=== PATIENT | female | born 1930 | race Caucasian/White ===

== ENCOUNTER 2017-03-12 23:36 | Inpatient (IN) | payer MEDICARE, OTHER ==
[~2017-03-12] VITALS: Ht 165.1 cm; Wt 64.9 kg
[2017-03-13] MEDS ORDERED: DULO60CA6 PO (00:37)
[2017-03-13] MEDS ORDERED: MAGN2400 PO (00:37)
[2017-03-13] MEDS ORDERED: CARV3.12 PO (00:37)
[2017-03-13] MEDS ORDERED: DIVA500T4 PO (00:37)
[2017-03-13] MEDS ORDERED: CYAN10002 IM (00:37)
[2017-03-13] MEDS ORDERED: ACET325T9 PO (00:37)
[2017-03-13] MEDS ORDERED: PALI6TAB3 PO (00:37)
[2017-03-13] MEDS ORDERED: BISA5TAB4 PO (00:37)
[2017-03-13] MEDS ORDERED: LORA10TA68 PO (00:37)
[2017-03-13] MEDS ORDERED: GUAI600T47 PO (00:37)
[2017-03-13] MEDS ORDERED: SODI30SP NS ×2 (00:37→04:05)
[2017-03-13] MEDS ORDERED: FAMO20TA5 PO (00:37)
[2017-03-13] MEDS ORDERED: LEVO88TA4 PO (00:37)
[2017-03-13] MEDS ORDERED: ATOR40TA59 PO (00:37)
[2017-03-13] MEDS ORDERED: MAG355OR11 PO (00:37)
[2017-03-13] MEDS ORDERED: ASPI-630 PO (00:37)
[2017-03-13] MEDS ORDERED: NITR0.4T22 SL (00:37)
[2017-03-13] MEDS ORDERED: METHYL SALICYLATE/MENTHOL TOPICAL OINTMENT 29GM TUBE. TP PRN (03:30)
[2017-03-13] MEDS ORDERED: BISACODYL TAB 5 MG TABLET.DR. PO PRN (04:00)
[2017-03-13] MEDS ORDERED: NITROGLYCERIN SUBLINGUAL 0.4 MG BOTTLE OF 25. SL PRN (04:00)
[2017-03-13 04:03] VITALS: BP 127/74
[2017-03-13] MEDS ORDERED: MAG HYDROX/AL HYDROX/SIMETH 30 ML ORAL.SUSP PO PRN (04:30)
[2017-03-13 06:35] LABS: BASO % 1 % (0-3); EOS # 0.2 x10^3/uL (0.0-0.7); EOS % 3 % (0-3); HEMATOCRIT 36.9 % (36.0-47.0); HEMOGLOBIN 12.5 g/dL (12.0-15.5); LYMPH # 1.2 x10^3/uL (1.0-4.8); LYMPH % 19 % (24-48); MEAN CORPUSCULAR HEMOGLOBIN 29 pg (25-35); MEAN CORPUSCULAR HGB CONC 34 g/dL (31-37); MEAN CORPUSCULAR VOLUME 85 fL (79-100); MONO # 1.3 x10^3/uL (0.0-1.1); MONO % 22 % (0-9); NEUT # 3.4 x10^3uL (1.8-7.7); NEUT % 56 % (31-73); PLATELET COUNT 79 x10^3/uL (140-400); RED BLOOD COUNT 4.36 x10^6/uL (3.50-5.40); RED CELL DISTRIBUTION WIDTH 19.2 % (11.5-14.5); WHITE BLOOD COUNT 6.1 x10^3/uL (4.0-11.0)
[2017-03-13 06:45] LABS: ALBUMIN 2.9 g/dL (3.4-5.0); ALBUMIN/GLOBULIN RATIO 0.9 (1.0-1.7); CALCIUM 7.8 mg/dL (8.5-10.1); CREATININE 0.7 mg/dL (0.6-1.0); GFR 79.2; MAGNESIUM 1.9 mg/dL (1.8-2.4); POTASSIUM 3.2 mmol/L (3.5-5.1); TOTAL PROTEIN 6.1 g/dL (6.4-8.2)
[2017-03-13 06:51] LABS: VAL ACID 54 mcg/mL (50-100)
[2017-03-13] MEDS ORDERED: LEVOTHYROXINE 88 MCG TABLET PO SCH (07:00)
[2017-03-13 07:25] LABS: CLARITY,URINE CLEAR; COLOR,URINE YELLOW
[2017-03-13 07:26] LABS: BACTERIA,URINE 0 /HPF (0-FEW); BILIRUBIN,URINE NEG (NEG); GLUCOSE,URINE NEG (NEG); NITRITE,URINE NEG (NEG); SQUAMOUS EPITHELIAL CELL,UR FEW /LPF; UROBILINOGEN,URINE 0.2 mg/dL (0.2 mg/dL)
[2017-03-13] MEDS ORDERED: CETIRIZINE HCL 10 MG TABLET PO PRN (09:00)
[2017-03-13] MEDS: CARVEDILOL 3.125 MG TABLET PO SCH ×2 (09:26→17:15)
[2017-03-13] MEDS: ASPIRIN 81 MG TAB.CHEW PO SCH (09:27)
[2017-03-13] MEDS: FAMOTIDINE 20 MG TABLET PO SCH (09:28)
[2017-03-13] MEDS: DULoxetine HCL 60 MG CAPSULE.DR PO SCH (09:28)
[2017-03-13] MEDS: DIVALPROEX SODIUM 250 MG TABLET.DR. PO SCH ×2 (09:28→20:33)
[2017-03-13] MEDS: risperiDONE 1 MG TABLET. PO SCH ×2 (09:28→20:33)
[2017-03-13] MEDS: SODIUM CHLORIDE 0.65% NASAL SPRAY 45ML BOTTLE. NS SCH ×2 (09:48→20:33)
[2017-03-13 10:11] LABS: THYROID STIM HORMONE (TSH) 20.055 uIU/mL (0.358-3.740)
[2017-03-13 12:10] LABS: T3 TOTAL 54 ng/dL (71-180); THYROXINE 4.5 ug/dL (4.5-12.0)
[2017-03-13 16:08] VITALS: BP 152/89
[2017-03-13 18:07] LABS: HEMOGLOBIN A1C 5.1 % (4.8-5.6)
--- NOTE | 2017-03-13 19:58 | PDOC ---
Exam Note: Marco Note: Please also refer to the separate dictated note~for this date of service dictated separately.~Patient seen individually. Discussed the patient with Nursing staff reviewed the chart.~Reviewed interim history and current functioning. Reviewed vital signs,~Labs/ Radiology~and current medications noted below. Continue current treatment with the changes noted in the dictated addendum note Assessment: Vital Signs: Vital Signs Date Time Temp Pulse Resp B/P (MAP) Pulse Ox O2 Delivery O2 Flow Rate FiO2 03/13/17 17:15 76 152/89 03/13/17 16:08 97.6 18 97 Room Air I&O Intake and Output 03/14/17 07:00 Intake Total 440 ml Balance 440 ml Intake Oral 440 ml Labs: Laboratory Tests Test 03/13/17 06:20 03/13/17 07:00 White Blood Count 6.1 x10^3/uL (4.0-11.0) Red Blood Count 4.36 x10^6/uL (3.50-5.40) Hemoglobin 12.5 g/dL (12.0-15.5) Hematocrit 36.9 % (36.0-47.0) Mean Corpuscular Volume 85 fL (79-100) Mean Corpuscular Hemoglobin 29 pg (25-35) Mean Corpuscular Hemoglobin Concent 34 g/dL (31-37) Red Cell Distribution Width 19.2 % (11.5-14.5) H Platelet Count 79 x10^3/uL (140-400) L Neutrophils (%) (Auto) 56 % (31-73) Lymphocytes (%) (Auto) 19 % (24-48) L Monocytes (%) (Auto) 22 % (0-9) H Eosinophils (%) (Auto) 3 % (0-3) Basophils (%) (Auto) 1 % (0-3) Neutrophils # (Auto) 3.4 x10^3uL (1.8-7.7) Lymphocytes # (Auto) 1.2 x10^3/uL (1.0-4.8) Monocytes # (Auto) 1.3 x10^3/uL (0.0-1.1) H Eosinophils # (Auto) 0.2 x10^3/uL (0.0-0.7) Basophils # (Auto) 0.0 x10^3/uL (0.0-0.2) Sodium Level 141 mmol/L (136-145) Potassium Level 3.2 mmol/L (3.5-5.1) L Chloride Level 105 mmol/L (98-107) Carbon Dioxide Level 29 mmol/L (21-32) Anion Gap 7 (6-14) Blood Urea Nitrogen 6 mg/dL (7-20) L Creatinine 0.7 mg/dL (0.6-1.0) Estimated GFR (Cockcroft-Gault) 79.2 BUN/Creatinine Ratio 9 (6-20) Glucose Level 98 mg/dL (70-99) Hemoglobin A1c 5.1 % (4.8-5.6) Calcium Level 7.8 mg/dL (8.5-10.1) L Magnesium Level 1.9 mg/dL (1.8-2.4) Iron Level 22 ug/dL (50-170) L Total Iron Binding Capacity 287 ug/dL (250-450) Iron Saturation 8 % (15-34) L Total Bilirubin 1.0 mg/dL (0.2-1.0) Aspartate Amino Transferase (AST) 14 U/L (15-37) L Alanine Aminotransferase (ALT) 19 U/L (14-59) Alkaline Phosphatase 42 U/L (46-116) L Total Protein 6.1 g/dL (6.4-8.2) L Albumin 2.9 g/dL (3.4-5.0) L Albumin/Globulin Ratio 0.9 (1.0-1.7) L Triglycerides Level 67 mg/dL (0-150) Cholesterol Level 103 mg/dL (0-200) LDL Cholesterol, Calculated 52 mg/dL (0-100) VLDL Cholesterol, Calculated 13 mg/dL (0-40) Non-HDL Cholesterol Calculated 65 mg/dL (0-129) HDL Cholesterol 38 mg/dL (40-60) L Cholesterol/HDL Ratio 2.0 Thyroid Stimulating Hormone (TSH) 20.055 uIU/mL (0.358-3.740) Thyroxine (T4) 4.5 ug/dL (4.5-12.0) Total Triiodothyronine (TT3) 54 ng/dL (71-180) L Valproic Acid Level 54 mcg/mL (50-100) Valproic Acid Last Dose Date 03/12/2017 Valproic Acid Last Dose Time 2100 RPR Titer Additional Testing Pending Urine Collection Type Unknown Urine Color Yellow Urine Clarity Clear Urine pH 7.0 Urine Specific [place] 1.020 Urine Protein Neg (NEG-TRACE) Urine Glucose (UA) Neg mg/dL (NEG) Urine Ketones (Stick) Trace mg/dL (NEG) Urine Blood Trace (NEG) Urine Nitrite Neg (NEG) Urine Bilirubin Neg (NEG) Urine Urobilinogen Dipstick 0.2 mg/dL (0.2 mg/dL) Urine Leukocyte Esterase Neg (NEG) Urine RBC 3-5 /HPF (0-2) Urine WBC 1-4 /HPF (0-4) Urine Squamous Epithelial Cells Few /LPF Urine Bacteria 0 /HPF (0-FEW) Current Medications: Meds: Current Medications Multi-Ingredient Ointment (Analgesic [employer]) 1 diana PRN QID PRN TP MUSCLE PAIN; Start 03/13/17 at 03:30 Olanzapine (ZyPREXA ZYDIS) 1.25 mg PRN Q2HR PRN PO PSYCHOSIS; Start 03/13/17 at 03:45 Acetaminophen (Tylenol) 650 mg PRN Q6HRS PRN PO MILD PAIN/TEMP; Start at 04:00 Aspirin (Children'S Aspirin) 81 mg DAILY PO Last administered on 03/13/17 09: 27; Start 03/13/17 at 09:00 Bisacodyl (Dulcolax Tab) 5 mg PRN DAILY PRN PO CONSTIPATION; Start 03/13/17 at 04:00 Carvedilol (Coreg) 3.125 mg BIDWMEALS PO Last administered on 03/13/17 17:15 ; Start 03/13/17 at 08:00 Cyanocobalamin (Vitamin B-12) 1,000 mcg QMONTH IM ; Start 04/10/17 at 09:00 Famotidine (Pepcid) 20 mg DAILY PO Last administered on 03/13/17 09:28; Start 03/13/17 at 09:00 Guaifenesin (Mucinex Er) 600 mg PRN BID PRN PO COUGH; Start 03/13/17 at 04:00 Levothyroxine Sodium (Synthroid) 88 mcg DAILY07 PO Last administered on 06:31; Start 03/13/17 at 07:00; Stop 03/13/17 at 16:07; Status DC Nitroglycerin (Nitrostat) 0.4 mg PRN Q5MIN PRN SL CHEST PAIN; Start 03/13/17 at 04:00 Sodium Chloride (Saline Mist Nasal) 2 diana BID NS ; Start 03/13/17 at 09:00 Atorvastatin Calcium (Lipitor) 40 mg QHS PO ; Start 03/13/17 at 21:00 Cetirizine HCl (ZyrTEC) 10 mg PRN DAILY PRN PO ALLERGIES; Start 03/13/17 at 09 :00 Al Hydroxide/Mg Hydroxide (Mylanta Plus Xs) 30 ml PRN DAILY PRN PO DYSPEPSIA; Start 03/13/17 at 04:30 Magnesium Hydroxide (Milk Of Magnesia) 2,400 mg PRN DAILY PRN PO CONSTIPATION; Start 03/13/17 at 04:30 Divalproex Sodium (Depakote) 500 mg BID PO Last administered on 03/13/17 09: 28; Start 03/13/17 at 09:00 Duloxetine HCl (Cymbalta) 60 mg DAILY PO Last administered on 03/13/17 09:28 ; Start 03/13/17 at 09:00 Risperidone (RisperDAL) 3 mg BID PO Last administered on 03/13/17 09:28; Start 03/13/17 at 09:00 Levothyroxine Sodium (Synthroid) 125 mcg DAILY07 PO ; Start 03/14/17 at 07:00 Potassium Chloride (Klor-Con) 20 meq BID PO ; Start 03/13/17 at 21:00 Mirtazapine (Remeron) 7.5 mg QHS PO ; Start 03/13/17 at 21:00 Active Scripts Active Reported Saline Nasal [place] (Sodium Chloride) 30 Ml [place] 2 Spr NS BID NITROGLYCERIN SubLingual (Nitroglycerin) 0.4 Mg Tab.subl 0.4 Mg SL PRN Q5MIN PRN Mucinex (Guaifenesin) 600 Mg Tablet.er 600 Mg PO PRN BID PRN Milk Of Magnesia (Magnesium Hydroxide) 2,400 Mg/10 Ml Oral.susp 30 Ml PO PRN DAILY PRN Maalox Advanced Suspension (Mag Hydrox/Aluminum Hyd/Simeth) 355 Ml Oral.susp 30 Ml PO PRN Q24HRS Levothyroxine Sodium 88 Mcg Tablet 88 Mcg PO DAILYAC Invega (Paliperidone) 6 Mg Tab.er.24 6 Mg PO QHS Famotidine 20 Mg Tablet 20 Mg PO DAILY Bisacodyl 5 Mg Tablet.dr 5 Mg PO PRN DAILY PRN Depakote Er (Divalproex Sodium) 500 Mg Tab.er.24h 500 Mg PO BID Cymbalta (Duloxetine Hcl) 60 Mg Capsule.dr 60 Mg PO DAILY Cyanocobalamin Injection (Cyanocobalamin (Vitamin B-12)) 1,000 Mcg/1 Ml Vial 1, 000 Mcg IJ QMONTH Coreg (Carvedilol) 3.125 Mg Tablet 3.125 Mg PO BIDWMEALS Claritin (Loratadine) 10 Mg Tablet 10 Mg PO PRN DAILY PRN Atorvastatin Calcium 40 Mg Tablet 40 Mg PO QHS Aspirin 81 Mg Tab.chew 81 Mg PO DAILY Tylenol (Acetaminophen) 325 Mg Tablet 650 Mg PO PRN Q6HRS I have reviewed the current psychotropics carefully including drug interactions. Risk benefit ratio favors no change other than as noted in my dictated progress note. PATRICIA HUNT MD Mar 13, 2017 19:58
[2017-03-13] MEDS: POTASSIUM CHLORIDE 20 MEQ TABLET.ER. PO SCH (20:35)
[2017-03-13] MEDS: ATORVASTATIN CALCIUM 20 MG TABLET PO SCH (20:35)
[2017-03-13] MEDS: MIRTAZAPINE 7.5 MG TABLET. PO SCH (20:35)
[2017-03-14 06:32] VITALS: BP 117/80
[2017-03-14] MEDS: LEVOTHYROXINE 125 MCG TABLET PO SCH (06:32)
[2017-03-14] MEDS: DIVALPROEX SODIUM 250 MG TABLET.DR. PO SCH ×2 (08:18→19:32)
[2017-03-14] MEDS: CARVEDILOL 3.125 MG TABLET PO SCH ×2 (08:18→16:41)
[2017-03-14] MEDS: POTASSIUM CHLORIDE 20 MEQ TABLET.ER. PO SCH ×2 (08:18→19:32)
[2017-03-14] MEDS: DULoxetine HCL 60 MG CAPSULE.DR PO SCH (08:18)
[2017-03-14] MEDS: FAMOTIDINE 20 MG TABLET PO SCH (08:18)
[2017-03-14] MEDS: ASPIRIN 81 MG TAB.CHEW PO SCH (08:18)
[2017-03-14] MEDS: risperiDONE 1 MG TABLET. PO SCH (08:19)
[2017-03-14 08:31] VITALS: BP 160/97
[2017-03-14] MEDS: SODIUM CHLORIDE 0.65% NASAL SPRAY 45ML BOTTLE. NS SCH ×2 (10:17→20:06)
--- NOTE | 2017-03-14 11:08 | HP ---
ADMIT DATE: 03/13/2017 This is a late entry for date of service 03/13/2017 and covers elements not covered in my initial note of 03/13/2017. SUMMARY OF PROGRESS: I met with the patient the evening of 03/13/2017 for this evaluation. Discussed with nursing staff several times prior to the patient's admission and since her admission to gather background history, information regarding referral from [facility] Emergency Room where she presented from [facility]. IDENTIFYING DATA: The patient is an 86-year-old female. CHIEF COMPLAINT: "I am okay." HISTORY OF PRESENT ILLNESS: The patient has a history of dementia, Alzheimer's vascular type. She has been residing in the past several days, she has had increasing aggressive with family and staff at the facility. She is attempting to elope and has done this several times down the stairwell twice and attempted to climb out of the window. She has been delusional, paranoid and having sleep and appetite changes. Behaviors were deemed to be dangerous, unmanageable at the facility resulting in the referral to the Emergency Room and then to us for inpatient psychiatric stabilization. No clear history of bipolar disorder. PAST PSYCHIATRIC HISTORY: Progressive dementia, delusions, agitation. PAST MEDICAL HISTORY: Coronary artery disease, COPD, asthma, hyperlipidemia, hypothyroidism, plantar fasciitis, anemia, B12 deficiency, GERD, allergic rhinitis, mitral valve regurgitation, hypertension, subdural hematoma, cardiomyopathy, history of pulmonary embolism, PSVT. ALLERGIES: BIAXIN, CODEINE, SULFA, PENICILLIN, spironolactone, mushrooms. Accu-Cheks: None. Diet: Dysphagia 3. She ambulates ad steve. CODE STATUS: DNR. CURRENT PSYCHOTROPICS: Cymbalta 60 mg a day, Depakote ER 500 mg b.i.d. with a valproic acid level of 54, Invega 6 mg daily. FAMILY HISTORY: Noncontributory. SOCIAL HISTORY: No alcohol, drug abuse, physical, sexual or elder abuse. She is not known to be a perpetrator. REACTION TO HOSPITALIZATION: The patient oblivious of this asset. Physically, reasonably healthy, supportive family. REVIEW OF SYSTEMS: No CV, , eye, ENT or pulmonary system symptoms on review. Reliability poor. MENTAL STATUS EXAMINATION: Oriented to herself. Insight, judgment, recent and remote memory, attention, concentration, fund of knowledge poor, consistent with her diagnosis. Associations loose. She was unable to answer questions directly, would drift off in her thought processes and for the most part, unable comprehend while trying to communicate. No active suicidal or homicidal ideation. IMPRESSION: Major neurocognitive disorder, Alzheimer, vascular with depression, delusion, behavioral disturbance; anxiety disorder, unspecified; impulse control disorder, unspecified. Rest diagnoses as above. PLAN: Admit to the geropsychiatry unit at [facility]. I will see the patient daily individually from a psychiatric standpoint. Medical followup per Dr. Arroyo/Dr. Fitzpatrick. TSH is elevated. Synthroid has been increased to 125 mcg a day. Potassium is low, is being supplemented. She slept just 3-3/4 hours previous evening. We will start Remeron 7.5 mg p.o. at bedtime. Continue current psychotropics and make further adjustments as clinically indicated. MAN Kehinde HUNT MD DR: MARCOS/yusef JOB#: [id number] / [id number]
--- NOTE | 2017-03-14 11:25 | CONS ---
DATE OF CONSULTATION: 03/13/2017 MEDICAL MANAGEMENT CONSULTATION HISTORY OF PRESENT ILLNESS: The patient is an 86-year-old female patient, a resident at [facility] in [place], [place], was [facility] on account of increasing agitation and aggression with family and staff at the facility, attempting to elope several times. She attempted also to climb out of the window, all this in the background of dementia with behavioral disturbances. She is here for inpatient psychiatric stabilization. PAST MEDICAL HISTORY: Significant for coronary artery disease, chronic obstructive pulmonary disease, bronchial asthma, hyperlipidemia, hypothyroidism, plantar fascitis, anemia, B12 deficiency, gastroesophageal reflux disease, allergic rhinitis, mitral valve regurgitation, hypertension, subdural hematoma, cardiomyopathy. She has a history of pulmonary embolism, paroxysmal supraventricular tachycardia. PAST PSYCHIATRIC HISTORY: Significant for dementia, schizophrenia, and anxiety. ALLERGIES: SHE IS ALLERGIC TO BIAXIN(CLARITHROMYCIN), CODEINE, SULFA DRUGS, PENICILLIN, SPIRONOLACTONE, AND MUSHROOMS. MEDICATIONS: She is currently on following medications: She is on acetaminophen 650 mg p.o. q.6 hourly, aspirin 81 mg once a day, atorvastatin, calcium 40 mg at bedtime, bisacodyl 5 mg daily, carvedilol 3.125 mg twice a day with meals, cyanocobalamin 1000 mcg intramuscular once a month, divalproex sodium 500 mg extended release twice a day, duloxetine 60 mg once a day, famotidine 20 mg once a day, Mucinex 600 mg twice a day, levothyroxine sodium 88 mcg once a day, loratadine 10 mg daily, Maalox 30 mL p.o. every day p.r.n. for dyspepsia, milk of magnesia 30 mL p.o. daily p.r.n. for constipation, nitroglycerin 0.4 mg tablet sublingually as needed for chest pain, paliperidone or Invega 6 mg p.o. at bedtime and saline nasal spray 2 sprays to each nostril twice a day. FAMILY HISTORY: Unremarkable and noncontributory. SOCIAL HISTORY: She is , has a son and daughter. She used to be a smoker according to her and heavy drinker. OBJECTIVE: GENERAL: When I examined her, she was sitting comfortably in her chair in no apparent respiratory distress. She was pale. No jaundice, cyanosis, or thyromegaly. No jugular venous distention. No limb edema. VITAL SIGNS: Her heart rate was 68, blood pressure 127/74, her temperature was 97.9, respiratory rate 20, and oxygen saturation was 95% on room air. HEAD: Showed normocephalic, atraumatic. NECK: Supple. HEART: Showed normal first and second heart sounds with no gallop, rub or murmur. CHEST: Clear to auscultation. No crepitation or rhonchi. ABDOMEN: Slightly distended, soft, nontender. No guarding or rigidity. No organomegaly. Hernial orifices intact. Bowel sounds normal. NEUROLOGIC: She was awake, alert, responding at times appropriately. Cranial nerves intact. EXTREMITIES: She moves extremities without difficulty. LABORATORY DATA: Her lab work on admission showed serum sodium of 141, potassium 3.2, chloride 105, bicarbonate 29, anion gap of 7, BUN 6, creatinine 0.7, estimated GFR was 79 mL per minute. Her glucose was 98, calcium was 7.8, magnesium was 1.9. Serum iron was 22, TIBC was 287, total percent saturation was 8. Total bilirubin is 1. AST, ALT, alkaline phosphatase are normal. Total protein was 6.1, albumin was 2.9, her serum triglycerides were 67, total cholesterol 103, LDL cholesterol was 52, VLDL was 13 and HDL cholesterol was 38 and cholesterol ratio was 2. TSH was high at 20.055. Her total T4 was 4.5 and total T3 was 54. Her urinalysis was unremarkable. Urine toxic screen showed valproic acid was 54 mcg/mL within normal range. Her RPR is still pending. IMPRESSION: In summary, this is an 86-year-old female patient who was admitted with increased agitation, aggression with family and staff at the facility, attempting to elope several times downstairs twice and attempted to climb out of the window twice. All this in a background of dementia with behavioral disturbances. Medically, she has multiple medical problems including COPD, bronchial asthma, hyperlipidemia, hypothyroidism, plantar fasciitis, anemia, B12 deficiency, gastroesophageal reflux disease, mitral valve regurgitation, hypertension, subdural hematoma, cardiomyopathy, pulmonary embolism and paroxysmal supraventricular tachycardia. Her vital signs seem to be stable. Her lab work showed that she has thrombocytopenia with a platelet count of 79,000. Her chemistry showed that she has hypokalemia with serum potassium of 3.2. Also her TSH was high at 20 with low total T4 and total T3. PLAN: My plan is to make sure that the patient is getting her Synthroid at 88 mcg, replenish her potassium. She is not on so far any diuretics and we will check her vitamin B12 also to make sure that it is within normal range as she is known to have vitamin B12 deficiency. Otherwise, she is mostly medically stable. Thank you, Dr. Palencia, for allowing me to participate in the care of this patient. FERMIN ANDERSON MD DR: VAL/yusef JOB#: [id number] / [id number]
[2017-03-14 16:05] VITALS: BP 138/81
[2017-03-14] MEDS: MIRTAZAPINE 7.5 MG TABLET. PO SCH (19:31)
[2017-03-14] MEDS: ATORVASTATIN CALCIUM 20 MG TABLET PO SCH (19:32)
--- NOTE | 2017-03-14 19:59 | PDOC ---
Exam Note: Marco Note: Please also refer to the separate dictated note~for this date of service dictated separately.~Patient seen individually. Discussed the patient with Nursing staff reviewed the chart.~Reviewed interim history and current functioning. Reviewed vital signs,~Labs/ Radiology~and current medications noted below. Continue current treatment with the changes noted in the dictated addendum note Assessment: Vital Signs: Vital Signs Date Time Temp Pulse Resp B/P (MAP) Pulse Ox O2 Delivery O2 Flow Rate FiO2 03/14/17 16:41 73 138/81 03/14/17 16:05 97.2 18 94 Room Air I&O Intake and Output 03/15/17 07:00 Intake Total 480 ml Balance 480 ml Intake Oral 480 ml Current Medications: Meds: Current Medications Multi-Ingredient Ointment (Analgesic [place]) 1 diana PRN QID PRN TP MUSCLE PAIN; Start 03/13/17 at 03:30 Olanzapine (ZyPREXA ZYDIS) 1.25 mg PRN Q2HR PRN PO PSYCHOSIS; Start 03/13/17 at 03:45 Acetaminophen (Tylenol) 650 mg PRN Q6HRS PRN PO MILD PAIN/TEMP; Start at 04:00 Aspirin (Children'S Aspirin) 81 mg DAILY PO Last administered on 03/14/17 08: 18; Start 03/13/17 at 09:00 Bisacodyl (Dulcolax Tab) 5 mg PRN DAILY PRN PO CONSTIPATION; Start 03/13/17 at 04:00 Carvedilol (Coreg) 3.125 mg BIDWMEALS PO Last administered on 03/14/17 16:41 ; Start 03/13/17 at 08:00 Cyanocobalamin (Vitamin B-12) 1,000 mcg QMONTH IM ; Start 04/10/17 at 09:00 Famotidine (Pepcid) 20 mg DAILY PO Last administered on 03/14/17 08:18; Start 03/13/17 at 09:00 Guaifenesin (Mucinex Er) 600 mg PRN BID PRN PO COUGH; Start 03/13/17 at 04:00 Levothyroxine Sodium (Synthroid) 88 mcg DAILY07 PO Last administered on 06:31; Start 03/13/17 at 07:00; Stop 03/13/17 at 16:07; Status DC Nitroglycerin (Nitrostat) 0.4 mg PRN Q5MIN PRN SL CHEST PAIN; Start 03/13/17 at 04:00 Sodium Chloride (Saline Mist Nasal) 2 diana BID NS ; Start 03/13/17 at 09:00 Atorvastatin Calcium (Lipitor) 40 mg QHS PO Last administered on 03/14/17 19: 32; Start 03/13/17 at 21:00 Cetirizine HCl (ZyrTEC) 10 mg PRN DAILY PRN PO ALLERGIES; Start 03/13/17 at 09 :00 Al Hydroxide/Mg Hydroxide (Mylanta Plus Xs) 30 ml PRN DAILY PRN PO DYSPEPSIA; Start 03/13/17 at 04:30 Magnesium Hydroxide (Milk Of Magnesia) 2,400 mg PRN DAILY PRN PO CONSTIPATION; Start 03/13/17 at 04:30 Divalproex Sodium (Depakote) 500 mg BID PO Last administered on 03/14/17 19: 32; Start 03/13/17 at 09:00 Duloxetine HCl (Cymbalta) 60 mg DAILY PO Last administered on 03/14/17 08:18 ; Start 03/13/17 at 09:00 Risperidone (RisperDAL) 3 mg BID PO Last administered on 03/14/17 08:19; Start 03/13/17 at 09:00; Stop 03/14/17 at 18:13; Status DC Levothyroxine Sodium (Synthroid) 125 mcg DAILY07 PO Last administered on 06:32; Start 03/14/17 at 07:00 Potassium Chloride (Klor-Con) 20 meq BID PO Last administered on 03/14/17 19: 32; Start 03/13/17 at 21:00 Mirtazapine (Remeron) 7.5 mg QHS PO Last administered on 03/14/17 19:31; Start 03/13/17 at 21:00 Active Scripts Active Reported Saline Nasal [place] (Sodium Chloride) 30 Ml [place] 2 Spr NS BID NITROGLYCERIN SubLingual (Nitroglycerin) 0.4 Mg Tab.subl 0.4 Mg SL PRN Q5MIN PRN Mucinex (Guaifenesin) 600 Mg Tablet.er 600 Mg PO PRN BID PRN Milk Of Magnesia (Magnesium Hydroxide) 2,400 Mg/10 Ml Oral.susp 30 Ml PO PRN DAILY PRN Maalox Advanced Suspension (Mag Hydrox/Aluminum Hyd/Simeth) 355 Ml Oral.susp 30 Ml PO PRN Q24HRS Levothyroxine Sodium 88 Mcg Tablet 88 Mcg PO DAILYAC Invega (Paliperidone) 6 Mg Tab.er.24 6 Mg PO QHS Famotidine 20 Mg Tablet 20 Mg PO DAILY Bisacodyl 5 Mg Tablet.dr 5 Mg PO PRN DAILY PRN Depakote Er (Divalproex Sodium) 500 Mg Tab.er.24h 500 Mg PO BID Cymbalta (Duloxetine Hcl) 60 Mg Capsule.dr 60 Mg PO DAILY Cyanocobalamin Injection (Cyanocobalamin (Vitamin B-12)) 1,000 Mcg/1 Ml Vial 1, 000 Mcg IJ QMONTH Coreg (Carvedilol) 3.125 Mg Tablet 3.125 Mg PO BIDWMEALS Claritin (Loratadine) 10 Mg Tablet 10 Mg PO PRN DAILY PRN Atorvastatin Calcium 40 Mg Tablet 40 Mg PO QHS Aspirin 81 Mg Tab.chew 81 Mg PO DAILY Tylenol (Acetaminophen) 325 Mg Tablet 650 Mg PO PRN Q6HRS I have reviewed the current psychotropics carefully including drug interactions. Risk benefit ratio favors no change other than as noted in my dictated progress note. Diagnosis: Problems: (1) Anxiety disorder (2) Dementia in Alzheimer's disease with depression (3) Dementia in Alzheimer's disease with delusions (4) Dementia, vascular, with delusions (5) Dementia, vascular, with delirium (6) Impulse control disorder PATRICIA HUNT MD Mar 14, 2017 19:59
[2017-03-15 06:00] VITALS: BP 153/92
[2017-03-15] MEDS: LEVOTHYROXINE 125 MCG TABLET PO SCH (06:13)
[2017-03-15] MEDS: CARVEDILOL 3.125 MG TABLET PO SCH ×2 (08:38→17:09)
[2017-03-15] MEDS: DIVALPROEX SODIUM 250 MG TABLET.DR. PO SCH ×2 (08:39→19:30)
[2017-03-15] MEDS: ASPIRIN 81 MG TAB.CHEW PO SCH (08:39)
[2017-03-15] MEDS: SODIUM CHLORIDE 0.65% NASAL SPRAY 45ML BOTTLE. NS SCH ×2 (08:39→19:31)
[2017-03-15] MEDS: DULoxetine HCL 60 MG CAPSULE.DR PO SCH (08:39)
[2017-03-15] MEDS: FAMOTIDINE 20 MG TABLET PO SCH (08:40)
[2017-03-15] MEDS: POTASSIUM CHLORIDE 20 MEQ TABLET.ER. PO SCH ×2 (08:40→19:30)
[2017-03-15 16:18] VITALS: BP 128/77
[2017-03-15] MEDS: ATORVASTATIN CALCIUM 20 MG TABLET PO SCH (19:30)
[2017-03-15] MEDS: MIRTAZAPINE 7.5 MG TABLET. PO SCH (19:30)
--- NOTE | 2017-03-15 20:13 | PDOC ---
Exam Note: Marco Note: Please also refer to the separate dictated note~for this date of service dictated separately.~Patient seen individually. Discussed the patient with Nursing staff reviewed the chart.~Reviewed interim history and current functioning. Reviewed vital signs,~Labs/ Radiology~and current medications noted below. Continue current treatment with the changes noted in the dictated addendum note Assessment: Vital Signs: Vital Signs Date Time Temp Pulse Resp B/P (MAP) Pulse Ox O2 Delivery O2 Flow Rate FiO2 03/15/17 17:09 73 128/77 03/15/17 16:18 97.1 18 97 03/14/17 16:05 Room Air I&O Intake and Output 03/15/17 07:00 Intake Total 725 ml Balance 725 ml Intake Oral 725 ml Current Medications: Meds: Current Medications Multi-Ingredient Ointment (Analgesic [place]) 1 diana PRN QID PRN TP MUSCLE PAIN; Start 03/13/17 at 03:30 Olanzapine (ZyPREXA ZYDIS) 1.25 mg PRN Q2HR PRN PO PSYCHOSIS; Start 03/13/17 at 03:45 Acetaminophen (Tylenol) 650 mg PRN Q6HRS PRN PO MILD PAIN/TEMP; Start at 04:00 Aspirin (Children'S Aspirin) 81 mg DAILY PO Last administered on 03/15/17 08: 39; Start 03/13/17 at 09:00 Bisacodyl (Dulcolax Tab) 5 mg PRN DAILY PRN PO CONSTIPATION; Start 03/13/17 at 04:00 Carvedilol (Coreg) 3.125 mg BIDWMEALS PO Last administered on 03/15/17 17:09 ; Start 03/13/17 at 08:00 Cyanocobalamin (Vitamin B-12) 1,000 mcg QMONTH IM ; Start 04/10/17 at 09:00 Famotidine (Pepcid) 20 mg DAILY PO Last administered on 03/15/17 08:40; Start 03/13/17 at 09:00 Guaifenesin (Mucinex Er) 600 mg PRN BID PRN PO COUGH; Start 03/13/17 at 04:00 Levothyroxine Sodium (Synthroid) 88 mcg DAILY07 PO Last administered on 06:31; Start 03/13/17 at 07:00; Stop 03/13/17 at 16:07; Status DC Nitroglycerin (Nitrostat) 0.4 mg PRN Q5MIN PRN SL CHEST PAIN; Start 03/13/17 at 04:00 Sodium Chloride (Saline Mist Nasal) 2 diana BID NS Last administered on 19:31; Start 03/13/17 at 09:00 Atorvastatin Calcium (Lipitor) 40 mg QHS PO Last administered on 03/15/17 19: 30; Start 03/13/17 at 21:00 Cetirizine HCl (ZyrTEC) 10 mg PRN DAILY PRN PO ALLERGIES; Start 03/13/17 at 09 :00 Al Hydroxide/Mg Hydroxide (Mylanta Plus Xs) 30 ml PRN DAILY PRN PO DYSPEPSIA; Start 03/13/17 at 04:30 Magnesium Hydroxide (Milk Of Magnesia) 2,400 mg PRN DAILY PRN PO CONSTIPATION; Start 03/13/17 at 04:30 Divalproex Sodium (Depakote) 500 mg BID PO Last administered on 03/15/17 19: 30; Start 03/13/17 at 09:00 Duloxetine HCl (Cymbalta) 60 mg DAILY PO Last administered on 03/15/17 08:39 ; Start 03/13/17 at 09:00 Risperidone (RisperDAL) 3 mg BID PO Last administered on 03/14/17 08:19; Start 03/13/17 at 09:00; Stop 03/14/17 at 18:13; Status DC Levothyroxine Sodium (Synthroid) 125 mcg DAILY07 PO Last administered on 06:13; Start 03/14/17 at 07:00 Potassium Chloride (Klor-Con) 20 meq BID PO Last administered on 03/15/17 19: 30; Start 03/13/17 at 21:00 Mirtazapine (Remeron) 7.5 mg QHS PO Last administered on 03/15/17 19:30; Start 03/13/17 at 21:00 Active Scripts Active Reported Saline Nasal [place] (Sodium Chloride) 30 Ml [place] 2 Spr NS BID NITROGLYCERIN SubLingual (Nitroglycerin) 0.4 Mg Tab.subl 0.4 Mg SL PRN Q5MIN PRN Mucinex (Guaifenesin) 600 Mg Tablet.er 600 Mg PO PRN BID PRN Milk Of Magnesia (Magnesium Hydroxide) 2,400 Mg/10 Ml Oral.susp 30 Ml PO PRN DAILY PRN Maalox Advanced Suspension (Mag Hydrox/Aluminum Hyd/Simeth) 355 Ml Oral.susp 30 Ml PO PRN Q24HRS Levothyroxine Sodium 88 Mcg Tablet 88 Mcg PO DAILYAC Invega (Paliperidone) 6 Mg Tab.er.24 6 Mg PO QHS Famotidine 20 Mg Tablet 20 Mg PO DAILY Bisacodyl 5 Mg Tablet.dr 5 Mg PO PRN DAILY PRN Depakote Er (Divalproex Sodium) 500 Mg Tab.er.24h 500 Mg PO BID Cymbalta (Duloxetine Hcl) 60 Mg Capsule.dr 60 Mg PO DAILY Cyanocobalamin Injection (Cyanocobalamin (Vitamin B-12)) 1,000 Mcg/1 Ml Vial 1, 000 Mcg IJ QMONTH Coreg (Carvedilol) 3.125 Mg Tablet 3.125 Mg PO BIDWMEALS Claritin (Loratadine) 10 Mg Tablet 10 Mg PO PRN DAILY PRN Atorvastatin Calcium 40 Mg Tablet 40 Mg PO QHS Aspirin 81 Mg Tab.chew 81 Mg PO DAILY Tylenol (Acetaminophen) 325 Mg Tablet 650 Mg PO PRN Q6HRS I have reviewed the current psychotropics carefully including drug interactions. Risk benefit ratio favors no change other than as noted in my dictated progress note. 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
[2017-03-15] MEDS: MAGNESIUM HYDROXIDE 2,400 MG/30 ML ORAL.SUSP. PO PRN (22:13)
[2017-03-16 06:02] VITALS: BP 145/69
[2017-03-16] MEDS: LEVOTHYROXINE 125 MCG TABLET PO SCH (06:26)
[2017-03-16] MEDS: FAMOTIDINE 20 MG TABLET PO SCH (07:53)
[2017-03-16] MEDS: DIVALPROEX SODIUM 250 MG TABLET.DR. PO SCH ×2 (07:53→21:21)
[2017-03-16] MEDS: DULoxetine HCL 60 MG CAPSULE.DR PO SCH (07:53)
[2017-03-16] MEDS: CARVEDILOL 3.125 MG TABLET PO SCH ×2 (07:53→16:04)
[2017-03-16] MEDS: ASPIRIN 81 MG TAB.CHEW PO SCH (07:53)
[2017-03-16] MEDS: POTASSIUM CHLORIDE 20 MEQ TABLET.ER. PO SCH ×2 (07:54→21:22)
[2017-03-16] MEDS: SODIUM CHLORIDE 0.65% NASAL SPRAY 45ML BOTTLE. NS SCH ×2 (07:55→21:00)
--- NOTE | 2017-03-16 07:56 | PN ---
DATE: 03/14/2017 PSYCHIATRIC PROGRESS NOTE This is a late entry for 03/14/2017, covers elements not covered in my initial note of 03/14/2017. SUBJECTIVE: I met with the patient the evening of 03/14/2017. The patient has been difficult to arouse at times in the morning. Gait is somewhat shuffling. She was on Invega 6 mg a day and this was auto-substituted by the pharmacy to Risperdal 3 mg b.i.d. and is probably responsible for her impairment of gait and we will go ahead and stop the Risperdal for now. REVIEW OF SYSTEMS: No CV, , pulmonary, eye, ENT system symptoms on review. Reliability poor. MENTAL STATUS EXAM: Oriented to herself. Insight, judgment, recent and remote memory, attention, concentration, fund of knowledge poor, consistent with her diagnosis mentioned in my initial note. PLAN: Continue psychotropics mentioned in my initial note, stop the Risperdal for reasons noted above. Reviewed drug interactions. Risk/benefit ratio favors no further change. PATRICIA HUNT MD DR: MARCOS/yusef JOB#: [id number] / [id number]
[2017-03-16] MEDS: ACETAMINOPHEN 325 MG TABLET PO PRN (16:04)
[2017-03-16 16:47] VITALS: BP 170/96
--- NOTE | 2017-03-16 19:59 | PDOC ---
Exam Note: Marco Note: Please also refer to the separate dictated note~for this date of service dictated separately.~Patient seen individually. Discussed the patient with Nursing staff reviewed the chart.~Reviewed interim history and current functioning. Reviewed vital signs,~Labs/ Radiology~and current medications noted below. Continue current treatment with the changes noted in the dictated addendum note Assessment: Vital Signs: Vital Signs Date Time Temp Pulse Resp B/P (MAP) Pulse Ox O2 Delivery O2 Flow Rate FiO2 03/16/17 16:47 97.3 80 18 170/96 (120) 97 03/14/17 16:05 Room Air I&O Intake and Output 03/16/17 07:00 Intake Total 840 ml Balance 840 ml Intake Oral 840 ml Current Medications: Meds: Current Medications Multi-Ingredient Ointment (Analgesic [place]) 1 diana PRN QID PRN TP MUSCLE PAIN; Start 03/13/17 at 03:30 Olanzapine (ZyPREXA ZYDIS) 1.25 mg PRN Q2HR PRN PO PSYCHOSIS; Start 03/13/17 at 03:45 Acetaminophen (Tylenol) 650 mg PRN Q6HRS PRN PO MILD PAIN/TEMP Last administered on 03/16/17 16:04; Start 03/13/17 at 04:00 Aspirin (Children'S Aspirin) 81 mg DAILY PO Last administered on 03/16/17 07: 53; Start 03/13/17 at 09:00 Bisacodyl (Dulcolax Tab) 5 mg PRN DAILY PRN PO CONSTIPATION; Start 03/13/17 at 04:00 Carvedilol (Coreg) 3.125 mg BIDWMEALS PO Last administered on 03/16/17 16:04 ; Start 03/13/17 at 08:00 Cyanocobalamin (Vitamin B-12) 1,000 mcg QMONTH IM ; Start 04/10/17 at 09:00 Famotidine (Pepcid) 20 mg DAILY PO Last administered on 03/16/17 07:53; Start 03/13/17 at 09:00 Guaifenesin (Mucinex Er) 600 mg PRN BID PRN PO COUGH; Start 03/13/17 at 04:00 Levothyroxine Sodium (Synthroid) 88 mcg DAILY07 PO Last administered on 06:31; Start 03/13/17 at 07:00; Stop 03/13/17 at 16:07; Status DC Nitroglycerin (Nitrostat) 0.4 mg PRN Q5MIN PRN SL CHEST PAIN; Start 03/13/17 at 04:00 Sodium Chloride (Saline Mist Nasal) 2 diana BID NS Last administered on 07:55; Start 03/13/17 at 09:00 Atorvastatin Calcium (Lipitor) 40 mg QHS PO Last administered on 03/15/17 19: 30; Start 03/13/17 at 21:00 Cetirizine HCl (ZyrTEC) 10 mg PRN DAILY PRN PO ALLERGIES; Start 03/13/17 at 09 :00 Al Hydroxide/Mg Hydroxide (Mylanta Plus Xs) 30 ml PRN DAILY PRN PO DYSPEPSIA; Start 03/13/17 at 04:30 Magnesium Hydroxide (Milk Of Magnesia) 2,400 mg PRN DAILY PRN PO CONSTIPATION Last administered on 03/15/17 22:13; Start 03/13/17 at 04:30 Divalproex Sodium (Depakote) 500 mg BID PO Last administered on 03/16/17 07: 53; Start 03/13/17 at 09:00 Duloxetine HCl (Cymbalta) 60 mg DAILY PO Last administered on 03/16/17 07:53 ; Start 03/13/17 at 09:00 Risperidone (RisperDAL) 3 mg BID PO Last administered on 03/14/17 08:19; Start 03/13/17 at 09:00; Stop 03/14/17 at 18:13; Status DC Levothyroxine Sodium (Synthroid) 125 mcg DAILY07 PO Last administered on 06:26; Start 03/14/17 at 07:00 Potassium Chloride (Klor-Con) 20 meq BID PO Last administered on 03/16/17 07: 54; Start 03/13/17 at 21:00 Mirtazapine (Remeron) 7.5 mg QHS PO Last administered on 03/15/17 19:30; Start 03/13/17 at 21:00 Active Scripts Active Reported Saline Nasal [place] (Sodium Chloride) 30 Ml [place] 2 Spr NS BID NITROGLYCERIN SubLingual (Nitroglycerin) 0.4 Mg Tab.subl 0.4 Mg SL PRN Q5MIN PRN Mucinex (Guaifenesin) 600 Mg Tablet.er 600 Mg PO PRN BID PRN Milk Of Magnesia (Magnesium Hydroxide) 2,400 Mg/10 Ml Oral.susp 30 Ml PO PRN DAILY PRN Maalox Advanced Suspension (Mag Hydrox/Aluminum Hyd/Simeth) 355 Ml Oral.susp 30 Ml PO PRN Q24HRS Levothyroxine Sodium 88 Mcg Tablet 88 Mcg PO DAILYAC Invega (Paliperidone) 6 Mg Tab.er.24 6 Mg PO QHS Famotidine 20 Mg Tablet 20 Mg PO DAILY Bisacodyl 5 Mg Tablet.dr 5 Mg PO PRN DAILY PRN Depakote Er (Divalproex Sodium) 500 Mg Tab.er.24h 500 Mg PO BID Cymbalta (Duloxetine Hcl) 60 Mg Capsule.dr 60 Mg PO DAILY Cyanocobalamin Injection (Cyanocobalamin (Vitamin B-12)) 1,000 Mcg/1 Ml Vial 1, 000 Mcg IJ QMONTH Coreg (Carvedilol) 3.125 Mg Tablet 3.125 Mg PO BIDWMEALS Claritin (Loratadine) 10 Mg Tablet 10 Mg PO PRN DAILY PRN Atorvastatin Calcium 40 Mg Tablet 40 Mg PO QHS Aspirin 81 Mg Tab.chew 81 Mg PO DAILY Tylenol (Acetaminophen) 325 Mg Tablet 650 Mg PO PRN Q6HRS I have reviewed the current psychotropics carefully including drug interactions. Risk benefit ratio favors no change other than as noted in my dictated progress note. Diagnosis: Problems: (1) Anxiety disorder (2) Dementia in Alzheimer's disease with depression (3) Dementia in Alzheimer's disease with delusions (4) Dementia, vascular, with delusions (5) Dementia, vascular, with delirium (6) Impulse control disorder PATRICIA HUNT MD Mar 16, 2017 19:59
[2017-03-16] MEDS: MIRTAZAPINE 7.5 MG TABLET. PO SCH (21:21)
[2017-03-16] MEDS: ATORVASTATIN CALCIUM 20 MG TABLET PO SCH (21:22)
[2017-03-17 05:45] VITALS: BP 118/73
[2017-03-17] MEDS: LEVOTHYROXINE 125 MCG TABLET PO SCH (06:18)
[2017-03-17] MEDS: ASPIRIN 81 MG TAB.CHEW PO SCH (08:22)
[2017-03-17] MEDS: POTASSIUM CHLORIDE 20 MEQ TABLET.ER. PO SCH ×2 (08:22→20:35)
[2017-03-17] MEDS: FAMOTIDINE 20 MG TABLET PO SCH (08:22)
[2017-03-17] MEDS: DULoxetine HCL 60 MG CAPSULE.DR PO SCH (08:22)
[2017-03-17] MEDS: DIVALPROEX SODIUM 250 MG TABLET.DR. PO SCH ×2 (08:22→20:35)
[2017-03-17] MEDS: CARVEDILOL 3.125 MG TABLET PO SCH ×2 (08:24→17:51)
[2017-03-17] MEDS: SODIUM CHLORIDE 0.65% NASAL SPRAY 45ML BOTTLE. NS SCH ×2 (08:24→20:34)
--- NOTE | 2017-03-17 10:30 | PN ---
DATE: 03/15/2017 This late entry, 03/15/2017, covers elements not covered in my initial order note of 03/15/2017. SUBJECTIVE: I met with the patient the evening of 03/15/2017. The patient did well the previous evening, had a good day on 03/15/2017, but remains confused. REVIEW OF SYSTEMS: No CV, , pulmonary, eye, ENT system symptoms on review. MENTAL STATUS EXAM: Oriented to herself. Insight, judgment, recent and remote memory, attention, concentration, fund of knowledge poor, consistent with her diagnosis mentioned in my initial note. PLAN: No change from my initial note. MAN Kehinde HUNT MD DR: MARCOS/yusef JOB#: [id number] / [id number]
[2017-03-17] MEDS: MAGNESIUM HYDROXIDE 2,400 MG/30 ML ORAL.SUSP. PO PRN (12:20)
[2017-03-17 16:05] VITALS: BP 142/79
--- NOTE | 2017-03-17 20:05 | PDOC ---
Exam Note: Marco Note: Please also refer to the separate dictated note~for this date of service dictated separately.~Patient seen individually. Discussed the patient with Nursing staff reviewed the chart.~Reviewed interim history and current functioning. Reviewed vital signs,~Labs/ Radiology~and current medications noted below. Continue current treatment with the changes noted in the dictated addendum note Assessment: Vital Signs: Vital Signs Date Time Temp Pulse Resp B/P (MAP) Pulse Ox O2 Delivery O2 Flow Rate FiO2 03/17/17 17:51 84 142/79 03/17/17 16:05 97.4 16 96 03/14/17 16:05 Room Air I&O Intake and Output 03/17/17 07:00 Intake Total 1200 ml Balance 1200 ml Intake Oral 1200 ml Current Medications: Meds: Current Medications Multi-Ingredient Ointment (Analgesic [place]) 1 diana PRN QID PRN TP MUSCLE PAIN; Start 03/13/17 at 03:30 Olanzapine (ZyPREXA ZYDIS) 1.25 mg PRN Q2HR PRN PO PSYCHOSIS; Start 03/13/17 at 03:45 Acetaminophen (Tylenol) 650 mg PRN Q6HRS PRN PO MILD PAIN/TEMP Last administered on 03/16/17 16:04; Start 03/13/17 at 04:00 Aspirin (Children'S Aspirin) 81 mg DAILY PO Last administered on 03/17/17 08: 22; Start 03/13/17 at 09:00 Bisacodyl (Dulcolax Tab) 5 mg PRN DAILY PRN PO CONSTIPATION; Start 03/13/17 at 04:00 Carvedilol (Coreg) 3.125 mg BIDWMEALS PO Last administered on 03/17/17 17:51 ; Start 03/13/17 at 08:00 Cyanocobalamin (Vitamin B-12) 1,000 mcg QMONTH IM ; Start 04/10/17 at 09:00 Famotidine (Pepcid) 20 mg DAILY PO Last administered on 03/17/17 08:22; Start 03/13/17 at 09:00 Guaifenesin (Mucinex Er) 600 mg PRN BID PRN PO COUGH; Start 03/13/17 at 04:00 Levothyroxine Sodium (Synthroid) 88 mcg DAILY07 PO Last administered on 06:31; Start 03/13/17 at 07:00; Stop 03/13/17 at 16:07; Status DC Nitroglycerin (Nitrostat) 0.4 mg PRN Q5MIN PRN SL CHEST PAIN; Start 03/13/17 at 04:00 Sodium Chloride (Saline Mist Nasal) 2 diana BID NS Last administered on 08:24; Start 03/13/17 at 09:00 Atorvastatin Calcium (Lipitor) 40 mg QHS PO Last administered on 03/16/17 21: 22; Start 03/13/17 at 21:00 Cetirizine HCl (ZyrTEC) 10 mg PRN DAILY PRN PO ALLERGIES; Start 03/13/17 at 09 :00 Al Hydroxide/Mg Hydroxide (Mylanta Plus Xs) 30 ml PRN DAILY PRN PO DYSPEPSIA; Start 03/13/17 at 04:30 Magnesium Hydroxide (Milk Of Magnesia) 2,400 mg PRN DAILY PRN PO CONSTIPATION Last administered on 03/17/17 12:20; Start 03/13/17 at 04:30 Divalproex Sodium (Depakote) 500 mg BID PO Last administered on 03/17/17 08: 22; Start 03/13/17 at 09:00 Duloxetine HCl (Cymbalta) 60 mg DAILY PO Last administered on 03/17/17 08:22 ; Start 03/13/17 at 09:00 Risperidone (RisperDAL) 3 mg BID PO Last administered on 03/14/17 08:19; Start 03/13/17 at 09:00; Stop 03/14/17 at 18:13; Status DC Levothyroxine Sodium (Synthroid) 125 mcg DAILY07 PO Last administered on 06:18; Start 03/14/17 at 07:00 Potassium Chloride (Klor-Con) 20 meq BID PO Last administered on 03/17/17 08: 22; Start 03/13/17 at 21:00 Mirtazapine (Remeron) 7.5 mg QHS PO Last administered on 03/16/17 21:21; Start 03/13/17 at 21:00 Active Scripts Active Reported Saline Nasal [place] (Sodium Chloride) 30 Ml [place] 2 Spr NS BID NITROGLYCERIN SubLingual (Nitroglycerin) 0.4 Mg Tab.subl 0.4 Mg SL PRN Q5MIN PRN Mucinex (Guaifenesin) 600 Mg Tablet.er 600 Mg PO PRN BID PRN Milk Of Magnesia (Magnesium Hydroxide) 2,400 Mg/10 Ml Oral.susp 30 Ml PO PRN DAILY PRN Maalox Advanced Suspension (Mag Hydrox/Aluminum Hyd/Simeth) 355 Ml Oral.susp 30 Ml PO PRN Q24HRS Levothyroxine Sodium 88 Mcg Tablet 88 Mcg PO DAILYAC Invega (Paliperidone) 6 Mg Tab.er.24 6 Mg PO QHS Famotidine 20 Mg Tablet 20 Mg PO DAILY Bisacodyl 5 Mg Tablet.dr 5 Mg PO PRN DAILY PRN Depakote Er (Divalproex Sodium) 500 Mg Tab.er.24h 500 Mg PO BID Cymbalta (Duloxetine Hcl) 60 Mg Capsule.dr 60 Mg PO DAILY Cyanocobalamin Injection (Cyanocobalamin (Vitamin B-12)) 1,000 Mcg/1 Ml Vial 1, 000 Mcg IJ QMONTH Coreg (Carvedilol) 3.125 Mg Tablet 3.125 Mg PO BIDWMEALS Claritin (Loratadine) 10 Mg Tablet 10 Mg PO PRN DAILY PRN Atorvastatin Calcium 40 Mg Tablet 40 Mg PO QHS Aspirin 81 Mg Tab.chew 81 Mg PO DAILY Tylenol (Acetaminophen) 325 Mg Tablet 650 Mg PO PRN Q6HRS I have reviewed the current psychotropics carefully including drug interactions. Risk benefit ratio favors no change other than as noted in my dictated progress note. Diagnosis: Problems: (1) Anxiety disorder (2) Dementia in Alzheimer's disease with depression (3) Dementia in Alzheimer's disease with delusions (4) Dementia, vascular, with delusions (5) Dementia, vascular, with delirium (6) Impulse control disorder PATRICIA HUNT MD Mar 17, 2017 20:05
[2017-03-17] MEDS: ATORVASTATIN CALCIUM 20 MG TABLET PO SCH (20:35)
[2017-03-17] MEDS: MIRTAZAPINE 7.5 MG TABLET. PO SCH (20:35)
[2017-03-18 05:49] VITALS: BP 112/65
[2017-03-18] MEDS: LEVOTHYROXINE 125 MCG TABLET PO SCH (06:29)
--- NOTE | 2017-03-18 08:02 | PN ---
DATE: 03/16/2017 This is a late entry covers the elements not covered in my initial note 03/16/2017. I met with the patient in the evening of 03/16/2017. The patient slept six and a quarter hours previous evening. Per nursing report, the patient has been cooperative, compliant. She knew she was at [facility] in [place], but felt the year was 2011. She is ambulating better on her own. REVIEW OF SYSTEMS: No CV, , pulmonary, eye, ENT system symptoms on review. Reliability poor. MENTAL STATUS EXAM: Oriented to herself and situation. Speech is coherent, abstraction fair, computation impaired, language function intact. Attention span short. No active suicidal or homicidal ideation. Memory is impaired, but better than before. LABORATORY DATA: Reviewed. IMPRESSION: Unchanged from initial note. PLAN: Continue current psychotropics as mentioned in my initial note. Valproic acid level therapeutic at 54. I do not see any need to add an atypical antipsychotic just yet, but we will monitor and adjust as clinically indicated. MAN Kehinde HUNT MD DR: MARCOS/yusef JOB#: [id number] / [id number]
[2017-03-18] MEDS: DULoxetine HCL 60 MG CAPSULE.DR PO SCH (08:17)
[2017-03-18] MEDS: DIVALPROEX SODIUM 250 MG TABLET.DR. PO SCH ×2 (08:17→19:27)
[2017-03-18] MEDS: POTASSIUM CHLORIDE 20 MEQ TABLET.ER. PO SCH ×2 (08:18→19:26)
[2017-03-18] MEDS: FAMOTIDINE 20 MG TABLET PO SCH (08:18)
[2017-03-18] MEDS: CARVEDILOL 3.125 MG TABLET PO SCH ×2 (08:18→16:57)
[2017-03-18] MEDS: ASPIRIN 81 MG TAB.CHEW PO SCH (08:18)
[2017-03-18] MEDS: SODIUM CHLORIDE 0.65% NASAL SPRAY 45ML BOTTLE. NS SCH ×2 (08:19→19:27)
[2017-03-18] MEDS: ACETAMINOPHEN 325 MG TABLET PO PRN (13:28)
[2017-03-18 16:54] VITALS: BP 132/78
[2017-03-18] MEDS: MAGNESIUM HYDROXIDE 2,400 MG/30 ML ORAL.SUSP. PO PRN (16:57)
[2017-03-18] MEDS: ATORVASTATIN CALCIUM 20 MG TABLET PO SCH (19:26)
[2017-03-18] MEDS: MIRTAZAPINE 7.5 MG TABLET. PO SCH (19:26)
--- NOTE | 2017-03-18 20:21 | PDOC ---
Exam Note: Marco Note: Please also refer to the separate dictated note~for this date of service dictated separately.~Patient seen individually. Discussed the patient with Nursing staff reviewed the chart.~Reviewed interim history and current functioning. Reviewed vital signs,~Labs/ Radiology~and current medications noted below. Continue current treatment with the changes noted in the dictated addendum note Assessment: Vital Signs: Vital Signs Date Time Temp Pulse Resp B/P (MAP) Pulse Ox O2 Delivery O2 Flow Rate FiO2 03/18/17 16:57 84 132/78 03/18/17 16:54 98.6 16 95 Room Air I&O Intake and Output 03/18/17 07:00 Intake Total 960 ml Balance 960 ml Intake Oral 960 ml Current Medications: Meds: Current Medications Multi-Ingredient Ointment (Analgesic [place]) 1 diana PRN QID PRN TP MUSCLE PAIN; Start 03/13/17 at 03:30 Olanzapine (ZyPREXA ZYDIS) 1.25 mg PRN Q2HR PRN PO PSYCHOSIS; Start 03/13/17 at 03:45 Acetaminophen (Tylenol) 650 mg PRN Q6HRS PRN PO MILD PAIN/TEMP Last administered on 03/18/17 13:28; Start 03/13/17 at 04:00 Aspirin (Children'S Aspirin) 81 mg DAILY PO Last administered on 03/18/17 08: 18; Start 03/13/17 at 09:00 Bisacodyl (Dulcolax Tab) 5 mg PRN DAILY PRN PO CONSTIPATION; Start 03/13/17 at 04:00 Carvedilol (Coreg) 3.125 mg BIDWMEALS PO Last administered on 03/18/17 16:57 ; Start 03/13/17 at 08:00 Cyanocobalamin (Vitamin B-12) 1,000 mcg QMONTH IM ; Start 04/10/17 at 09:00 Famotidine (Pepcid) 20 mg DAILY PO Last administered on 03/18/17 08:18; Start 03/13/17 at 09:00 Guaifenesin (Mucinex Er) 600 mg PRN BID PRN PO COUGH; Start 03/13/17 at 04:00 Levothyroxine Sodium (Synthroid) 88 mcg DAILY07 PO Last administered on 06:31; Start 03/13/17 at 07:00; Stop 03/13/17 at 16:07; Status DC Nitroglycerin (Nitrostat) 0.4 mg PRN Q5MIN PRN SL CHEST PAIN; Start 03/13/17 at 04:00 Sodium Chloride (Saline Mist Nasal) 2 diana BID NS Last administered on 19:27; Start 03/13/17 at 09:00 Atorvastatin Calcium (Lipitor) 40 mg QHS PO Last administered on 03/18/17 19: 26; Start 03/13/17 at 21:00 Cetirizine HCl (ZyrTEC) 10 mg PRN DAILY PRN PO ALLERGIES Last administered on 03/18/17 13:28; Start 03/13/17 at 09:00 Al Hydroxide/Mg Hydroxide (Mylanta Plus Xs) 30 ml PRN DAILY PRN PO DYSPEPSIA; Start 03/13/17 at 04:30 Magnesium Hydroxide (Milk Of Magnesia) 2,400 mg PRN DAILY PRN PO CONSTIPATION Last administered on 03/18/17 16:57; Start 03/13/17 at 04:30 Divalproex Sodium (Depakote) 500 mg BID PO Last administered on 03/18/17 19: 27; Start 03/13/17 at 09:00 Duloxetine HCl (Cymbalta) 60 mg DAILY PO Last administered on 03/18/17 08:17 ; Start 03/13/17 at 09:00 Risperidone (RisperDAL) 3 mg BID PO Last administered on 03/14/17 08:19; Start 03/13/17 at 09:00; Stop 03/14/17 at 18:13; Status DC Levothyroxine Sodium (Synthroid) 125 mcg DAILY07 PO Last administered on 06:29; Start 03/14/17 at 07:00 Potassium Chloride (Klor-Con) 20 meq BID PO Last administered on 03/18/17 19: 26; Start 03/13/17 at 21:00 Mirtazapine (Remeron) 7.5 mg QHS PO Last administered on 03/18/17 19:26; Start 03/13/17 at 21:00 Active Scripts Active Reported Saline Nasal [place] (Sodium Chloride) 30 Ml [place] 2 Spr NS BID NITROGLYCERIN SubLingual (Nitroglycerin) 0.4 Mg Tab.subl 0.4 Mg SL PRN Q5MIN PRN Mucinex (Guaifenesin) 600 Mg Tablet.er 600 Mg PO PRN BID PRN Milk Of Magnesia (Magnesium Hydroxide) 2,400 Mg/10 Ml Oral.susp 30 Ml PO PRN DAILY PRN Maalox Advanced Suspension (Mag Hydrox/Aluminum Hyd/Simeth) 355 Ml Oral.susp 30 Ml PO PRN Q24HRS Levothyroxine Sodium 88 Mcg Tablet 88 Mcg PO DAILYAC Invega (Paliperidone) 6 Mg Tab.er.24 6 Mg PO QHS Famotidine 20 Mg Tablet 20 Mg PO DAILY Bisacodyl 5 Mg Tablet.dr 5 Mg PO PRN DAILY PRN Depakote Er (Divalproex Sodium) 500 Mg Tab.er.24h 500 Mg PO BID Cymbalta (Duloxetine Hcl) 60 Mg Capsule.dr 60 Mg PO DAILY Cyanocobalamin Injection (Cyanocobalamin (Vitamin B-12)) 1,000 Mcg/1 Ml Vial 1, 000 Mcg IJ QMONTH Coreg (Carvedilol) 3.125 Mg Tablet 3.125 Mg PO BIDWMEALS Claritin (Loratadine) 10 Mg Tablet 10 Mg PO PRN DAILY PRN Atorvastatin Calcium 40 Mg Tablet 40 Mg PO QHS Aspirin 81 Mg Tab.chew 81 Mg PO DAILY Tylenol (Acetaminophen) 325 Mg Tablet 650 Mg PO PRN Q6HRS I have reviewed the current psychotropics carefully including drug interactions. Risk benefit ratio favors no change other than as noted in my dictated progress note. Diagnosis: Problems: (1) Anxiety disorder (2) Dementia in Alzheimer's disease with depression (3) Dementia in Alzheimer's disease with delusions (4) Dementia, vascular, with delusions (5) Dementia, vascular, with delirium (6) Impulse control disorder PATRICIA HUNT MD Mar 18, 2017 20:21
[2017-03-19] MEDS: LEVOTHYROXINE 125 MCG TABLET PO SCH (05:44)
[2017-03-19 05:59] VITALS: BP 148/87
[2017-03-19] MEDS: DULoxetine HCL 60 MG CAPSULE.DR PO SCH (08:46)
[2017-03-19] MEDS: POTASSIUM CHLORIDE 20 MEQ TABLET.ER. PO SCH ×2 (08:47→20:28)
[2017-03-19] MEDS: DIVALPROEX SODIUM 250 MG TABLET.DR. PO SCH ×2 (08:47→20:27)
[2017-03-19] MEDS: SODIUM CHLORIDE 0.65% NASAL SPRAY 45ML BOTTLE. NS SCH ×2 (08:47→20:27)
[2017-03-19] MEDS: FAMOTIDINE 20 MG TABLET PO SCH (08:47)
[2017-03-19] MEDS: CARVEDILOL 3.125 MG TABLET PO SCH ×2 (08:47→16:02)
[2017-03-19] MEDS: ASPIRIN 81 MG TAB.CHEW PO SCH (08:47)
[2017-03-19] MEDS: PRENATAL MULTIVITAMIN TABLET. PO SCH (12:11)
[2017-03-19 16:12] VITALS: BP 109/78
--- NOTE | 2017-03-19 20:04 | PDOC ---
Exam Note: Marco Note: Please also refer to the separate dictated note~for this date of service dictated separately.~Patient seen individually. Discussed the patient with Nursing staff reviewed the chart.~Reviewed interim history and current functioning. Reviewed vital signs,~Labs/ Radiology~and current medications noted below. Continue current treatment with the changes noted in the dictated addendum note Assessment: Vital Signs: Vital Signs Date Time Temp Pulse Resp B/P (MAP) Pulse Ox O2 Delivery O2 Flow Rate FiO2 03/19/17 16:12 98.2 83 16 109/78 (88) 96 Room Air I&O Intake and Output 03/19/17 07:00 Intake Total 1440 ml Balance 1440 ml Intake Oral 1440 ml # Voids 3 # Bowel Movements 1 Current Medications: Meds: Current Medications Multi-Ingredient Ointment (Analgesic [place]) 1 diana PRN QID PRN TP MUSCLE PAIN; Start 03/13/17 at 03:30 Olanzapine (ZyPREXA ZYDIS) 1.25 mg PRN Q2HR PRN PO PSYCHOSIS; Start 03/13/17 at 03:45 Acetaminophen (Tylenol) 650 mg PRN Q6HRS PRN PO MILD PAIN/TEMP Last administered on 03/18/17 13:28; Start 03/13/17 at 04:00 Aspirin (Children'S Aspirin) 81 mg DAILY PO Last administered on 03/19/17 08: 47; Start 03/13/17 at 09:00 Bisacodyl (Dulcolax Tab) 5 mg PRN DAILY PRN PO CONSTIPATION; Start 03/13/17 at 04:00 Carvedilol (Coreg) 3.125 mg BIDWMEALS PO Last administered on 03/19/17 16:02 ; Start 03/13/17 at 08:00 Cyanocobalamin (Vitamin B-12) 1,000 mcg QMONTH IM ; Start 04/10/17 at 09:00 Famotidine (Pepcid) 20 mg DAILY PO Last administered on 03/19/17 08:47; Start 03/13/17 at 09:00 Guaifenesin (Mucinex Er) 600 mg PRN BID PRN PO COUGH; Start 03/13/17 at 04:00 Levothyroxine Sodium (Synthroid) 88 mcg DAILY07 PO Last administered on 06:31; Start 03/13/17 at 07:00; Stop 03/13/17 at 16:07; Status DC Nitroglycerin (Nitrostat) 0.4 mg PRN Q5MIN PRN SL CHEST PAIN; Start 03/13/17 at 04:00 Sodium Chloride (Saline Mist Nasal) 2 diana BID NS Last administered on 08:47; Start 03/13/17 at 09:00 Atorvastatin Calcium (Lipitor) 40 mg QHS PO Last administered on 03/18/17 19: 26; Start 03/13/17 at 21:00 Cetirizine HCl (ZyrTEC) 10 mg PRN DAILY PRN PO ALLERGIES Last administered on 03/18/17 13:28; Start 03/13/17 at 09:00 Al Hydroxide/Mg Hydroxide (Mylanta Plus Xs) 30 ml PRN DAILY PRN PO DYSPEPSIA; Start 03/13/17 at 04:30 Magnesium Hydroxide (Milk Of Magnesia) 2,400 mg PRN DAILY PRN PO CONSTIPATION Last administered on 03/18/17 16:57; Start 03/13/17 at 04:30 Divalproex Sodium (Depakote) 500 mg BID PO Last administered on 03/19/17 08: 47; Start 03/13/17 at 09:00 Duloxetine HCl (Cymbalta) 60 mg DAILY PO Last administered on 03/19/17 08:46 ; Start 03/13/17 at 09:00 Risperidone (RisperDAL) 3 mg BID PO Last administered on 03/14/17 08:19; Start 03/13/17 at 09:00; Stop 03/14/17 at 18:13; Status DC Levothyroxine Sodium (Synthroid) 125 mcg DAILY07 PO Last administered on 05:44; Start 03/14/17 at 07:00 Potassium Chloride (Klor-Con) 20 meq BID PO Last administered on 03/19/17 08: 47; Start 03/13/17 at 21:00 Mirtazapine (Remeron) 7.5 mg QHS PO Last administered on 03/18/17 19:26; Start 03/13/17 at 21:00 Prenat Multivit/ [place]/Iron/Folic Ac (Multivitamin ) 1 tab DAILYBFRLUN PO Last administered on 03/19/17t 12:11; Start 03/19/17 at 12:00 Active Scripts Active Reported Saline Nasal [place] (Sodium Chloride) 30 Ml [place] 2 Spr NS BID NITROGLYCERIN SubLingual (Nitroglycerin) 0.4 Mg Tab.subl 0.4 Mg SL PRN Q5MIN PRN Mucinex (Guaifenesin) 600 Mg Tablet.er 600 Mg PO PRN BID PRN Milk Of Magnesia (Magnesium Hydroxide) 2,400 Mg/10 Ml Oral.susp 30 Ml PO PRN DAILY PRN Maalox Advanced Suspension (Mag Hydrox/Aluminum Hyd/Simeth) 355 Ml Oral.susp 30 Ml PO PRN Q24HRS Levothyroxine Sodium 88 Mcg Tablet 88 Mcg PO DAILYAC Invega (Paliperidone) 6 Mg Tab.er.24 6 Mg PO QHS Famotidine 20 Mg Tablet 20 Mg PO DAILY Bisacodyl 5 Mg Tablet.dr 5 Mg PO PRN DAILY PRN Depakote Er (Divalproex Sodium) 500 Mg Tab.er.24h 500 Mg PO BID Cymbalta (Duloxetine Hcl) 60 Mg Capsule.dr 60 Mg PO DAILY Cyanocobalamin Injection (Cyanocobalamin (Vitamin B-12)) 1,000 Mcg/1 Ml Vial 1, 000 Mcg IJ QMONTH Coreg (Carvedilol) 3.125 Mg Tablet 3.125 Mg PO BIDWMEALS Claritin (Loratadine) 10 Mg Tablet 10 Mg PO PRN DAILY PRN Atorvastatin Calcium 40 Mg Tablet 40 Mg PO QHS Aspirin 81 Mg Tab.chew 81 Mg PO DAILY Tylenol (Acetaminophen) 325 Mg Tablet 650 Mg PO PRN Q6HRS I have reviewed the current psychotropics carefully including drug interactions. Risk benefit ratio favors no change other than as noted in my dictated progress note. 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
[2017-03-19] MEDS: ATORVASTATIN CALCIUM 20 MG TABLET PO SCH (20:27)
[2017-03-19] MEDS: MIRTAZAPINE 7.5 MG TABLET. PO SCH (20:27)
[2017-03-20 05:51] VITALS: BP 134/79
[2017-03-20] MEDS: LEVOTHYROXINE 125 MCG TABLET PO SCH (06:02)
--- NOTE | 2017-03-20 06:03 | PN ---
DATE: 03/17/2017 PSYCHIATRIC PROGRESS NOTE This is a late entry for 03/17/2017, covers the elements not covered in my initial note of 03/17/2017. SUBJECTIVE: Seen individually evening of 03/17/2017, swallowing is a little problematic and swallow study will be done 03/18/2017. She is ambulating with physical therapy staff with a walker, remains confused, believes the year is 1971, unaware of the place or her date of , I questioned her compliant with medications, stumbling at times, cooperative. REVIEW OF SYSTEMS: No CV, , pulmonary, eye, ENT system symptoms on review. Reliability poor. MENTAL STATUS EXAM: Oriented to herself. Insight, judgment, recent and remote memory, attention, concentration, fund of knowledge poor, consistent with her diagnosis mentioned in my initial note. PLAN: No change from my initial note. MAN Kehinde HUNT MD DR: MARCOS/yusef JOB#: [id number] / [id number]
--- NOTE | 2017-03-20 06:07 | PN ---
DATE: 03/18/2017 PSYCHIATRIC PROGRESS NOTE This is a late entry for 03/18/2017, covers the elements not covered in my initial note of 03/18/2017. SUBJECTIVE: I met with the patient evening of 03/18/2017 and staffed at a treatment team meeting with the entire team morning of 03/18/2017 and the patient's granddaughter Dee attended the conference. We reviewed the patient's history at length with worsening memory since 2010 or perhaps before that. History of TIA, past history of ECT for possible bipolar disorder. Past treatment on Risperdal and Seroquel, questionably on Abilify. SUBJECTIVE: Slept 8 hours previous evening. Appetite 75%, confused, but cooperative. No CV, , pulmonary, eye, ENT system symptoms on review. As I met with her individually in her room and Reliability poor. MENTAL STATUS EXAM: Oriented to herself. Insight, judgment, recent and remote memory, attention, concentration, fund of knowledge poor, consistent with her diagnosis mentioned in my initial note. PLAN: No change from a psychiatric standpoint from my initial note. We have stopped the Invega and Risperdal. Maintain Cymbalta, Depakote, Remeron, along with Zyprexa p.r.n. for now, but given her past history of ECT and marked psychotic symptoms, mood disorder, we may need a mood stabilizer adjustment, but valproic acid level is 54. We may need to add low dose Seroquel, but we will give it another day or two and decide. PATRICIA HUNT MD DR: MARCOS/yusef JOB#: [id number] / [id number]
[2017-03-20 07:18] LABS: BASO % 1 % (0-3); EOS # 0.2 x10^3/uL (0.0-0.7); EOS % 4 % (0-3); HEMATOCRIT 40.5 % (36.0-47.0); HEMOGLOBIN 13.8 g/dL (12.0-15.5); LYMPH % 37 % (24-48); MEAN CORPUSCULAR HEMOGLOBIN 29 pg (25-35); MEAN CORPUSCULAR HGB CONC 34 g/dL (31-37); MEAN CORPUSCULAR VOLUME 84 fL (79-100); MONO # 1.1 x10^3/uL (0.0-1.1); MONO % 21 % (0-9); NEUT # 2.1 x10^3uL (1.8-7.7); NEUT % 38 % (31-73); PLATELET COUNT 88 x10^3/uL (140-400); RED BLOOD COUNT 4.83 x10^6/uL (3.50-5.40); RED CELL DISTRIBUTION WIDTH 18.3 % (11.5-14.5); WHITE BLOOD COUNT 5.5 x10^3/uL (4.0-11.0)
[2017-03-20 07:42] LABS: ALBUMIN 3.2 g/dL (3.4-5.0); ALBUMIN/GLOBULIN RATIO 0.9 (1.0-1.7); CALCIUM 8.4 mg/dL (8.5-10.1); CREATININE 0.9 mg/dL (0.6-1.0); GFR 59.2; POTASSIUM 4.7 mmol/L (3.5-5.1); TOTAL BILIRUBIN 1.1 mg/dL (0.2-1.0); TOTAL PROTEIN 6.8 g/dL (6.4-8.2)
[2017-03-20] MEDS: FAMOTIDINE 20 MG TABLET PO SCH (07:47)
[2017-03-20] MEDS: DIVALPROEX SODIUM 250 MG TABLET.DR. PO SCH ×2 (07:47→19:34)
[2017-03-20] MEDS: SODIUM CHLORIDE 0.65% NASAL SPRAY 45ML BOTTLE. NS SCH ×2 (07:47→19:35)
[2017-03-20] MEDS: POTASSIUM CHLORIDE 20 MEQ TABLET.ER. PO SCH ×2 (07:47→19:35)
[2017-03-20] MEDS: CARVEDILOL 3.125 MG TABLET PO SCH ×2 (07:47→17:00)
[2017-03-20] MEDS: ASPIRIN 81 MG TAB.CHEW PO SCH (07:47)
[2017-03-20] MEDS: DULoxetine HCL 60 MG CAPSULE.DR PO SCH (07:47)
[2017-03-20] MEDS: PRENATAL MULTIVITAMIN TABLET. PO SCH (14:02)
[2017-03-20 16:01] VITALS: BP 154/84
[2017-03-20] MEDS: ATORVASTATIN CALCIUM 20 MG TABLET PO SCH (19:35)
[2017-03-20] MEDS: MIRTAZAPINE 7.5 MG TABLET. PO SCH (19:35)
--- NOTE | 2017-03-20 21:16 | PDOC ---
Exam Note: Marco Note: Please also refer to the separate dictated note~for this date of service dictated separately.~Patient seen individually. Discussed the patient with Nursing staff reviewed the chart.~Reviewed interim history and current functioning. Reviewed vital signs,~Labs/ Radiology~and current medications noted below. Continue current treatment with the changes noted in the dictated addendum note Assessment: Vital Signs: Vital Signs Date Time Temp Pulse Resp B/P (MAP) Pulse Ox O2 Delivery O2 Flow Rate FiO2 03/20/17 17:00 86 154/84 03/20/17 16:01 99.6 16 96 03/19/17 16:12 Room Air I&O Intake and Output 03/20/17 07:00 Intake Total 1320 ml Balance 1320 ml Intake Oral 1320 ml Labs: Laboratory Tests Test 03/20/17 06:23 White Blood Count 5.5 x10^3/uL (4.0-11.0) Red Blood Count 4.83 x10^6/uL (3.50-5.40) Hemoglobin 13.8 g/dL (12.0-15.5) Hematocrit 40.5 % (36.0-47.0) Mean Corpuscular Volume 84 fL (79-100) Mean Corpuscular Hemoglobin 29 pg (25-35) Mean Corpuscular Hemoglobin Concent 34 g/dL (31-37) Red Cell Distribution Width 18.3 % (11.5-14.5) H Platelet Count 88 x10^3/uL (140-400) L Neutrophils (%) (Auto) 38 % (31-73) Lymphocytes (%) (Auto) 37 % (24-48) Monocytes (%) (Auto) 21 % (0-9) H Eosinophils (%) (Auto) 4 % (0-3) H Basophils (%) (Auto) 1 % (0-3) Neutrophils # (Auto) 2.1 x10^3uL (1.8-7.7) Lymphocytes # (Auto) 2.0 x10^3/uL (1.0-4.8) Monocytes # (Auto) 1.1 x10^3/uL (0.0-1.1) Eosinophils # (Auto) 0.2 x10^3/uL (0.0-0.7) Basophils # (Auto) 0.0 x10^3/uL (0.0-0.2) Sodium Level 138 mmol/L (136-145) Potassium Level 4.7 mmol/L (3.5-5.1) Chloride Level 103 mmol/L (98-107) Carbon Dioxide Level 28 mmol/L (21-32) Anion Gap 7 (6-14) Blood Urea Nitrogen 10 mg/dL (7-20) Creatinine 0.9 mg/dL (0.6-1.0) Estimated GFR (Cockcroft-Gault) 59.2 BUN/Creatinine Ratio 11 (6-20) Glucose Level 89 mg/dL (70-99) Calcium Level 8.4 mg/dL (8.5-10.1) L Magnesium Level 2.0 mg/dL (1.8-2.4) Total Bilirubin 1.1 mg/dL (0.2-1.0) H Aspartate Amino Transferase (AST) 23 U/L (15-37) Alanine Aminotransferase (ALT) 28 U/L (14-59) Alkaline Phosphatase 46 U/L (46-116) Total Protein 6.8 g/dL (6.4-8.2) Albumin 3.2 g/dL (3.4-5.0) L Albumin/Globulin Ratio 0.9 (1.0-1.7) L Current Medications: Meds: Current Medications Multi-Ingredient Ointment (Analgesic [place]) 1 diana PRN QID PRN TP MUSCLE PAIN; Start 03/13/17 at 03:30 Olanzapine (ZyPREXA ZYDIS) 1.25 mg PRN Q2HR PRN PO PSYCHOSIS; Start 03/13/17 at 03:45 Acetaminophen (Tylenol) 650 mg PRN Q6HRS PRN PO MILD PAIN/TEMP Last administered on 03/18/17 13:28; Start 03/13/17 at 04:00 Aspirin (Children'S Aspirin) 81 mg DAILY PO Last administered on 03/20/17 07: 47; Start 03/13/17 at 09:00 Bisacodyl (Dulcolax Tab) 5 mg PRN DAILY PRN PO CONSTIPATION; Start 03/13/17 at 04:00 Carvedilol (Coreg) 3.125 mg BIDWMEALS PO Last administered on 03/20/17 17:00 ; Start 03/13/17 at 08:00 Cyanocobalamin (Vitamin B-12) 1,000 mcg QMONTH IM ; Start 04/10/17 at 09:00 Famotidine (Pepcid) 20 mg DAILY PO Last administered on 03/20/17 07:47; Start 03/13/17 at 09:00 Guaifenesin (Mucinex Er) 600 mg PRN BID PRN PO COUGH; Start 03/13/17 at 04:00 Levothyroxine Sodium (Synthroid) 88 mcg DAILY07 PO Last administered on 06:31; Start 03/13/17 at 07:00; Stop 03/13/17 at 16:07; Status DC Nitroglycerin (Nitrostat) 0.4 mg PRN Q5MIN PRN SL CHEST PAIN; Start 03/13/17 at 04:00 Sodium Chloride (Saline Mist Nasal) 2 diana BID NS Last administered on 19:35; Start 03/13/17 at 09:00 Atorvastatin Calcium (Lipitor) 40 mg QHS PO Last administered on 03/20/17 19: 35; Start 03/13/17 at 21:00 Cetirizine HCl (ZyrTEC) 10 mg PRN DAILY PRN PO ALLERGIES Last administered on 03/18/17 13:28; Start 03/13/17 at 09:00 Al Hydroxide/Mg Hydroxide (Mylanta Plus Xs) 30 ml PRN DAILY PRN PO DYSPEPSIA; Start 03/13/17 at 04:30 Magnesium Hydroxide (Milk Of Magnesia) 2,400 mg PRN DAILY PRN PO CONSTIPATION Last administered on 03/18/17 16:57; Start 03/13/17 at 04:30 Divalproex Sodium (Depakote) 500 mg BID PO Last administered on 03/20/17 19: 34; Start 03/13/17 at 09:00 Duloxetine HCl (Cymbalta) 60 mg DAILY PO Last administered on 03/20/17 07:47 ; Start 03/13/17 at 09:00 Risperidone (RisperDAL) 3 mg BID PO Last administered on 03/14/17 08:19; Start 03/13/17 at 09:00; Stop 03/14/17 at 18:13; Status DC Levothyroxine Sodium (Synthroid) 125 mcg DAILY07 PO Last administered on 06:02; Start 03/14/17 at 07:00 Potassium Chloride (Klor-Con) 20 meq BID PO Last administered on 03/20/17 19: 35; Start 03/13/17 at 21:00 Mirtazapine (Remeron) 7.5 mg QHS PO Last administered on 03/20/17 19:35; Start 03/13/17 at 21:00 Prenat Multivit/ [place]/Iron/Folic Ac (Multivitamin ) 1 tab DAILYBFRLUN PO Last administered on 03/20/17 14:02; Start 03/19/17 at 12:00 Active Scripts Active Reported Saline Nasal [place] (Sodium Chloride) 30 Ml [place] 2 Spr NS BID NITROGLYCERIN SubLingual (Nitroglycerin) 0.4 Mg Tab.subl 0.4 Mg SL PRN Q5MIN PRN Mucinex (Guaifenesin) 600 Mg Tablet.er 600 Mg PO PRN BID PRN Milk Of Magnesia (Magnesium Hydroxide) 2,400 Mg/10 Ml Oral.susp 30 Ml PO PRN DAILY PRN Maalox Advanced Suspension (Mag Hydrox/Aluminum Hyd/Simeth) 355 Ml Oral.susp 30 Ml PO PRN Q24HRS Levothyroxine Sodium 88 Mcg Tablet 88 Mcg PO DAILYAC Invega (Paliperidone) 6 Mg Tab.er.24 6 Mg PO QHS Famotidine 20 Mg Tablet 20 Mg PO DAILY Bisacodyl 5 Mg Tablet. 5 Mg PO PRN DAILY PRN Depakote Er (Divalproex Sodium) 500 Mg Tab.er.24h 500 Mg PO BID Cymbalta (Duloxetine Hcl) 60 Mg Capsule. 60 Mg PO DAILY Cyanocobalamin Injection (Cyanocobalamin (Vitamin B-12)) 1,000 Mcg/1 Ml Vial 1, 000 Mcg IJ QMONTH Coreg (Carvedilol) 3.125 Mg Tablet 3.125 Mg PO BIDWMEALS Claritin (Loratadine) 10 Mg Tablet 10 Mg PO PRN DAILY PRN Atorvastatin Calcium 40 Mg Tablet 40 Mg PO QHS Aspirin 81 Mg Tab.chew 81 Mg PO DAILY Tylenol (Acetaminophen) 325 Mg Tablet 650 Mg PO PRN Q6HRS I have reviewed the current psychotropics carefully including drug interactions. Risk benefit ratio favors no change other than as noted in my dictated progress note. 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
[2017-03-21 06:13] VITALS: BP 127/81
[2017-03-21] MEDS: LEVOTHYROXINE 125 MCG TABLET PO SCH (06:34)
[2017-03-21] MEDS: POTASSIUM CHLORIDE 20 MEQ TABLET.ER. PO SCH ×2 (07:36→20:08)
[2017-03-21] MEDS: FAMOTIDINE 20 MG TABLET PO SCH (07:36)
[2017-03-21] MEDS: DULoxetine HCL 60 MG CAPSULE.DR PO SCH (07:36)
[2017-03-21] MEDS: ASPIRIN 81 MG TAB.CHEW PO SCH (07:36)
[2017-03-21] MEDS: CARVEDILOL 3.125 MG TABLET PO SCH ×2 (07:37→17:00)
[2017-03-21] MEDS: DIVALPROEX SODIUM 250 MG TABLET.DR. PO SCH ×2 (07:37→20:08)
[2017-03-21] MEDS: SODIUM CHLORIDE 0.65% NASAL SPRAY 45ML BOTTLE. NS SCH ×2 (07:38→20:09)
[2017-03-21] MEDS: PRENATAL MULTIVITAMIN TABLET. PO SCH (13:53)
[2017-03-21 16:07] VITALS: BP 109/72
--- NOTE | 2017-03-21 18:15 | PN ---
DATE: 03/19/2017 This is a late entry 03/19/2017 covers elements not covered in my initial note 03/19/2017. Met with the patient evening of 03/19/2017 in her room. She remains withdrawn, tends to pocket food, needs cues to eat her food. REVIEW OF SYSTEMS: No CV, , pulmonary, eye, ENT system symptoms on review. Reliability poor. MENTAL STATUS EXAM: Oriented to herself. Insight, judgment, recent and remote memory, attention, concentration, fund of knowledge poor, consistent with her diagnosis mentioned in my initial note. PLAN: No changes from my initial note. MAN Kehinde HUNT MD DR: MARCOS/yusef JOB#: [id number] / [id number]
--- NOTE | 2017-03-21 18:21 | PN ---
DATE: 03/20/2017 PSYCHIATRIC PROGRESS NOTE This late entry 03/20/2017 covers elements not covered in my initial note 03/20/2017. SUBJECTIVE: Met with the patient in the evening of 03/20/2017. The patient slept reasonably well in the previous evening, confused, anxious, repeatedly asking where she is. REVIEW OF SYSTEMS: No CV, , pulmonary, eye, ENT system symptoms on review. Reliability is poor, not very verbal as I met with her, but pleasant in her room. MENTAL STATUS EXAM: Oriented to herself. Insight, judgment, recent and remote memory, attention, concentration, fund of knowledge poor, consistent with her diagnosis mentioned in my initial note. PLAN: No changes from initial note. Cymbalta is at reasonable dosage as an antidepressant. If needed, we may augment this with Abilify. MAN Kehinde HUNT MD DR: MARCOS/yusef JOB#: [id number] / [id number]
[2017-03-21] MEDS: ATORVASTATIN CALCIUM 20 MG TABLET PO SCH (20:08)
[2017-03-21] MEDS: MIRTAZAPINE 7.5 MG TABLET. PO SCH (20:08)
--- NOTE | 2017-03-21 20:19 | PDOC ---
Exam Note: Marco Note: Please also refer to the separate dictated note~for this date of service dictated separately.~Patient seen individually. Discussed the patient with Nursing staff reviewed the chart.~Reviewed interim history and current functioning. Reviewed vital signs,~Labs/ Radiology~and current medications noted below. Continue current treatment with the changes noted in the dictated addendum note Assessment: Vital Signs: Vital Signs Date Time Temp Pulse Resp B/P (MAP) Pulse Ox O2 Delivery O2 Flow Rate FiO2 03/21/17 17:00 73 109/72 03/21/17 16:07 98.9 16 96 03/19/17 16:12 Room Air I&O Intake and Output 03/21/17 07:00 Intake Total 1080 ml Balance 1080 ml Intake Oral 1080 ml Current Medications: Meds: Current Medications Multi-Ingredient Ointment (Analgesic [place]) 1 [place] PRN QID PRN TP MUSCLE PAIN; Start 03/13/17 at 03:30 Olanzapine (ZyPREXA ZYDIS) 1.25 mg PRN Q2HR PRN PO PSYCHOSIS; Start 03/13/17 at 03:45 Acetaminophen (Tylenol) 650 mg PRN Q6HRS PRN PO MILD PAIN/TEMP Last administered on 03/18/17 13:28; Start 03/13/17 at 04:00 Aspirin (Children'S Aspirin) 81 mg DAILY PO Last administered on 03/21/17 07: 36; Start 03/13/17 at 09:00 Bisacodyl (Dulcolax Tab) 5 mg PRN DAILY PRN PO CONSTIPATION; Start 03/13/17 at 04:00 Carvedilol (Coreg) 3.125 mg BIDWMEALS PO Last administered on 03/21/17 17:00 ; Start 03/13/17 at 08:00 Cyanocobalamin (Vitamin B-12) 1,000 mcg QMONTH IM ; Start 04/10/17 at 09:00 Famotidine (Pepcid) 20 mg DAILY PO Last administered on 03/21/17 07:36; Start 03/13/17 at 09:00 Guaifenesin (Mucinex Er) 600 mg PRN BID PRN PO COUGH; Start 03/13/17 at 04:00 Levothyroxine Sodium (Synthroid) 88 mcg DAILY07 PO Last administered on 06:31; Start 03/13/17 at 07:00; Stop 03/13/17 at 16:07; Status DC Nitroglycerin (Nitrostat) 0.4 mg PRN Q5MIN PRN SL CHEST PAIN; Start 03/13/17 at 04:00 Sodium Chloride (Saline Mist Nasal) 2 diana BID NS Last administered on 20:09; Start 03/13/17 at 09:00 Atorvastatin Calcium (Lipitor) 40 mg QHS PO Last administered on 03/21/17 20: 08; Start 03/13/17 at 21:00 Cetirizine HCl (ZyrTEC) 10 mg PRN DAILY PRN PO ALLERGIES Last administered on 03/18/17 13:28; Start 03/13/17 at 09:00 Al Hydroxide/Mg Hydroxide (Mylanta Plus Xs) 30 ml PRN DAILY PRN PO DYSPEPSIA; Start 03/13/17 at 04:30 Magnesium Hydroxide (Milk Of Magnesia) 2,400 mg PRN DAILY PRN PO CONSTIPATION Last administered on 03/18/17 16:57; Start 03/13/17 at 04:30 Divalproex Sodium (Depakote) 500 mg BID PO Last administered on 03/21/17 20: 08; Start 03/13/17 at 09:00 Duloxetine HCl (Cymbalta) 60 mg DAILY PO Last administered on 03/21/17 07:36 ; Start 03/13/17 at 09:00 Risperidone (RisperDAL) 3 mg BID PO Last administered on 03/14/17 08:19; Start 03/13/17 at 09:00; Stop 03/14/17 at 18:13; Status DC Levothyroxine Sodium (Synthroid) 125 mcg DAILY07 PO Last administered on 06:34; Start 03/14/17 at 07:00 Potassium Chloride (Klor-Con) 20 meq BID PO Last administered on 03/21/17 20: 08; Start 03/13/17 at 21:00 Mirtazapine (Remeron) 7.5 mg QHS PO Last administered on 03/21/17 20:08; Start 03/13/17 at 21:00 Prenat Multivit/ [place]/Iron/Folic Ac (Multivitamin ) 1 tab DAILYBFRLUN PO Last administered on 03/21/17t 13:53; Start 03/19/17 at 12:00 Active Scripts Active Reported Saline Nasal [place] (Sodium Chloride) 30 Ml [place] 2 Spr NS BID NITROGLYCERIN SubLingual (Nitroglycerin) 0.4 Mg Tab.subl 0.4 Mg SL PRN Q5MIN PRN Mucinex (Guaifenesin) 600 Mg Tablet.er 600 Mg PO PRN BID PRN Milk Of Magnesia (Magnesium Hydroxide) 2,400 Mg/10 Ml Oral.susp 30 Ml PO PRN DAILY PRN Maalox Advanced Suspension (Mag Hydrox/Aluminum Hyd/Simeth) 355 Ml Oral.susp 30 Ml PO PRN Q24HRS Levothyroxine Sodium 88 Mcg Tablet 88 Mcg PO DAILYAC Invega (Paliperidone) 6 Mg Tab.er.24 6 Mg PO QHS Famotidine 20 Mg Tablet 20 Mg PO DAILY Bisacodyl 5 Mg Tablet.dr 5 Mg PO PRN DAILY PRN Depakote Er (Divalproex Sodium) 500 Mg Tab.er.24h 500 Mg PO BID Cymbalta (Duloxetine Hcl) 60 Mg Capsule.dr 60 Mg PO DAILY Cyanocobalamin Injection (Cyanocobalamin (Vitamin B-12)) 1,000 Mcg/1 Ml Vial 1, 000 Mcg IJ QMONTH Coreg (Carvedilol) 3.125 Mg Tablet 3.125 Mg PO BIDWMEALS Claritin (Loratadine) 10 Mg Tablet 10 Mg PO PRN DAILY PRN Atorvastatin Calcium 40 Mg Tablet 40 Mg PO QHS Aspirin 81 Mg Tab.chew 81 Mg PO DAILY Tylenol (Acetaminophen) 325 Mg Tablet 650 Mg PO PRN Q6HRS I have reviewed the current psychotropics carefully including drug interactions. Risk benefit ratio favors no change other than as noted in my dictated progress note. 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
[2017-03-22 05:59] VITALS: BP 107/68
[2017-03-22] MEDS: LEVOTHYROXINE 125 MCG TABLET PO SCH (06:07)
[2017-03-22] MEDS: DULoxetine HCL 60 MG CAPSULE.DR PO SCH (08:22)
[2017-03-22] MEDS: POTASSIUM CHLORIDE 20 MEQ TABLET.ER. PO SCH ×2 (08:22→19:49)
[2017-03-22] MEDS: FAMOTIDINE 20 MG TABLET PO SCH (08:22)
[2017-03-22] MEDS: ASPIRIN 81 MG TAB.CHEW PO SCH (08:22)
[2017-03-22] MEDS: DIVALPROEX SODIUM 250 MG TABLET.DR. PO SCH ×2 (08:22→19:49)
[2017-03-22] MEDS: SODIUM CHLORIDE 0.65% NASAL SPRAY 45ML BOTTLE. NS SCH ×2 (08:23→19:50)
[2017-03-22] MEDS: CARVEDILOL 3.125 MG TABLET PO SCH ×2 (08:23→17:13)
[2017-03-22] MEDS: PRENATAL MULTIVITAMIN TABLET. PO SCH (11:56)
[2017-03-22 13:01] VITALS: BP 119/80
--- NOTE | 2017-03-22 14:10 | EKG ---
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
[2017-03-22 16:18] VITALS: BP 112/69
[2017-03-22] MEDS: MIRTAZAPINE 7.5 MG TABLET. PO SCH (19:49)
[2017-03-22] MEDS: ATORVASTATIN CALCIUM 20 MG TABLET PO SCH (19:49)
--- NOTE | 2017-03-22 19:58 | PDOC ---
Exam Note: Marco Note: Please also refer to the separate dictated note~for this date of service dictated separately.~Patient seen individually. Discussed the patient with Nursing staff reviewed the chart.~Reviewed interim history and current functioning. Reviewed vital signs,~Labs/ Radiology~and current medications noted below. Continue current treatment with the changes noted in the dictated addendum note Assessment: Vital Signs: Vital Signs Date Time Temp Pulse Resp B/P (MAP) Pulse Ox O2 Delivery O2 Flow Rate FiO2 03/22/17 17:13 92 112/69 03/22/17 16:18 97.5 18 97 03/19/17 16:12 Room Air I&O Intake and Output 03/22/17 07:00 Intake Total 1200 ml Balance 1200 ml Intake Oral 1200 ml Current Medications: Meds: Current Medications Multi-Ingredient Ointment (Analgesic [place]) 1 diana PRN QID PRN TP MUSCLE PAIN; Start 03/13/17 at 03:30 Olanzapine (ZyPREXA ZYDIS) 1.25 mg PRN Q2HR PRN PO PSYCHOSIS; Start 03/13/17 at 03:45 Acetaminophen (Tylenol) 650 mg PRN Q6HRS PRN PO MILD PAIN/TEMP Last administered on 03/18/17 13:28; Start 03/13/17 at 04:00 Aspirin (Children'S Aspirin) 81 mg DAILY PO Last administered on 03/22/17 08: 22; Start 03/13/17 at 09:00 Bisacodyl (Dulcolax Tab) 5 mg PRN DAILY PRN PO CONSTIPATION; Start 03/13/17 at 04:00 Carvedilol (Coreg) 3.125 mg BIDWMEALS PO Last administered on 03/22/17 17:13 ; Start 03/13/17 at 08:00 Cyanocobalamin (Vitamin B-12) 1,000 mcg QMONTH IM ; Start 04/10/17 at 09:00 Famotidine (Pepcid) 20 mg DAILY PO Last administered on 03/22/17 08:22; Start 03/13/17 at 09:00 Guaifenesin (Mucinex Er) 600 mg PRN BID PRN PO COUGH; Start 03/13/17 at 04:00 Levothyroxine Sodium (Synthroid) 88 mcg DAILY07 PO Last administered on 06:31; Start 03/13/17 at 07:00; Stop 03/13/17 at 16:07; Status DC Nitroglycerin (Nitrostat) 0.4 mg PRN Q5MIN PRN SL CHEST PAIN Last administered on 03/22/17 12:57; Start 03/13/17 at 04:00 Sodium Chloride (Saline Mist Nasal) 2 diana BID NS Last administered on 19:50; Start 03/13/17 at 09:00 Atorvastatin Calcium (Lipitor) 40 mg QHS PO Last administered on 03/22/17 19: 49; Start 03/13/17 at 21:00 Cetirizine HCl (ZyrTEC) 10 mg PRN DAILY PRN PO ALLERGIES Last administered on 03/18/17 13:28; Start 03/13/17 at 09:00 Al Hydroxide/Mg Hydroxide (Mylanta Plus Xs) 30 ml PRN DAILY PRN PO DYSPEPSIA; Start 03/13/17 at 04:30 Magnesium Hydroxide (Milk Of Magnesia) 2,400 mg PRN DAILY PRN PO CONSTIPATION Last administered on 03/18/17 16:57; Start 03/13/17 at 04:30 Divalproex Sodium (Depakote) 500 mg BID PO Last administered on 03/22/17 19: 49; Start 03/13/17 at 09:00 Duloxetine HCl (Cymbalta) 60 mg DAILY PO Last administered on 03/22/17 08:22 ; Start 03/13/17 at 09:00 Risperidone (RisperDAL) 3 mg BID PO Last administered on 03/14/17 08:19; Start 03/13/17 at 09:00; Stop 03/14/17 at 18:13; Status DC Levothyroxine Sodium (Synthroid) 125 mcg DAILY07 PO Last administered on 06:07; Start 03/14/17 at 07:00 Potassium Chloride (Klor-Con) 20 meq BID PO Last administered on 03/22/17 19: 49; Start 03/13/17 at 21:00 Mirtazapine (Remeron) 7.5 mg QHS PO Last administered on 03/22/17 19:49; Start 03/13/17 at 21:00 Prenat Multivit/ [place]/Iron/Folic Ac (Multivitamin ) 1 tab DAILYBFRLUN PO Last administered on 03/22/17t 11:56; Start 03/19/17 at 12:00 Active Scripts Active Reported Saline Nasal [place] (Sodium Chloride) 30 Ml [place] 2 Spr NS BID NITROGLYCERIN SubLingual (Nitroglycerin) 0.4 Mg Tab.subl 0.4 Mg SL PRN Q5MIN PRN Mucinex (Guaifenesin) 600 Mg Tablet.er 600 Mg PO PRN BID PRN Milk Of Magnesia (Magnesium Hydroxide) 2,400 Mg/10 Ml Oral.susp 30 Ml PO PRN DAILY PRN Maalox Advanced Suspension (Mag Hydrox/Aluminum Hyd/Simeth) 355 Ml Oral.susp 30 Ml PO PRN Q24HRS Levothyroxine Sodium 88 Mcg Tablet 88 Mcg PO DAILYAC Invega (Paliperidone) 6 Mg Tab.er.24 6 Mg PO QHS Famotidine 20 Mg Tablet 20 Mg PO DAILY Bisacodyl 5 Mg Tablet.dr 5 Mg PO PRN DAILY PRN Depakote Er (Divalproex Sodium) 500 Mg Tab.er.24h 500 Mg PO BID Cymbalta (Duloxetine Hcl) 60 Mg Capsule.dr 60 Mg PO DAILY Cyanocobalamin Injection (Cyanocobalamin (Vitamin B-12)) 1,000 Mcg/1 Ml Vial 1, 000 Mcg IJ QMONTH Coreg (Carvedilol) 3.125 Mg Tablet 3.125 Mg PO BIDWMEALS Claritin (Loratadine) 10 Mg Tablet 10 Mg PO PRN DAILY PRN Atorvastatin Calcium 40 Mg Tablet 40 Mg PO QHS Aspirin 81 Mg Tab.chew 81 Mg PO DAILY Tylenol (Acetaminophen) 325 Mg Tablet 650 Mg PO PRN Q6HRS I have reviewed the current psychotropics carefully including drug interactions. Risk benefit ratio favors no change other than as noted in my dictated progress note. 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
--- NOTE | 2017-03-23 04:00 | PN ---
DATE: 03/22/2017 This note covers elements not covered in my initial note of 03/22/2017. SUBJECTIVE: The patient was seen individually in the morning of 03/22/2017. She remains somewhat withdrawn, but less paranoid and suspicious. REVIEW OF SYSTEMS: No CV, , pulmonary, eye, ENT system symptoms on review. Not trying to elope from the unit, less aggressive. MENTAL STATUS EXAM: Oriented to herself. Insight, judgment, recent and remote memory, attention, concentration, fund of knowledge poor, consistent with her diagnosis mentioned in my initial note. PLAN: No change from a psychiatric standpoint. Valproic acid level therapeutic at 54. Adjust further as clinically indicated. MAN Kehinde HUNT MD DR: MARCOS/yusef JOB#: [id number] / [id number]
[2017-03-23] MEDS: LEVOTHYROXINE 125 MCG TABLET PO SCH (05:33)
[2017-03-23 06:03] VITALS: BP 147/80
[2017-03-23] MEDS: CARVEDILOL 3.125 MG TABLET PO SCH ×2 (08:27→17:19)
[2017-03-23] MEDS: ASPIRIN 81 MG TAB.CHEW PO SCH (08:27)
[2017-03-23] MEDS: POTASSIUM CHLORIDE 20 MEQ TABLET.ER. PO SCH ×2 (08:27→19:49)
[2017-03-23] MEDS: DULoxetine HCL 60 MG CAPSULE.DR PO SCH (08:29)
[2017-03-23] MEDS: FAMOTIDINE 20 MG TABLET PO SCH (08:29)
[2017-03-23] MEDS: DIVALPROEX SODIUM 250 MG TABLET.DR. PO SCH ×2 (08:29→19:48)
[2017-03-23] MEDS: SODIUM CHLORIDE 0.65% NASAL SPRAY 45ML BOTTLE. NS SCH ×2 (08:30→19:50)
--- NOTE | 2017-03-23 08:34 | PN ---
DATE: 03/21/2017 This is a late entry for 03/21/2017, covers the elements not covered in my initial note of 03/21/2017. SUBJECTIVE: I met with the patient in the evening of 03/21/2017. The patient is doing better, less perseveration per nursing report, wanting to call her mother, quite confused about her age and possibly ____ mother, did called her granddaughter ____ talk to her, was better after this that she seems to recognize family. REVIEW OF SYSTEMS: No CV, , pulmonary, eye, ENT system symptoms on review. Reliability poor, somewhat withdrawn. MENTAL STATUS EXAM: Oriented to herself. Insight, judgment, recent and remote memory, attention, concentration, fund of knowledge poor, consistent with her diagnosis mentioned in my initial note. PLAN: Continue current psychotropics mentioned in my initial note. Make further changes as clinically indicated. MAN Kehinde HUNT MD DR: MARCOS/yusef JOB#: [id number] / [id number]
[2017-03-23] MEDS: PRENATAL MULTIVITAMIN TABLET. PO SCH (11:41)
[2017-03-23 16:12] VITALS: BP 118/68
[2017-03-23] MEDS: ATORVASTATIN CALCIUM 20 MG TABLET PO SCH (19:48)
[2017-03-23] MEDS: MIRTAZAPINE 7.5 MG TABLET. PO SCH (19:49)
[2017-03-24] MEDS: LEVOTHYROXINE 125 MCG TABLET PO SCH (05:33)
[2017-03-24 05:57] VITALS: BP 108/64
[2017-03-24] MEDS: POTASSIUM CHLORIDE 20 MEQ TABLET.ER. PO SCH ×2 (08:08→20:37)
[2017-03-24] MEDS: FAMOTIDINE 20 MG TABLET PO SCH (08:11)
[2017-03-24] MEDS: DIVALPROEX SODIUM 250 MG TABLET.DR. PO SCH ×2 (08:11→20:37)
[2017-03-24] MEDS: CARVEDILOL 3.125 MG TABLET PO SCH ×2 (08:11→16:49)
[2017-03-24] MEDS: ASPIRIN 81 MG TAB.CHEW PO SCH (08:11)
[2017-03-24] MEDS: DULoxetine HCL 60 MG CAPSULE.DR PO SCH (08:11)
[2017-03-24] MEDS: SODIUM CHLORIDE 0.65% NASAL SPRAY 45ML BOTTLE. NS SCH ×2 (10:00→20:38)
[2017-03-24] MEDS: PRENATAL MULTIVITAMIN TABLET. PO SCH (11:45)
[2017-03-24 16:05] VITALS: BP 122/77
[2017-03-24] MEDS: MIRTAZAPINE 7.5 MG TABLET. PO SCH (20:37)
[2017-03-24] MEDS: ATORVASTATIN CALCIUM 20 MG TABLET PO SCH (20:37)
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
[2017-03-25] MEDS: LEVOTHYROXINE 125 MCG TABLET PO SCH (05:44)
[2017-03-25 05:55] VITALS: BP 114/72
[2017-03-25] MEDS: FAMOTIDINE 20 MG TABLET PO SCH (08:03)
[2017-03-25] MEDS: DULoxetine HCL 60 MG CAPSULE.DR PO SCH (08:03)
[2017-03-25] MEDS: POTASSIUM CHLORIDE 20 MEQ TABLET.ER. PO SCH ×2 (08:03→19:23)
[2017-03-25] MEDS: ASPIRIN 81 MG TAB.CHEW PO SCH (08:04)
[2017-03-25] MEDS: DIVALPROEX SODIUM 250 MG TABLET.DR. PO SCH ×2 (08:04→19:23)
[2017-03-25] MEDS: CARVEDILOL 3.125 MG TABLET PO SCH ×2 (08:04→16:53)
[2017-03-25] MEDS: SODIUM CHLORIDE 0.65% NASAL SPRAY 45ML BOTTLE. NS SCH ×2 (08:14→19:24)
[2017-03-25] MEDS: PRENATAL MULTIVITAMIN TABLET. PO SCH (08:15)
--- NOTE | 2017-03-25 15:59 | PN ---
DATE: 03/25/2017 DATE OF SERVICE: 03/25/2017 SUBJECTIVE: The patient was seen today, met with the staff, chart reviewed. Staff reports continued behavior problems, but most of the time she has been isolating herself. The patient also feels delusional. The patient pointed out of scar on her abdomen and claims she sees things coming out from that scar. She thinks this ____. The patient has limited communications and she likes to be left alone. OBSERVATION: Temperature 98.3, blood pressure 114/72, pulse 72, respirations 18, O2 sat 95%. The patient slept about 10 hours last night. The patient's appetite is fair. The patient is able to walk with the walker, but unsteady. The patient is not having any side effects to the medications. MEDICATIONS: The patient's current medications include mirtazapine 7.5 mg at night, Cymbalta 60 mg daily, Depakote 500 mg b.i.d. and she is also on olanzapine 1.25 mg p.r.n. q. 2 hours. The patient is not presenting with any physical complaints. ASSESSMENT: Dementia, Alzheimer's with depression and delusions. PLAN: Continue with the treatment. The patient is also at fall risk. RADHA BRAVO MD DR: RADHA/yusef JOB#: [id number] / [id number]
[2017-03-25 16:08] VITALS: BP 108/70
[2017-03-25] MEDS: MIRTAZAPINE 7.5 MG TABLET. PO SCH (19:22)
[2017-03-25] MEDS: ATORVASTATIN CALCIUM 20 MG TABLET PO SCH (19:22)
[2017-03-26] MEDS: LEVOTHYROXINE 125 MCG TABLET PO SCH (05:40)
[2017-03-26 05:47] VITALS: BP 121/79
[2017-03-26] MEDS: ASPIRIN 81 MG TAB.CHEW PO SCH (08:08)
[2017-03-26] MEDS: CARVEDILOL 3.125 MG TABLET PO SCH ×2 (08:09→17:24)
[2017-03-26] MEDS: POTASSIUM CHLORIDE 20 MEQ TABLET.ER. PO SCH ×2 (08:09→19:18)
[2017-03-26] MEDS: FAMOTIDINE 20 MG TABLET PO SCH (08:09)
[2017-03-26] MEDS: DIVALPROEX SODIUM 250 MG TABLET.DR. PO SCH ×2 (08:09→19:17)
[2017-03-26] MEDS: DULoxetine HCL 60 MG CAPSULE.DR PO SCH (08:09)
[2017-03-26] MEDS: SODIUM CHLORIDE 0.65% NASAL SPRAY 45ML BOTTLE. NS SCH ×2 (08:10→19:18)
[2017-03-26] MEDS: PRENATAL MULTIVITAMIN TABLET. PO SCH (08:12)
[2017-03-26 15:49] VITALS: BP 122/83
--- NOTE | 2017-03-26 19:04 | PN ---
DATE: 03/26/2017 SUBJECTIVE: The patient was seen today, met with the staff, chart reviewed. The patient's behavior has improved. The patient is still having difficulty with her thinking process. Periods of confusion. OBSERVATION: VITAL SIGNS: Temperature 96.8, blood pressure 121/79, pulse 68, respirations 16, O2 sat 96%. Slept about 9 hours last night. The patient's appetite has improved. MEDICATIONS: Reviewed. Currently on Cymbalta 60 mg daily, Depakote 500 mg b.i.d., mirtazapine 7.5 mg at night and also on olanzapine 1.25 mg q. 2 hours p.r.n. ALLERGIES: The patient denies of any side effects of the medications. The patient is not presenting with any physical problems. ASSESSMENT: Dementia, Alzheimer's with depression and delusions. PLAN: To continue with the treatment. The patient continues to be a fall risk. RADHA BRAVO MD DR: RADHA/yusef JOB#: [id number] / [id number]
[2017-03-26] MEDS: MIRTAZAPINE 7.5 MG TABLET. PO SCH (19:18)
[2017-03-26] MEDS: ATORVASTATIN CALCIUM 20 MG TABLET PO SCH (19:18)
[2017-03-27] MEDS: LEVOTHYROXINE 125 MCG TABLET PO SCH (05:54)
[2017-03-27 06:07] VITALS: BP 145/78
[2017-03-27 07:55] LABS: BASO # 0.1 x10^3/uL (0.0-0.2); BASO % 1 % (0-3); EOS # 0.2 x10^3/uL (0.0-0.7); EOS % 3 % (0-3); HEMATOCRIT 44.4 % (36.0-47.0); HEMOGLOBIN 14.7 g/dL (12.0-15.5); LYMPH # 1.9 x10^3/uL (1.0-4.8); LYMPH % 28 % (24-48); MEAN CORPUSCULAR HEMOGLOBIN 29 pg (25-35); MEAN CORPUSCULAR HGB CONC 33 g/dL (31-37); MEAN CORPUSCULAR VOLUME 86 fL (79-100); MONO # 1.4 x10^3/uL (0.0-1.1); MONO % 21 % (0-9); NEUT # 3.2 x10^3uL (1.8-7.7); NEUT % 48 % (31-73); PLATELET COUNT 89 x10^3/uL (140-400); RED BLOOD COUNT 5.15 x10^6/uL (3.50-5.40); RED CELL DISTRIBUTION WIDTH 18.2 % (11.5-14.5); WHITE BLOOD COUNT 6.7 x10^3/uL (4.0-11.0)
[2017-03-27 08:08] LABS: ALBUMIN 3.5 g/dL (3.4-5.0); ALBUMIN/GLOBULIN RATIO 0.9 (1.0-1.7); CALCIUM 8.7 mg/dL (8.5-10.1); CREATININE 0.9 mg/dL (0.6-1.0); GFR 59.2; POTASSIUM 5.2 mmol/L (3.5-5.1); TOTAL PROTEIN 7.5 g/dL (6.4-8.2)
[2017-03-27] MEDS: SODIUM CHLORIDE 0.65% NASAL SPRAY 45ML BOTTLE. NS SCH ×2 (08:25→19:07)
[2017-03-27] MEDS: CARVEDILOL 3.125 MG TABLET PO SCH ×2 (08:25→17:25)
[2017-03-27] MEDS: DULoxetine HCL 60 MG CAPSULE.DR PO SCH (08:26)
[2017-03-27] MEDS: ASPIRIN 81 MG TAB.CHEW PO SCH (08:26)
[2017-03-27] MEDS: DIVALPROEX SODIUM 250 MG TABLET.DR. PO SCH ×2 (08:26→19:04)
[2017-03-27] MEDS: FAMOTIDINE 20 MG TABLET PO SCH (08:27)
[2017-03-27] MEDS: PRENATAL MULTIVITAMIN TABLET. PO SCH (08:27)
[2017-03-27] MEDS: POTASSIUM CHLORIDE 20 MEQ TABLET.ER. PO SCH ×2 (09:00→19:05)
[2017-03-27 16:20] VITALS: BP 112/72
[2017-03-27] MEDS: ATORVASTATIN CALCIUM 20 MG TABLET PO SCH (19:04)
[2017-03-27] MEDS: MIRTAZAPINE 7.5 MG TABLET. PO SCH (19:05)
--- NOTE | 2017-03-27 20:52 | PDOC ---
Exam Note: Marco Note: Please also refer to the separate dictated note~for this date of service dictated separately.~Patient seen individually. Discussed the patient with Nursing staff reviewed the chart.~Reviewed interim history and current functioning. Reviewed vital signs,~Labs/ Radiology~and current medications noted below. Continue current treatment with the changes noted in the dictated addendum note Assessment: Vital Signs: Vital Signs Date Time Temp Pulse Resp B/P (MAP) Pulse Ox O2 Delivery O2 Flow Rate FiO2 03/27/17 17:25 91 112/72 03/27/17 16:20 98.7 16 96 03/27/17 06:07 Room Air I&O Intake and Output 03/27/17 07:00 Intake Total 1440 ml Balance 1440 ml Intake Oral 1200 ml Tube Feeding 240 ml Labs: Laboratory Tests Test 03/27/17 07:45 White Blood Count 6.7 x10^3/uL (4.0-11.0) Red Blood Count 5.15 x10^6/uL (3.50-5.40) Hemoglobin 14.7 g/dL (12.0-15.5) Hematocrit 44.4 % (36.0-47.0) Mean Corpuscular Volume 86 fL (79-100) Mean Corpuscular Hemoglobin 29 pg (25-35) Mean Corpuscular Hemoglobin Concent 33 g/dL (31-37) Red Cell Distribution Width 18.2 % (11.5-14.5) H Platelet Count 89 x10^3/uL (140-400) L Neutrophils (%) (Auto) 48 % (31-73) Lymphocytes (%) (Auto) 28 % (24-48) Monocytes (%) (Auto) 21 % (0-9) H Eosinophils (%) (Auto) 3 % (0-3) Basophils (%) (Auto) 1 % (0-3) Neutrophils # (Auto) 3.2 x10^3uL (1.8-7.7) Lymphocytes # (Auto) 1.9 x10^3/uL (1.0-4.8) Monocytes # (Auto) 1.4 x10^3/uL (0.0-1.1) H Eosinophils # (Auto) 0.2 x10^3/uL (0.0-0.7) Basophils # (Auto) 0.1 x10^3/uL (0.0-0.2) Sodium Level 140 mmol/L (136-145) Potassium Level 5.2 mmol/L (3.5-5.1) H Chloride Level 104 mmol/L (98-107) Carbon Dioxide Level 30 mmol/L (21-32) Anion Gap 6 (6-14) Blood Urea Nitrogen 10 mg/dL (7-20) Creatinine 0.9 mg/dL (0.6-1.0) Estimated GFR (Cockcroft-Gault) 59.2 BUN/Creatinine Ratio 11 (6-20) Glucose Level 93 mg/dL (70-99) Calcium Level 8.7 mg/dL (8.5-10.1) Total Bilirubin 1.0 mg/dL (0.2-1.0) Aspartate Amino Transferase (AST) 29 U/L (15-37) Alanine Aminotransferase (ALT) 41 U/L (14-59) Alkaline Phosphatase 61 U/L (46-116) Total Protein 7.5 g/dL (6.4-8.2) Albumin 3.5 g/dL (3.4-5.0) Albumin/Globulin Ratio 0.9 (1.0-1.7) L Current Medications: Meds: Current Medications Multi-Ingredient Ointment (Analgesic [place]) 1 diana PRN QID PRN TP MUSCLE PAIN; Start 03/13/17 at 03:30 Olanzapine (ZyPREXA ZYDIS) 1.25 mg PRN Q2HR PRN PO PSYCHOSIS; Start 03/13/17 at 03:45 Acetaminophen (Tylenol) 650 mg PRN Q6HRS PRN PO MILD PAIN/TEMP Last administered on 03/18/17 13:28; Start 03/13/17 at 04:00 Aspirin (Children'S Aspirin) 81 mg DAILY PO Last administered on 03/27/17 08: 26; Start 03/13/17 at 09:00 Bisacodyl (Dulcolax Tab) 5 mg PRN DAILY PRN PO CONSTIPATION; Start 03/13/17 at 04:00 Carvedilol (Coreg) 3.125 mg BIDWMEALS PO Last administered on 03/27/17 17:25 ; Start 03/13/17 at 08:00 Cyanocobalamin (Vitamin B-12) 1,000 mcg QMONTH IM ; Start 04/10/17 at 09:00 Famotidine (Pepcid) 20 mg DAILY PO Last administered on 03/27/17 08:27; Start 03/13/17 at 09:00 Guaifenesin (Mucinex Er) 600 mg PRN BID PRN PO COUGH; Start 03/13/17 at 04:00 Levothyroxine Sodium (Synthroid) 88 mcg DAILY07 PO Last administered on 06:31; Start 03/13/17 at 07:00; Stop 03/13/17 at 16:07; Status DC Nitroglycerin (Nitrostat) 0.4 mg PRN Q5MIN PRN SL CHEST PAIN Last administered on 03/22/17 12:57; Start 03/13/17 at 04:00 Sodium Chloride (Saline Mist Nasal) 2 diana BID NS Last administered on 19:07; Start 03/13/17 at 09:00 Atorvastatin Calcium (Lipitor) 40 mg QHS PO Last administered on 03/27/17 19: 04; Start 03/13/17 at 21:00 Cetirizine HCl (ZyrTEC) 10 mg PRN DAILY PRN PO ALLERGIES Last administered on 03/18/17 13:28; Start 03/13/17 at 09:00 Al Hydroxide/Mg Hydroxide (Mylanta Plus Xs) 30 ml PRN DAILY PRN PO DYSPEPSIA; Start 03/13/17 at 04:30 Magnesium Hydroxide (Milk Of Magnesia) 2,400 mg PRN DAILY PRN PO CONSTIPATION Last administered on 03/18/17 16:57; Start 03/13/17 at 04:30 Divalproex Sodium (Depakote) 500 mg BID PO Last administered on 03/27/17 19: 04; Start 03/13/17 at 09:00 Duloxetine HCl (Cymbalta) 60 mg DAILY PO Last administered on 03/27/17 08:26 ; Start 03/13/17 at 09:00 Risperidone (RisperDAL) 3 mg BID PO Last administered on 03/14/17 08:19; Start 03/13/17 at 09:00; Stop 03/14/17 at 18:13; Status DC Levothyroxine Sodium (Synthroid) 125 mcg DAILY07 PO Last administered on 05:54; Start 03/14/17 at 07:00 Potassium Chloride (Klor-Con) 20 meq BID PO Last administered on 03/27/17 19: 05; Start 03/13/17 at 21:00 Mirtazapine (Remeron) 7.5 mg QHS PO Last administered on 03/27/17 19:05; Start 03/13/17 at 21:00 Prenat Multivit/ Conveyor Mechanic/Iron/Folic Ac (Multivitamin ) 1 tab DAILYBFRLUN PO Last administered on 03/27/17 08:27; Start 03/19/17 at 12:00 Active Scripts Active Reported Saline Nasal [place] (Sodium Chloride) 30 Ml [place] 2 Spr NS BID NITROGLYCERIN SubLingual (Nitroglycerin) 0.4 Mg Tab.subl 0.4 Mg SL PRN Q5MIN PRN Mucinex (Guaifenesin) 600 Mg Tablet.er 600 Mg PO PRN BID PRN Milk Of Magnesia (Magnesium Hydroxide) 2,400 Mg/10 Ml Oral.susp 30 Ml PO PRN DAILY PRN Maalox Advanced Suspension (Mag Hydrox/Aluminum Hyd/Simeth) 355 Ml Oral.susp 30 Ml PO PRN Q24HRS Levothyroxine Sodium 88 Mcg Tablet 88 Mcg PO DAILYAC Invega (Paliperidone) 6 Mg Tab.er.24 6 Mg PO QHS Famotidine 20 Mg Tablet 20 Mg PO DAILY Bisacodyl 5 Mg Tablet.dr 5 Mg PO PRN DAILY PRN Depakote Er (Divalproex Sodium) 500 Mg Tab.er.24h 500 Mg PO BID Cymbalta (Duloxetine Hcl) 60 Mg Capsule.dr 60 Mg PO DAILY Cyanocobalamin Injection (Cyanocobalamin (Vitamin B-12)) 1,000 Mcg/1 Ml Vial 1, 000 Mcg IJ QMONTH Coreg (Carvedilol) 3.125 Mg Tablet 3.125 Mg PO BIDWMEALS Claritin (Loratadine) 10 Mg Tablet 10 Mg PO PRN DAILY PRN Atorvastatin Calcium 40 Mg Tablet 40 Mg PO QHS Aspirin 81 Mg Tab.chew 81 Mg PO DAILY Tylenol (Acetaminophen) 325 Mg Tablet 650 Mg PO PRN Q6HRS I have reviewed the current psychotropics carefully including drug interactions. Risk benefit ratio favors no change other than as noted in my dictated progress note. Diagnosis: Problems: (1) Anxiety disorder (2) Dementia in Alzheimer's disease with depression (3) Dementia in Alzheimer's disease with delusions (4) Dementia, vascular, with delusions (5) Dementia, vascular, with delirium (6) Impulse control disorder PATRICIA HUNT MD Mar 27, 2017 20:52
[2017-03-28 06:13] VITALS: BP 130/73
[2017-03-28] MEDS: LEVOTHYROXINE 125 MCG TABLET PO SCH (06:17)
[2017-03-28] MEDS: CARVEDILOL 3.125 MG TABLET PO SCH ×2 (08:44→17:00)
[2017-03-28] MEDS: ASPIRIN 81 MG TAB.CHEW PO SCH (08:44)
[2017-03-28] MEDS: DIVALPROEX SODIUM 250 MG TABLET.DR. PO SCH ×2 (08:44→19:27)
[2017-03-28] MEDS: DULoxetine HCL 60 MG CAPSULE.DR PO SCH (08:44)
[2017-03-28] MEDS: FAMOTIDINE 20 MG TABLET PO SCH (08:48)
[2017-03-28] MEDS: PRENATAL MULTIVITAMIN TABLET. PO SCH (08:48)
[2017-03-28] MEDS: POTASSIUM CHLORIDE 20 MEQ TABLET.ER. PO SCH (09:00)
[2017-03-28] MEDS: SODIUM CHLORIDE 0.65% NASAL SPRAY 45ML BOTTLE. NS SCH ×2 (09:00→19:28)
[2017-03-28 09:01] LABS: CALCIUM 8.9 mg/dL (8.5-10.1); CREATININE 0.9 mg/dL (0.6-1.0); GFR 59.2; POTASSIUM 4.9 mmol/L (3.5-5.1)
--- NOTE | 2017-03-28 14:29 | PN ---
DATE: 03/27/2017 PSYCHIATRIC PROGRESS NOTE This late entry 03/27/2017 covers elements, not covered in my initial note, 03/27/2017. SUBJECTIVE: I met with the patient late evening of 03/27/2017. Also reviewed information from Dr. Fernandez. Overall, the patient has remained confused, cooperative, compliant with medications. She remains somewhat anxious, restless, but redirectable. REVIEW OF SYSTEMS: No CV, , eye, ENT or pulmonary system symptoms on review. Reliability poor. MENTAL STATUS EXAM: Oriented to herself. Insight, judgment, recent and remote memory, attention, concentration, fund of knowledge poor, consistent with her diagnoses. IMPRESSION: Major neurocognitive disorder, Alzheimer, vascular with depression, delusion, behavioral disturbance; anxiety disorder, unspecified; impulse control disorder, unspecified. PLAN: Continue Cymbalta 60 mg a day, Depakote 500 mg b.i.d., level is therapeutic at 54, Remeron 7.5 mg at bedtime, Zyprexa p.r.n. Reviewed drug interactions. Risk/benefit ratio favors no further change. PATRICIA HUNT MD DR: MARCOS/yusef JOB#: [id number] / [id number]
[2017-03-28 15:56] VITALS: BP 102/69
[2017-03-28] MEDS: ATORVASTATIN CALCIUM 20 MG TABLET PO SCH (19:25)
[2017-03-28] MEDS: MIRTAZAPINE 7.5 MG TABLET. PO SCH (19:27)
--- NOTE | 2017-03-28 19:46 | PDOC ---
Exam Note: Marco Note: Please also refer to the separate dictated note~for this date of service dictated separately.~Patient seen individually. Discussed the patient with Nursing staff reviewed the chart.~Reviewed interim history and current functioning. Reviewed vital signs,~Labs/ Radiology~and current medications noted below. Continue current treatment with the changes noted in the dictated addendum note Assessment: Vital Signs: Vital Signs Date Time Temp Pulse Resp B/P (MAP) Pulse Ox O2 Delivery O2 Flow Rate FiO2 03/28/17 15:56 97.7 81 16 102/69 (80) 96 03/27/17 06:07 Room Air I&O Intake and Output 03/28/17 07:00 Intake Total 900 ml Balance 900 ml Intake Oral 900 ml Labs: Laboratory Tests Test 03/28/17 08:26 Sodium Level 140 mmol/L (136-145) Potassium Level 4.9 mmol/L (3.5-5.1) Chloride Level 104 mmol/L (98-107) Carbon Dioxide Level 28 mmol/L (21-32) Anion Gap 8 (6-14) Blood Urea Nitrogen 12 mg/dL (7-20) Creatinine 0.9 mg/dL (0.6-1.0) Estimated GFR (Cockcroft-Gault) 59.2 Glucose Level 114 mg/dL (70-99) H Calcium Level 8.9 mg/dL (8.5-10.1) Current Medications: Meds: Current Medications Multi-Ingredient Ointment (Analgesic [place]) 1 diana PRN QID PRN TP MUSCLE PAIN; Start 03/13/17 at 03:30 Olanzapine (ZyPREXA ZYDIS) 1.25 mg PRN Q2HR PRN PO PSYCHOSIS; Start 03/13/17 at 03:45 Acetaminophen (Tylenol) 650 mg PRN Q6HRS PRN PO MILD PAIN/TEMP Last administered on 03/18/17 13:28; Start 03/13/17 at 04:00 Aspirin (Children'S Aspirin) 81 mg DAILY PO Last administered on 03/28/17 08: 44; Start 03/13/17 at 09:00 Bisacodyl (Dulcolax Tab) 5 mg PRN DAILY PRN PO CONSTIPATION; Start 03/13/17 at 04:00 Carvedilol (Coreg) 3.125 mg BIDWMEALS PO Last administered on 03/28/17 08:44 ; Start 03/13/17 at 08:00 Cyanocobalamin (Vitamin B-12) 1,000 mcg QMONTH IM ; Start 04/10/17 at 09:00 Famotidine (Pepcid) 20 mg DAILY PO Last administered on 03/28/17 08:48; Start 03/13/17 at 09:00 Guaifenesin (Mucinex Er) 600 mg PRN BID PRN PO COUGH; Start 03/13/17 at 04:00 Levothyroxine Sodium (Synthroid) 88 mcg DAILY07 PO Last administered on 06:31; Start 03/13/17 at 07:00; Stop 03/13/17 at 16:07; Status DC Nitroglycerin (Nitrostat) 0.4 mg PRN Q5MIN PRN SL CHEST PAIN Last administered on 03/22/17 12:57; Start 03/13/17 at 04:00 Sodium Chloride (Saline Mist Nasal) 2 diana BID NS Last administered on 19:28; Start 03/13/17 at 09:00 Atorvastatin Calcium (Lipitor) 40 mg QHS PO Last administered on 03/28/17 19: 25; Start 03/13/17 at 21:00 Cetirizine HCl (ZyrTEC) 10 mg PRN DAILY PRN PO ALLERGIES Last administered on 03/18/17 13:28; Start 03/13/17 at 09:00 Al Hydroxide/Mg Hydroxide (Mylanta Plus Xs) 30 ml PRN DAILY PRN PO DYSPEPSIA; Start 03/13/17 at 04:30 Magnesium Hydroxide (Milk Of Magnesia) 2,400 mg PRN DAILY PRN PO CONSTIPATION Last administered on 03/18/17 16:57; Start 03/13/17 at 04:30 Divalproex Sodium (Depakote) 500 mg BID PO Last administered on 03/28/17 19: 27; Start 03/13/17 at 09:00 Duloxetine HCl (Cymbalta) 60 mg DAILY PO Last administered on 03/28/17 08:44 ; Start 03/13/17 at 09:00 Risperidone (RisperDAL) 3 mg BID PO Last administered on 03/14/17 08:19; Start 03/13/17 at 09:00; Stop 03/14/17 at 18:13; Status DC Levothyroxine Sodium (Synthroid) 125 mcg DAILY07 PO Last administered on 06:17; Start 03/14/17 at 07:00 Potassium Chloride (Klor-Con) 20 meq BID PO Last administered on 03/27/17 19: 05; Start 03/13/17 at 21:00; Stop 03/28/17 at 14:11; Status DC Mirtazapine (Remeron) 7.5 mg QHS PO Last administered on 03/28/17 19:27; Start 03/13/17 at 21:00 Prenat Multivit/ Product Development Manager/Iron/Folic Ac (Multivitamin ) 1 tab DAILYBFRLUN PO Last administered on 03/28/17 08:48; Start 03/19/17 at 12:00 Potassium Chloride (Klor-Con) 20 meq DAILY PO ; Start 03/29/17 at 09:00 Active Scripts Active Reported Saline Nasal [place] (Sodium Chloride) 30 Ml [place] 2 Spr NS BID NITROGLYCERIN SubLingual (Nitroglycerin) 0.4 Mg Tab.subl 0.4 Mg SL PRN Q5MIN PRN Mucinex (Guaifenesin) 600 Mg Tablet.er 600 Mg PO PRN BID PRN Milk Of Magnesia (Magnesium Hydroxide) 2,400 Mg/10 Ml Oral.susp 30 Ml PO PRN DAILY PRN Maalox Advanced Suspension (Mag Hydrox/Aluminum Hyd/Simeth) 355 Ml Oral.susp 30 Ml PO PRN Q24HRS Levothyroxine Sodium 88 Mcg Tablet 88 Mcg PO DAILYAC Invega (Paliperidone) 6 Mg Tab.er.24 6 Mg PO QHS Famotidine 20 Mg Tablet 20 Mg PO DAILY Bisacodyl 5 Mg Tablet. 5 Mg PO PRN DAILY PRN Depakote Er (Divalproex Sodium) 500 Mg Tab.er.24h 500 Mg PO BID Cymbalta (Duloxetine Hcl) 60 Mg Capsule. 60 Mg PO DAILY Cyanocobalamin Injection (Cyanocobalamin (Vitamin B-12)) 1,000 Mcg/1 Ml Vial 1, 000 Mcg IJ QMONTH Coreg (Carvedilol) 3.125 Mg Tablet 3.125 Mg PO BIDWMEALS Claritin (Loratadine) 10 Mg Tablet 10 Mg PO PRN DAILY PRN Atorvastatin Calcium 40 Mg Tablet 40 Mg PO QHS Aspirin 81 Mg Tab.chew 81 Mg PO DAILY Tylenol (Acetaminophen) 325 Mg Tablet 650 Mg PO PRN Q6HRS I have reviewed the current psychotropics carefully including drug interactions. Risk benefit ratio favors no change other than as noted in my dictated progress note. Diagnosis: Problems: (1) Anxiety disorder (2) Dementia in Alzheimer's disease with depression (3) Dementia in Alzheimer's disease with delusions (4) Dementia, vascular, with delusions (5) Dementia, vascular, with delirium (6) Impulse control disorder PATRICIA HUNT MD Mar 28, 2017 19:46
[2017-03-29] MEDS: LEVOTHYROXINE 125 MCG TABLET PO SCH (05:38)
[2017-03-29 06:15] VITALS: BP 126/72
[2017-03-29] MEDS: FAMOTIDINE 20 MG TABLET PO SCH (08:11)
[2017-03-29] MEDS: ASPIRIN 81 MG TAB.CHEW PO SCH (08:11)
[2017-03-29] MEDS: DULoxetine HCL 60 MG CAPSULE.DR PO SCH (08:11)
[2017-03-29] MEDS: DIVALPROEX SODIUM 250 MG TABLET.DR. PO SCH ×2 (08:12→20:16)
[2017-03-29] MEDS: CARVEDILOL 3.125 MG TABLET PO SCH ×2 (08:12→16:12)
[2017-03-29] MEDS: POTASSIUM CHLORIDE 20 MEQ TABLET.ER. PO SCH (08:15)
[2017-03-29] MEDS: SODIUM CHLORIDE 0.65% NASAL SPRAY 45ML BOTTLE. NS SCH ×2 (10:10→20:17)
[2017-03-29] MEDS: PRENATAL MULTIVITAMIN TABLET. PO SCH (11:49)
[2017-03-29 15:49] VITALS: BP 115/72
--- NOTE | 2017-03-29 20:01 | PDOC ---
Exam Note: Marco Note: Please also refer to the separate dictated note~for this date of service dictated separately.~Patient seen individually. Discussed the patient with Nursing staff reviewed the chart.~Reviewed interim history and current functioning. Reviewed vital signs,~Labs/ Radiology~and current medications noted below. Continue current treatment with the changes noted in the dictated addendum note Assessment: Vital Signs: Vital Signs Date Time Temp Pulse Resp B/P (MAP) Pulse Ox O2 Delivery O2 Flow Rate FiO2 03/29/17 16:12 89 115/72 03/29/17 15:49 98.0 18 95 03/27/17 06:07 Room Air I&O Intake and Output 03/29/17 07:00 Intake Total 600 ml Balance 600 ml Intake Oral 600 ml # Voids 1 Current Medications: Meds: Current Medications Multi-Ingredient Ointment (Analgesic [place]) 1 diana PRN QID PRN TP MUSCLE PAIN; Start 03/13/17 at 03:30 Olanzapine (ZyPREXA ZYDIS) 1.25 mg PRN Q2HR PRN PO PSYCHOSIS; Start 03/13/17 at 03:45 Acetaminophen (Tylenol) 650 mg PRN Q6HRS PRN PO MILD PAIN/TEMP Last administered on 03/18/17 13:28; Start 03/13/17 at 04:00 Aspirin (Children'S Aspirin) 81 mg DAILY PO Last administered on 03/29/17 08: 11; Start 03/13/17 at 09:00 Bisacodyl (Dulcolax Tab) 5 mg PRN DAILY PRN PO CONSTIPATION; Start 03/13/17 at 04:00 Carvedilol (Coreg) 3.125 mg BIDWMEALS PO Last administered on 03/29/17 16:12 ; Start 03/13/17 at 08:00 Cyanocobalamin (Vitamin B-12) 1,000 mcg QMONTH IM ; Start 04/10/17 at 09:00 Famotidine (Pepcid) 20 mg DAILY PO Last administered on 03/29/17 08:11; Start 03/13/17 at 09:00 Guaifenesin (Mucinex Er) 600 mg PRN BID PRN PO COUGH; Start 03/13/17 at 04:00 Levothyroxine Sodium (Synthroid) 88 mcg DAILY07 PO Last administered on 06:31; Start 03/13/17 at 07:00; Stop 03/13/17 at 16:07; Status DC Nitroglycerin (Nitrostat) 0.4 mg PRN Q5MIN PRN SL CHEST PAIN Last administered on 03/22/17 12:57; Start 03/13/17 at 04:00 Sodium Chloride (Saline Mist Nasal) 2 diana BID NS Last administered on 10:10; Start 03/13/17 at 09:00 Atorvastatin Calcium (Lipitor) 40 mg QHS PO Last administered on 03/28/17 19: 25; Start 03/13/17 at 21:00 Cetirizine HCl (ZyrTEC) 10 mg PRN DAILY PRN PO ALLERGIES Last administered on 03/18/17 13:28; Start 03/13/17 at 09:00 Al Hydroxide/Mg Hydroxide (Mylanta Plus Xs) 30 ml PRN DAILY PRN PO DYSPEPSIA; Start 03/13/17 at 04:30 Magnesium Hydroxide (Milk Of Magnesia) 2,400 mg PRN DAILY PRN PO CONSTIPATION Last administered on 03/18/17 16:57; Start 03/13/17 at 04:30 Divalproex Sodium (Depakote) 500 mg BID PO Last administered on 03/29/17 08: 12; Start 03/13/17 at 09:00 Duloxetine HCl (Cymbalta) 60 mg DAILY PO Last administered on 03/29/17 08:11 ; Start 03/13/17 at 09:00 Risperidone (RisperDAL) 3 mg BID PO Last administered on 03/14/17 08:19; Start 03/13/17 at 09:00; Stop 03/14/17 at 18:13; Status DC Levothyroxine Sodium (Synthroid) 125 mcg DAILY07 PO Last administered on 05:38; Start 03/14/17 at 07:00 Potassium Chloride (Klor-Con) 20 meq BID PO Last administered on 03/27/17 19: 05; Start 03/13/17 at 21:00; Stop 03/28/17 at 14:11; Status DC Mirtazapine (Remeron) 7.5 mg QHS PO Last administered on 03/28/17 19:27; Start 03/13/17 at 21:00 Prenat Multivit/ Senior Communications Specialist/Iron/Folic Ac (Multivitamin ) 1 tab DAILYBFRLUN PO Last administered on 03/29/17 11:49; Start 03/19/17 at 12:00 Potassium Chloride (Klor-Con) 20 meq DAILY PO Last administered on 03/29/17 08:15; Start 03/29/17 at 09:00 Buspirone HCl (Buspar) 5 mg BID92 PO ; Start 03/30/17 at 09:00 Active Scripts Active Reported Saline Nasal [place] (Sodium Chloride) 30 Ml [place] 2 Spr NS BID NITROGLYCERIN SubLingual (Nitroglycerin) 0.4 Mg Tab.subl 0.4 Mg SL PRN Q5MIN PRN Mucinex (Guaifenesin) 600 Mg Tablet.er 600 Mg PO PRN BID PRN Milk Of Magnesia (Magnesium Hydroxide) 2,400 Mg/10 Ml Oral.susp 30 Ml PO PRN DAILY PRN Maalox Advanced Suspension (Mag Hydrox/Aluminum Hyd/Simeth) 355 Ml Oral.susp 30 Ml PO PRN Q24HRS Levothyroxine Sodium 88 Mcg Tablet 88 Mcg PO DAILYAC Invega (Paliperidone) 6 Mg Tab.er.24 6 Mg PO QHS Famotidine 20 Mg Tablet 20 Mg PO DAILY Bisacodyl 5 Mg Tablet.dr 5 Mg PO PRN DAILY PRN Depakote Er (Divalproex Sodium) 500 Mg Tab.er.24h 500 Mg PO BID Cymbalta (Duloxetine Hcl) 60 Mg Capsule.dr 60 Mg PO DAILY Cyanocobalamin Injection (Cyanocobalamin (Vitamin B-12)) 1,000 Mcg/1 Ml Vial 1, 000 Mcg IJ QMONTH Coreg (Carvedilol) 3.125 Mg Tablet 3.125 Mg PO BIDWMEALS Claritin (Loratadine) 10 Mg Tablet 10 Mg PO PRN DAILY PRN Atorvastatin Calcium 40 Mg Tablet 40 Mg PO QHS Aspirin 81 Mg Tab.chew 81 Mg PO DAILY Tylenol (Acetaminophen) 325 Mg Tablet 650 Mg PO PRN Q6HRS I have reviewed the current psychotropics carefully including drug interactions. Risk benefit ratio favors no change other than as noted in my dictated progress note. 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
[2017-03-29] MEDS: ATORVASTATIN CALCIUM 20 MG TABLET PO SCH (20:17)
[2017-03-29] MEDS: MIRTAZAPINE 7.5 MG TABLET. PO SCH (20:17)
--- NOTE | 2017-03-30 03:10 | PN ---
DATE: 03/28/2017 PSYCHIATRIC PROGRESS NOTE This late entry of 03/28/2017, covers elements not covered in my initial note of 03/28/2017. I met with the patient in the evening of 03/28/2017. Overall, the patient remains confused, otherwise calm, less irritable. REVIEW OF SYSTEMS: No CV, , pulmonary, eye, ENT system symptoms on review. Reliability poor. MENTAL STATUS EXAM: Oriented to herself. Insight, judgment, recent and remote memory, attention, concentration, fund of knowledge poor, consistent with her diagnosis mentioned in my initial note. PLAN: Continue Cymbalta 60 mg a day, Depakote 500 mg b.i.d., level therapeutic at 54, Remeron 7.5 mg at bedtime, Zyprexa p.r.n., may consider adding BuSpar if anxiety symptoms, agitation resurface. MAN Kehinde HUNT MD DR: MARCOS/yusef JOB#: [id number] / [id number]
[2017-03-30 06:07] VITALS: BP 143/74
[2017-03-30] MEDS: LEVOTHYROXINE 125 MCG TABLET PO SCH (06:10)
[2017-03-30] MEDS: ASPIRIN 81 MG TAB.CHEW PO SCH (08:11)
[2017-03-30] MEDS: POTASSIUM CHLORIDE 20 MEQ TABLET.ER. PO SCH (08:11)
[2017-03-30] MEDS: CARVEDILOL 3.125 MG TABLET PO SCH ×2 (08:11→17:00)
[2017-03-30] MEDS: FAMOTIDINE 20 MG TABLET PO SCH (08:11)
[2017-03-30] MEDS: DIVALPROEX SODIUM 250 MG TABLET.DR. PO SCH ×2 (08:12→19:12)
[2017-03-30] MEDS: DULoxetine HCL 60 MG CAPSULE.DR PO SCH (08:12)
[2017-03-30] MEDS: SODIUM CHLORIDE 0.65% NASAL SPRAY 45ML BOTTLE. NS SCH ×2 (08:13→19:11)
[2017-03-30] MEDS: busPIRone 5 MG TABLET. PO SCH ×2 (08:13→14:00)
[2017-03-30] MEDS: PRENATAL MULTIVITAMIN TABLET. PO SCH (11:46)
[2017-03-30 15:21] VITALS: BP 100/66
[2017-03-30] MEDS: MIRTAZAPINE 7.5 MG TABLET. PO SCH (19:12)
[2017-03-30] MEDS: ATORVASTATIN CALCIUM 20 MG TABLET PO SCH (19:12)
--- NOTE | 2017-03-30 19:58 | PDOC ---
Exam Note: Marco Note: Please also refer to the separate dictated note~for this date of service dictated separately.~Patient seen individually. Discussed the patient with Nursing staff reviewed the chart.~Reviewed interim history and current functioning. Reviewed vital signs,~Labs/ Radiology~and current medications noted below. Continue current treatment with the changes noted in the dictated addendum note Assessment: Vital Signs: Vital Signs Date Time Temp Pulse Resp B/P (MAP) Pulse Ox O2 Delivery O2 Flow Rate FiO2 03/30/17 17:00 85 100/66 03/30/17 15:21 98.3 20 96 Room Air I&O Intake and Output 03/30/17 07:00 Intake Total 1380 ml Balance 1380 ml Intake Oral 1380 ml # Bowel Movements 1 Current Medications: Meds: Current Medications Multi-Ingredient Ointment (Analgesic [place]) 1 diana PRN QID PRN TP MUSCLE PAIN; Start 03/13/17 at 03:30 Olanzapine (ZyPREXA ZYDIS) 1.25 mg PRN Q2HR PRN PO PSYCHOSIS; Start 03/13/17 at 03:45 Acetaminophen (Tylenol) 650 mg PRN Q6HRS PRN PO MILD PAIN/TEMP Last administered on 03/18/17 13:28; Start 03/13/17 at 04:00 Aspirin (Children'S Aspirin) 81 mg DAILY PO Last administered on 03/30/17 08: 11; Start 03/13/17 at 09:00 Bisacodyl (Dulcolax Tab) 5 mg PRN DAILY PRN PO CONSTIPATION; Start 03/13/17 at 04:00 Carvedilol (Coreg) 3.125 mg BIDWMEALS PO Last administered on 03/30/17 17:00 ; Start 03/13/17 at 08:00 Cyanocobalamin (Vitamin B-12) 1,000 mcg QMONTH IM ; Start 04/10/17 at 09:00 Famotidine (Pepcid) 20 mg DAILY PO Last administered on 03/30/17 08:11; Start 03/13/17 at 09:00 Guaifenesin (Mucinex Er) 600 mg PRN BID PRN PO COUGH; Start 03/13/17 at 04:00 Levothyroxine Sodium (Synthroid) 88 mcg DAILY07 PO Last administered on 06:31; Start 03/13/17 at 07:00; Stop 03/13/17 at 16:07; Status DC Nitroglycerin (Nitrostat) 0.4 mg PRN Q5MIN PRN SL CHEST PAIN Last administered on 03/22/17 12:57; Start 03/13/17 at 04:00 Sodium Chloride (Saline Mist Nasal) 2 diana BID NS Last administered on 19:11; Start 03/13/17 at 09:00 Atorvastatin Calcium (Lipitor) 40 mg QHS PO Last administered on 03/30/17 19: 12; Start 03/13/17 at 21:00 Cetirizine HCl (ZyrTEC) 10 mg PRN DAILY PRN PO ALLERGIES Last administered on 03/18/17 13:28; Start 03/13/17 at 09:00 Al Hydroxide/Mg Hydroxide (Mylanta Plus Xs) 30 ml PRN DAILY PRN PO DYSPEPSIA; Start 03/13/17 at 04:30 Magnesium Hydroxide (Milk Of Magnesia) 2,400 mg PRN DAILY PRN PO CONSTIPATION Last administered on 03/18/17 16:57; Start 03/13/17 at 04:30 Divalproex Sodium (Depakote) 500 mg BID PO Last administered on 03/30/17 19: 12; Start 03/13/17 at 09:00 Duloxetine HCl (Cymbalta) 60 mg DAILY PO Last administered on 03/30/17 08:12 ; Start 03/13/17 at 09:00 Risperidone (RisperDAL) 3 mg BID PO Last administered on 03/14/17 08:19; Start 03/13/17 at 09:00; Stop 03/14/17 at 18:13; Status DC Levothyroxine Sodium (Synthroid) 125 mcg DAILY07 PO Last administered on 06:10; Start 03/14/17 at 07:00 Potassium Chloride (Klor-Con) 20 meq BID PO Last administered on 03/27/17 19: 05; Start 03/13/17 at 21:00; Stop 03/28/17 at 14:11; Status DC Mirtazapine (Remeron) 7.5 mg QHS PO Last administered on 03/30/17 19:12; Start 03/13/17 at 21:00 Prenat Multivit/ Vascular Physician/Iron/Folic Ac (Multivitamin ) 1 tab DAILYBFRLUN PO Last administered on 03/30/17 11:46; Start 03/19/17 at 12:00 Potassium Chloride (Klor-Con) 20 meq DAILY PO Last administered on 03/30/17 08:11; Start 03/29/17 at 09:00 Buspirone HCl (Buspar) 5 mg BID92 PO Last administered on 03/30/17 14:00; Start 03/30/17 at 09:00 Active Scripts Active Reported Saline Nasal [place] (Sodium Chloride) [address] [place] [address] 2 Spr NS BID NITROGLYCERIN SubLingual (Nitroglycerin) 0.4 Mg Tab.subl 0.4 Mg SL PRN Q5MIN PRN Mucinex (Guaifenesin) 600 Mg Tablet.er 600 Mg PO PRN BID PRN Milk Of Magnesia (Magnesium Hydroxide) 2,400 Mg/10 Ml Oral.susp 30 Ml PO PRN DAILY PRN Maalox Advanced Suspension (Mag Hydrox/Aluminum Hyd/Simeth) 355 Ml Oral.susp 30 Ml PO PRN Q24HRS Levothyroxine Sodium 88 Mcg Tablet 88 Mcg PO DAILYAC Invega (Paliperidone) 6 Mg Tab.er.24 6 Mg PO QHS Famotidine 20 Mg Tablet 20 Mg PO DAILY Bisacodyl 5 Mg Tablet.dr 5 Mg PO PRN DAILY PRN Depakote Er (Divalproex Sodium) 500 Mg Tab.er.24h 500 Mg PO BID Cymbalta (Duloxetine Hcl) 60 Mg Capsule.dr 60 Mg PO DAILY Cyanocobalamin Injection (Cyanocobalamin (Vitamin B-12)) 1,000 Mcg/1 Ml Vial 1, 000 Mcg IJ QMONTH Coreg (Carvedilol) 3.125 Mg Tablet 3.125 Mg PO BIDWMEALS Claritin (Loratadine) 10 Mg Tablet 10 Mg PO PRN DAILY PRN Atorvastatin Calcium 40 Mg Tablet 40 Mg PO QHS Aspirin 81 Mg Tab.chew 81 Mg PO DAILY Tylenol (Acetaminophen) 325 Mg Tablet 650 Mg PO PRN Q6HRS I have reviewed the current psychotropics carefully including drug interactions. Risk benefit ratio favors no change other than as noted in my dictated progress note. 

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
[2017-03-31] MEDS: LEVOTHYROXINE 125 MCG TABLET PO SCH (05:39)
[2017-03-31 06:20] VITALS: BP 146/84
[2017-03-31] MEDS: busPIRone 5 MG TABLET. PO SCH ×2 (07:56→15:40)
[2017-03-31] MEDS: ASPIRIN 81 MG TAB.CHEW PO SCH (07:56)
[2017-03-31] MEDS: CARVEDILOL 3.125 MG TABLET PO SCH ×2 (07:56→16:52)
[2017-03-31] MEDS: POTASSIUM CHLORIDE 20 MEQ TABLET.ER. PO SCH (07:58)
[2017-03-31] MEDS: FAMOTIDINE 20 MG TABLET PO SCH (07:58)
[2017-03-31] MEDS: DIVALPROEX SODIUM 250 MG TABLET.DR. PO SCH ×2 (07:58→19:32)
[2017-03-31] MEDS: DULoxetine HCL 60 MG CAPSULE.DR PO SCH (07:58)
[2017-03-31] MEDS: SODIUM CHLORIDE 0.65% NASAL SPRAY 45ML BOTTLE. NS SCH ×2 (07:59→19:32)
[2017-03-31] MEDS: PRENATAL MULTIVITAMIN TABLET. PO SCH (12:05)
[2017-03-31 15:25] VITALS: BP 108/68
[2017-03-31] MEDS: ATORVASTATIN CALCIUM 20 MG TABLET PO SCH (19:32)
[2017-03-31] MEDS: MIRTAZAPINE 7.5 MG TABLET. PO SCH (19:32)
--- NOTE | 2017-03-31 19:57 | PDOC ---
Exam Note: Marco Note: Please also refer to the separate dictated note~for this date of service dictated separately.~Patient seen individually. Discussed the patient with Nursing staff reviewed the chart.~Reviewed interim history and current functioning. Reviewed vital signs,~Labs/ Radiology~and current medications noted below. Continue current treatment with the changes noted in the dictated addendum note Assessment: Vital Signs: Vital Signs Date Time Temp Pulse Resp B/P (MAP) Pulse Ox O2 Delivery O2 Flow Rate FiO2 03/31/17 16:52 90 108/68 03/31/17 15:25 98.5 20 95 03/30/17 15:21 Room Air I&O Intake and Output 03/31/17 07:00 Intake Total 1320 ml Balance 1320 ml Intake Oral 1320 ml Current Medications: Meds: Current Medications Multi-Ingredient Ointment (Analgesic [place]) 1 diana PRN QID PRN TP MUSCLE PAIN; Start 03/13/17 at 03:30 Olanzapine (ZyPREXA ZYDIS) 1.25 mg PRN Q2HR PRN PO PSYCHOSIS; Start 03/13/17 at 03:45 Acetaminophen (Tylenol) 650 mg PRN Q6HRS PRN PO MILD PAIN/TEMP Last administered on 03/18/17 13:28; Start 03/13/17 at 04:00 Aspirin (Children'S Aspirin) 81 mg DAILY PO Last administered on 03/31/17 07: 56; Start 03/13/17 at 09:00 Bisacodyl (Dulcolax Tab) 5 mg PRN DAILY PRN PO CONSTIPATION; Start 03/13/17 at 04:00 Carvedilol (Coreg) 3.125 mg BIDWMEALS PO Last administered on 03/31/17 16:52 ; Start 03/13/17 at 08:00 Cyanocobalamin (Vitamin B-12) 1,000 mcg QMONTH IM ; Start 04/10/17 at 09:00 Famotidine (Pepcid) 20 mg DAILY PO Last administered on 03/31/17 07:58; Start 03/13/17 at 09:00 Guaifenesin (Mucinex Er) 600 mg PRN BID PRN PO COUGH; Start 03/13/17 at 04:00 Levothyroxine Sodium (Synthroid) 88 mcg DAILY07 PO Last administered on 06:31; Start 03/13/17 at 07:00; Stop 03/13/17 at 16:07; Status DC Nitroglycerin (Nitrostat) 0.4 mg PRN Q5MIN PRN SL CHEST PAIN Last administered on 03/22/17 12:57; Start 03/13/17 at 04:00 Sodium Chloride (Saline Mist Nasal) 2 diana BID NS Last administered on 19:32; Start 03/13/17 at 09:00 Atorvastatin Calcium (Lipitor) 40 mg QHS PO Last administered on 03/31/17 19: 32; Start 03/13/17 at 21:00 Cetirizine HCl (ZyrTEC) 10 mg PRN DAILY PRN PO ALLERGIES Last administered on 03/18/17 13:28; Start 03/13/17 at 09:00 Al Hydroxide/Mg Hydroxide (Mylanta Plus Xs) 30 ml PRN DAILY PRN PO DYSPEPSIA; Start 03/13/17 at 04:30 Magnesium Hydroxide (Milk Of Magnesia) 2,400 mg PRN DAILY PRN PO CONSTIPATION Last administered on 03/18/17 16:57; Start 03/13/17 at 04:30 Divalproex Sodium (Depakote) 500 mg BID PO Last administered on 03/31/17 19: 32; Start 03/13/17 at 09:00 Duloxetine HCl (Cymbalta) 60 mg DAILY PO Last administered on 03/31/17 07:58 ; Start 03/13/17 at 09:00 Risperidone (RisperDAL) 3 mg BID PO Last administered on 03/14/17 08:19; Start 03/13/17 at 09:00; Stop 03/14/17 at 18:13; Status DC Levothyroxine Sodium (Synthroid) 125 mcg DAILY07 PO Last administered on 05:39; Start 03/14/17 at 07:00 Potassium Chloride (Klor-Con) 20 meq BID PO Last administered on 03/27/17 19: 05; Start 03/13/17 at 21:00; Stop 03/28/17 at 14:11; Status DC Mirtazapine (Remeron) 7.5 mg QHS PO Last administered on 03/31/17 19:32; Start 03/13/17 at 21:00 Prenat Multivit/ [place]/Iron/Folic Ac (Multivitamin ) 1 tab DAILYBFRLUN PO Last administered on 03/31/17 12:05; Start 03/19/17 at 12:00 Potassium Chloride (Klor-Con) 20 meq DAILY PO Last administered on 03/31/17 07:58; Start 03/29/17 at 09:00 Buspirone HCl (Buspar) 5 mg BID92 PO Last administered on 03/31/17 15:40; Start 03/30/17 at 09:00 Active Scripts Active Reported Saline Nasal [place] (Sodium Chloride) 30 Ml [place] 2 Spr NS BID NITROGLYCERIN SubLingual (Nitroglycerin) 0.4 Mg Tab.subl 0.4 Mg SL PRN Q5MIN PRN Mucinex (Guaifenesin) 600 Mg Tablet.er 600 Mg PO PRN BID PRN Milk Of Magnesia (Magnesium Hydroxide) 2,400 Mg/10 Ml Oral.susp 30 Ml PO PRN DAILY PRN Maalox Advanced Suspension (Mag Hydrox/Aluminum Hyd/Simeth) 355 Ml Oral.susp 30 Ml PO PRN Q24HRS Levothyroxine Sodium 88 Mcg Tablet 88 Mcg PO DAILYAC Invega (Paliperidone) 6 Mg Tab.er.24 6 Mg PO QHS Famotidine 20 Mg Tablet 20 Mg PO DAILY Bisacodyl 5 Mg Tablet.dr 5 Mg PO PRN DAILY PRN Depakote Er (Divalproex Sodium) 500 Mg Tab.er.24h 500 Mg PO BID Cymbalta (Duloxetine Hcl) 60 Mg Capsule. 60 Mg PO DAILY Cyanocobalamin Injection (Cyanocobalamin (Vitamin B-12)) 1,000 Mcg/1 Ml Vial 1, 000 Mcg IJ QMONTH Coreg (Carvedilol) 3.125 Mg Tablet 3.125 Mg PO BIDWMEALS Claritin (Loratadine) 10 Mg Tablet 10 Mg PO PRN DAILY PRN Atorvastatin Calcium 40 Mg Tablet 40 Mg PO QHS Aspirin 81 Mg Tab.chew 81 Mg PO DAILY Tylenol (Acetaminophen) 325 Mg Tablet 650 Mg PO PRN Q6HRS I have reviewed the current psychotropics carefully including drug interactions. Risk benefit ratio favors no change other than as noted in my dictated progress note. Diagnosis: Problems: (1) Anxiety disorder (2) Dementia in Alzheimer's disease with depression (3) Dementia in Alzheimer's disease with delusions (4) Dementia, vascular, with delusions (5) Dementia, vascular, with delirium (6) Impulse control disorder PATRICIA HUNT MD Mar 31, 2017 19:57
[2017-04-01] MEDS ORDERED: MIRT15TA3 PO (00:21)
[2017-04-01] MEDS ORDERED: PNV1TABL78 PO (00:23)
[2017-04-01] MEDS ORDERED: POTA20TA4 PO (00:25)
[2017-04-01] MEDS ORDERED: BUSP5TAB PO (00:28)
[2017-04-01] MEDS ORDERED: METH29OI TP (00:30)
[2017-04-01] MEDS ORDERED: OLAN5TAB5 PO (00:33)
[2017-04-01] MEDS: LEVOTHYROXINE 125 MCG TABLET PO SCH (05:05)
[2017-04-01 05:48] VITALS: BP 146/71
--- NOTE | 2017-04-01 06:45 | PN ---
DATE: 03/30/2017 This is a late entry for 03/30/2017 and covers elements not covered in my initial note of 03/30/2017. I met with the patient the evening of 03/30/2017. The patient slept 8-1/2 hours previous evening, dozed in and out during the day, remains confused, withdrawn, somewhat depressed, but not overly psychotic and certainly not aggressive. REVIEW OF SYSTEMS: No CV, , pulmonary, eye, ENT system symptoms on review. Reliability poor. MENTAL STATUS EXAM: Oriented to herself. Insight, judgment, recent and remote memory, attention, concentration, fund of knowledge poor, consistent with her diagnosis. As I met with her, she talked about having 2 boys who moved to [place] and she has no one here. In fact, she felt she had no place to live at, but she is at the skilled nursing facility. IMPRESSION: Unchanged from initial note. PLAN: Continue current psychotropics. Reviewed risk/benefit ratio. Possible transition to skilled nursing in the next day or so. MAN Kehinde HUNT MD DR: MARCOS/yusef JOB#: [id number] / [id number]
[2017-04-01] MEDS: DULoxetine HCL 60 MG CAPSULE.DR PO SCH (08:24)
[2017-04-01] MEDS: busPIRone 5 MG TABLET. PO SCH (08:24)
[2017-04-01] MEDS: DIVALPROEX SODIUM 250 MG TABLET.DR. PO SCH (08:24)
[2017-04-01 08:25] VITALS: BP 146/71
[2017-04-01] MEDS: POTASSIUM CHLORIDE 20 MEQ TABLET.ER. PO SCH (08:25)
[2017-04-01] MEDS: ASPIRIN 81 MG TAB.CHEW PO SCH (08:25)
[2017-04-01] MEDS: FAMOTIDINE 20 MG TABLET PO SCH (08:25)
[2017-04-01] MEDS: PRENATAL MULTIVITAMIN TABLET. PO SCH (08:25)
[2017-04-01] MEDS: CARVEDILOL 3.125 MG TABLET PO SCH (08:25)
[2017-04-01] MEDS: SODIUM CHLORIDE 0.65% NASAL SPRAY 45ML BOTTLE. NS SCH (08:26)
--- NOTE | 2017-04-01 18:37 | PDOC ---
Exam Note: Marco Note: Please also refer to the separate dictated note~for this date of service dictated separately.~Patient seen individually. Discussed the patient with Nursing staff reviewed the chart.~Reviewed interim history and current functioning. Reviewed vital signs,~Labs/ Radiology~and current medications noted below. Continue current treatment with the changes noted in the dictated addendum note Assessment: Vital Signs: Vital Signs Date Time Temp Pulse Resp B/P (MAP) Pulse Ox O2 Delivery O2 Flow Rate FiO2 04/01/17 08:25 74 146/71 04/01/17 05:48 97.4 20 95 03/30/17 15:21 Room Air I&O Intake and Output 04/01/17 07:00 Intake Total 840 ml Balance 840 ml Intake Oral 840 ml Current Medications: Meds: Current Medications Multi-Ingredient Ointment (Analgesic [place]) 1 tee PRN QID PRN TP MUSCLE PAIN; Start 03/13/17 at 03:30; Stop 04/01/17 at 11:26; Status DC Olanzapine (ZyPREXA ZYDIS) 1.25 mg PRN Q2HR PRN PO PSYCHOSIS; Start 03/13/17 at 03:45; Stop 04/01/17 at 11:26; Status DC Acetaminophen (Tylenol) 650 mg PRN Q6HRS PRN PO MILD PAIN/TEMP Last administered on 03/18/17 13:28; Start 03/13/17 at 04:00; Stop 04/01/17 at 11 :26; Status DC Aspirin (Children'S Aspirin) 81 mg DAILY PO Last administered on 04/01/17 08: 25; Start 03/13/17 at 09:00; Stop 04/01/17 at 11:26; Status DC Bisacodyl (Dulcolax Tab) 5 mg PRN DAILY PRN PO CONSTIPATION; Start 03/13/17 at 04:00; Stop 04/01/17 at 11:26; Status DC Carvedilol (Coreg) 3.125 mg BIDWMEALS PO Last administered on 04/01/17 08:25 ; Start 03/13/17 at 08:00; Stop 04/01/17 at 11:26; Status DC Cyanocobalamin (Vitamin B-12) 1,000 mcg QMONTH IM ; Start 04/10/17 at 09:00; Stop 04/10/17 at 09:00; Status DC Famotidine (Pepcid) 20 mg DAILY PO Last administered on 04/01/17 08:25; Start 03/13/17 at 09:00; Stop 04/01/17 at 11:26; Status DC Guaifenesin (Mucinex Er) 600 mg PRN BID PRN PO COUGH; Start 03/13/17 at 04:00 ; Stop 04/01/17 at 11:26; Status DC Levothyroxine Sodium (Synthroid) 88 mcg DAILY07 PO Last administered on 06:31; Start 03/13/17 at 07:00; Stop 03/13/17 at 16:07; Status DC Nitroglycerin (Nitrostat) 0.4 mg PRN Q5MIN PRN SL CHEST PAIN Last administered on 03/22/17 12:57; Start 03/13/17 at 04:00; Stop 04/01/17 at 11:26; Status DC Sodium Chloride (Saline Mist Nasal) 2 tee BID NS Last administered on 08:26; Start 03/13/17 at 09:00; Stop 04/01/17 at 11:26; Status DC Atorvastatin Calcium (Lipitor) 40 mg QHS PO Last administered on 03/31/17 19: 32; Start 03/13/17 at 21:00; Stop 04/01/17 at 11:26; Status DC Cetirizine HCl (ZyrTEC) 10 mg PRN DAILY PRN PO ALLERGIES Last administered on 03/18/17 13:28; Start 03/13/17 at 09:00; Stop 04/01/17 at 11:26; Status DC Al Hydroxide/Mg Hydroxide (Mylanta Plus Xs) 30 ml PRN DAILY PRN PO DYSPEPSIA; Start 03/13/17 at 04:30; Stop 04/01/17 at 11:26; Status DC Magnesium Hydroxide (Milk Of Magnesia) 2,400 mg PRN DAILY PRN PO CONSTIPATION Last administered on 03/18/17 16:57; Start 03/13/17 at 04:30; Stop 04/01/17 at 11:26; Status DC Divalproex Sodium (Depakote) 500 mg BID PO Last administered on 04/01/17 08: 24; Start 03/13/17 at 09:00; Stop 04/01/17 at 11:26; Status DC Duloxetine HCl (Cymbalta) 60 mg DAILY PO Last administered on 04/01/17 08:24 ; Start 03/13/17 at 09:00; Stop 04/01/17 at 11:26; Status DC Risperidone (RisperDAL) 3 mg BID PO Last administered on 03/14/17 08:19; Start 03/13/17 at 09:00; Stop 03/14/17 at 18:13; Status DC Levothyroxine Sodium (Synthroid) 125 mcg DAILY07 PO Last administered on 05:05; Start 03/14/17 at 07:00; Stop 04/01/17 at 11:26; Status DC Potassium Chloride (Klor-Con) 20 meq BID PO Last administered on 03/27/17 19: 05; Start 03/13/17 at 21:00; Stop 03/28/17 at 14:11; Status DC Mirtazapine (Remeron) 7.5 mg QHS PO Last administered on 03/31/17 19:32; Start 03/13/17 at 21:00; Stop 04/01/17 at 11:26; Status DC Prenat Multivit/ [place]/Iron/Folic Ac (Multivitamin ) 1 tab DAILYBFRLUN PO Last administered on 04/01/17 08:25; Start 03/19/17 at 12:00; Stop 04/01 at 11:26; Status DC Potassium Chloride (Klor-Con) 20 meq DAILY PO Last administered on 04/01/17 08:25; Start 03/29/17 at 09:00; Stop 04/01/17 at 11:26; Status DC Buspirone HCl (Buspar) 5 mg BID92 PO Last administered on 04/01/17 08:24; Start 03/30/17 at 09:00; Stop 04/01/17 at 11:26; Status DC Active Scripts Active Reported Zyprexa Zydis (Olanzapine) 5 Mg Tab.rapdis 1.25 Mg PO PRN Q2HR PRN Analgesic [place] (Methyl Salicylate/Menthol) 28 Gm Oint...g. 1 Tee TP PRN QID PRN Buspirone Hcl 5 Mg Tablet 5 Mg PO BID92 Klor-Con M20 (Potassium Chloride) 20 Meq Tab.er.prt 20 Meq PO DAILY Multi Tablet (Pnv No.122/Iron/Folic Acid) 1 Each Tablet 1 Each PO DAILYBFRLUN Mirtazapine 15 Mg Tablet 7.5 Mg PO HS Saline Nasal [place] (Sodium Chloride) 30 Ml [place] 2 Spr NS BID NITROGLYCERIN SubLingual (Nitroglycerin) 0.4 Mg Tab.subl 0.4 Mg SL PRN Q5MIN PRN Mucinex (Guaifenesin) 600 Mg Tablet.er 600 Mg PO PRN BID PRN Milk Of Magnesia (Magnesium Hydroxide) 2,400 Mg/10 Ml Oral.susp 30 Ml PO PRN DAILY PRN Maalox Advanced Suspension (Mag Hydrox/Aluminum Hyd/Simeth) 355 Ml Oral.susp 30 Ml PO PRN Q24HRS Levothyroxine Sodium 88 Mcg Tablet 125 Mcg PO DAILYAC Famotidine 20 Mg Tablet 20 Mg PO DAILY Bisacodyl 5 Mg Tablet.dr 5 Mg PO PRN DAILY PRN Depakote Er (Divalproex Sodium) 500 Mg Tab.er.24h 500 Mg PO BID Cymbalta (Duloxetine Hcl) 60 Mg Capsule.dr 60 Mg PO DAILY Cyanocobalamin Injection (Cyanocobalamin (Vitamin B-12)) 1,000 Mcg/1 Ml Vial 1, 000 Mcg IM QMONTH Coreg (Carvedilol) 3.125 Mg Tablet 3.125 Mg PO BIDWMEALS Claritin (Loratadine) 10 Mg Tablet 10 Mg PO PRN DAILY PRN Atorvastatin Calcium 40 Mg Tablet 40 Mg PO QHS Aspirin 81 Mg Tab.chew 81 Mg PO DAILY Tylenol (Acetaminophen) 325 Mg Tablet 650 Mg PO PRN Q6HRS MDD 4000 I have reviewed the current psychotropics carefully including drug interactions. Risk benefit ratio favors no change other than as noted in my dictated progress note. Diagnosis: Problems: (1) Impulse control disorder (2) Dementia, vascular, with delirium (3) Dementia, vascular, with delusions (4) Dementia in Alzheimer's disease with delusions (5) Dementia in Alzheimer's disease with depression (6) Anxiety disorder PATRICIA HUNT MD Apr 01, 2017 18:36
--- NOTE | 2017-04-02 19:14 | DS ---
DATE OF DISCHARGE: 04/01/2017 DISCHARGE SUMMARY/PSYCHIATRIC PROGRESS NOTE REASON FOR ADMISSION: Please refer to the admission history for details. Briefly, the patient is an 86-year-old female referred to us from living community nursing facility ____ the Emergency Room at [facility] where she presented on account of increased agitation, aggression with family and staff at the facility. She was attempting to elope several times, psychotic, confused, went downstairs on two different occasions, attempted to climb out of the window. Behaviors were deemed dangerous, agitated. She was psychotic, had failed outpatient psychiatric interventions resulting in this referral. SIGNIFICANT FINDINGS AND CLINICAL COURSE: Following admission, the patient was seen daily individually by myself, followed medically per Dr. Arroyo/Dr. Fitzpatrick. She is quite confused, paranoid, psychotic, intermittently restless, depressed and anxious. Adjustments were made in her psychotropics, she seemed to respond to a combination of Cymbalta 60 mg a day, BuSpar 5 mg twice a day, Depakote 500 mg b.i.d. with a level therapeutic at 54, Remeron 7.5 mg at bedtime, Zyprexa p.r.n. psychosis, agitation. REVIEW OF SYSTEMS: Prior to discharge 04/01/2017, ambulation slightly impaired with walker. Gait unsteady. She was receiving physical therapy. No CV, , pulmonary, eye, ENT system symptoms on review. Reliability poor. MENTAL STATUS EXAM: Oriented to herself, pleasant. Speech moderate latency, often responses monosyllabic: Psychotic symptoms were much improved. Insight, judgment, recent and remote memory, attention, concentration, fund of knowledge poor, consistent with her diagnosis mentioned in my initial note. CONDITION AT DISCHARGE: Improved. FINAL DIAGNOSES: Major neurocognitive disorder, Alzheimer, vascular with depression, delusion, behavioral disturbance; anxiety disorder, unspecified; impulse control disorder, unspecified. Rest unchanged from admission. DISCHARGE MEDICATIONS: Please refer to the EMRAD. DISCHARGE INSTRUCTIONS: Outpatient psychiatric and medical followup at the assisted. MAN Kehinde HUNT MD DR: MARCOS/yusef JOB#: [id number] / [id number]
--- NOTE | 2017-04-03 01:09 | PN ---
DATE: 03/31/2017 PSYCHIATRIC PROGRESS NOTE This is a late entry for date of service 03/31/2017, covers the elements not covered in my initial note of 03/31/2017. SUBJECTIVE: I met with the patient evening of 03/31/2017. She slept 7-1/2 hours previous evening, not been tearful, alert to herself, compliant with medications, still somewhat suspicious at times, but not agitated. REVIEW OF SYSTEMS: No CV, , pulmonary, eye system symptoms on review. Reliability poor. MENTAL STATUS EXAM: Oriented to herself. Insight, judgment, recent and remote memory, attention, concentration, fund of knowledge poor, consistent with her diagnosis mentioned in my initial note. PLAN: Continue psychotropics mentioned in my initial note. Possible transition to a lower level of care on 04/01/2017. MAN Kehinde HUNT MD DR: MARCOS/yusef JOB#: [id number] / [id number]
[2017-04-10] MEDS ORDERED: CYANOCOBALAMIN (VITAMIN B-12) 1,000 MCG/ML VIAL IM SCH (09:00)
== END 2017-04-01 10:15 | disposition home or self-care (01) | DRG 884 ==
LOC: EEVIPCON → GEROPSY 03-13 03:25
PROVIDERS: ADMIT Psychiatry & Neurology Psychiatry; ATTEND Psychiatry & Neurology Psychiatry
DX: F01.51 Vascular dementia, unspecified severity, with behavioral disturbance (principal); D69.6 Thrombocytopenia, unspecified; I42.9 Cardiomyopathy, unspecified; G30.9 Alzheimer's disease, unspecified; F20.9 Schizophrenia, unspecified; F02.81 Dementia in other diseases classified elsewhere, unspecified severity, with behavioral disturbance; F05 Delirium due to known physiological condition; D64.9 Anemia, unspecified; E03.9 Hypothyroidism, unspecified; E78.5 Hyperlipidemia, unspecified; E87.6 Hypokalemia; F22 Delusional disorders; F32.9 Major depressive disorder, single episode, unspecified; F41.9 Anxiety disorder, unspecified; F63.9 Impulse disorder, unspecified; I10 Essential (primary) hypertension; I25.10 Atherosclerotic heart disease of native coronary artery without angina pectoris; I34.0 Nonrheumatic mitral (valve) insufficiency; J44.9 Chronic obstructive pulmonary disease, unspecified; K21.9 Gastro-esophageal reflux disease without esophagitis; Z66 Do not resuscitate; Z79.899 Other long term (current) drug therapy; Z86.711 Personal history of pulmonary embolism; Z86.73 Personal history of transient ischemic attack (TIA), and cerebral infarction without residual deficits; Z87.891 Personal history of nicotine dependence; Z88.6 Allergy status to analgesic agent; Z88.0 Allergy status to penicillin; Z88.2 Allergy status to sulfonamides; Z88.8 Allergy status to other drugs, medicaments and biological substances; Z91.018 Allergy to other foods; Z91.81 History of falling
CPT/HCPCS: 36415; 80048; 80053; 80061; 80164; 81001; 82607; 83036; 83540; 83550; 83735; 84436; 84443; 84480; 85025; 86592; 86593; 93005; 92610; 97110; 97116; 97530; 97535

== ENCOUNTER 2017-08-12 17:50 | Inpatient (IN) | payer MEDICARE, OTHER ==
[~2017-08-12] VITALS: Ht 167.6 cm; Wt 65.9 kg
[~2017-08-12 17:50] MED LIST: ACET325T9 PO; ASPI-630 PO; ATOR40TA59 PO; BISA5TAB4 PO; BUSP5TAB PO; CARV3.12 PO; CYAN10002 IM; DIVA500T4 PO; DULO60CA6 PO; FAMO20TA5 PO; GUAI600T47 PO; LEVO88TA4 PO; LORA10TA68 PO; MAG355OR11 PO; MAGN2400 PO; METH29OI TP; MIRT15TA3 PO; NITR0.4T22 SL; OLAN5TAB5 PO; PALI6TAB3 PO; PNV1TABL78 PO; POTA20TA4 PO; SODI30SP NS
[2017-08-12] MEDS ORDERED: MAGNESIUM HYDROXIDE 2,400 MG/30 ML ORAL.SUSP. PO PRN (21:45)
[2017-08-12] MEDS ORDERED: METHYL SALICYLATE/MENTHOL TOPICAL OINTMENT 29GM TUBE. TP PRN (21:45)
[2017-08-12] MEDS ORDERED: MAG HYDROX/AL HYDROX/SIMETH 30 ML ORAL.SUSP PO PRN (21:45)
[2017-08-12] MEDS ORDERED: NITR0.4T SL (22:14)
[2017-08-12] MEDS ORDERED: CALC1TAB21 PO (22:14)
[2017-08-12 22:41] LABS: BASO % 1 % (0-3); EOS # 0.1 x10^3/uL (0.0-0.7); EOS % 2 % (0-3); HEMATOCRIT 41.5 % (36.0-47.0); HEMOGLOBIN 13.8 g/dL (12.0-15.5); LYMPH # 1.8 x10^3/uL (1.0-4.8); LYMPH % 27 % (24-48); MEAN CORPUSCULAR HEMOGLOBIN 28 pg (25-35); MEAN CORPUSCULAR HGB CONC 33 g/dL (31-37); MEAN CORPUSCULAR VOLUME 85 fL (79-100); MONO # 1.2 x10^3/uL (0.0-1.1); MONO % 18 % (0-9); NEUT # 3.6 x10^3uL (1.8-7.7); NEUT % 53 % (31-73); PLATELET COUNT 92 x10^3/uL (140-400); RED BLOOD COUNT 4.91 x10^6/uL (3.50-5.40); RED CELL DISTRIBUTION WIDTH 15.6 % (11.5-14.5); WHITE BLOOD COUNT 6.8 x10^3/uL (4.0-11.0)
[2017-08-12 22:45] LABS: ALBUMIN 3.1 g/dL (3.4-5.0); ALBUMIN/GLOBULIN RATIO 0.9 (1.0-1.7); CALCIUM 8.3 mg/dL (8.5-10.1); CREATININE 0.9 mg/dL (0.6-1.0); GFR 59.2; POTASSIUM 3.7 mmol/L (3.5-5.1); TOTAL BILIRUBIN 0.8 mg/dL (0.2-1.0); TOTAL PROTEIN 6.7 g/dL (6.4-8.2)
[2017-08-12 23:17] LABS: VAL ACID 54 mcg/mL (50-100)
[2017-08-12 23:25] VITALS: BP 152/94
[2017-08-12] MEDS ORDERED: NITROGLYCERIN SUBLINGUAL 0.4 MG BOTTLE OF 25. SL PRN ×2 (23:30)
[2017-08-12] MEDS ORDERED: NON FORMULARY ITEM (Magnesium Hydroxide (Milk Of Magnesia) 30 ML) PO PRN (23:30)
[2017-08-12] MEDS ORDERED: ACETAMINOPHEN 325 MG TABLET PO PRN (23:30)
[2017-08-12] MEDS ORDERED: BISACODYL TAB 5 MG TABLET.DR. PO PRN (23:30)
[2017-08-12] MEDS ORDERED: CALCIUM CARBONATE 500 MG TAB.CHEW PO PRN (23:45)
[2017-08-12] MEDS ORDERED: SIMETHICONE 80 MG TAB.CHEW PO PRN (23:45)
[2017-08-13 05:01] LABS: BACTERIA,URINE 0 /HPF (0-FEW); BILIRUBIN,URINE NEG (NEG); CLARITY,URINE CLEAR; COLOR,URINE YELLOW; GLUCOSE,URINE NEG (NEG); NITRITE,URINE NEG (NEG); RBC,URINE 0 /HPF (0-2); UROBILINOGEN,URINE 0.2 mg/dL (0.2 mg/dL)
[2017-08-13 06:37] VITALS: BP 126/77
[2017-08-13] MEDS ORDERED: LEVOTHYROXINE 88 MCG TABLET PO SCH (07:30)
[2017-08-13] MEDS: busPIRone 5 MG TABLET. PO SCH ×2 (09:59→14:26)
[2017-08-13] MEDS: DIVALPROEX ER 500 MG TAB.ER.24H PO SCH ×2 (09:59→20:16)
[2017-08-13] MEDS: DULoxetine HCL 60 MG CAPSULE.DR PO SCH (09:59)
[2017-08-13] MEDS: ASPIRIN 81 MG TAB.CHEW PO SCH (10:00)
[2017-08-13] MEDS: CARVEDILOL 3.125 MG TABLET PO SCH ×2 (10:00→16:43)
[2017-08-13] MEDS: FAMOTIDINE 20 MG TABLET PO SCH (10:00)
[2017-08-13] MEDS: SODIUM CHLORIDE 0.65% NASAL SPRAY 45ML BOTTLE. NS SCH ×2 (10:18→20:18)
[2017-08-13] MEDS: PRENATAL MULTIVITAMIN TABLET. PO SCH (11:40)
[2017-08-13 13:53] LABS: THYROID STIM HORMONE (TSH) 6.661 uIU/mL (0.358-3.740)
[2017-08-13 16:14] VITALS: BP 125/75
[2017-08-13] MEDS: CHOLECALCIFEROL (VITAMIN D3) 50,000 UNIT CAPSULE PO SCH (16:44)
--- NOTE | 2017-08-13 18:20 | PDOC ---
Exam Note: Marco Note: Please also refer to the separate dictated note~for this date of service dictated separately.~Patient seen individually. Discussed the patient with Nursing staff reviewed the chart.~Reviewed interim history and current functioning. Reviewed vital signs,~Labs/ Radiology~and current medications noted below. Continue current treatment with the changes noted in the dictated addendum note Assessment: Vital Signs: Vital Signs Date Time Temp Pulse Resp B/P (MAP) Pulse Ox O2 Delivery O2 Flow Rate FiO2 08/13/17 16:43 102 125/75 08/13/17 16:14 97.8 15 94 I&O Intake and Output 08/13/17 07:00 Intake Total 260 ml Balance 260 ml Intake Oral 260 ml Labs: Laboratory Tests Test 08/12/17 22:10 08/13/17 04:00 White Blood Count 6.8 x10^3/uL (4.0-11.0) Red Blood Count 4.91 x10^6/uL (3.50-5.40) Hemoglobin 13.8 g/dL (12.0-15.5) Hematocrit 41.5 % (36.0-47.0) Mean Corpuscular Volume 85 fL (79-100) Mean Corpuscular Hemoglobin 28 pg (25-35) Mean Corpuscular Hemoglobin Concent 33 g/dL (31-37) Red Cell Distribution Width 15.6 % (11.5-14.5) H Platelet Count 92 x10^3/uL (140-400) L Neutrophils (%) (Auto) 53 % (31-73) Lymphocytes (%) (Auto) 27 % (24-48) Monocytes (%) (Auto) 18 % (0-9) H Eosinophils (%) (Auto) 2 % (0-3) Basophils (%) (Auto) 1 % (0-3) Neutrophils # (Auto) 3.6 x10^3uL (1.8-7.7) Lymphocytes # (Auto) 1.8 x10^3/uL (1.0-4.8) Monocytes # (Auto) 1.2 x10^3/uL (0.0-1.1) H Eosinophils # (Auto) 0.1 x10^3/uL (0.0-0.7) Basophils # (Auto) 0.0 x10^3/uL (0.0-0.2) Sodium Level 142 mmol/L (136-145) Potassium Level 3.7 mmol/L (3.5-5.1) Chloride Level 107 mmol/L (98-107) Carbon Dioxide Level 24 mmol/L (21-32) Anion Gap 11 (6-14) Blood Urea Nitrogen 15 mg/dL (7-20) Creatinine 0.9 mg/dL (0.6-1.0) Estimated GFR (Cockcroft-Gault) 59.2 BUN/Creatinine Ratio 17 (6-20) Glucose Level 129 mg/dL (70-99) H Calcium Level 8.3 mg/dL (8.5-10.1) L Magnesium Level 2.0 mg/dL (1.8-2.4) Iron Level 75 ug/dL (50-170) Total Iron Binding Capacity 356 ug/dL (250-450) Iron Saturation 21 % (15-34) Total Bilirubin 0.8 mg/dL (0.2-1.0) Aspartate Amino Transferase (AST) 29 U/L (15-37) Alanine Aminotransferase (ALT) 34 U/L (14-59) Alkaline Phosphatase 69 U/L (46-116) Total Protein 6.7 g/dL (6.4-8.2) Albumin 3.1 g/dL (3.4-5.0) L Albumin/Globulin Ratio 0.9 (1.0-1.7) L Triglycerides Level 84 mg/dL (0-150) Cholesterol Level 122 mg/dL (0-200) LDL Cholesterol, Calculated 62 mg/dL (0-100) VLDL Cholesterol, Calculated 16 mg/dL (0-40) Non-HDL Cholesterol Calculated 78 mg/dL (0-129) HDL Cholesterol 44 mg/dL (40-60) Cholesterol/HDL Ratio 2.0 Vitamin B12 Level 417 pg/mL (247-911) 25-Hydroxy Vitamin D Total 17.3 ng/mL (30-100) L Thyroid Stimulating Hormone (TSH) 6.661 uIU/mL (0.358-3.740) Valproic Acid Level 54 mcg/mL (50-100) Valproic Acid Last Dose Date 08/12/2017 Valproic Acid Last Dose Time 0900 Urine Collection Type Unknown Urine Color Yellow Urine Clarity Clear Urine pH 5.5 Urine Specific [place] 1.020 Urine Protein Neg (NEG-TRACE) Urine Glucose (UA) Neg mg/dL (NEG) Urine Ketones (Stick) Neg mg/dL (NEG) Urine Blood Neg (NEG) Urine Nitrite Neg (NEG) Urine Bilirubin Neg (NEG) Urine Urobilinogen Dipstick 0.2 mg/dL (0.2 mg/dL) Urine Leukocyte Esterase Trace (NEG) Urine RBC 0 /HPF (0-2) Urine WBC 5-10 /HPF (0-4) Urine Squamous Epithelial Cells None /LPF Urine Bacteria 0 /HPF (0-FEW) Current Medications: Meds: Current Medications Acetaminophen (Tylenol) 650 mg PRN Q6HRS PRN PO PAIN / TEMP; Start 08/12/17 at 21:45 Multi-Ingredient Ointment (Analgesic [place]) 1 diana PRN QID PRN TP MUSCLE PAIN; Start 08/12/17 at 21:45 Al Hydroxide/Mg Hydroxide (Mylanta Plus Xs) 15 ml PRN AFTMEALHC PRN PO DYSPEPSIA; Start 08/12/17 at 21:45 Magnesium Hydroxide (Milk Of Magnesia) 2,400 mg PRN QHS PRN PO CONSTIPATION; Start 08/12/17 at 21:45 Buspirone HCl (Buspar) 5 mg BID92 PO Last administered on 08/13/17at 14:26; Start 08/13/17 at 09:00 Divalproex Sodium (Depakote Er) 500 mg BID PO Last administered on 08/13/17at 09 :59; Start 08/13/17 at 09:00 Duloxetine HCl (Cymbalta) 60 mg DAILY PO Last administered on 08/13/17at 09:59; Start 08/13/17 at 09:00 Mirtazapine (Remeron) 15 mg HS PO ; Start 08/13/17 at 21:00 Acetaminophen (Tylenol) 650 mg PRN Q6HRS PRN PO MILD PAIN/TEMP; Start 08/12/17 at 23:30; Stop 08/12/17 at 23:37; Status DC Aspirin (Children'S Aspirin) 81 mg DAILY PO Last administered on 08/13/17at 10: 00; Start 08/13/17 at 09:00 Bisacodyl (Dulcolax Tab) 5 mg PRN DAILY PRN PO CONSTIPATION; Start 08/12/17 at 23:30 Carvedilol (Coreg) 3.125 mg BIDWMEALS PO Last administered on 08/13/17at 16:43; Start 08/13/17 at 08:00 Cyanocobalamin (Vitamin B-12) 1,000 mcg QMONTH IM ; Start 09/11/17 at 09:00 Famotidine (Pepcid) 20 mg DAILY PO Last administered on 08/13/17at 10:00; Start 08/13/17 at 09:00 Levothyroxine Sodium (Synthroid) 88 mcg DAILYAC PO Last administered on at 07:42; Start 08/13/17 at 07:30; Stop 08/13/17 at 08:03; Status DC Nitroglycerin (Nitrostat) 0.4 mg PRN Q5MIN PRN SL CHEST PAIN; Start 08/12/17 at 23:30 Nitroglycerin (Nitrostat) 0.4 mg PRN Q5MIN PRN SL CHEST PAIN; Start 08/12/17 at 23:30; Stop 08/12/17 at 23:38; Status DC Sodium Chloride (Saline Mist Nasal) 1 diana BID NS Last administered on at 10:18; Start 08/13/17 at 09:00 Atorvastatin Calcium (Lipitor) 40 mg QHS PO ; Start 08/13/17 at 21:00 Calcium Carbonate/ Glycine (Tums) 500 mg PRN Q2HR PRN PO INDIGESTION; Start 04/19 at 23:45 Non-Formulary Medication (Magnesium Hydroxide (Milk Of Magnesia)) 30 ml PRN DAILY PRN PO CONSTIPATION; Start 08/12/17 at 23:30; Stop 08/12/17 at 23:38; Status DC Prenat Multivit/ [employer]/Iron/Folic Ac (Multivitamin ) 1 tab DAILYBFRLUN PO Last administered on 08/13/17at 11:40; Start 08/13/17 at 11:30 Simethicone (Gas-X) 80 mg PRN Q2HR PRN PO GAS / BLOATING; Start 08/12/17 at 23: 45 Levothyroxine Sodium (Synthroid) 88 mcg DAILY06 PO ; Start 08/14/17 at 06:00 Vitamin D (Vitamin D3) 50,000 unit WEEKLY PO Last administered on 08/13/17at 16: 44; Start 08/13/17 at 17:00 Active Scripts Active Reported Maalox Advanced Tab Chew (Calcium Carbonate/Simethicone) 1 Each Tab.chew 2 Tab.chew PO Q2HR Nitrostat (Nitroglycerin) 0.4 Mg Tab.subl 0.4 Mg SL PRN Q5MIN PRN Buspirone Hcl 5 Mg Tablet 5 Mg PO BID92 Multi Tablet (Pnv No.122/Iron/Folic Acid) 1 Each Tablet 1 Each PO DAILYBFRLUN Mirtazapine 15 Mg Tablet 15 Mg PO HS Saline Nasal [place] (Sodium Chloride) 30 Ml [place] 2 Spr NS BID NITROGLYCERIN SubLingual (Nitroglycerin) 0.4 Mg Tab.subl 0.4 Mg SL PRN Q5MIN PRN Milk Of Magnesia (Magnesium Hydroxide) 2,400 Mg/10 Ml Oral.susp 30 Ml PO PRN DAILY PRN Levothyroxine Sodium 88 Mcg Tablet 88 Mcg PO DAILYAC Famotidine 20 Mg Tablet 20 Mg PO DAILY Bisacodyl 5 Mg Tablet.dr 5 Mg PO PRN DAILY PRN Depakote Er (Divalproex Sodium) 500 Mg Tab.er.24h 500 Mg PO BID Cymbalta (Duloxetine Hcl) 60 Mg Capsule.dr 60 Mg PO DAILY Cyanocobalamin Injection (Cyanocobalamin (Vitamin B-12)) 1,000 Mcg/1 Ml Vial 1, 000 Mcg IM QMONTH Coreg (Carvedilol) 3.125 Mg Tablet 3.125 Mg PO BIDWMEALS Atorvastatin Calcium 40 Mg Tablet 40 Mg PO QHS Aspirin 81 Mg Tab.chew 81 Mg PO DAILY Tylenol (Acetaminophen) 325 Mg Tablet 650 Mg PO PRN Q6HRS MDD 4000 I have reviewed the current psychotropics carefully including drug interactions. Risk benefit ratio favors no change other than as noted in my dictated progress note. Diagnosis: Problems: (1) Schizoaffective disorder, chronic condition with acute exacerbation (2) Impulse control disorder (3) Dementia, vascular, with delirium (4) Dementia, vascular, with delusions (5) Dementia in Alzheimer's disease with delusions (6) Dementia in Alzheimer's disease with depression (7) Anxiety disorder PATRICIA HUNT MD Aug 13, 2017 18:20
[2017-08-13] MEDS: ATORVASTATIN CALCIUM 20 MG TABLET PO SCH (20:18)
[2017-08-13] MEDS: MELATONIN 3 MG TABLET PO SCH (20:18)
[2017-08-13] MEDS: MIRTAZAPINE 15 MG TABLET PO SCH (20:18)
--- NOTE | 2017-08-13 20:48 | PDOC ---
Exam Note: Marco Note: Please also refer to the separate dictated note~for this date of service dictated separately.~Patient seen individually. Discussed the patient with Nursing staff reviewed the chart.~Reviewed interim history and current functioning. Reviewed vital signs,~Labs/ Radiology~and current medications noted below. Continue current treatment with the changes noted in the dictated addendum note Assessment: Vital Signs: Vital Signs Date Time Temp Pulse Resp B/P (MAP) Pulse Ox O2 Delivery O2 Flow Rate FiO2 08/13/17 16:43 102 125/75 08/13/17 16:14 97.8 15 94 I&O Intake and Output 08/13/17 07:00 Intake Total 260 ml Balance 260 ml Intake Oral 260 ml Labs: Laboratory Tests Test 08/12/17 22:10 08/13/17 04:00 White Blood Count 6.8 x10^3/uL (4.0-11.0) Red Blood Count 4.91 x10^6/uL (3.50-5.40) Hemoglobin 13.8 g/dL (12.0-15.5) Hematocrit 41.5 % (36.0-47.0) Mean Corpuscular Volume 85 fL (79-100) Mean Corpuscular Hemoglobin 28 pg (25-35) Mean Corpuscular Hemoglobin Concent 33 g/dL (31-37) Red Cell Distribution Width 15.6 % (11.5-14.5) H Platelet Count 92 x10^3/uL (140-400) L Neutrophils (%) (Auto) 53 % (31-73) Lymphocytes (%) (Auto) 27 % (24-48) Monocytes (%) (Auto) 18 % (0-9) H Eosinophils (%) (Auto) 2 % (0-3) Basophils (%) (Auto) 1 % (0-3) Neutrophils # (Auto) 3.6 x10^3uL (1.8-7.7) Lymphocytes # (Auto) 1.8 x10^3/uL (1.0-4.8) Monocytes # (Auto) 1.2 x10^3/uL (0.0-1.1) H Eosinophils # (Auto) 0.1 x10^3/uL (0.0-0.7) Basophils # (Auto) 0.0 x10^3/uL (0.0-0.2) Sodium Level 142 mmol/L (136-145) Potassium Level 3.7 mmol/L (3.5-5.1) Chloride Level 107 mmol/L (98-107) Carbon Dioxide Level 24 mmol/L (21-32) Anion Gap 11 (6-14) Blood Urea Nitrogen 15 mg/dL (7-20) Creatinine 0.9 mg/dL (0.6-1.0) Estimated GFR (Cockcroft-Gault) 59.2 BUN/Creatinine Ratio 17 (6-20) Glucose Level 129 mg/dL (70-99) H Calcium Level 8.3 mg/dL (8.5-10.1) L Magnesium Level 2.0 mg/dL (1.8-2.4) Iron Level 75 ug/dL (50-170) Total Iron Binding Capacity 356 ug/dL (250-450) Iron Saturation 21 % (15-34) Total Bilirubin 0.8 mg/dL (0.2-1.0) Aspartate Amino Transferase (AST) 29 U/L (15-37) Alanine Aminotransferase (ALT) 34 U/L (14-59) Alkaline Phosphatase 69 U/L (46-116) Total Protein 6.7 g/dL (6.4-8.2) Albumin 3.1 g/dL (3.4-5.0) L Albumin/Globulin Ratio 0.9 (1.0-1.7) L Triglycerides Level 84 mg/dL (0-150) Cholesterol Level 122 mg/dL (0-200) LDL Cholesterol, Calculated 62 mg/dL (0-100) VLDL Cholesterol, Calculated 16 mg/dL (0-40) Non-HDL Cholesterol Calculated 78 mg/dL (0-129) HDL Cholesterol 44 mg/dL (40-60) Cholesterol/HDL Ratio 2.0 Vitamin B12 Level 417 pg/mL (247-911) 25-Hydroxy Vitamin D Total 17.3 ng/mL (30-100) L Thyroid Stimulating Hormone (TSH) 6.661 uIU/mL (0.358-3.740) Valproic Acid Level 54 mcg/mL (50-100) Valproic Acid Last Dose Date 08/12/2017 Valproic Acid Last Dose Time 0900 Urine Collection Type Unknown Urine Color Yellow Urine Clarity Clear Urine pH 5.5 Urine Specific [place] 1.020 Urine Protein Neg (NEG-TRACE) Urine Glucose (UA) Neg mg/dL (NEG) Urine Ketones (Stick) Neg mg/dL (NEG) Urine Blood Neg (NEG) Urine Nitrite Neg (NEG) Urine Bilirubin Neg (NEG) Urine Urobilinogen Dipstick 0.2 mg/dL (0.2 mg/dL) Urine Leukocyte Esterase Trace (NEG) Urine RBC 0 /HPF (0-2) Urine WBC 5-10 /HPF (0-4) Urine Squamous Epithelial Cells None /LPF Urine Bacteria 0 /HPF (0-FEW) Current Medications: Meds: Current Medications Acetaminophen (Tylenol) 650 mg PRN Q6HRS PRN PO PAIN / TEMP; Start 08/12/17 at 21:45 Multi-Ingredient Ointment (Analgesic [place]) 1 diana PRN QID PRN TP MUSCLE PAIN; Start 08/12/17 at 21:45 Al Hydroxide/Mg Hydroxide (Mylanta Plus Xs) 15 ml PRN AFTMEALHC PRN PO DYSPEPSIA; Start 08/12/17 at 21:45 Magnesium Hydroxide (Milk Of Magnesia) 2,400 mg PRN QHS PRN PO CONSTIPATION; Start 08/12/17 at 21:45 Buspirone HCl (Buspar) 5 mg BID92 PO Last administered on 08/13/17at 14:26; Start 08/13/17 at 09:00 Divalproex Sodium (Depakote Er) 500 mg BID PO Last administered on 08/13/17at 20 :16; Start 08/13/17 at 09:00 Duloxetine HCl (Cymbalta) 60 mg DAILY PO Last administered on 08/13/17at 09:59; Start 08/13/17 at 09:00 Mirtazapine (Remeron) 15 mg HS PO Last administered on 08/13/17at 20:18; Start 08/13/17 at 21:00 Acetaminophen (Tylenol) 650 mg PRN Q6HRS PRN PO MILD PAIN/TEMP; Start 08/12/17 at 23:30; Stop 08/12/17 at 23:37; Status DC Aspirin (Children'S Aspirin) 81 mg DAILY PO Last administered on 08/13/17at 10: 00; Start 08/13/17 at 09:00 Bisacodyl (Dulcolax Tab) 5 mg PRN DAILY PRN PO CONSTIPATION; Start 08/12/17 at 23:30 Carvedilol (Coreg) 3.125 mg BIDWMEALS PO Last administered on 08/13/17at 16:43; Start 08/13/17 at 08:00 Cyanocobalamin (Vitamin B-12) 1,000 mcg QMONTH IM ; Start 09/11/17 at 09:00 Famotidine (Pepcid) 20 mg DAILY PO Last administered on 08/13/17at 10:00; Start 08/13/17 at 09:00 Levothyroxine Sodium (Synthroid) 88 mcg DAILYAC PO Last administered on at 07:42; Start 08/13/17 at 07:30; Stop 08/13/17 at 08:03; Status DC Nitroglycerin (Nitrostat) 0.4 mg PRN Q5MIN PRN SL CHEST PAIN; Start 08/12/17 at 23:30 Nitroglycerin (Nitrostat) 0.4 mg PRN Q5MIN PRN SL CHEST PAIN; Start 08/12/17 at 23:30; Stop 08/12/17 at 23:38; Status DC Sodium Chloride (Saline Mist Nasal) 1 diana BID NS Last administered on at 20:18; Start 08/13/17 at 09:00 Atorvastatin Calcium (Lipitor) 40 mg QHS PO Last administered on 08/13/17at 20: 18; Start 08/13/17 at 21:00 Calcium Carbonate/ Glycine (Tums) 500 mg PRN Q2HR PRN PO INDIGESTION; Start 04/19 at 23:45 Non-Formulary Medication (Magnesium Hydroxide (Milk Of Magnesia)) 30 ml PRN DAILY PRN PO CONSTIPATION; Start 08/12/17 at 23:30; Stop 08/12/17 at 23:38; Status DC Prenat Multivit/ [place]/Iron/Folic Ac (Multivitamin ) 1 tab DAILYBFRLUN PO Last administered on 08/13/17at 11:40; Start 08/13/17 at 11:30 Simethicone (Gas-X) 80 mg PRN Q2HR PRN PO GAS / BLOATING; Start 08/12/17 at 23: 45 Levothyroxine Sodium (Synthroid) 88 mcg DAILY06 PO ; Start 08/14/17 at 06:00 Vitamin D (Vitamin D3) 50,000 unit WEEKLY PO Last administered on 08/13/17at 16: 44; Start 08/13/17 at 17:00 Bupropion HCl (Wellbutrin Xl) 150 mg DAILY PO ; Start 08/14/17 at 09:00 Melatonin 3 mg QHS PO Last administered on 08/13/17at 20:18; Start 08/13/17 at 21:00 Active Scripts Active Reported Maalox Advanced Tab Chew (Calcium Carbonate/Simethicone) 1 Each Tab.chew 2 Tab.chew PO Q2HR Nitrostat (Nitroglycerin) 0.4 Mg Tab.subl 0.4 Mg SL PRN Q5MIN PRN Buspirone Hcl 5 Mg Tablet 5 Mg PO BID92 Multi Tablet (Pnv No.122/Iron/Folic Acid) 1 Each Tablet 1 Each PO DAILYBFRLUN Mirtazapine 15 Mg Tablet 15 Mg PO HS Saline Nasal [place] (Sodium Chloride) 30 Ml [place] 2 Spr NS BID NITROGLYCERIN SubLingual (Nitroglycerin) 0.4 Mg Tab.subl 0.4 Mg SL PRN Q5MIN PRN Milk Of Magnesia (Magnesium Hydroxide) 2,400 Mg/10 Ml Oral.susp 30 Ml PO PRN DAILY PRN Levothyroxine Sodium 88 Mcg Tablet 88 Mcg PO DAILYAC Famotidine 20 Mg Tablet 20 Mg PO DAILY Bisacodyl 5 Mg Tablet.dr 5 Mg PO PRN DAILY PRN Depakote Er (Divalproex Sodium) 500 Mg Tab.er.24h 500 Mg PO BID Cymbalta (Duloxetine Hcl) 60 Mg Capsule.dr 60 Mg PO DAILY Cyanocobalamin Injection (Cyanocobalamin (Vitamin B-12)) 1,000 Mcg/1 Ml Vial 1, 000 Mcg IM QMONTH Coreg (Carvedilol) 3.125 Mg Tablet 3.125 Mg PO BIDWMEALS Atorvastatin Calcium 40 Mg Tablet 40 Mg PO QHS Aspirin 81 Mg Tab.chew 81 Mg PO DAILY Tylenol (Acetaminophen) 325 Mg Tablet 650 Mg PO PRN Q6HRS MDD 4000 I have reviewed the current psychotropics carefully including drug interactions. Risk benefit ratio favors no change other than as noted in my dictated progress note. Diagnosis: Problems: (1) Schizoaffective disorder, chronic condition with acute exacerbation (2) Anxiety disorder (3) Dementia in Alzheimer's disease with depression (4) Dementia in Alzheimer's disease with delusions (5) Dementia, vascular, with delusions (6) Dementia, vascular, with delirium (7) Impulse control disorder PATRICIA HUNT MD Aug 13, 2017 20:48
[2017-08-14 04:08] LABS: T3 TOTAL 87 ng/dL (71-180); THYROXINE 5.6 ug/dL (4.5-12.0)
[2017-08-14] MEDS: LEVOTHYROXINE 88 MCG TABLET PO SCH (06:08)
[2017-08-14 06:27] VITALS: BP 132/62
--- NOTE | 2017-08-14 06:55 | CONS ---
DATE OF CONSULTATION: 08/13/2017 REASON FOR CONSULTATION: Medical management. HISTORY OF PRESENT ILLNESS: The patient is an 86-year-old female patient, who was seen at the [facility] Emergency Room where she was sent from [facility] as she was delusional with suicidal ideation. She wants to , but she wants to have euthanasia, to be assisted to . She has plans and one of the plans is going to drain her blood. She apparently has been saying numerous suicidal ideation statements, delusional about dying. She apparently was seen at the [facility] Emergency Room and eventually [facility]. She did not have any other complaints. 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 PAST PSYCHIATRIC HISTORY: Significant for dementia of Alzheimer type, anxiety, schizoaffective disorder. ALLERGIES: SHE IS ALLERGIC TO PENICILLIN, SULFA, CLARITHROMYCIN, CODEINE, MUSHROOM AND SPIRONOLACTONE. MEDICATIONS: She is on atorvastatin calcium 40 mg at bedtime, nitroglycerin 0.4 mg every 5 minutes as needed, carvedilol 3.125 mg twice a day with meals, aspirin 81 mg daily, acetaminophen 650 mg every 6 hours, divalproex or Depakote 500 mg twice a day, duloxetine 60 mg capsules or Cymbalta once a day, mirtazapine 15 mg at bedtime, buspirone 5 mg twice a day, saline nasal spray 2 sprays to each nostril twice a day, calcium carbonate and Maalox 2 chewable tablets as needed every 2 hours, bisacodyl 5 mg p.o. daily p.r.n. for constipation, milk of magnesia 30 mL p.o. daily p.r.n. for constipation, famotidine 20 mg twice a day, levothyroxine sodium 88 mcg once a day, cyanocobalamin or vitamin B12 of 1000 mcg intramuscular once a month, multivitamin 1 tablet once a day. FAMILY HISTORY: Noncontributory. SOCIAL HISTORY: She lives in assisted living. She has daughters and sons. Her sons are living in [place] and they stated they have money, but it is her daughters that are greedy and wanted to take her money and want her to be . REVIEW OF SYSTEMS: As per history of present illness. PHYSICAL EXAMINATION GENERAL: When I examined her, she looked pale, but not jaundiced, cyanosed and no thyromegaly. No jugular venous distension. No limb edema. VITAL SIGNS: Her heart rate was 82, blood pressure was 126/77, temperature was 98.1, respiratory rate was 18 and oxygen saturation was 93%. HEENT: Examination of the head, eyes, ears, nose and throat, normocephalic, atraumatic. NECK: Supple. HEART: Showed normal first and second heart sounds with no gallop, rub or murmur. CHEST: Clear to auscultation. No crepitation or rhonchi. ABDOMEN: Distended, soft, nontender. No guarding or rigidity. No organomegaly. Her hernial orifices were intact. Bowel sounds normal. NEUROLOGIC: She is awake, alert, confused and disoriented; however, all cranial nerves are intact. EXTREMITIES: She moves extremities without difficulty. She ambulates without assistance or assistive devices. LABORATORY DATA: Showed that her white cell count was 6800, hemoglobin 14, hematocrit 42, MCV 85 and platelet count of 92,000. Her chemistry showed a serum sodium 142, potassium 3.7, chloride 107, bicarbonate 24, anion gap of 11, BUN 15, creatinine 0.9, estimated GFR was 59 mL per minute. Her glucose 129, calcium was 8.3, magnesium 2. His serum iron was 75, TIBC was 356 and percent saturation was 21. Total bilirubin, AST, ALT, alkaline phosphatase were normal. Total protein was 6.7, albumin was 3.1. His serum triglycerides were 84, cholesterol 122, LDL was 62, VLDL was 16 and HDL cholesterol 44, and the ratio was 2. Her vitamin B12 was 417 pg/mL. The 25-hydroxyvitamin D was 17.3. She is low and the TSH was slightly high at 6.66. Urinalysis showed the urine was yellow, clear with a pH of 5.5, specific gravity 1.020. The urine was negative for protein, glucose, ketones, blood, nitrite and bilirubin. There was a trace of leukocyte esterase, 0 rbc's, 5-10 wbc's, no bacteria and urine toxicology screen showed that her valproic acid was 54 mcg/mL, which is well within therapeutic range. IMPRESSION: In summary, this is an 86-year-old female patient, who basically is delusional, has suicidal ideation. She has also plans. She stated that she wants to and wants somebody else to assist her in some form of euthanasia like draining her blood. All this in a background of dementia of Alzheimer type and schizoaffective bipolar disorder. She has numerous medical problems including hyperlipidemia, hypertension, coronary artery disease, chronic obstructive pulmonary disease, gastroesophageal reflux disease, bronchial asthma, pulmonary embolism, hypothyroidism, congestive heart failure as well as dysphagia and anemia. All in all, the patient seems to be stable medically. All her lab works are within acceptable range except perhaps that she has thrombocytopenia and the chemistry showed that she has vitamin D deficiency as well as hypothyroidism. PLAN: My plan is to replenish her vitamin D; check her T3, T4, free T4, and we will follow all her other labs that are still pending and make necessary recommendation. Thank you, Dr. Palencia, for allowing me to participate. FERMIN ANDESRON MD DR: VAL/yusef JOB#: [id number] / [id number]
--- NOTE | 2017-08-14 08:53 | HP ---
ADMIT DATE: 08/13/2017 This is a late entry and covers elements not covered in my initial note of 08/13/2017. The patient was seen individually evening of 08/13/2017. Discussed with nursing staff, reviewed the chart and previously had discussed with nursing staff on 2 or 3 occasions including prior to the patient's admission and to gather historical information from the Emergency Room at [facility], where the patient presented from the [facility] [place], [place] on account of worsening delusions, suicidal ideation including wanting to with a plan "one of these days, I am going to drain my blood." She had made numerous suicidal statements, delusional about the dog "snoopy," he is fine. Symptoms have been worsening for the past couple of weeks. She had seen Dr. Tejeda, psychiatrist, outpatient on 08/05/2017 and had failed all of these treatments for her schizoaffective disorder, bipolar type and major neurocognitive disorder, Alzheimer, vascular with delusions. She is referred for inpatient psychiatric stabilization. IDENTIFYING DATA: The patient is an 86-year-old female referred from the Emergency Room at [facility] Emergency Room as noted above. CHIEF COMPLAINT: "There is nothing to live for. Yes, I want to end my life. No, I would not do anything to hurt myself here." HISTORY OF PRESENT ILLNESS: The patient has a history of schizoaffective disorder, bipolar type and progressive memory deficits. She has been treated here in the past in 03/2017 and then did well back at the nursing facility with outpatient treatment. Over the past 2 weeks, symptoms have resurfaced with worsening paranoia, depression, suicidal ideation with a plan as noted. She has also had sleep and appetite changes. No homicidal ideation. She has been quite paranoid. PAST PSYCHIATRIC HISTORY: As above. 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 DIET: Dysphagia 3 thickened liquids. ACCU-CHEKS: None. CODE STATUS: DNR. CURRENT PSYCHOTROPICS: BuSpar 5 mg b.i.d., Cymbalta 60 mg a day, Depakote 500 mg b.i.d. with valproic acid level of 54, therapeutic Remeron 15 mg at bedtime. FAMILY HISTORY: Noncontributory. SOCIAL HISTORY: No alcohol, drug abuse, physical, sexual, or elder abuse. She is not known to be a perpetrator. 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 MENTAL STATUS EXAM: The patient was seen individually evening of 08/13/2017. She is oriented to herself, situation, knew that she had arrived the previous evening and was forgetful of where she was living prior to going to the ER at [facility]. She was unaware of the date, though she did look in the calendar and was able to tell it is 2017. Mood is depressed. Affect is mood congruent, anxious and she is somewhat paranoid. Short term memory is impaired. Attention span short. Language function intact. She denies active plans to hurt herself here in the hospital. No homicidal ideation. Reaction to hospitalization, patient accepting of weakness, patient's memory deficits, depression, delusions. IMPRESSION: Major neurocognitive disorder, Alzheimer, vascular with delusion, depression. Schizoaffective disorder, bipolar type, mixed. Anxiety disorder, unspecified; impulse control disorder, unspecified. Rest diagnoses as above. PLAN: Admit to Geropsychiatry Unit at [facility]. I will see the patient daily individually from a psychiatric standpoint. Medical followup per Dr. Fitzpatrick/Dr. Flanagan. The patient has been quite depressed. We will add Wellbutrin-XL 150 mg a day in the morning to augment the Cymbalta. Continue melatonin 3 mg at bedtime. Rest to be determined after baseline assessment. MAN Kehinde HUNT MD DR: MARCOS/yusef JOB#: [id number] / [id number]
[2017-08-14] MEDS: FAMOTIDINE 20 MG TABLET PO SCH (09:08)
[2017-08-14] MEDS: DIVALPROEX ER 500 MG TAB.ER.24H PO SCH ×2 (09:08→20:10)
[2017-08-14] MEDS: buPROPion XL 150 MG TAB.ER.24H PO SCH (09:08)
[2017-08-14] MEDS: ASPIRIN 81 MG TAB.CHEW PO SCH (09:08)
[2017-08-14] MEDS: DULoxetine HCL 60 MG CAPSULE.DR PO SCH (09:09)
[2017-08-14] MEDS: busPIRone 5 MG TABLET. PO SCH ×2 (09:09→14:30)
[2017-08-14] MEDS: CARVEDILOL 3.125 MG TABLET PO SCH ×2 (09:09→17:33)
[2017-08-14] MEDS: SODIUM CHLORIDE 0.65% NASAL SPRAY 45ML BOTTLE. NS SCH ×2 (09:09→20:09)
[2017-08-14] MEDS: PRENATAL MULTIVITAMIN TABLET. PO SCH (11:56)
[2017-08-14 14:08] LABS: THYROXINE 6.1 ug/dL (4.5-12.0)
[2017-08-14 16:27] VITALS: BP 112/73
--- NOTE | 2017-08-14 19:45 | PDOC ---
Exam Note: Marco Note: Please also refer to the separate dictated note~for this date of service dictated separately.~Patient seen individually. Discussed the patient with Nursing staff reviewed the chart.~Reviewed interim history and current functioning. Reviewed vital signs,~Labs/ Radiology~and current medications noted below. Continue current treatment with the changes noted in the dictated addendum note Assessment: Vital Signs: Vital Signs Date Time Temp Pulse Resp B/P (MAP) Pulse Ox O2 Delivery O2 Flow Rate FiO2 08/14/17 17:33 91 112/73 08/14/17 16:27 97.3 19 96 Room Air I&O Intake and Output 08/14/17 07:00 Intake Total 1320 ml Balance 1320 ml Intake Oral 1320 ml Labs: Laboratory Tests Test 08/14/17 07:39 Free Thyroxine 0.79 ng/dL (0.76-1.46) Thyroxine (T4) 6.1 ug/dL (4.5-12.0) Total Triiodothyronine (TT3) 78 ng/dL (71-180) Current Medications: Meds: Current Medications Acetaminophen (Tylenol) 650 mg PRN Q6HRS PRN PO PAIN / TEMP; Start 08/12/17 at 21:45 Multi-Ingredient Ointment (Analgesic [place]) 1 diana PRN QID PRN TP MUSCLE PAIN; Start 08/12/17 at 21:45 Al Hydroxide/Mg Hydroxide (Mylanta Plus Xs) 15 ml PRN AFTMEALHC PRN PO DYSPEPSIA; Start 08/12/17 at 21:45 Magnesium Hydroxide (Milk Of Magnesia) 2,400 mg PRN QHS PRN PO CONSTIPATION; Start 08/12/17 at 21:45 Buspirone HCl (Buspar) 5 mg BID92 PO Last administered on 08/14/17at 14:30; Start 08/13/17 at 09:00 Divalproex Sodium (Depakote Er) 500 mg BID PO Last administered on 08/14/17at 09 :08; Start 08/13/17 at 09:00 Duloxetine HCl (Cymbalta) 60 mg DAILY PO Last administered on 08/14/17at 09:09; Start 08/13/17 at 09:00 Mirtazapine (Remeron) 15 mg HS PO Last administered on 08/13/17at 20:18; Start 08/13/17 at 21:00 Acetaminophen (Tylenol) 650 mg PRN Q6HRS PRN PO MILD PAIN/TEMP; Start 08/12/17 at 23:30; Stop 08/12/17 at 23:37; Status DC Aspirin (Children'S Aspirin) 81 mg DAILY PO Last administered on 08/14/17at 09: 08; Start 08/13/17 at 09:00 Bisacodyl (Dulcolax Tab) 5 mg PRN DAILY PRN PO CONSTIPATION; Start 08/12/17 at 23:30 Carvedilol (Coreg) 3.125 mg BIDWMEALS PO Last administered on 08/14/17at 17:33; Start 08/13/17 at 08:00 Cyanocobalamin (Vitamin B-12) 1,000 mcg QMONTH IM ; Start 09/11/17 at 09:00 Famotidine (Pepcid) 20 mg DAILY PO Last administered on 08/14/17at 09:08; Start 08/13/17 at 09:00 Levothyroxine Sodium (Synthroid) 88 mcg DAILYAC PO Last administered on at 07:42; Start 08/13/17 at 07:30; Stop 08/13/17 at 08:03; Status DC Nitroglycerin (Nitrostat) 0.4 mg PRN Q5MIN PRN SL CHEST PAIN; Start 08/12/17 at 23:30 Nitroglycerin (Nitrostat) 0.4 mg PRN Q5MIN PRN SL CHEST PAIN; Start 08/12/17 at 23:30; Stop 08/12/17 at 23:38; Status DC Sodium Chloride (Saline Mist Nasal) 1 diana BID NS Last administered on at 09:09; Start 08/13/17 at 09:00 Atorvastatin Calcium (Lipitor) 40 mg QHS PO Last administered on 08/13/17at 20: 18; Start 08/13/17 at 21:00 Calcium Carbonate/ Glycine (Tums) 500 mg PRN Q2HR PRN PO INDIGESTION; Start 04/19 at 23:45 Non-Formulary Medication (Magnesium Hydroxide (Milk Of Magnesia)) 30 ml PRN DAILY PRN PO CONSTIPATION; Start 08/12/17 at 23:30; Stop 08/12/17 at 23:38; Status DC Prenat Multivit/ [place]/Iron/Folic Ac (Multivitamin ) 1 tab DAILYBFRLUN PO Last administered on 08/14/17at 11:56; Start 08/13/17 at 11:30 Simethicone (Gas-X) 80 mg PRN Q2HR PRN PO GAS / BLOATING; Start 08/12/17 at 23: 45 Levothyroxine Sodium (Synthroid) 88 mcg DAILY06 PO Last administered on at 06:08; Start 08/14/17 at 06:00 Vitamin D (Vitamin D3) 50,000 unit WEEKLY PO Last administered on 08/13/17at 16: 44; Start 08/13/17 at 17:00 Bupropion HCl (Wellbutrin Xl) 150 mg DAILY PO Last administered on 08/14/17at 09 :08; Start 08/14/17 at 09:00 Melatonin 3 mg QHS PO Last administered on 08/13/17at 20:18; Start 08/13/17 at 21:00 Active Scripts Active Reported Maalox Advanced Tab Chew (Calcium Carbonate/Simethicone) 1 Each Tab.chew 2 Tab.chew PO Q2HR Nitrostat (Nitroglycerin) 0.4 Mg Tab.subl 0.4 Mg SL PRN Q5MIN PRN Buspirone Hcl 5 Mg Tablet 5 Mg PO BID92 Multi Tablet (Pnv No.122/Iron/Folic Acid) 1 Each Tablet 1 Each PO DAILYBFRLUN Mirtazapine 15 Mg Tablet 15 Mg PO HS Saline Nasal [place] (Sodium Chloride) 30 Ml [place] 2 Spr NS BID NITROGLYCERIN SubLingual (Nitroglycerin) 0.4 Mg Tab.subl 0.4 Mg SL PRN Q5MIN PRN Milk Of Magnesia (Magnesium Hydroxide) 2,400 Mg/10 Ml Oral.susp 30 Ml PO PRN DAILY PRN Levothyroxine Sodium 88 Mcg Tablet 88 Mcg PO DAILYAC Famotidine 20 Mg Tablet 20 Mg PO DAILY Bisacodyl 5 Mg Tablet.dr 5 Mg PO PRN DAILY PRN Depakote Er (Divalproex Sodium) 500 Mg Tab.er.24h 500 Mg PO BID Cymbalta (Duloxetine Hcl) 60 Mg Capsule.dr 60 Mg PO DAILY Cyanocobalamin Injection (Cyanocobalamin (Vitamin B-12)) 1,000 Mcg/1 Ml Vial 1, 000 Mcg IM QMONTH Coreg (Carvedilol) 3.125 Mg Tablet 3.125 Mg PO BIDWMEALS Atorvastatin Calcium 40 Mg Tablet 40 Mg PO QHS Aspirin 81 Mg Tab.chew 81 Mg PO DAILY Tylenol (Acetaminophen) 325 Mg Tablet 650 Mg PO PRN Q6HRS MDD 4000 I have reviewed the current psychotropics carefully including drug interactions. Risk benefit ratio favors no change other than as noted in my dictated progress note. Diagnosis: Problems: (1) Schizoaffective disorder, chronic condition with acute exacerbation (2) Anxiety disorder (3) Dementia in Alzheimer's disease with depression (4) Dementia in Alzheimer's disease with delusions (5) Dementia, vascular, with delusions (6) Dementia, vascular, with delirium (7) Impulse control disorder PATRICIA HUNT MD Aug 14, 2017 19:45
[2017-08-14] MEDS: ATORVASTATIN CALCIUM 20 MG TABLET PO SCH (20:09)
[2017-08-14] MEDS: MIRTAZAPINE 15 MG TABLET PO SCH (20:09)
[2017-08-14] MEDS: MELATONIN 3 MG TABLET PO SCH (20:10)
[2017-08-15 03:11] LABS: HEMOGLOBIN A1C 5.3 % (4.8-5.6)
[2017-08-15] MEDS: LEVOTHYROXINE 88 MCG TABLET PO SCH (05:50)
[2017-08-15 06:20] VITALS: BP 170/83
[2017-08-15] MEDS: busPIRone 5 MG TABLET. PO SCH ×2 (08:00→13:39)
[2017-08-15] MEDS: FAMOTIDINE 20 MG TABLET PO SCH (08:00)
[2017-08-15] MEDS: CARVEDILOL 3.125 MG TABLET PO SCH ×2 (08:01→16:54)
[2017-08-15] MEDS: DULoxetine HCL 60 MG CAPSULE.DR PO SCH (08:01)
[2017-08-15] MEDS: DIVALPROEX ER 500 MG TAB.ER.24H PO SCH ×2 (08:01→20:06)
[2017-08-15] MEDS: ASPIRIN 81 MG TAB.CHEW PO SCH (08:01)
[2017-08-15] MEDS: buPROPion XL 150 MG TAB.ER.24H PO SCH (08:01)
[2017-08-15] MEDS: SODIUM CHLORIDE 0.65% NASAL SPRAY 45ML BOTTLE. NS SCH ×2 (08:02→20:06)
[2017-08-15] MEDS: PRENATAL MULTIVITAMIN TABLET. PO SCH (11:55)
[2017-08-15 16:49] VITALS: BP 105/69
[2017-08-15] MEDS: ATORVASTATIN CALCIUM 20 MG TABLET PO SCH (20:05)
[2017-08-15] MEDS: MELATONIN 3 MG TABLET PO SCH (20:05)
[2017-08-15] MEDS: MIRTAZAPINE 15 MG TABLET PO SCH (20:06)
--- NOTE | 2017-08-15 22:10 | PDOC ---
Exam Note: Marco Note: Please also refer to the separate dictated note~for this date of service dictated separately.~Patient seen individually. Discussed the patient with Nursing staff reviewed the chart.~Reviewed interim history and current functioning. Reviewed vital signs,~Labs/ Radiology~and current medications noted below. Continue current treatment with the changes noted in the dictated addendum note Assessment: Vital Signs: Vital Signs Date Time Temp Pulse Resp B/P (MAP) Pulse Ox O2 Delivery O2 Flow Rate FiO2 08/15/17 16:54 96 105/69 08/15/17 16:49 97.5 21 96 08/14/17 16:27 Room Air I&O Intake and Output 08/15/17 07:00 Intake Total 1440 ml Balance 1440 ml Intake Oral 1440 ml Current Medications: Meds: Current Medications Acetaminophen (Tylenol) 650 mg PRN Q6HRS PRN PO PAIN / TEMP; Start 08/12/17 at 21:45 Multi-Ingredient Ointment (Analgesic [place]) 1 diana PRN QID PRN TP MUSCLE PAIN; Start 08/12/17 at 21:45 Al Hydroxide/Mg Hydroxide (Mylanta Plus Xs) 15 ml PRN AFTMEALHC PRN PO DYSPEPSIA; Start 08/12/17 at 21:45 Magnesium Hydroxide (Milk Of Magnesia) 2,400 mg PRN QHS PRN PO CONSTIPATION; Start 08/12/17 at 21:45 Buspirone HCl (Buspar) 5 mg BID92 PO Last administered on 08/15/17at 13:39; Start 08/13/17 at 09:00 Divalproex Sodium (Depakote Er) 500 mg BID PO Last administered on 08/15/17at 20 :06; Start 08/13/17 at 09:00 Duloxetine HCl (Cymbalta) 60 mg DAILY PO Last administered on 08/15/17at 08:01; Start 08/13/17 at 09:00 Mirtazapine (Remeron) 15 mg HS PO Last administered on 08/15/17at 20:06; Start 08/13/17 at 21:00 Acetaminophen (Tylenol) 650 mg PRN Q6HRS PRN PO MILD PAIN/TEMP; Start 08/12/17 at 23:30; Stop 08/12/17 at 23:37; Status DC Aspirin (Children'S Aspirin) 81 mg DAILY PO Last administered on 08/15/17 08: 01; Start 08/13/17 at 09:00 Bisacodyl (Dulcolax Tab) 5 mg PRN DAILY PRN PO CONSTIPATION; Start 08/12/17 at 23:30 Carvedilol (Coreg) 3.125 mg BIDWMEALS PO Last administered on 08/15/17at 16:54; Start 08/13/17 at 08:00 Cyanocobalamin (Vitamin B-12) 1,000 mcg QMONTH IM ; Start 09/11/17 at 09:00 Famotidine (Pepcid) 20 mg DAILY PO Last administered on 08/15/17at 08:00; Start 08/13/17 at 09:00 Levothyroxine Sodium (Synthroid) 88 mcg DAILYAC PO Last administered on at 07:42; Start 08/13/17 at 07:30; Stop 08/13/17 at 08:03; Status DC Nitroglycerin (Nitrostat) 0.4 mg PRN Q5MIN PRN SL CHEST PAIN; Start 08/12/17 at 23:30 Nitroglycerin (Nitrostat) 0.4 mg PRN Q5MIN PRN SL CHEST PAIN; Start 08/12/17 at 23:30; Stop 08/12/17 at 23:38; Status DC Sodium Chloride (Saline Mist Nasal) 1 diana BID NS Last administered on at 20:06; Start 08/13/17 at 09:00 Atorvastatin Calcium (Lipitor) 40 mg QHS PO Last administered on 08/15/17at 20: 05; Start 08/13/17 at 21:00 Calcium Carbonate/ Glycine (Tums) 500 mg PRN Q2HR PRN PO INDIGESTION; Start 04/19 at 23:45 Non-Formulary Medication (Magnesium Hydroxide (Milk Of Magnesia)) 30 ml PRN DAILY PRN PO CONSTIPATION; Start 08/12/17 at 23:30; Stop 08/12/17 at 23:38; Status DC Prenat Multivit/ [place]/Iron/Folic Ac (Multivitamin ) 1 tab DAILYBFRLUN PO Last administered on 08/15/17at 11:55; Start 08/13/17 at 11:30 Simethicone (Gas-X) 80 mg PRN Q2HR PRN PO GAS / BLOATING; Start 08/12/17 at 23: 45 Levothyroxine Sodium (Synthroid) 88 mcg DAILY06 PO Last administered on at 05:50; Start 08/14/17 at 06:00 Vitamin D (Vitamin D3) 50,000 unit WEEKLY PO Last administered on 08/13/17at 16: 44; Start 08/13/17 at 17:00 Bupropion HCl (Wellbutrin Xl) 150 mg DAILY PO Last administered on 08/15/17at 08 :01; Start 08/14/17 at 09:00 Melatonin 3 mg QHS PO Last administered on 08/15/17at 20:05; Start 08/13/17 at 21:00 Active Scripts Active Reported Maalox Advanced Tab Chew (Calcium Carbonate/Simethicone) 1 Each Tab.chew 2 Tab.chew PO Q2HR Nitrostat (Nitroglycerin) 0.4 Mg Tab.subl 0.4 Mg SL PRN Q5MIN PRN Buspirone Hcl 5 Mg Tablet 5 Mg PO BID92 Multi Tablet (Pnv No.122/Iron/Folic Acid) 1 Each Tablet 1 Each PO DAILYBFRLUN Mirtazapine 15 Mg Tablet 15 Mg PO HS Saline Nasal [place] (Sodium Chloride) 30 Ml [place] 2 Spr NS BID NITROGLYCERIN SubLingual (Nitroglycerin) 0.4 Mg Tab.subl 0.4 Mg SL PRN Q5MIN PRN Milk Of Magnesia (Magnesium Hydroxide) 2,400 Mg/10 Ml Oral.susp 30 Ml PO PRN DAILY PRN Levothyroxine Sodium 88 Mcg Tablet 88 Mcg PO DAILYAC Famotidine 20 Mg Tablet 20 Mg PO DAILY Bisacodyl 5 Mg Tablet.dr 5 Mg PO PRN DAILY PRN Depakote Er (Divalproex Sodium) 500 Mg Tab.er.24h 500 Mg PO BID Cymbalta (Duloxetine Hcl) 60 Mg Capsule.dr 60 Mg PO DAILY Cyanocobalamin Injection (Cyanocobalamin (Vitamin B-12)) 1,000 Mcg/1 Ml Vial 1, 000 Mcg IM QMONTH Coreg (Carvedilol) 3.125 Mg Tablet 3.125 Mg PO BIDWMEALS Atorvastatin Calcium 40 Mg Tablet 40 Mg PO QHS Aspirin 81 Mg Tab.chew 81 Mg PO DAILY Tylenol (Acetaminophen) 325 Mg Tablet 650 Mg PO PRN Q6HRS MDD 4000 I have reviewed the current psychotropics carefully including drug interactions. Risk benefit ratio favors no change other than as noted in my dictated progress note. Diagnosis: Problems: (1) Schizoaffective disorder, chronic condition with acute exacerbation (2) Anxiety disorder (3) Dementia in Alzheimer's disease with depression (4) Dementia in Alzheimer's disease with delusions (5) Dementia, vascular, with delusions (6) Dementia, vascular, with delirium (7) Impulse control disorder PATRICIA HUNT MD Aug 15, 2017 22:10
[2017-08-16] MEDS: LEVOTHYROXINE 88 MCG TABLET PO SCH (05:40)
[2017-08-16 06:10] VITALS: BP 160/88
[2017-08-16] MEDS: ASPIRIN 81 MG TAB.CHEW PO SCH (10:41)
[2017-08-16] MEDS: DIVALPROEX ER 500 MG TAB.ER.24H PO SCH ×2 (10:42→20:19)
[2017-08-16] MEDS: buPROPion XL 150 MG TAB.ER.24H PO SCH (10:42)
[2017-08-16] MEDS: FAMOTIDINE 20 MG TABLET PO SCH (10:42)
[2017-08-16] MEDS: DULoxetine HCL 60 MG CAPSULE.DR PO SCH (10:46)
[2017-08-16] MEDS: busPIRone 5 MG TABLET. PO SCH ×2 (10:46→14:07)
[2017-08-16] MEDS: CARVEDILOL 3.125 MG TABLET PO SCH ×2 (10:46→16:52)
[2017-08-16] MEDS: SODIUM CHLORIDE 0.65% NASAL SPRAY 45ML BOTTLE. NS SCH ×2 (10:47→20:18)
[2017-08-16] MEDS: PRENATAL MULTIVITAMIN TABLET. PO SCH (11:58)
[2017-08-16 15:50] VITALS: BP 119/75
[2017-08-16] MEDS: MELATONIN 3 MG TABLET PO SCH (20:18)
[2017-08-16] MEDS: ATORVASTATIN CALCIUM 20 MG TABLET PO SCH (20:19)
[2017-08-16] MEDS: QUEtiapine 25 MG TABLET. PO SCH (20:19)
[2017-08-16] MEDS: MIRTAZAPINE 15 MG TABLET PO SCH (20:19)
--- NOTE | 2017-08-16 21:08 | PDOC ---
Exam Note: Marco Note: Please also refer to the separate dictated note~for this date of service dictated separately.~Patient seen individually. Discussed the patient with Nursing staff reviewed the chart.~Reviewed interim history and current functioning. Reviewed vital signs,~Labs/ Radiology~and current medications noted below. Continue current treatment with the changes noted in the dictated addendum note Assessment: Vital Signs: Vital Signs Date Time Temp Pulse Resp B/P (MAP) Pulse Ox O2 Delivery O2 Flow Rate FiO2 08/16/17 16:52 90 119/75 08/16/17 15:50 97.7 16 95 08/14/17 16:27 Room Air I&O Intake and Output 08/16/17 07:00 Intake Total 1320 ml Balance 1320 ml Intake Oral 1320 ml # Voids 2 Current Medications: Meds: Current Medications Acetaminophen (Tylenol) 650 mg PRN Q6HRS PRN PO PAIN / TEMP; Start 08/12/17 at 21:45 Multi-Ingredient Ointment (Analgesic [place]) 1 diana PRN QID PRN TP MUSCLE PAIN; Start 08/12/17 at 21:45 Al Hydroxide/Mg Hydroxide (Mylanta Plus Xs) 15 ml PRN AFTMEALHC PRN PO DYSPEPSIA; Start 08/12/17 at 21:45 Magnesium Hydroxide (Milk Of Magnesia) 2,400 mg PRN QHS PRN PO CONSTIPATION; Start 08/12/17 at 21:45 Buspirone HCl (Buspar) 5 mg BID92 PO Last administered on 08/16/17at 14:07; Start 08/13/17 at 09:00 Divalproex Sodium (Depakote Er) 500 mg BID PO Last administered on 08/16/17at 20 :19; Start 08/13/17 at 09:00 Duloxetine HCl (Cymbalta) 60 mg DAILY PO Last administered on 08/16/17at 10:46; Start 08/13/17 at 09:00 Mirtazapine (Remeron) 15 mg HS PO Last administered on 08/16/17at 20:19; Start 08/13/17 at 21:00 Acetaminophen (Tylenol) 650 mg PRN Q6HRS PRN PO MILD PAIN/TEMP; Start 08/12/17 at 23:30; Stop 08/12/17 at 23:37; Status DC Aspirin (Children'S Aspirin) 81 mg DAILY PO Last administered on 08/16/17at 10: 41; Start 08/13/17 at 09:00 Bisacodyl (Dulcolax Tab) 5 mg PRN DAILY PRN PO CONSTIPATION; Start 08/12/17 at 23:30 Carvedilol (Coreg) 3.125 mg BIDWMEALS PO Last administered on 08/16/17at 16:52; Start 08/13/17 at 08:00 Cyanocobalamin (Vitamin B-12) 1,000 mcg QMONTH IM ; Start 09/11/17 at 09:00 Famotidine (Pepcid) 20 mg DAILY PO Last administered on 08/16/17at 10:42; Start 08/13/17 at 09:00 Levothyroxine Sodium (Synthroid) 88 mcg DAILYAC PO Last administered on at 07:42; Start 08/13/17 at 07:30; Stop 08/13/17 at 08:03; Status DC Nitroglycerin (Nitrostat) 0.4 mg PRN Q5MIN PRN SL CHEST PAIN; Start 08/12/17 at 23:30 Nitroglycerin (Nitrostat) 0.4 mg PRN Q5MIN PRN SL CHEST PAIN; Start 08/12/17 at 23:30; Stop 08/12/17 at 23:38; Status DC Sodium Chloride (Saline Mist Nasal) 1 diana BID NS Last administered on at 20:18; Start 08/13/17 at 09:00 Atorvastatin Calcium (Lipitor) 40 mg QHS PO Last administered on 08/16/17at 20: 19; Start 08/13/17 at 21:00 Calcium Carbonate/ Glycine (Tums) 500 mg PRN Q2HR PRN PO INDIGESTION; Start 04/19 at 23:45 Non-Formulary Medication (Magnesium Hydroxide (Milk Of Magnesia)) 30 ml PRN DAILY PRN PO CONSTIPATION; Start 08/12/17 at 23:30; Stop 08/12/17 at 23:38; Status DC Prenat Multivit/ [place]/Iron/Folic Ac (Multivitamin ) 1 tab DAILYBFRLUN PO Last administered on 08/16/17at 11:58; Start 08/13/17 at 11:30 Simethicone (Gas-X) 80 mg PRN Q2HR PRN PO GAS / BLOATING; Start 08/12/17 at 23: 45 Levothyroxine Sodium (Synthroid) 88 mcg DAILY06 PO Last administered on at 05:40; Start 08/14/17 at 06:00 Vitamin D (Vitamin D3) 50,000 unit WEEKLY PO Last administered on 08/13/17at 16: 44; Start 08/13/17 at 17:00 Bupropion HCl (Wellbutrin Xl) 150 mg DAILY PO Last administered on 08/16/17at 10 :42; Start 08/14/17 at 09:00 Melatonin 3 mg QHS PO Last administered on 08/16/17at 20:18; Start 08/13/17 at 21:00 Quetiapine Fumarate (SEROquel) 25 mg HS PO Last administered on 08/16/17at 20:19 ; Start 08/16/17 at 21:00 Active Scripts Active Reported Maalox Advanced Tab Chew (Calcium Carbonate/Simethicone) 1 Each Tab.chew 2 Tab.chew PO Q2HR Nitrostat (Nitroglycerin) 0.4 Mg Tab.subl 0.4 Mg SL PRN Q5MIN PRN Buspirone Hcl 5 Mg Tablet 5 Mg PO BID92 Multi Tablet (Pnv No.122/Iron/Folic Acid) 1 Each Tablet 1 Each PO DAILYBFRLUN Mirtazapine 15 Mg Tablet 15 Mg PO HS Saline Nasal [place] (Sodium Chloride) 30 Ml [place] 2 Spr NS BID NITROGLYCERIN SubLingual (Nitroglycerin) 0.4 Mg Tab.subl 0.4 Mg SL PRN Q5MIN PRN Milk Of Magnesia (Magnesium Hydroxide) 2,400 Mg/10 Ml Oral.susp 30 Ml PO PRN DAILY PRN Levothyroxine Sodium 88 Mcg Tablet 88 Mcg PO DAILYAC Famotidine 20 Mg Tablet 20 Mg PO DAILY Bisacodyl 5 Mg Tablet.dr 5 Mg PO PRN DAILY PRN Depakote Er (Divalproex Sodium) 500 Mg Tab.er.24h 500 Mg PO BID Cymbalta (Duloxetine Hcl) 60 Mg Capsule.dr 60 Mg PO DAILY Cyanocobalamin Injection (Cyanocobalamin (Vitamin B-12)) 1,000 Mcg/1 Ml Vial 1, 000 Mcg IM QMONTH Coreg (Carvedilol) 3.125 Mg Tablet 3.125 Mg PO BIDWMEALS Atorvastatin Calcium 40 Mg Tablet 40 Mg PO QHS Aspirin 81 Mg Tab.chew 81 Mg PO DAILY Tylenol (Acetaminophen) 325 Mg Tablet 650 Mg PO PRN Q6HRS MDD 4000 I have reviewed the current psychotropics carefully including drug interactions. Risk benefit ratio favors no change other than as noted in my dictated progress note. Diagnosis: Problems: (1) Schizoaffective disorder, chronic condition with acute exacerbation (2) Anxiety disorder (3) Dementia in Alzheimer's disease with depression (4) Dementia in Alzheimer's disease with delusions (5) Dementia, vascular, with delusions (6) Dementia, vascular, with delirium (7) Impulse control disorder PATRICIA HUNT MD Aug 16, 2017 21:08
--- NOTE | 2017-08-17 03:02 | PN ---
DATE: 08/14/2017 PSYCHIATRIC PROGRESS NOTE This late entry 08/14/2017 covers elements not covered in my initial note 08/14/2017. SUBJECTIVE: I met with the patient in the evening of 08/14/2017. The patient did well the previous evening, reasonably cooperative during the day on 08/14/2017, still somewhat psychotic, but denies active suicidal ideation. She still admits to feeling depressed, hopeless, nothing much to look forward to in life. REVIEW OF SYSTEMS: No CV, , pulmonary, eye, ENT system symptoms on review. MENTAL STATUS EXAM: Oriented to herself and situation. Speech has some latency, coherent. Abstraction fair, computation impaired, language function intact. Attention span short. Short term memory is impaired. LABORATORY DATA: Reviewed. IMPRESSION: Schizoaffective disorder, bipolar type; major neurocognitive disorder, Alzheimer, vascular with depression. PLAN: Continue psychotropics mentioned in my initial note. May consider increasing Wellbutrin in a day or 2. MAN Kehinde HUNT MD DR: MARCOS/yusef JOB#: [id number] / [id number]
--- NOTE | 2017-08-17 04:34 | PN ---
DATE: 08/15/2017 This late entry 08/15/2017 covers elements not covered in my initial note 08/15/2017. I met with the patient evening of 08/15/2017. The patient has been calm, cooperative, withdrawn to room. Denies active suicidal ideation, but states she has suicidal ideation at times, which are passing. REVIEW OF SYSTEMS: No CV, , pulmonary, eye system symptoms on review. MENTAL STATUS EXAM: Oriented to herself and situation. Speech has some latency, coherent. Abstraction fair, computation impaired, language function intact, attention span short. Mood and affect remain somewhat withdrawn. LABORATORY DATA: Reviewed. IMPRESSION: Schizoaffective disorder, bipolar type; major neurocognitive disorder, Alzheimer, vascular with depression. PLAN: Continue psychotropics mentioned in my initial note. We need to increase Wellbutrin. MAN Kehinde HUNT MD DR: MARCOS/yusef JOB#: [id number] / [id number]
[2017-08-17] MEDS: LEVOTHYROXINE 88 MCG TABLET PO SCH (06:25)
[2017-08-17 07:07] VITALS: BP 151/91
[2017-08-17 07:42] LABS: BASO % 1 % (0-3); EOS # 0.1 x10^3/uL (0.0-0.7); EOS % 1 % (0-3); HEMATOCRIT 41.1 % (36.0-47.0); HEMOGLOBIN 13.6 g/dL (12.0-15.5); LYMPH # 1.4 x10^3/uL (1.0-4.8); LYMPH % 18 % (24-48); MEAN CORPUSCULAR HEMOGLOBIN 28 pg (25-35); MEAN CORPUSCULAR HGB CONC 33 g/dL (31-37); MEAN CORPUSCULAR VOLUME 85 fL (79-100); MONO # 1.2 x10^3/uL (0.0-1.1); MONO % 16 % (0-9); NEUT % 64 % (31-73); PLATELET COUNT 80 x10^3/uL (140-400); RED BLOOD COUNT 4.86 x10^6/uL (3.50-5.40); WHITE BLOOD COUNT 7.7 x10^3/uL (4.0-11.0)
[2017-08-17 08:06] LABS: ALBUMIN 2.9 g/dL (3.4-5.0); ALBUMIN/GLOBULIN RATIO 0.9 (1.0-1.7); ALK PHOS 69 U/L (46-116); ALT (SGPT) 28 U/L (14-59); ANION GAP 7 (6-14); AST (SGOT) 23 U/L (15-37); BLOOD UREA NITROGEN 11 mg/dL (7-20); BUN/CREATININE RATIO 14 (6-20); CALCIUM 8.4 mg/dL (8.5-10.1); CARBON DIOXIDE 28 mmol/L (21-32); CHLORIDE 106 mmol/L (98-107); CREATININE 0.8 mg/dL (0.6-1.0); GFR 67.8; GLUCOSE 80 mg/dL (70-99); POTASSIUM 3.7 mmol/L (3.5-5.1); SODIUM 141 mmol/L (136-145); TOTAL BILIRUBIN 0.9 mg/dL (0.2-1.0); TOTAL PROTEIN 6.3 g/dL (6.4-8.2)
[2017-08-17 08:07] LABS: VAL ACID 65 mcg/mL (50-100)
[2017-08-17] MEDS: ASPIRIN 81 MG TAB.CHEW PO SCH (09:25)
[2017-08-17] MEDS: busPIRone 5 MG TABLET. PO SCH ×2 (09:26→14:31)
[2017-08-17] MEDS: DULoxetine HCL 60 MG CAPSULE.DR PO SCH (09:26)
[2017-08-17] MEDS: FAMOTIDINE 20 MG TABLET PO SCH (09:26)
[2017-08-17] MEDS: CARVEDILOL 3.125 MG TABLET PO SCH ×2 (09:26→16:52)
[2017-08-17] MEDS: SODIUM CHLORIDE 0.65% NASAL SPRAY 45ML BOTTLE. NS SCH ×2 (09:26→19:57)
[2017-08-17] MEDS: buPROPion XL 150 MG TAB.ER.24H PO SCH (09:26)
[2017-08-17] MEDS: DIVALPROEX ER 500 MG TAB.ER.24H PO SCH ×2 (09:26→19:57)
[2017-08-17] MEDS: PRENATAL MULTIVITAMIN TABLET. PO SCH (11:57)
[2017-08-17 15:43] VITALS: BP 101/68
[2017-08-17] MEDS: MELATONIN 3 MG TABLET PO SCH (19:56)
[2017-08-17] MEDS: MIRTAZAPINE 15 MG TABLET PO SCH (19:57)
[2017-08-17] MEDS: QUEtiapine 25 MG TABLET. PO SCH (19:57)
[2017-08-17] MEDS: ATORVASTATIN CALCIUM 20 MG TABLET PO SCH (19:57)
--- NOTE | 2017-08-17 20:56 | PDOC ---
Exam Note: Marco Note: Please also refer to the separate dictated note~for this date of service dictated separately.~Patient seen individually. Discussed the patient with Nursing staff reviewed the chart.~Reviewed interim history and current functioning. Reviewed vital signs,~Labs/ Radiology~and current medications noted below. Continue current treatment with the changes noted in the dictated addendum note Assessment: Vital Signs: Vital Signs Date Time Temp Pulse Resp B/P (MAP) Pulse Ox O2 Delivery O2 Flow Rate FiO2 08/17/17 16:52 87 101/68 08/17/17 15:43 96.8 18 95 08/14/17 16:27 Room Air I&O Intake and Output 08/17/17 07:00 Intake Total 120 ml Balance 120 ml Intake Oral 120 ml # Voids 2 Labs: Laboratory Tests Test 08/17/17 07:06 White Blood Count 7.7 x10^3/uL (4.0-11.0) Red Blood Count 4.86 x10^6/uL (3.50-5.40) Hemoglobin 13.6 g/dL (12.0-15.5) Hematocrit 41.1 % (36.0-47.0) Mean Corpuscular Volume 85 fL (79-100) Mean Corpuscular Hemoglobin 28 pg (25-35) Mean Corpuscular Hemoglobin Concent 33 g/dL (31-37) Red Cell Distribution Width 16.0 % (11.5-14.5) H Platelet Count 80 x10^3/uL (140-400) L Neutrophils (%) (Auto) 64 % (31-73) Lymphocytes (%) (Auto) 18 % (24-48) L Monocytes (%) (Auto) 16 % (0-9) H Eosinophils (%) (Auto) 1 % (0-3) Basophils (%) (Auto) 1 % (0-3) Neutrophils # (Auto) 5.0 x10^3uL (1.8-7.7) Lymphocytes # (Auto) 1.4 x10^3/uL (1.0-4.8) Monocytes # (Auto) 1.2 x10^3/uL (0.0-1.1) H Eosinophils # (Auto) 0.1 x10^3/uL (0.0-0.7) Basophils # (Auto) 0.0 x10^3/uL (0.0-0.2) Sodium Level 141 mmol/L (136-145) Potassium Level 3.7 mmol/L (3.5-5.1) Chloride Level 106 mmol/L (98-107) Carbon Dioxide Level 28 mmol/L (21-32) Anion Gap 7 (6-14) Blood Urea Nitrogen 11 mg/dL (7-20) Creatinine 0.8 mg/dL (0.6-1.0) Estimated GFR (Cockcroft-Gault) 67.8 BUN/Creatinine Ratio 14 (6-20) Glucose Level 80 mg/dL (70-99) Calcium Level 8.4 mg/dL (8.5-10.1) L Total Bilirubin 0.9 mg/dL (0.2-1.0) Aspartate Amino Transferase (AST) 23 U/L (15-37) Alanine Aminotransferase (ALT) 28 U/L (14-59) Alkaline Phosphatase 69 U/L (46-116) Total Protein 6.3 g/dL (6.4-8.2) L Albumin 2.9 g/dL (3.4-5.0) L Albumin/Globulin Ratio 0.9 (1.0-1.7) L Valproic Acid Level 65 mcg/mL (50-100) Valproic Acid Last Dose Date 08/16/17 Valproic Acid Last Dose Time 2100 Current Medications: Meds: Current Medications Acetaminophen (Tylenol) 650 mg PRN Q6HRS PRN PO PAIN / TEMP; Start 08/12/17 at 21:45 Multi-Ingredient Ointment (Analgesic [place]) 1 diana PRN QID PRN TP MUSCLE PAIN; Start 08/12/17 at 21:45 Al Hydroxide/Mg Hydroxide (Mylanta Plus Xs) 15 ml PRN AFTMEALHC PRN PO DYSPEPSIA; Start 08/12/17 at 21:45 Magnesium Hydroxide (Milk Of Magnesia) 2,400 mg PRN QHS PRN PO CONSTIPATION; Start 08/12/17 at 21:45 Buspirone HCl (Buspar) 5 mg BID92 PO Last administered on 08/17/17at 14:31; Start 08/13/17 at 09:00 Divalproex Sodium (Depakote Er) 500 mg BID PO Last administered on 08/17/17at 19 :57; Start 08/13/17 at 09:00 Duloxetine HCl (Cymbalta) 60 mg DAILY PO Last administered on 08/17/17at 09:26; Start 08/13/17 at 09:00 Mirtazapine (Remeron) 15 mg HS PO Last administered on 08/17/17at 19:57; Start 08/13/17 at 21:00 Acetaminophen (Tylenol) 650 mg PRN Q6HRS PRN PO MILD PAIN/TEMP; Start 08/12/17 at 23:30; Stop 08/12/17 at 23:37; Status DC Aspirin (Children'S Aspirin) 81 mg DAILY PO Last administered on 08/17/17at 09: 25; Start 08/13/17 at 09:00 Bisacodyl (Dulcolax Tab) 5 mg PRN DAILY PRN PO CONSTIPATION; Start 08/12/17 at 23:30 Carvedilol (Coreg) 3.125 mg BIDWMEALS PO Last administered on 08/17/17at 16:52; Start 08/13/17 at 08:00 Cyanocobalamin (Vitamin B-12) 1,000 mcg QMONTH IM ; Start 09/11/17 at 09:00 Famotidine (Pepcid) 20 mg DAILY PO Last administered on 08/17/17at 09:26; Start 08/13/17 at 09:00 Levothyroxine Sodium (Synthroid) 88 mcg DAILYAC PO Last administered on at 07:42; Start 08/13/17 at 07:30; Stop 08/13/17 at 08:03; Status DC Nitroglycerin (Nitrostat) 0.4 mg PRN Q5MIN PRN SL CHEST PAIN; Start 08/12/17 at 23:30 Nitroglycerin (Nitrostat) 0.4 mg PRN Q5MIN PRN SL CHEST PAIN; Start 08/12/17 at 23:30; Stop 08/12/17 at 23:38; Status DC Sodium Chloride (Saline Mist Nasal) 1 diana BID NS Last administered on at 19:57; Start 08/13/17 at 09:00 Atorvastatin Calcium (Lipitor) 40 mg QHS PO Last administered on 08/17/17at 19: 57; Start 08/13/17 at 21:00 Calcium Carbonate/ Glycine (Tums) 500 mg PRN Q2HR PRN PO INDIGESTION; Start 04/19 at 23:45 Non-Formulary Medication (Magnesium Hydroxide (Milk Of Magnesia)) 30 ml PRN DAILY PRN PO CONSTIPATION; Start 08/12/17 at 23:30; Stop 08/12/17 at 23:38; Status DC Prenat Multivit/ [place]/Iron/Folic Ac (Multivitamin ) 1 tab DAILYBFRLUN PO Last administered on 08/17/17at 11:57; Start 08/13/17 at 11:30 Simethicone (Gas-X) 80 mg PRN Q2HR PRN PO GAS / BLOATING; Start 08/12/17 at 23: 45 Levothyroxine Sodium (Synthroid) 88 mcg DAILY06 PO Last administered on at 06:25; Start 08/14/17 at 06:00 Vitamin D (Vitamin D3) 50,000 unit WEEKLY PO Last administered on 08/13/17at 16: 44; Start 08/13/17 at 17:00 Bupropion HCl (Wellbutrin Xl) 150 mg DAILY PO Last administered on 08/17/17at 09 :26; Start 08/14/17 at 09:00 Melatonin 3 mg QHS PO Last administered on 08/17/17at 19:56; Start 08/13/17 at 21:00 Quetiapine Fumarate (SEROquel) 25 mg HS PO Last administered on 08/17/17at 19:57 ; Start 08/16/17 at 21:00 Active Scripts Active Reported Maalox Advanced Tab Chew (Calcium Carbonate/Simethicone) 1 Each Tab.chew 2 Tab.chew PO Q2HR Nitrostat (Nitroglycerin) 0.4 Mg Tab.subl 0.4 Mg SL PRN Q5MIN PRN Buspirone Hcl 5 Mg Tablet 5 Mg PO BID92 Multi Tablet (Pnv No.122/Iron/Folic Acid) 1 Each Tablet 1 Each PO DAILYBFRLUN Mirtazapine 15 Mg Tablet 15 Mg PO HS Saline Nasal [place] (Sodium Chloride) 30 Ml [place] 2 Spr NS BID NITROGLYCERIN SubLingual (Nitroglycerin) 0.4 Mg Tab.subl 0.4 Mg SL PRN Q5MIN PRN Milk Of Magnesia (Magnesium Hydroxide) 2,400 Mg/10 Ml Oral.susp 30 Ml PO PRN DAILY PRN Levothyroxine Sodium 88 Mcg Tablet 88 Mcg PO DAILYAC Famotidine 20 Mg Tablet 20 Mg PO DAILY Bisacodyl 5 Mg Tablet.dr 5 Mg PO PRN DAILY PRN Depakote Er (Divalproex Sodium) 500 Mg Tab.er.24h 500 Mg PO BID Cymbalta (Duloxetine Hcl) 60 Mg Capsule.dr 60 Mg PO DAILY Cyanocobalamin Injection (Cyanocobalamin (Vitamin B-12)) 1,000 Mcg/1 Ml Vial 1, 000 Mcg IM QMONTH Coreg (Carvedilol) 3.125 Mg Tablet 3.125 Mg PO BIDWMEALS Atorvastatin Calcium 40 Mg Tablet 40 Mg PO QHS Aspirin 81 Mg Tab.chew 81 Mg PO DAILY Tylenol (Acetaminophen) 325 Mg Tablet 650 Mg PO PRN Q6HRS MDD 4000 I have reviewed the current psychotropics carefully including drug interactions. Risk benefit ratio favors no change other than as noted in my dictated progress note. Diagnosis: Problems: (1) Schizoaffective disorder, chronic condition with acute exacerbation (2) Anxiety disorder (3) Dementia in Alzheimer's disease with depression (4) Dementia in Alzheimer's disease with delusions (5) Dementia, vascular, with delusions (6) Dementia, vascular, with delirium (7) Impulse control disorder PATRICIA HUNT MD Aug 17, 2017 20:56
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
[2017-08-18] MEDS: LEVOTHYROXINE 88 MCG TABLET PO SCH (05:55)
[2017-08-18 06:15] VITALS: BP 121/69
[2017-08-18] MEDS: busPIRone 5 MG TABLET. PO SCH ×2 (07:49→13:45)
[2017-08-18] MEDS: buPROPion XL 150 MG TAB.ER.24H PO SCH (07:49)
[2017-08-18] MEDS: DULoxetine HCL 60 MG CAPSULE.DR PO SCH (07:49)
[2017-08-18] MEDS: ASPIRIN 81 MG TAB.CHEW PO SCH (07:49)
[2017-08-18] MEDS: FAMOTIDINE 20 MG TABLET PO SCH (07:49)
[2017-08-18] MEDS: DIVALPROEX ER 500 MG TAB.ER.24H PO SCH ×2 (07:50→19:43)
[2017-08-18] MEDS: SODIUM CHLORIDE 0.65% NASAL SPRAY 45ML BOTTLE. NS SCH ×2 (07:50→19:46)
[2017-08-18] MEDS: CARVEDILOL 3.125 MG TABLET PO SCH ×2 (07:50→17:45)
[2017-08-18] MEDS: PRENATAL MULTIVITAMIN TABLET. PO SCH (11:51)
[2017-08-18 16:24] VITALS: BP 131/74
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
[2017-08-18] MEDS: ATORVASTATIN CALCIUM 20 MG TABLET PO SCH (19:42)
[2017-08-18] MEDS: MIRTAZAPINE 15 MG TABLET PO SCH (19:42)
[2017-08-18] MEDS: MELATONIN 3 MG TABLET PO SCH (19:42)
[2017-08-18] MEDS: QUEtiapine 50 MG TABLET. PO SCH (19:45)
--- NOTE | 2017-08-18 21:16 | PDOC ---
Exam Note: Marco Note: Please also refer to the separate dictated note~for this date of service dictated separately.~Patient seen individually. Discussed the patient with Nursing staff reviewed the chart.~Reviewed interim history and current functioning. Reviewed vital signs,~Labs/ Radiology~and current medications noted below. Continue current treatment with the changes noted in the dictated addendum note Assessment: Vital Signs: Vital Signs Date Time Temp Pulse Resp B/P (MAP) Pulse Ox O2 Delivery O2 Flow Rate FiO2 08/18/17 17:45 94 131/74 08/18/17 16:24 98.0 18 98 08/14/17 16:27 Room Air I&O Intake and Output 08/18/17 07:00 Intake Total 840 ml Balance 840 ml Intake Oral 840 ml # Bowel Movements 1 Current Medications: Meds: Current Medications Acetaminophen (Tylenol) 650 mg PRN Q6HRS PRN PO PAIN / TEMP; Start 08/12/17 at 21:45 Multi-Ingredient Ointment (Analgesic [place]) 1 diana PRN QID PRN TP MUSCLE PAIN; Start 08/12/17 at 21:45 Al Hydroxide/Mg Hydroxide (Mylanta Plus Xs) 15 ml PRN AFTMEALHC PRN PO DYSPEPSIA; Start 08/12/17 at 21:45 Magnesium Hydroxide (Milk Of Magnesia) 2,400 mg PRN QHS PRN PO CONSTIPATION; Start 08/12/17 at 21:45 Buspirone HCl (Buspar) 5 mg BID92 PO Last administered on 08/18/17at 13:45; Start 08/13/17 at 09:00 Divalproex Sodium (Depakote Er) 500 mg BID PO Last administered on 08/18/17at 19 :43; Start 08/13/17 at 09:00 Duloxetine HCl (Cymbalta) 60 mg DAILY PO Last administered on 08/18/17at 07:49; Start 08/13/17 at 09:00 Mirtazapine (Remeron) 15 mg HS PO Last administered on 08/18/17at 19:42; Start 08/13/17 at 21:00 Acetaminophen (Tylenol) 650 mg PRN Q6HRS PRN PO MILD PAIN/TEMP; Start 08/12/17 at 23:30; Stop 08/12/17 at 23:37; Status DC Aspirin (Children'S Aspirin) 81 mg DAILY PO Last administered on 08/18/17 07: 49; Start 08/13/17 at 09:00 Bisacodyl (Dulcolax Tab) 5 mg PRN DAILY PRN PO CONSTIPATION; Start 08/12/17 at 23:30 Carvedilol (Coreg) 3.125 mg BIDWMEALS PO Last administered on 08/18/17at 17:45; Start 08/13/17 at 08:00 Cyanocobalamin (Vitamin B-12) 1,000 mcg QMONTH IM ; Start 09/11/17 at 09:00 Famotidine (Pepcid) 20 mg DAILY PO Last administered on 08/18/17at 07:49; Start 08/13/17 at 09:00 Levothyroxine Sodium (Synthroid) 88 mcg DAILYAC PO Last administered on at 07:42; Start 08/13/17 at 07:30; Stop 08/13/17 at 08:03; Status DC Nitroglycerin (Nitrostat) 0.4 mg PRN Q5MIN PRN SL CHEST PAIN; Start 08/12/17 at 23:30 Nitroglycerin (Nitrostat) 0.4 mg PRN Q5MIN PRN SL CHEST PAIN; Start 08/12/17 at 23:30; Stop 08/12/17 at 23:38; Status DC Sodium Chloride (Saline Mist Nasal) 1 diana BID NS Last administered on at 19:46; Start 08/13/17 at 09:00 Atorvastatin Calcium (Lipitor) 40 mg QHS PO Last administered on 08/18/17at 19: 42; Start 08/13/17 at 21:00 Calcium Carbonate/ Glycine (Tums) 500 mg PRN Q2HR PRN PO INDIGESTION; Start 04/19 at 23:45 Non-Formulary Medication (Magnesium Hydroxide (Milk Of Magnesia)) 30 ml PRN DAILY PRN PO CONSTIPATION; Start 08/12/17 at 23:30; Stop 08/12/17 at 23:38; Status DC Prenat Multivit/ [place]/Iron/Folic Ac (Multivitamin ) 1 tab DAILYBFRLUN PO Last administered on 08/18/17at 11:51; Start 08/13/17 at 11:30 Simethicone (Gas-X) 80 mg PRN Q2HR PRN PO GAS / BLOATING; Start 08/12/17 at 23: 45 Levothyroxine Sodium (Synthroid) 88 mcg DAILY06 PO Last administered on at 05:55; Start 08/14/17 at 06:00 Vitamin D (Vitamin D3) 50,000 unit WEEKLY PO Last administered on 08/13/17at 16: 44; Start 08/13/17 at 17:00 Bupropion HCl (Wellbutrin Xl) 150 mg DAILY PO Last administered on 08/18/17at 07 :49; Start 08/14/17 at 09:00 Melatonin 3 mg QHS PO Last administered on 08/18/17at 19:42; Start 08/13/17 at 21:00 Quetiapine Fumarate (SEROquel) 25 mg HS PO Last administered on 08/17/17at 19:57 ; Start 08/16/17 at 21:00; Stop 08/18/17 at 19:36; Status DC Quetiapine Fumarate (SEROquel) 50 mg QHS PO Last administered on 08/18/17at 19: 45; Start 08/18/17 at 21:00 Active Scripts Active Reported Maalox Advanced Tab Chew (Calcium Carbonate/Simethicone) 1 Each Tab.chew 2 Tab.chew PO Q2HR Nitrostat (Nitroglycerin) 0.4 Mg Tab.subl 0.4 Mg SL PRN Q5MIN PRN Buspirone Hcl 5 Mg Tablet 5 Mg PO BID92 Multi Tablet (Pnv No.122/Iron/Folic Acid) 1 Each Tablet 1 Each PO DAILYBFRLUN Mirtazapine 15 Mg Tablet 15 Mg PO HS Saline Nasal [place] (Sodium Chloride) 30 Ml [place] 2 Spr NS BID NITROGLYCERIN SubLingual (Nitroglycerin) 0.4 Mg Tab.subl 0.4 Mg SL PRN Q5MIN PRN Milk Of Magnesia (Magnesium Hydroxide) 2,400 Mg/10 Ml Oral.susp 30 Ml PO PRN DAILY PRN Levothyroxine Sodium 88 Mcg Tablet 88 Mcg PO DAILYAC Famotidine 20 Mg Tablet 20 Mg PO DAILY Bisacodyl 5 Mg Tablet.dr 5 Mg PO PRN DAILY PRN Depakote Er (Divalproex Sodium) 500 Mg Tab.er.24h 500 Mg PO BID Cymbalta (Duloxetine Hcl) 60 Mg Capsule.dr 60 Mg PO DAILY Cyanocobalamin Injection (Cyanocobalamin (Vitamin B-12)) 1,000 Mcg/1 Ml Vial 1, 000 Mcg IM QMONTH Coreg (Carvedilol) 3.125 Mg Tablet 3.125 Mg PO BIDWMEALS Atorvastatin Calcium 40 Mg Tablet 40 Mg PO QHS Aspirin 81 Mg Tab.chew 81 Mg PO DAILY Tylenol (Acetaminophen) 325 Mg Tablet 650 Mg PO PRN Q6HRS MDD 4000 I have reviewed the current psychotropics carefully including drug interactions. Risk benefit ratio favors no change other than as noted in my dictated progress note. Diagnosis: Problems: (1) Schizoaffective disorder, chronic condition with acute exacerbation (2) Anxiety disorder (3) Dementia in Alzheimer's disease with depression (4) Dementia in Alzheimer's disease with delusions (5) Dementia, vascular, with delusions (6) Dementia, vascular, with delirium (7) Impulse control disorder PATRICIA HUNT MD Aug 18, 2017 21:16
[2017-08-19] MEDS: LEVOTHYROXINE 88 MCG TABLET PO SCH (04:28)
[2017-08-19] MEDS: ACETAMINOPHEN 325 MG TABLET PO PRN (05:44)
[2017-08-19 05:49] VITALS: BP 135/69
[2017-08-19] MEDS: DIVALPROEX ER 500 MG TAB.ER.24H PO SCH ×2 (07:48→21:43)
[2017-08-19] MEDS: ASPIRIN 81 MG TAB.CHEW PO SCH (07:48)
[2017-08-19] MEDS: DULoxetine HCL 60 MG CAPSULE.DR PO SCH (07:48)
[2017-08-19] MEDS: buPROPion XL 150 MG TAB.ER.24H PO SCH (07:49)
[2017-08-19] MEDS: CARVEDILOL 3.125 MG TABLET PO SCH ×2 (07:49→17:00)
[2017-08-19] MEDS: busPIRone 5 MG TABLET. PO SCH ×2 (07:49→14:03)
[2017-08-19] MEDS: SODIUM CHLORIDE 0.65% NASAL SPRAY 45ML BOTTLE. NS SCH ×2 (07:49→21:44)
[2017-08-19] MEDS: FAMOTIDINE 20 MG TABLET PO SCH (07:49)
[2017-08-19] MEDS: PRENATAL MULTIVITAMIN TABLET. PO SCH (11:45)
[2017-08-19 16:17] VITALS: BP 103/63
--- NOTE | 2017-08-19 21:00 | PDOC ---
Exam Note: Marco Note: Please also refer to the separate dictated note~for this date of service dictated separately.~Patient seen individually. Discussed the patient with Nursing staff reviewed the chart.~Reviewed interim history and current functioning. Reviewed vital signs,~Labs/ Radiology~and current medications noted below. Continue current treatment with the changes noted in the dictated addendum note Assessment: Vital Signs: Vital Signs Date Time Temp Pulse Resp B/P (MAP) Pulse Ox O2 Delivery O2 Flow Rate FiO2 08/19/17 17:00 87 103/63 08/19/17 16:17 98.0 12 97 Room Air I&O Intake and Output 08/19/17 07:00 Intake Total 1320 ml Balance 1320 ml Intake Oral 1320 ml # Voids 1 Current Medications: Meds: Current Medications Acetaminophen (Tylenol) 650 mg PRN Q6HRS PRN PO PAIN / TEMP Last administered on 08/19/17at 05:44; Start 08/12/17 at 21:45 Multi-Ingredient Ointment (Analgesic [place]) 1 diana PRN QID PRN TP MUSCLE PAIN; Start 08/12/17 at 21:45 Al Hydroxide/Mg Hydroxide (Mylanta Plus Xs) 15 ml PRN AFTMEALHC PRN PO DYSPEPSIA; Start 08/12/17 at 21:45 Magnesium Hydroxide (Milk Of Magnesia) 2,400 mg PRN QHS PRN PO CONSTIPATION; Start 08/12/17 at 21:45 Buspirone HCl (Buspar) 5 mg BID92 PO Last administered on 08/19/17at 14:03; Start 08/13/17 at 09:00 Divalproex Sodium (Depakote Er) 500 mg BID PO Last administered on 08/19/17at 07 :48; Start 08/13/17 at 09:00 Duloxetine HCl (Cymbalta) 60 mg DAILY PO Last administered on 08/19/17at 07:48; Start 08/13/17 at 09:00 Mirtazapine (Remeron) 15 mg HS PO Last administered on 08/18/17at 19:42; Start 08/13/17 at 21:00 Acetaminophen (Tylenol) 650 mg PRN Q6HRS PRN PO MILD PAIN/TEMP; Start 08/12/17 at 23:30; Stop 08/12/17 at 23:37; Status DC Aspirin (Children'S Aspirin) 81 mg DAILY PO Last administered on 08/19/17at 07: 48; Start 08/13/17 at 09:00 Bisacodyl (Dulcolax Tab) 5 mg PRN DAILY PRN PO CONSTIPATION; Start 08/12/17 at 23:30 Carvedilol (Coreg) 3.125 mg BIDWMEALS PO Last administered on 08/19/17at 17:00; Start 08/13/17 at 08:00 Cyanocobalamin (Vitamin B-12) 1,000 mcg QMONTH IM ; Start 09/11/17 at 09:00 Famotidine (Pepcid) 20 mg DAILY PO Last administered on 08/19/17at 07:49; Start 08/13/17 at 09:00 Levothyroxine Sodium (Synthroid) 88 mcg DAILYAC PO Last administered on 07:42; Start 08/13/17 at 07:30; Stop 08/13/17 at 08:03; Status DC Nitroglycerin (Nitrostat) 0.4 mg PRN Q5MIN PRN SL CHEST PAIN; Start 08/12/17 at 23:30 Nitroglycerin (Nitrostat) 0.4 mg PRN Q5MIN PRN SL CHEST PAIN; Start 08/12/17 at 23:30; Stop 08/12/17 at 23:38; Status DC Sodium Chloride (Saline Mist Nasal) 1 diana BID NS Last administered on at 07:49; Start 08/13/17 at 09:00 Atorvastatin Calcium (Lipitor) 40 mg QHS PO Last administered on 08/18/17at 19: 42; Start 08/13/17 at 21:00 Calcium Carbonate/ Glycine (Tums) 500 mg PRN Q2HR PRN PO INDIGESTION; Start 04/19 at 23:45 Non-Formulary Medication (Magnesium Hydroxide (Milk Of Magnesia)) 30 ml PRN DAILY PRN PO CONSTIPATION; Start 08/12/17 at 23:30; Stop 08/12/17 at 23:38; Status DC Prenat Multivit/ [place]/Iron/Folic Ac (Multivitamin ) 1 tab DAILYBFRLUN PO Last administered on 08/19/17at 11:45; Start 08/13/17 at 11:30 Simethicone (Gas-X) 80 mg PRN Q2HR PRN PO GAS / BLOATING; Start 08/12/17 at 23: 45 Levothyroxine Sodium (Synthroid) 88 mcg DAILY06 PO Last administered on at 04:28; Start 08/14/17 at 06:00 Vitamin D (Vitamin D3) 50,000 unit WEEKLY PO Last administered on 08/13/17at 16: 44; Start 08/13/17 at 17:00 Bupropion HCl (Wellbutrin Xl) 150 mg DAILY PO Last administered on 08/19/17at 07 :49; Start 08/14/17 at 09:00 Melatonin 3 mg QHS PO Last administered on 08/18/17 19:42; Start 08/13/17 at 21:00 Quetiapine Fumarate (SEROquel) 25 mg HS PO Last administered on 08/17/17at 19:57 ; Start 08/16/17 at 21:00; Stop 08/18/17 at 19:36; Status DC Quetiapine Fumarate (SEROquel) 50 mg QHS PO Last administered on 08/18/17at 19: 45; Start 08/18/17 at 21:00 Active Scripts Active Reported Maalox Advanced Tab Chew (Calcium Carbonate/Simethicone) 1 Each Tab.chew 2 Tab.chew PO Q2HR Nitrostat (Nitroglycerin) 0.4 Mg Tab.subl 0.4 Mg SL PRN Q5MIN PRN Buspirone Hcl 5 Mg Tablet 5 Mg PO BID92 Multi Tablet (Pnv No.122/Iron/Folic Acid) 1 Each Tablet 1 Each PO DAILYBFRLUN Mirtazapine 15 Mg Tablet 15 Mg PO HS Saline Nasal [place] (Sodium Chloride) 30 Ml [place] 2 Spr NS BID NITROGLYCERIN SubLingual (Nitroglycerin) 0.4 Mg Tab.subl 0.4 Mg SL PRN Q5MIN PRN Milk Of Magnesia (Magnesium Hydroxide) 2,400 Mg/10 Ml Oral.susp 30 Ml PO PRN DAILY PRN Levothyroxine Sodium 88 Mcg Tablet 88 Mcg PO DAILYAC Famotidine 20 Mg Tablet 20 Mg PO DAILY Bisacodyl 5 Mg Tablet.dr 5 Mg PO PRN DAILY PRN Depakote Er (Divalproex Sodium) 500 Mg Tab.er.24h 500 Mg PO BID Cymbalta (Duloxetine Hcl) 60 Mg Capsule.dr 60 Mg PO DAILY Cyanocobalamin Injection (Cyanocobalamin (Vitamin B-12)) 1,000 Mcg/1 Ml Vial 1, 000 Mcg IM QMONTH Coreg (Carvedilol) 3.125 Mg Tablet 3.125 Mg PO BIDWMEALS Atorvastatin Calcium 40 Mg Tablet 40 Mg PO QHS Aspirin 81 Mg Tab.chew 81 Mg PO DAILY Tylenol (Acetaminophen) 325 Mg Tablet 650 Mg PO PRN Q6HRS MDD 4000 I have reviewed the current psychotropics carefully including drug interactions. Risk benefit ratio favors no change other than as noted in my dictated progress note. Diagnosis: Problems: (1) Schizoaffective disorder, chronic condition with acute exacerbation (2) Anxiety disorder (3) Dementia in Alzheimer's disease with depression (4) Dementia in Alzheimer's disease with delusions (5) Dementia, vascular, with delusions (6) Dementia, vascular, with delirium (7) Impulse control disorder PATRICIA HUNT MD Aug 19, 2017 21:00
[2017-08-19] MEDS: MIRTAZAPINE 15 MG TABLET PO SCH (21:43)
[2017-08-19] MEDS: MELATONIN 3 MG TABLET PO SCH (21:43)
[2017-08-19] MEDS: QUEtiapine 50 MG TABLET. PO SCH (21:43)
[2017-08-19] MEDS: ATORVASTATIN CALCIUM 20 MG TABLET PO SCH (21:43)
[2017-08-20] MEDS: LEVOTHYROXINE 88 MCG TABLET PO SCH (05:39)
[2017-08-20 05:55] VITALS: BP 134/70
[2017-08-20] MEDS: FAMOTIDINE 20 MG TABLET PO SCH (08:38)
[2017-08-20] MEDS: DULoxetine HCL 60 MG CAPSULE.DR PO SCH (08:38)
[2017-08-20] MEDS: ASPIRIN 81 MG TAB.CHEW PO SCH (08:39)
[2017-08-20] MEDS: CARVEDILOL 3.125 MG TABLET PO SCH ×2 (08:39→16:55)
[2017-08-20] MEDS: busPIRone 5 MG TABLET. PO SCH ×2 (08:39→14:26)
[2017-08-20] MEDS: DIVALPROEX ER 500 MG TAB.ER.24H PO SCH ×2 (08:39→20:28)
[2017-08-20] MEDS: buPROPion XL 150 MG TAB.ER.24H PO SCH (08:39)
[2017-08-20] MEDS: CHOLECALCIFEROL (VITAMIN D3) 50,000 UNIT CAPSULE PO SCH (08:41)
[2017-08-20] MEDS: SODIUM CHLORIDE 0.65% NASAL SPRAY 45ML BOTTLE. NS SCH ×2 (08:41→20:31)
[2017-08-20] MEDS: PRENATAL MULTIVITAMIN TABLET. PO SCH (08:42)
[2017-08-20] MEDS: ACETAMINOPHEN 325 MG TABLET PO PRN (14:26)
--- NOTE | 2017-08-20 15:56 | RAD ---
History: Chest pain AP view the chest was obtained at 1346 hours. Comparison: none The cardiomediastinal silhouette is normal. The pulmonary vasculature is normal. The lungs and pleural margins are clear. There are median sternotomy wires. Impression: No evidence of an acute cardiopulmonary process.
[2017-08-20 16:12] VITALS: BP 115/67
--- NOTE | 2017-08-20 19:45 | PN ---
DATE: 08/18/2017 This is a late entry for 08/18/2017 and covers elements not covered in my initial note of 08/18/2017. I met with the patient evening of 08/18/2017. The patient slept 5-3/4 hours previous evening, delusional at night. Making statements that she would have to fight several people to keep herself safe. No CV, , pulmonary, eye system symptoms on review. MENTAL STATUS EXAM: Oriented to herself and situation. Speech coherent, has some latency. Abstraction fair, computation impaired, language function intact, attention span short. Mood and affect remains somewhat labile, anxious. LABORATORY DATA: Reviewed. IMPRESSION: Schizoaffective disorder, bipolar type, mixed with psychotic features; major neurocognitive disorder, Alzheimer, vascular with delusion, depression. PLAN: Increase Seroquel to 50 mg at bedtime. Continue the rest of psychotropics unchanged. Valproic acid level therapeutic at 65. PATRICIA HUNT MD DR: MARCOS/yusef JOB#: [id number] / [id number]
[2017-08-20] MEDS: MIRTAZAPINE 15 MG TABLET PO SCH (20:27)
[2017-08-20] MEDS: MELATONIN 3 MG TABLET PO SCH (20:27)
[2017-08-20] MEDS: ATORVASTATIN CALCIUM 20 MG TABLET PO SCH (20:28)
[2017-08-20] MEDS: QUEtiapine 50 MG TABLET. PO SCH (20:29)
[2017-08-20 20:51] LABS: BASO # 0.1 x10^3/uL (0.0-0.2); BASO % 1 % (0-3); EOS # 0.3 x10^3/uL (0.0-0.7); EOS % 3 % (0-3); HEMOGLOBIN 13.6 g/dL (12.0-15.5); LYMPH # 2.1 x10^3/uL (1.0-4.8); LYMPH % 21 % (24-48); MEAN CORPUSCULAR HEMOGLOBIN 28 pg (25-35); MEAN CORPUSCULAR HGB CONC 33 g/dL (31-37); MEAN CORPUSCULAR VOLUME 86 fL (79-100); MONO # 2.1 x10^3/uL (0.0-1.1); MONO % 21 % (0-9); NEUT # 5.3 x10^3uL (1.8-7.7); NEUT % 54 % (31-73); PLATELET COUNT 114 x10^3/uL (140-400); RED BLOOD COUNT 4.79 x10^6/uL (3.50-5.40); RED CELL DISTRIBUTION WIDTH 16.5 % (11.5-14.5); WHITE BLOOD COUNT 9.7 x10^3/uL (4.0-11.0)
--- NOTE | 2017-08-20 20:52 | PDOC ---
Exam Note: Marco Note: Please also refer to the separate dictated note~for this date of service dictated separately.~Patient seen individually. Discussed the patient with Nursing staff reviewed the chart.~Reviewed interim history and current functioning. Reviewed vital signs,~Labs/ Radiology~and current medications noted below. Continue current treatment with the changes noted in the dictated addendum note Assessment: Vital Signs: Vital Signs Date Time Temp Pulse Resp B/P (MAP) Pulse Ox O2 Delivery O2 Flow Rate FiO2 08/20/17 16:55 73 115/67 08/20/17 16:12 97.4 16 94 08/19/17 16:17 Room Air I&O Intake and Output 08/20/17 07:00 Intake Total 1080 ml Balance 1080 ml Intake Oral 1080 ml # Voids 1 Labs: Laboratory Tests Test 08/20/17 20:30 White Blood Count 9.7 x10^3/uL (4.0-11.0) Red Blood Count 4.79 x10^6/uL (3.50-5.40) Hemoglobin 13.6 g/dL (12.0-15.5) Hematocrit 41.0 % (36.0-47.0) Mean Corpuscular Volume 86 fL (79-100) Mean Corpuscular Hemoglobin 28 pg (25-35) Mean Corpuscular Hemoglobin Concent 33 g/dL (31-37) Red Cell Distribution Width 16.5 % (11.5-14.5) H Platelet Count 114 x10^3/uL (140-400) L Neutrophils (%) (Auto) 54 % (31-73) Lymphocytes (%) (Auto) 21 % (24-48) L Monocytes (%) (Auto) 21 % (0-9) H Eosinophils (%) (Auto) 3 % (0-3) Basophils (%) (Auto) 1 % (0-3) Neutrophils # (Auto) 5.3 x10^3uL (1.8-7.7) Lymphocytes # (Auto) 2.1 x10^3/uL (1.0-4.8) Monocytes # (Auto) 2.1 x10^3/uL (0.0-1.1) H Eosinophils # (Auto) 0.3 x10^3/uL (0.0-0.7) Basophils # (Auto) 0.1 x10^3/uL (0.0-0.2) Current Medications: Meds: Current Medications Acetaminophen (Tylenol) 650 mg PRN Q6HRS PRN PO PAIN / TEMP Last administered on 08/20/17 14:26; Start 08/12/17 at 21:45 Multi-Ingredient Ointment (Analgesic [place]) 1 dinaa PRN QID PRN TP MUSCLE PAIN; Start 08/12/17 at 21:45 Al Hydroxide/Mg Hydroxide (Mylanta Plus Xs) 15 ml PRN AFTMEALHC PRN PO DYSPEPSIA; Start 08/12/17 at 21:45 Magnesium Hydroxide (Milk Of Magnesia) 2,400 mg PRN QHS PRN PO CONSTIPATION; Start 08/12/17 at 21:45 Buspirone HCl (Buspar) 5 mg BID92 PO Last administered on 08/20/17 14:26; Start 08/13/17 at 09:00 Divalproex Sodium (Depakote Er) 500 mg BID PO Last administered on 08/20/17 20 :28; Start 08/13/17 at 09:00 Duloxetine HCl (Cymbalta) 60 mg DAILY PO Last administered on 08/20/17at 08:38; Start 08/13/17 at 09:00 Mirtazapine (Remeron) 15 mg HS PO Last administered on 08/20/17 20:27; Start 08/13/17 at 21:00 Acetaminophen (Tylenol) 650 mg PRN Q6HRS PRN PO MILD PAIN/TEMP; Start 08/12/17 at 23:30; Stop 08/12/17 at 23:37; Status DC Aspirin (Children'S Aspirin) 81 mg DAILY PO Last administered on 08/20/17at 08: 39; Start 08/13/17 at 09:00 Bisacodyl (Dulcolax Tab) 5 mg PRN DAILY PRN PO CONSTIPATION; Start 08/12/17 at 23:30 Carvedilol (Coreg) 3.125 mg BIDWMEALS PO Last administered on 08/20/17at 16:55; Start 08/13/17 at 08:00 Cyanocobalamin (Vitamin B-12) 1,000 mcg QMONTH IM ; Start 09/11/17 at 09:00 Famotidine (Pepcid) 20 mg DAILY PO Last administered on 08/20/17at 08:38; Start 08/13/17 at 09:00 Levothyroxine Sodium (Synthroid) 88 mcg DAILYAC PO Last administered on at 07:42; Start 08/13/17 at 07:30; Stop 08/13/17 at 08:03; Status DC Nitroglycerin (Nitrostat) 0.4 mg PRN Q5MIN PRN SL CHEST PAIN; Start 08/12/17 at 23:30 Nitroglycerin (Nitrostat) 0.4 mg PRN Q5MIN PRN SL CHEST PAIN; Start 08/12/17 at 23:30; Stop 08/12/17 at 23:38; Status DC Sodium Chloride (Saline Mist Nasal) 1 diana BID NS Last administered on at 20:31; Start 08/13/17 at 09:00 Atorvastatin Calcium (Lipitor) 40 mg QHS PO Last administered on 08/20/17at 20: 28; Start 08/13/17 at 21:00 Calcium Carbonate/ Glycine (Tums) 500 mg PRN Q2HR PRN PO INDIGESTION; Start 04/19 at 23:45 Non-Formulary Medication (Magnesium Hydroxide (Milk Of Magnesia)) 30 ml PRN DAILY PRN PO CONSTIPATION; Start 08/12/17 at 23:30; Stop 08/12/17 at 23:38; Status DC Prenat Multivit/ [place]/Iron/Folic Ac (Multivitamin ) 1 tab DAILYBFRLUN PO Last administered on 08/20/17at 08:42; Start 08/13/17 at 11:30 Simethicone (Gas-X) 80 mg PRN Q2HR PRN PO GAS / BLOATING; Start 08/12/17 at 23: 45 Levothyroxine Sodium (Synthroid) 88 mcg DAILY06 PO Last administered on at 05:39; Start 08/14/17 at 06:00 Vitamin D (Vitamin D3) 50,000 unit WEEKLY PO Last administered on 08/20/17at 08: 41; Start 08/13/17 at 17:00 Bupropion HCl (Wellbutrin Xl) 150 mg DAILY PO Last administered on 08/20/17at 08 :39; Start 08/14/17 at 09:00 Melatonin 3 mg QHS PO Last administered on 08/20/17at 20:27; Start 08/13/17 at 21:00 Quetiapine Fumarate (SEROquel) 25 mg HS PO Last administered on 08/17/17at 19:57 ; Start 08/16/17 at 21:00; Stop 08/18/17 at 19:36; Status DC Quetiapine Fumarate (SEROquel) 50 mg QHS PO Last administered on 08/19/17at 21: 43; Start 08/18/17 at 21:00; Stop 08/20/17 at 18:15; Status DC Quetiapine Fumarate (SEROquel) 75 mg QHS PO Last administered on 08/20/17at 20: 29; Start 08/20/17 at 21:00 Active Scripts Active Reported Maalox Advanced Tab Chew (Calcium Carbonate/Simethicone) 1 Each Tab.chew 2 Tab.chew PO Q2HR Nitrostat (Nitroglycerin) 0.4 Mg Tab.subl 0.4 Mg SL PRN Q5MIN PRN Buspirone Hcl 5 Mg Tablet 5 Mg PO BID92 Multi Tablet (Pnv No.122/Iron/Folic Acid) 1 Each Tablet 1 Each PO DAILYBFRLUN Mirtazapine 15 Mg Tablet 15 Mg PO HS Saline Nasal [place] (Sodium Chloride) 30 Ml [place] 2 Spr NS BID NITROGLYCERIN SubLingual (Nitroglycerin) 0.4 Mg Tab.subl 0.4 Mg SL PRN Q5MIN PRN Milk Of Magnesia (Magnesium Hydroxide) 2,400 Mg/10 Ml Oral.susp 30 Ml PO PRN DAILY PRN Levothyroxine Sodium 88 Mcg Tablet 88 Mcg PO DAILYAC Famotidine 20 Mg Tablet 20 Mg PO DAILY Bisacodyl 5 Mg Tablet.dr 5 Mg PO PRN DAILY PRN Depakote Er (Divalproex Sodium) 500 Mg Tab.er.24h 500 Mg PO BID Cymbalta (Duloxetine Hcl) 60 Mg Capsule.dr 60 Mg PO DAILY Cyanocobalamin Injection (Cyanocobalamin (Vitamin B-12)) 1,000 Mcg/1 Ml Vial 1, 000 Mcg IM QMONTH Coreg (Carvedilol) 3.125 Mg Tablet 3.125 Mg PO BIDWMEALS Atorvastatin Calcium 40 Mg Tablet 40 Mg PO QHS Aspirin 81 Mg Tab.chew 81 Mg PO DAILY Tylenol (Acetaminophen) 325 Mg Tablet 650 Mg PO PRN Q6HRS MDD 4000 I have reviewed the current psychotropics carefully including drug interactions. Risk benefit ratio favors no change other than as noted in my dictated progress note. Diagnosis: Problems: (1) Schizoaffective disorder, chronic condition with acute exacerbation (2) Anxiety disorder (3) Dementia in Alzheimer's disease with depression (4) Dementia in Alzheimer's disease with delusions (5) Dementia, vascular, with delusions (6) Dementia, vascular, with delirium (7) Impulse control disorder PATRICIA HUNT MD Aug 20, 2017 20:52
[2017-08-20 21:02] LABS: ALBUMIN 2.9 g/dL (3.4-5.0); ALBUMIN/GLOBULIN RATIO 0.7 (1.0-1.7); CALCIUM 8.1 mg/dL (8.5-10.1); CREATININE 0.9 mg/dL (0.6-1.0); GFR 59.2; POTASSIUM 4.1 mmol/L (3.5-5.1); TOTAL BILIRUBIN 0.6 mg/dL (0.2-1.0)
--- NOTE | 2017-08-20 21:19 | PN ---
DATE: 08/19/2017 This is a late entry for 08/19/2017 and covers the elements not covered in my initial note of 08/19/2017. SUBJECTIVE: I met with the patient in the evening and staffed with the entire team at a treatment team meeting in the morning. The patient slept 7 hours. Her granddaughter, Dee, joined in on the treatment team meeting to review the patient's history, progress, medications, discharge plans at length. Reportedly, the patient is walker and according to the granddaughter, fixated on men, money, and her dog. REVIEW OF SYSTEMS: Ambulation impaired, but otherwise she is ad steve. No CV, , pulmonary, eye system symptoms on review. MENTAL STATUS EXAM: Oriented to herself and situation. Speech coherent. She is again paranoid, believes she will be raped at night. Abstraction fair, computation impaired, language function intact. Mood and affect remains somewhat labile, anxious. LABORATORY DATA: Reviewed. IMPRESSION: Schizoaffective disorder, bipolar type; major neurocognitive disorder, Alzheimer, vascular with delusions. PLAN: Continue psychotropics mentioned in my initial note. Seroquel was increased, may need to change to Risperdal, but she has a history of CVA, I am trying to avoid it. PATRICIA HUNT MD DR: MARCOS/yusef JOB#: [id number] / [id number]
[2017-08-21] MEDS: ACETAMINOPHEN 325 MG TABLET PO PRN ×2 (05:24→18:38)
[2017-08-21] MEDS: LEVOTHYROXINE 88 MCG TABLET PO SCH (05:52)
[2017-08-21 05:54] VITALS: BP 141/71
[2017-08-21] MEDS: CARVEDILOL 3.125 MG TABLET PO SCH ×2 (07:37→18:09)
[2017-08-21] MEDS: buPROPion XL 150 MG TAB.ER.24H PO SCH (07:37)
[2017-08-21] MEDS: DIVALPROEX ER 500 MG TAB.ER.24H PO SCH ×2 (07:37→21:05)
[2017-08-21] MEDS: SODIUM CHLORIDE 0.65% NASAL SPRAY 45ML BOTTLE. NS SCH ×2 (07:38→21:07)
[2017-08-21] MEDS: ASPIRIN 81 MG TAB.CHEW PO SCH (07:38)
[2017-08-21] MEDS: FAMOTIDINE 20 MG TABLET PO SCH (07:38)
[2017-08-21] MEDS: busPIRone 5 MG TABLET. PO SCH ×2 (07:38→13:00)
[2017-08-21] MEDS: DULoxetine HCL 60 MG CAPSULE.DR PO SCH (07:38)
[2017-08-21] MEDS: PRENATAL MULTIVITAMIN TABLET. PO SCH (13:00)
[2017-08-21 16:12] VITALS: BP 146/83
[2017-08-21] MEDS: MIRTAZAPINE 15 MG TABLET PO SCH (21:03)
[2017-08-21] MEDS: QUEtiapine 50 MG TABLET. PO SCH (21:04)
[2017-08-21] MEDS: ATORVASTATIN CALCIUM 20 MG TABLET PO SCH (21:04)
[2017-08-21] MEDS: MELATONIN 3 MG TABLET PO SCH (21:05)
--- NOTE | 2017-08-21 22:35 | PDOC ---
Exam Note: Marco Note: Please also refer to the separate dictated note~for this date of service dictated separately.~Patient seen individually. Discussed the patient with Nursing staff reviewed the chart.~Reviewed interim history and current functioning. Reviewed vital signs,~Labs/ Radiology~and current medications noted below. Continue current treatment with the changes noted in the dictated addendum note Assessment: Vital Signs: Vital Signs Date Time Temp Pulse Resp B/P (MAP) Pulse Ox O2 Delivery O2 Flow Rate FiO2 08/21/17 18:09 82 146/83 08/21/17 16:12 99.1 18 95 Room Air I&O Intake and Output 08/21/17 07:00 Intake Total 840 ml Balance 840 ml Intake Oral 840 ml # Voids 1 Current Medications: Meds: Current Medications Acetaminophen (Tylenol) 650 mg PRN Q6HRS PRN PO PAIN / TEMP Last administered on 08/21/17at 18:38; Start 08/12/17 at 21:45 Multi-Ingredient Ointment (Analgesic [place]) 1 diana PRN QID PRN TP MUSCLE PAIN; Start 08/12/17 at 21:45 Al Hydroxide/Mg Hydroxide (Mylanta Plus Xs) 15 ml PRN AFTMEALHC PRN PO DYSPEPSIA; Start 08/12/17 at 21:45 Magnesium Hydroxide (Milk Of Magnesia) 2,400 mg PRN QHS PRN PO CONSTIPATION; Start 08/12/17 at 21:45 Buspirone HCl (Buspar) 5 mg BID92 PO Last administered on 08/21/17at 13:00; Start 08/13/17 at 09:00 Divalproex Sodium (Depakote Er) 500 mg BID PO Last administered on 08/21/17at 21 :05; Start 08/13/17 at 09:00 Duloxetine HCl (Cymbalta) 60 mg DAILY PO Last administered on 08/21/17at 07:38; Start 08/13/17 at 09:00 Mirtazapine (Remeron) 15 mg HS PO Last administered on 08/21/17at 21:03; Start 08/13/17 at 21:00 Acetaminophen (Tylenol) 650 mg PRN Q6HRS PRN PO MILD PAIN/TEMP; Start 08/12/17 at 23:30; Stop 08/12/17 at 23:37; Status DC Aspirin (Children'S Aspirin) 81 mg DAILY PO Last administered on 08/21/17at 07: 38; Start 08/13/17 at 09:00 Bisacodyl (Dulcolax Tab) 5 mg PRN DAILY PRN PO CONSTIPATION; Start 08/12/17 at 23:30 Carvedilol (Coreg) 3.125 mg BIDWMEALS PO Last administered on 08/21/17at 18:09; Start 08/13/17 at 08:00 Cyanocobalamin (Vitamin B-12) 1,000 mcg QMONTH IM ; Start 09/11/17 at 09:00 Famotidine (Pepcid) 20 mg DAILY PO Last administered on 08/21/17at 07:38; Start 08/13/17 at 09:00 Levothyroxine Sodium (Synthroid) 88 mcg DAILYAC PO Last administered on at 07:42; Start 08/13/17 at 07:30; Stop 08/13/17 at 08:03; Status DC Nitroglycerin (Nitrostat) 0.4 mg PRN Q5MIN PRN SL CHEST PAIN; Start 08/12/17 at 23:30 Nitroglycerin (Nitrostat) 0.4 mg PRN Q5MIN PRN SL CHEST PAIN; Start 08/12/17 at 23:30; Stop 08/12/17 at 23:38; Status DC Sodium Chloride (Saline Mist Nasal) 1 diana BID NS Last administered on at 21:07; Start 08/13/17 at 09:00 Atorvastatin Calcium (Lipitor) 40 mg QHS PO Last administered on 08/21/17at 21: 04; Start 08/13/17 at 21:00 Calcium Carbonate/ Glycine (Tums) 500 mg PRN Q2HR PRN PO INDIGESTION; Start 04/19 at 23:45 Non-Formulary Medication (Magnesium Hydroxide (Milk Of Magnesia)) 30 ml PRN DAILY PRN PO CONSTIPATION; Start 08/12/17 at 23:30; Stop 08/12/17 at 23:38; Status DC Prenat Multivit/ [place]/Iron/Folic Ac (Multivitamin ) 1 tab DAILYBFRLUN PO Last administered on 08/21/17at 13:00; Start 08/13/17 at 11:30 Simethicone (Gas-X) 80 mg PRN Q2HR PRN PO GAS / BLOATING; Start 08/12/17 at 23: 45 Levothyroxine Sodium (Synthroid) 88 mcg DAILY06 PO Last administered on at 05:52; Start 08/14/17 at 06:00 Vitamin D (Vitamin D3) 50,000 unit WEEKLY PO Last administered on 08/20/17at 08: 41; Start 08/13/17 at 17:00 Bupropion HCl (Wellbutrin Xl) 150 mg DAILY PO Last administered on 08/21/17at 07 :37; Start 08/14/17 at 09:00 Melatonin 3 mg QHS PO Last administered on 08/21/17at 21:05; Start 08/13/17 at 21:00 Quetiapine Fumarate (SEROquel) 25 mg HS PO Last administered on 08/17/17at 19:57 ; Start 08/16/17 at 21:00; Stop 08/18/17 at 19:36; Status DC Quetiapine Fumarate (SEROquel) 50 mg QHS PO Last administered on 08/19/17at 21: 43; Start 08/18/17 at 21:00; Stop 08/20/17 at 18:15; Status DC Quetiapine Fumarate (SEROquel) 75 mg QHS PO Last administered on 08/21/17at 21: 04; Start 08/20/17 at 21:00 Cetirizine HCl (ZyrTEC) 10 mg DAILY PO ; Start 08/22/17 at 09:00 Fluticasone Propionate (Flonase) 2 spray DAILY NS ; Start 08/22/17 at 09:00 Active Scripts Active Reported Maalox Advanced Tab Chew (Calcium Carbonate/Simethicone) 1 Each Tab.chew 2 Tab.chew PO Q2HR Nitrostat (Nitroglycerin) 0.4 Mg Tab.subl 0.4 Mg SL PRN Q5MIN PRN Buspirone Hcl 5 Mg Tablet 5 Mg PO BID92 Multi Tablet (Pnv No.122/Iron/Folic Acid) 1 Each Tablet 1 Each PO DAILYBFRLUN Mirtazapine 15 Mg Tablet 15 Mg PO HS Saline Nasal [place] (Sodium Chloride) 30 Ml [place] 2 Spr NS BID NITROGLYCERIN SubLingual (Nitroglycerin) 0.4 Mg Tab.subl 0.4 Mg SL PRN Q5MIN PRN Milk Of Magnesia (Magnesium Hydroxide) 2,400 Mg/10 Ml Oral.susp 30 Ml PO PRN DAILY PRN Levothyroxine Sodium 88 Mcg Tablet 88 Mcg PO DAILYAC Famotidine 20 Mg Tablet 20 Mg PO DAILY Bisacodyl 5 Mg Tablet.dr 5 Mg PO PRN DAILY PRN Depakote Er (Divalproex Sodium) 500 Mg Tab.er.24h 500 Mg PO BID Cymbalta (Duloxetine Hcl) 60 Mg Capsule.dr 60 Mg PO DAILY Cyanocobalamin Injection (Cyanocobalamin (Vitamin B-12)) 1,000 Mcg/1 Ml Vial 1, 000 Mcg IM QMONTH Coreg (Carvedilol) 3.125 Mg Tablet 3.125 Mg PO BIDWMEALS Atorvastatin Calcium 40 Mg Tablet 40 Mg PO QHS Aspirin 81 Mg Tab.chew 81 Mg PO DAILY Tylenol (Acetaminophen) 325 Mg Tablet 650 Mg PO PRN Q6HRS MDD 4000 I have reviewed the current psychotropics carefully including drug interactions. Risk benefit ratio favors no change other than as noted in my dictated progress note. Diagnosis: Problems: (1) Schizoaffective disorder, chronic condition with acute exacerbation (2) Anxiety disorder (3) Dementia in Alzheimer's disease with depression (4) Dementia in Alzheimer's disease with delusions (5) Dementia, vascular, with delusions (6) Dementia, vascular, with delirium (7) Impulse control disorder PATRICIA HUNT MD Aug 21, 2017 22:35
[2017-08-22] MEDS: LEVOTHYROXINE 88 MCG TABLET PO SCH (05:49)
[2017-08-22 06:23] VITALS: BP 140/67
[2017-08-22] MEDS: DULoxetine HCL 60 MG CAPSULE.DR PO SCH (08:53)
[2017-08-22] MEDS: ASPIRIN 81 MG TAB.CHEW PO SCH (08:53)
[2017-08-22] MEDS: CARVEDILOL 3.125 MG TABLET PO SCH ×2 (08:54→16:56)
[2017-08-22] MEDS: buPROPion XL 150 MG TAB.ER.24H PO SCH (08:54)
[2017-08-22] MEDS: busPIRone 5 MG TABLET. PO SCH ×3 (08:54→19:46)
[2017-08-22] MEDS: DIVALPROEX ER 500 MG TAB.ER.24H PO SCH ×2 (08:54→19:43)
[2017-08-22] MEDS: FAMOTIDINE 20 MG TABLET PO SCH (08:54)
[2017-08-22] MEDS: CETIRIZINE HCL 10 MG TABLET PO SCH (08:55)
[2017-08-22] MEDS: SODIUM CHLORIDE 0.65% NASAL SPRAY 45ML BOTTLE. NS SCH ×2 (08:56→19:46)
[2017-08-22] MEDS: FLUTICASONE 50MCG/NASAL SPRAY 16GM BOTTLE. NS SCH (08:56)
--- NOTE | 2017-08-22 11:23 | PN ---
DATE: 08/20/2017 PSYCHIATRIC PROGRESS NOTE This late entry 08/20/2017 covers elements not covered in my initial note of 08/20/2017. SUBJECTIVE: Met with the patient in the evening. The patient slept 6-1/2 hours, calm, withdrawn, does have a cough. Chest x-ray negative. Met with her in her room at some length. Dr. Fitzpatrick is checking labs in the evening. At night, she was out of the room with her shirt on. Previous evening, she was delusional, believing she was being raped, but none of that was evident 08/20/2017. REVIEW OF SYSTEMS: Ambulation is impaired at times. No CV, , pulmonary, eye, ENT system symptoms on review. MENTAL STATUS EXAM: Oriented to herself, situation. Speech has some latency, coherent. Abstraction is fair, computation impaired, language function intact. Mood and affect remains somewhat labile, delusional. LABORATORY DATA: Reviewed. IMPRESSION: Major neurocognitive disorder, Alzheimer, vascular with delusions, schizoaffective disorder, bipolar type, mixed with psychotic features. PLAN: Increased Seroquel to 75 mg at bedtime. Continue rest unchanged. MAN Kehinde HUNT MD DR: MARCOS/yusef JOB#: [id number] / [id number]
[2017-08-22] MEDS: PRENATAL MULTIVITAMIN TABLET. PO SCH (11:51)
[2017-08-22] MEDS: ACETAMINOPHEN 325 MG TABLET PO PRN (12:29)
[2017-08-22 15:42] VITALS: BP 150/70
[2017-08-22] MEDS: ATORVASTATIN CALCIUM 20 MG TABLET PO SCH (19:42)
[2017-08-22] MEDS: MELATONIN 3 MG TABLET PO SCH (19:43)
[2017-08-22] MEDS: MIRTAZAPINE 15 MG TABLET PO SCH (19:43)
[2017-08-22] MEDS: QUEtiapine 50 MG TABLET. PO SCH (19:45)
--- NOTE | 2017-08-22 20:54 | PDOC ---
Exam Note: Marco Note: Please also refer to the separate dictated note~for this date of service dictated separately.~Patient seen individually. Discussed the patient with Nursing staff reviewed the chart.~Reviewed interim history and current functioning. Reviewed vital signs,~Labs/ Radiology~and current medications noted below. Continue current treatment with the changes noted in the dictated addendum note Assessment: Vital Signs: Vital Signs Date Time Temp Pulse Resp B/P (MAP) Pulse Ox O2 Delivery O2 Flow Rate FiO2 08/22/17 16:56 91 150/70 08/22/17 15:42 98.7 19 95 08/22/17 06:23 Room Air I&O Intake and Output 08/22/17 07:00 Intake Total 1105 ml Balance 1105 ml Intake Oral 1105 ml Current Medications: Meds: Current Medications Acetaminophen (Tylenol) 650 mg PRN Q6HRS PRN PO PAIN / TEMP Last administered on 08/22/17at 12:29; Start 08/12/17 at 21:45 Multi-Ingredient Ointment (Analgesic [place]) 1 diana PRN QID PRN TP MUSCLE PAIN; Start 08/12/17 at 21:45 Al Hydroxide/Mg Hydroxide (Mylanta Plus Xs) 15 ml PRN AFTMEALHC PRN PO DYSPEPSIA; Start 08/12/17 at 21:45 Magnesium Hydroxide (Milk Of Magnesia) 2,400 mg PRN QHS PRN PO CONSTIPATION; Start 08/12/17 at 21:45 Buspirone HCl (Buspar) 5 mg BID92 PO Last administered on 08/22/17at 14:37; Start 08/13/17 at 09:00; Stop 08/22/17 at 16:06; Status DC Divalproex Sodium (Depakote Er) 500 mg BID PO Last administered on 08/22/17at 19 :43; Start 08/13/17 at 09:00 Duloxetine HCl (Cymbalta) 60 mg DAILY PO Last administered on 08/22/17at 08:53; Start 08/13/17 at 09:00 Mirtazapine (Remeron) 15 mg HS PO Last administered on 08/22/17at 19:43; Start 08/13/17 at 21:00 Acetaminophen (Tylenol) 650 mg PRN Q6HRS PRN PO MILD PAIN/TEMP; Start 08/12/17 at 23:30; Stop 08/12/17 at 23:37; Status DC Aspirin (Children'S Aspirin) 81 mg DAILY PO Last administered on 08/22/17at 08: 53; Start 08/13/17 at 09:00 Bisacodyl (Dulcolax Tab) 5 mg PRN DAILY PRN PO CONSTIPATION; Start 08/12/17 at 23:30 Carvedilol (Coreg) 3.125 mg BIDWMEALS PO Last administered on 08/22/17at 16:56; Start 08/13/17 at 08:00 Cyanocobalamin (Vitamin B-12) 1,000 mcg QMONTH IM ; Start 09/11/17 at 09:00 Famotidine (Pepcid) 20 mg DAILY PO Last administered on 08/22/17at 08:54; Start 08/13/17 at 09:00 Levothyroxine Sodium (Synthroid) 88 mcg DAILYAC PO Last administered on at 07:42; Start 08/13/17 at 07:30; Stop 08/13/17 at 08:03; Status DC Nitroglycerin (Nitrostat) 0.4 mg PRN Q5MIN PRN SL CHEST PAIN; Start 08/12/17 at 23:30 Nitroglycerin (Nitrostat) 0.4 mg PRN Q5MIN PRN SL CHEST PAIN; Start 08/12/17 at 23:30; Stop 08/12/17 at 23:38; Status DC Sodium Chloride (Saline Mist Nasal) 1 diana BID NS Last administered on at 19:46; Start 08/13/17 at 09:00 Atorvastatin Calcium (Lipitor) 40 mg QHS PO Last administered on 08/22/17at 19: 42; Start 08/13/17 at 21:00 Calcium Carbonate/ Glycine (Tums) 500 mg PRN Q2HR PRN PO INDIGESTION; Start 04/19 at 23:45 Non-Formulary Medication (Magnesium Hydroxide (Milk Of Magnesia)) 30 ml PRN DAILY PRN PO CONSTIPATION; Start 08/12/17 at 23:30; Stop 08/12/17 at 23:38; Status DC Prenat Multivit/ [place]/Iron/Folic Ac (Multivitamin ) 1 tab DAILYBFRLUN PO Last administered on 08/22/17at 11:51; Start 08/13/17 at 11:30 Simethicone (Gas-X) 80 mg PRN Q2HR PRN PO GAS / BLOATING; Start 08/12/17 at 23: 45 Levothyroxine Sodium (Synthroid) 88 mcg DAILY06 PO Last administered on at 05:49; Start 08/14/17 at 06:00 Vitamin D (Vitamin D3) 50,000 unit WEEKLY PO Last administered on 08/20/17 08: 41; Start 08/13/17 at 17:00 Bupropion HCl (Wellbutrin Xl) 150 mg DAILY PO Last administered on 08/22/17 08 :54; Start 08/14/17 at 09:00 Melatonin 3 mg QHS PO Last administered on 08/22/17 19:43; Start 08/13/17 at 21:00 Quetiapine Fumarate (SEROquel) 25 mg HS PO Last administered on 08/17/17 19:57 ; Start 08/16/17 at 21:00; Stop 08/18/17 at 19:36; Status DC Quetiapine Fumarate (SEROquel) 50 mg QHS PO Last administered on 08/19/17at 21: 43; Start 08/18/17 at 21:00; Stop 08/20/17 at 18:15; Status DC Quetiapine Fumarate (SEROquel) 75 mg QHS PO Last administered on 08/22/17 19: 45; Start 08/20/17 at 21:00 Cetirizine HCl (ZyrTEC) 10 mg DAILY PO Last administered on 08/22/17 08:55; Start 08/22/17 at 09:00 Fluticasone Propionate (Flonase) 2 spray DAILY NS Last administered on 08:56; Start 08/22/17 at 09:00 Buspirone HCl (Buspar) 5 mg TID PO Last administered on 08/22/17 19:46; Start 08/22/17 at 21:00 Active Scripts Active Reported Maalox Advanced Tab Chew (Calcium Carbonate/Simethicone) 1 Each Tab.chew 2 Tab.chew PO Q2HR Nitrostat (Nitroglycerin) 0.4 Mg Tab.subl 0.4 Mg SL PRN Q5MIN PRN Buspirone Hcl 5 Mg Tablet 5 Mg PO BID92 Multi Tablet (Pnv No.122/Iron/Folic Acid) 1 Each Tablet 1 Each PO DAILYBFRLUN Mirtazapine 15 Mg Tablet 15 Mg PO HS Saline Nasal [place] (Sodium Chloride) 30 Ml [place] 2 Spr NS BID NITROGLYCERIN SubLingual (Nitroglycerin) 0.4 Mg Tab.subl 0.4 Mg SL PRN Q5MIN PRN Milk Of Magnesia (Magnesium Hydroxide) 2,400 Mg/10 Ml Oral.susp 30 Ml PO PRN DAILY PRN Levothyroxine Sodium 88 Mcg Tablet 88 Mcg PO DAILYAC Famotidine 20 Mg Tablet 20 Mg PO DAILY Bisacodyl 5 Mg Tablet.dr 5 Mg PO PRN DAILY PRN Depakote Er (Divalproex Sodium) 500 Mg Tab.er.24h 500 Mg PO BID Cymbalta (Duloxetine Hcl) 60 Mg Capsule.dr 60 Mg PO DAILY Cyanocobalamin Injection (Cyanocobalamin (Vitamin B-12)) 1,000 Mcg/1 Ml Vial 1, 000 Mcg IM QMONTH Coreg (Carvedilol) 3.125 Mg Tablet 3.125 Mg PO BIDWMEALS Atorvastatin Calcium 40 Mg Tablet 40 Mg PO QHS Aspirin 81 Mg Tab.chew 81 Mg PO DAILY Tylenol (Acetaminophen) 325 Mg Tablet 650 Mg PO PRN Q6HRS MDD 4000 I have reviewed the current psychotropics carefully including drug interactions. Risk benefit ratio favors no change other than as noted in my dictated progress note. Diagnosis: Problems: (1) Schizoaffective disorder, chronic condition with acute exacerbation (2) Anxiety disorder (3) Dementia in Alzheimer's disease with depression (4) Dementia in Alzheimer's disease with delusions (5) Dementia, vascular, with delusions (6) Dementia, vascular, with delirium (7) Impulse control disorder PATRICIA HUNT MD Aug 22, 2017 20:54
[2017-08-23] MEDS: LEVOTHYROXINE 88 MCG TABLET PO SCH ×2 (05:13→06:00)
[2017-08-23 06:34] VITALS: BP 141/81
[2017-08-23 07:01] LABS: BASO % 1 % (0-3); EOS # 0.2 x10^3/uL (0.0-0.7); EOS % 3 % (0-3); HEMATOCRIT 38.3 % (36.0-47.0); HEMOGLOBIN 12.7 g/dL (12.0-15.5); LYMPH # 1.2 x10^3/uL (1.0-4.8); LYMPH % 17 % (24-48); MEAN CORPUSCULAR HEMOGLOBIN 28 pg (25-35); MEAN CORPUSCULAR HGB CONC 33 g/dL (31-37); MEAN CORPUSCULAR VOLUME 86 fL (79-100); MONO # 1.7 x10^3/uL (0.0-1.1); MONO % 23 % (0-9); NEUT # 4.1 x10^3uL (1.8-7.7); NEUT % 57 % (31-73); PLATELET COUNT 102 x10^3/uL (140-400); RED BLOOD COUNT 4.48 x10^6/uL (3.50-5.40); RED CELL DISTRIBUTION WIDTH 16.4 % (11.5-14.5); WHITE BLOOD COUNT 7.3 x10^3/uL (4.0-11.0)
[2017-08-23 07:30] LABS: ALBUMIN 2.4 g/dL (3.4-5.0); ALBUMIN/GLOBULIN RATIO 0.6 (1.0-1.7); ALK PHOS 70 U/L (46-116); ALT (SGPT) 21 U/L (14-59); ANION GAP 5 (6-14); AST (SGOT) 18 U/L (15-37); BLOOD UREA NITROGEN 9 mg/dL (7-20); BUN/CREATININE RATIO 11 (6-20); CALCIUM 8.1 mg/dL (8.5-10.1); CARBON DIOXIDE 31 mmol/L (21-32); CHLORIDE 107 mmol/L (98-107); CREATININE 0.8 mg/dL (0.6-1.0); GFR 67.8; GLUCOSE 83 mg/dL (70-99); POTASSIUM 3.9 mmol/L (3.5-5.1); SODIUM 143 mmol/L (136-145); TOTAL BILIRUBIN 0.5 mg/dL (0.2-1.0); TOTAL PROTEIN 6.3 g/dL (6.4-8.2)
[2017-08-23] MEDS: IPRATRPIUM/ALBUTEROL 0.5/2.5MG 3 ML NEBU. NEB SCH ×4 (08:00→19:47)
--- NOTE | 2017-08-23 08:15 | RAD ---
CHEST AP ONLY Clinical Indication: Cough, SOA. DNR. Comparison: AP chest, 3 days ago. Findings: Median sternotomy wires and changes of CABG. Atherosclerotic and tortuous thoracic aorta. The cardiac size is normal. Lungs are clear. There is no pneumothorax. No pleural effusion is appreciated. No acute bone abnormality. IMPRESSION: No acute cardiopulmonary process. Electronically signed by: Cristian Pierre MD (08/23/2017 8:11 AM) [id number]
[2017-08-23] MEDS: buPROPion XL 150 MG TAB.ER.24H PO SCH (08:32)
[2017-08-23] MEDS: CETIRIZINE HCL 10 MG TABLET PO SCH (08:32)
[2017-08-23] MEDS: busPIRone 5 MG TABLET. PO SCH ×3 (08:33→19:36)
[2017-08-23] MEDS: DULoxetine HCL 60 MG CAPSULE.DR PO SCH (08:33)
[2017-08-23] MEDS: ASPIRIN 81 MG TAB.CHEW PO SCH (08:33)
[2017-08-23] MEDS: CARVEDILOL 3.125 MG TABLET PO SCH ×2 (08:33→17:28)
[2017-08-23] MEDS: FAMOTIDINE 20 MG TABLET PO SCH (08:33)
[2017-08-23] MEDS: DIVALPROEX ER 500 MG TAB.ER.24H PO SCH ×2 (08:33→19:36)
[2017-08-23] MEDS: SODIUM CHLORIDE 0.65% NASAL SPRAY 45ML BOTTLE. NS SCH ×2 (08:35→19:47)
[2017-08-23] MEDS: FLUTICASONE 50MCG/NASAL SPRAY 16GM BOTTLE. NS SCH (08:35)
[2017-08-23] MEDS: PRENATAL MULTIVITAMIN TABLET. PO SCH (08:36)
[2017-08-23] MEDS: DOXYCYCLINE HYCLATE 100 MG TABLET PO SCH ×2 (13:40→19:41)
--- NOTE | 2017-08-23 16:01 | PN ---
DATE: 08/21/2017 This late entry 08/21/2017 covers elements not covered in my initial note 08/21/2017. ____ withdrawn, less delusional. She is not talking about being ____. She complains of some headaches ____. MENTAL STATUS EXAM: Oriented to herself and situation. Speech, response is monosyllabic. Abstraction fair. Computation impaired, language function intact. ____. IMPRESSION: Unchanged from initial note. PLAN: Continue psychotropics mentioned in my initial note. Medical followup with Dr. Fitzpatrick. MAN Kehinde HUNT MD DR: MARCOS/yusef JOB#: [id number] / [id number]
[2017-08-23 16:19] VITALS: BP 149/77
[2017-08-23] MEDS: ATORVASTATIN CALCIUM 20 MG TABLET PO SCH (19:35)
[2017-08-23] MEDS: MELATONIN 3 MG TABLET PO SCH (19:36)
[2017-08-23] MEDS: QUEtiapine 50 MG TABLET. PO SCH (19:36)
[2017-08-23] MEDS: LACTOBACILLUS RHAMNOSUS GG 1 CAPSULE. PO SCH (19:41)
[2017-08-23] MEDS: MIRTAZAPINE 15 MG TABLET PO SCH (19:42)
--- NOTE | 2017-08-23 20:49 | PDOC ---
Exam Note: Marco Note: Please also refer to the separate dictated note~for this date of service dictated separately.~Patient seen individually. Discussed the patient with Nursing staff reviewed the chart.~Reviewed interim history and current functioning. Reviewed vital signs,~Labs/ Radiology~and current medications noted below. Continue current treatment with the changes noted in the dictated addendum note Assessment: Vital Signs: Vital Signs Date Time Temp Pulse Resp B/P (MAP) Pulse Ox O2 Delivery O2 Flow Rate FiO2 08/23/17 19:49 98 Room Air 08/23/17 17:28 91 149/77 08/23/17 16:19 98.3 18 I&O Intake and Output 08/23/17 07:00 Intake Total 1040 ml Balance 1040 ml Intake Oral 1040 ml Labs: Laboratory Tests Test 08/23/17 06:33 White Blood Count 7.3 x10^3/uL (4.0-11.0) Red Blood Count 4.48 x10^6/uL (3.50-5.40) Hemoglobin 12.7 g/dL (12.0-15.5) Hematocrit 38.3 % (36.0-47.0) Mean Corpuscular Volume 86 fL (79-100) Mean Corpuscular Hemoglobin 28 pg (25-35) Mean Corpuscular Hemoglobin Concent 33 g/dL (31-37) Red Cell Distribution Width 16.4 % (11.5-14.5) H Platelet Count 102 x10^3/uL (140-400) L Neutrophils (%) (Auto) 57 % (31-73) Lymphocytes (%) (Auto) 17 % (24-48) L Monocytes (%) (Auto) 23 % (0-9) H Eosinophils (%) (Auto) 3 % (0-3) Basophils (%) (Auto) 1 % (0-3) Neutrophils # (Auto) 4.1 x10^3uL (1.8-7.7) Lymphocytes # (Auto) 1.2 x10^3/uL (1.0-4.8) Monocytes # (Auto) 1.7 x10^3/uL (0.0-1.1) H Eosinophils # (Auto) 0.2 x10^3/uL (0.0-0.7) Basophils # (Auto) 0.0 x10^3/uL (0.0-0.2) Sodium Level 143 mmol/L (136-145) Potassium Level 3.9 mmol/L (3.5-5.1) Chloride Level 107 mmol/L (98-107) Carbon Dioxide Level 31 mmol/L (21-32) Anion Gap 5 (6-14) L Blood Urea Nitrogen 9 mg/dL (7-20) Creatinine 0.8 mg/dL (0.6-1.0) Estimated GFR (Cockcroft-Gault) 67.8 BUN/Creatinine Ratio 11 (6-20) Glucose Level 83 mg/dL (70-99) Calcium Level 8.1 mg/dL (8.5-10.1) L Total Bilirubin 0.5 mg/dL (0.2-1.0) Aspartate Amino Transferase (AST) 18 U/L (15-37) Alanine Aminotransferase (ALT) 21 U/L (14-59) Alkaline Phosphatase 70 U/L (46-116) Creatine Kinase 19 U/L (26-192) L Creatine Kinase MB (Mass) < 0.5 ng/mL (0.0-3.6) Creatine Kinase MB Relative Index 2.6 % (0-4) Total Protein 6.3 g/dL (6.4-8.2) L Albumin 2.4 g/dL (3.4-5.0) L Albumin/Globulin Ratio 0.6 (1.0-1.7) L Current Medications: Meds: Current Medications Acetaminophen (Tylenol) 650 mg PRN Q6HRS PRN PO PAIN / TEMP Last administered on 08/22/17at 12:29; Start 08/12/17 at 21:45 Multi-Ingredient Ointment (Analgesic [place]) 1 diana PRN QID PRN TP MUSCLE PAIN; Start 08/12/17 at 21:45 Al Hydroxide/Mg Hydroxide (Mylanta Plus Xs) 15 ml PRN AFTMEALHC PRN PO DYSPEPSIA; Start 08/12/17 at 21:45 Magnesium Hydroxide (Milk Of Magnesia) 2,400 mg PRN QHS PRN PO CONSTIPATION; Start 08/12/17 at 21:45 Buspirone HCl (Buspar) 5 mg BID92 PO Last administered on 08/22/17at 14:37; Start 08/13/17 at 09:00; Stop 08/22/17 at 16:06; Status DC Divalproex Sodium (Depakote Er) 500 mg BID PO Last administered on 08/23/17 19 :36; Start 08/13/17 at 09:00 Duloxetine HCl (Cymbalta) 60 mg DAILY PO Last administered on 08/23/17at 08:33; Start 08/13/17 at 09:00 Mirtazapine (Remeron) 15 mg HS PO Last administered on 08/23/17at 19:42; Start 08/13/17 at 21:00 Acetaminophen (Tylenol) 650 mg PRN Q6HRS PRN PO MILD PAIN/TEMP; Start 08/12/17 at 23:30; Stop 08/12/17 at 23:37; Status DC Aspirin (Children'S Aspirin) 81 mg DAILY PO Last administered on 08/23/17at 08: 33; Start 08/13/17 at 09:00 Bisacodyl (Dulcolax Tab) 5 mg PRN DAILY PRN PO CONSTIPATION; Start 08/12/17 at 23:30 Carvedilol (Coreg) 3.125 mg BIDWMEALS PO Last administered on 08/23/17 17:28; Start 08/13/17 at 08:00 Cyanocobalamin (Vitamin B-12) 1,000 mcg QMONTH IM ; Start 09/11/17 at 09:00 Famotidine (Pepcid) 20 mg DAILY PO Last administered on 08/23/17 08:33; Start 08/13/17 at 09:00; Stop 08/23/17 at 13:04; Status DC Levothyroxine Sodium (Synthroid) 88 mcg DAILYAC PO Last administered on at 07:42; Start 08/13/17 at 07:30; Stop 08/13/17 at 08:03; Status DC Nitroglycerin (Nitrostat) 0.4 mg PRN Q5MIN PRN SL CHEST PAIN; Start 08/12/17 at 23:30 Nitroglycerin (Nitrostat) 0.4 mg PRN Q5MIN PRN SL CHEST PAIN; Start 08/12/17 at 23:30; Stop 08/12/17 at 23:38; Status DC Sodium Chloride (Saline Mist Nasal) 1 diana BID NS Last administered on at 19:47; Start 08/13/17 at 09:00 Atorvastatin Calcium (Lipitor) 40 mg QHS PO Last administered on 08/23/17 19: 35; Start 08/13/17 at 21:00 Calcium Carbonate/ Glycine (Tums) 500 mg PRN Q2HR PRN PO INDIGESTION; Start 04/19 at 23:45 Non-Formulary Medication (Magnesium Hydroxide (Milk Of Magnesia)) 30 ml PRN DAILY PRN PO CONSTIPATION; Start 08/12/17 at 23:30; Stop 08/12/17 at 23:38; Status DC Prenat Multivit/ [place]/Iron/Folic Ac (Multivitamin ) 1 tab DAILYBFRLUN PO Last administered on 08/23/17 08:36; Start 08/13/17 at 11:30 Simethicone (Gas-X) 80 mg PRN Q2HR PRN PO GAS / BLOATING; Start 08/12/17 at 23: 45 Levothyroxine Sodium (Synthroid) 88 mcg DAILY06 PO Last administered on at 05:49; Start 08/14/17 at 06:00 Vitamin D (Vitamin D3) 50,000 unit WEEKLY PO Last administered on 08/20/17at 08: 41; Start 08/13/17 at 17:00 Bupropion HCl (Wellbutrin Xl) 150 mg DAILY PO Last administered on 08/23/17at 08 :32; Start 08/14/17 at 09:00 Melatonin 3 mg QHS PO Last administered on 08/23/17 19:36; Start 08/13/17 at 21:00 Quetiapine Fumarate (SEROquel) 25 mg HS PO Last administered on 08/17/17at 19:57 ; Start 08/16/17 at 21:00; Stop 08/18/17 at 19:36; Status DC Quetiapine Fumarate (SEROquel) 50 mg QHS PO Last administered on 08/19/17at 21: 43; Start 08/18/17 at 21:00; Stop 08/20/17 at 18:15; Status DC Quetiapine Fumarate (SEROquel) 75 mg QHS PO Last administered on 08/23/17 19: 36; Start 08/20/17 at 21:00 Cetirizine HCl (ZyrTEC) 10 mg DAILY PO Last administered on 08/23/17at 08:32; Start 08/22/17 at 09:00 Fluticasone Propionate (Flonase) 2 spray DAILY NS Last administered on at 08:35; Start 08/22/17 at 09:00 Buspirone HCl (Buspar) 5 mg TID PO Last administered on 08/23/17at 19:36; Start 08/22/17 at 21:00 Albuterol/ Ipratropium (Duoneb) 3 ml RTQID NEB Last administered on 08/23/17at 19:47; Start 08/23/17 at 08:00 Pantoprazole Sodium (Protonix) 40 mg DAILYAC PO ; Start 08/24/17 at 07:30 Doxycycline Hyclate (Vibra-Tab) 100 mg BID PO Last administered on 08/23/17at 19 :41; Start 08/23/17 at 13:30; Stop 09/02/17 at 13:29 Lactobacillus Rhamnosus (Culturelle) 1 cap BID PO Last administered on at 19:41; Start 08/23/17 at 21:00 Methylprednisolone (Medrol) 8 mg BID PO ; Start 08/24/17 at 09:00; Stop at 21:01 Methylprednisolone (Medrol) 4 mg TIDPC PO ; Start 08/25/17 at 08:30; Stop at 17:31 Methylprednisolone (Medrol) 8 mg QHS PO ; Start 08/25/17 at 21:00; Stop at 21:01 Methylprednisolone (Medrol) 4 mg QIDAFTMEAL PO ; Start 08/26/17 at 09:00; Stop 08/26/17 at 21:01 Methylprednisolone (Medrol) 4 mg TID PO ; Start 08/27/17 at 09:00; Stop at 21:01 Methylprednisolone (Medrol) 4 mg BID PO ; Start 08/28/17 at 09:00; Stop at 21:01 Methylprednisolone (Medrol) 4 mg DAILY PO ; Start 08/29/17 at 09:00; Stop at 09:01 Aripiprazole (Abilify) 2.5 mg DAILY PO ; Start 08/24/17 at 09:00 Active Scripts Active Reported Maalox Advanced Tab Chew (Calcium Carbonate/Simethicone) 1 Each Tab.chew 2 Tab.chew PO Q2HR Nitrostat (Nitroglycerin) 0.4 Mg Tab.subl 0.4 Mg SL PRN Q5MIN PRN Buspirone Hcl 5 Mg Tablet 5 Mg PO BID92 Multi Tablet (Pnv No.122/Iron/Folic Acid) 1 Each Tablet 1 Each PO DAILYBFRLUN Mirtazapine 15 Mg Tablet 15 Mg PO HS Saline Nasal [place] (Sodium Chloride) 30 Ml [place] 2 Spr NS BID NITROGLYCERIN SubLingual (Nitroglycerin) 0.4 Mg Tab.subl 0.4 Mg SL PRN Q5MIN PRN Milk Of Magnesia (Magnesium Hydroxide) 2,400 Mg/10 Ml Oral.susp 30 Ml PO PRN DAILY PRN Levothyroxine Sodium 88 Mcg Tablet 88 Mcg PO DAILYAC Famotidine 20 Mg Tablet 20 Mg PO DAILY Bisacodyl 5 Mg Tablet.dr 5 Mg PO PRN DAILY PRN Depakote Er (Divalproex Sodium) 500 Mg Tab.er.24h 500 Mg PO BID Cymbalta (Duloxetine Hcl) 60 Mg Capsule.dr 60 Mg PO DAILY Cyanocobalamin Injection (Cyanocobalamin (Vitamin B-12)) 1,000 Mcg/1 Ml Vial 1, 000 Mcg IM QMONTH Coreg (Carvedilol) 3.125 Mg Tablet 3.125 Mg PO BIDWMEALS Atorvastatin Calcium 40 Mg Tablet 40 Mg PO QHS Aspirin 81 Mg Tab.chew 81 Mg PO DAILY Tylenol (Acetaminophen) 325 Mg Tablet 650 Mg PO PRN Q6HRS MDD 4000 I have reviewed the current psychotropics carefully including drug interactions. Risk benefit ratio favors no change other than as noted in my dictated progress note. Diagnosis: Problems: (1) Schizoaffective disorder, chronic condition with acute exacerbation (2) Anxiety disorder (3) Dementia in Alzheimer's disease with depression (4) Dementia in Alzheimer's disease with delusions (5) Dementia, vascular, with delusions (6) Dementia, vascular, with delirium (7) Impulse control disorder PATRICIA HUNT MD Aug 23, 2017 20:49
--- NOTE | 2017-08-24 02:41 | PN ---
DATE: 08/22/2017 PSYCHIATRIC PROGRESS NOTE This is a late entry of 08/22/2017 covers elements not covered in my initial note of 08/22/2017. SUBJECTIVE: I met with the patient in the afternoon. SUBJECTIVE: The patient was quite paranoid the previous evening. This note is being redictated her as requested by medical records. Somewhat more confused on 08/22/2017. No suicidal ideation, and she is somewhat anxious. REVIEW OF SYSTEMS: No CV, , pulmonary, eye system symptoms on review. MENTAL STATUS EXAM: Oriented to herself and situation. Speech coherent, abstraction fair, computation impaired, language function intact, attention span short. Mood and affect somewhat anxious, labile. LABORATORY DATA: Reviewed. IMPRESSION: Unchanged from initial note. PLAN: Increase BuSpar from 5 mg twice a day to 5 mg 3 times a day. Continue rest unchanged. MAN Kehinde HUNT MD DR: MARCOS/yusef JOB#: [id number] / [id number]
--- NOTE | 2017-08-24 03:25 | PN ---
DATE: 08/21/2017 This is a late entry for 08/21/2017 covers elements not covered in my initial note of 08/21/2017. SUBJECTIVE: I met with the patient in the evening. This note is being re-dictated as requested by medical records. The patient has had some cough, received Zyrtec, ____ withdrawn. No overt delusions. Not talking about being raped. Does complain of some headaches and difficulty swallowing. Swallow study has been ordered. Labs on the were unremarkable. Chest x-ray negative, still obsessed about her dog. REVIEW OF SYSTEMS: No CV, , pulmonary, eye system symptoms on review. MENTAL STATUS EXAM: Oriented to herself and situation. Speech coherent, has some latency. Abstraction fair, computation impaired, language function intact. Mood and affect somewhat labile at times less so than before. LABORATORY DATA: Reviewed. IMPRESSION: Unchanged. PLAN: Continue psychotropics mentioned in my initial note. PATRICIA HUNT MD DR: MARCOS/yusef JOB#: [id number] / [id number]
[2017-08-24] MEDS: IPRATRPIUM/ALBUTEROL 0.5/2.5MG 3 ML NEBU. NEB SCH ×4 (04:43→22:02)
[2017-08-24] MEDS: LEVOTHYROXINE 88 MCG TABLET PO SCH (05:26)
[2017-08-24 06:34] VITALS: BP 118/64
[2017-08-24] MEDS: DOXYCYCLINE HYCLATE 100 MG TABLET PO SCH ×2 (09:47→19:45)
[2017-08-24] MEDS: LACTOBACILLUS RHAMNOSUS GG 1 CAPSULE. PO SCH ×2 (09:47→19:45)
[2017-08-24] MEDS: busPIRone 5 MG TABLET. PO SCH ×3 (09:47→19:45)
[2017-08-24] MEDS: ASPIRIN 81 MG TAB.CHEW PO SCH (09:47)
[2017-08-24] MEDS: PRENATAL MULTIVITAMIN TABLET. PO SCH (09:47)
[2017-08-24] MEDS: CARVEDILOL 3.125 MG TABLET PO SCH ×2 (09:48→17:15)
[2017-08-24] MEDS: buPROPion XL 150 MG TAB.ER.24H PO SCH (09:48)
[2017-08-24] MEDS: DULoxetine HCL 60 MG CAPSULE.DR PO SCH (09:48)
[2017-08-24] MEDS: CETIRIZINE HCL 10 MG TABLET PO SCH (09:48)
[2017-08-24] MEDS: ARIPiprazole 5 MG TABLET PO SCH (09:51)
[2017-08-24] MEDS: PANTOPRAZOLE 40 MG TABLET. PO SCH (09:51)
[2017-08-24] MEDS: DIVALPROEX ER 500 MG TAB.ER.24H PO SCH ×2 (09:51→19:45)
[2017-08-24] MEDS: FLUTICASONE 50MCG/NASAL SPRAY 16GM BOTTLE. NS SCH (09:54)
[2017-08-24] MEDS: SODIUM CHLORIDE 0.65% NASAL SPRAY 45ML BOTTLE. NS SCH ×2 (09:54→19:44)
[2017-08-24] MEDS: methylPREDNISolone 4 MG TABLET. PO SCH ×2 (09:58→19:47)
[2017-08-24] MEDS: MELATONIN 3 MG TABLET PO SCH (19:45)
[2017-08-24] MEDS: QUEtiapine 50 MG TABLET. PO SCH (19:45)
[2017-08-24] MEDS: ATORVASTATIN CALCIUM 20 MG TABLET PO SCH (19:45)
[2017-08-24] MEDS: MIRTAZAPINE 15 MG TABLET PO SCH (19:46)
--- NOTE | 2017-08-24 20:48 | PDOC ---
Exam Note: Marco Note: Please also refer to the separate dictated note~for this date of service dictated separately.~Patient seen individually. Discussed the patient with Nursing staff reviewed the chart.~Reviewed interim history and current functioning. Reviewed vital signs,~Labs/ Radiology~and current medications noted below. Continue current treatment with the changes noted in the dictated addendum note Assessment: Vital Signs: Vital Signs Date Time Temp Pulse Resp B/P (MAP) Pulse Ox O2 Delivery O2 Flow Rate FiO2 08/24/17 17:15 83 118/64 08/24/17 16:02 98 Room Air 08/24/17 06:34 97.8 18 I&O Intake and Output 08/24/17 07:00 Intake Total 480 ml Balance 480 ml Intake Oral 480 ml Current Medications: Meds: Current Medications Acetaminophen (Tylenol) 650 mg PRN Q6HRS PRN PO PAIN / TEMP Last administered on 08/22/17at 12:29; Start 08/12/17 at 21:45 Multi-Ingredient Ointment (Analgesic [place]) 1 diana PRN QID PRN TP MUSCLE PAIN; Start 08/12/17 at 21:45 Al Hydroxide/Mg Hydroxide (Mylanta Plus Xs) 15 ml PRN AFTMEALHC PRN PO DYSPEPSIA; Start 08/12/17 at 21:45 Magnesium Hydroxide (Milk Of Magnesia) 2,400 mg PRN QHS PRN PO CONSTIPATION; Start 08/12/17 at 21:45 Buspirone HCl (Buspar) 5 mg BID92 PO Last administered on 08/22/17at 14:37; Start 08/13/17 at 09:00; Stop 08/22/17 at 16:06; Status DC Divalproex Sodium (Depakote Er) 500 mg BID PO Last administered on 08/24/17at 19 :45; Start 08/13/17 at 09:00 Duloxetine HCl (Cymbalta) 60 mg DAILY PO Last administered on 08/24/17at 09:48; Start 08/13/17 at 09:00 Mirtazapine (Remeron) 15 mg HS PO Last administered on 08/24/17at 19:46; Start 08/13/17 at 21:00 Acetaminophen (Tylenol) 650 mg PRN Q6HRS PRN PO MILD PAIN/TEMP; Start 08/12/17 at 23:30; Stop 08/12/17 at 23:37; Status DC Aspirin (Children'S Aspirin) 81 mg DAILY PO Last administered on 08/24/17at 09: 47; Start 08/13/17 at 09:00 Bisacodyl (Dulcolax Tab) 5 mg PRN DAILY PRN PO CONSTIPATION; Start 08/12/17 at 23:30 Carvedilol (Coreg) 3.125 mg BIDWMEALS PO Last administered on 08/24/17at 17:15; Start 08/13/17 at 08:00 Cyanocobalamin (Vitamin B-12) 1,000 mcg QMONTH IM ; Start 09/11/17 at 09:00 Famotidine (Pepcid) 20 mg DAILY PO Last administered on 08/23/17at 08:33; Start 08/13/17 at 09:00; Stop 08/23/17 at 13:04; Status DC Levothyroxine Sodium (Synthroid) 88 mcg DAILYAC PO Last administered on at 07:42; Start 08/13/17 at 07:30; Stop 08/13/17 at 08:03; Status DC Nitroglycerin (Nitrostat) 0.4 mg PRN Q5MIN PRN SL CHEST PAIN; Start 08/12/17 at 23:30 Nitroglycerin (Nitrostat) 0.4 mg PRN Q5MIN PRN SL CHEST PAIN; Start 08/12/17 at 23:30; Stop 08/12/17 at 23:38; Status DC Sodium Chloride (Saline Mist Nasal) 1 diana BID NS Last administered on at 19:44; Start 08/13/17 at 09:00 Atorvastatin Calcium (Lipitor) 40 mg QHS PO Last administered on 08/24/17at 19: 45; Start 08/13/17 at 21:00 Calcium Carbonate/ Glycine (Tums) 500 mg PRN Q2HR PRN PO INDIGESTION; Start 04/19 at 23:45 Non-Formulary Medication (Magnesium Hydroxide (Milk Of Magnesia)) 30 ml PRN DAILY PRN PO CONSTIPATION; Start 08/12/17 at 23:30; Stop 08/12/17 at 23:38; Status DC Prenat Multivit/ [place]/Iron/Folic Ac (Multivitamin ) 1 tab DAILYBFRLUN PO Last administered on 08/24/17 09:47; Start 08/13/17 at 11:30 Simethicone (Gas-X) 80 mg PRN Q2HR PRN PO GAS / BLOATING; Start 08/12/17 at 23: 45 Levothyroxine Sodium (Synthroid) 88 mcg DAILY06 PO Last administered on 05:26; Start 08/14/17 at 06:00 Vitamin D (Vitamin D3) 50,000 unit WEEKLY PO Last administered on 08/20/17 08: 41; Start 08/13/17 at 17:00 Bupropion HCl (Wellbutrin Xl) 150 mg DAILY PO Last administered on 08/24/17 09 :48; Start 08/14/17 at 09:00 Melatonin 3 mg QHS PO Last administered on 08/24/17 19:45; Start 08/13/17 at 21:00 Quetiapine Fumarate (SEROquel) 25 mg HS PO Last administered on 08/17/17 19:57 ; Start 08/16/17 at 21:00; Stop 08/18/17 at 19:36; Status DC Quetiapine Fumarate (SEROquel) 50 mg QHS PO Last administered on 08/19/17 21: 43; Start 08/18/17 at 21:00; Stop 08/20/17 at 18:15; Status DC Quetiapine Fumarate (SEROquel) 75 mg QHS PO Last administered on 08/24/17 19: 45; Start 08/20/17 at 21:00 Cetirizine HCl (ZyrTEC) 10 mg DAILY PO Last administered on 08/24/17 09:48; Start 08/22/17 at 09:00 Fluticasone Propionate (Flonase) 2 spray DAILY NS Last administered on 09:54; Start 08/22/17 at 09:00 Buspirone HCl (Buspar) 5 mg TID PO Last administered on 08/24/17 19:45; Start 08/22/17 at 21:00 Albuterol/ Ipratropium (Duoneb) 3 ml RTQID NEB Last administered on 08/24/17 16:00; Start 08/23/17 at 08:00 Pantoprazole Sodium (Protonix) 40 mg DAILYAC PO Last administered on 08/24/17 09:51; Start 08/24/17 at 07:30 Doxycycline Hyclate (Vibra-Tab) 100 mg BID PO Last administered on 08/24/17 19 :45; Start 08/23/17 at 13:30; Stop 09/02/17 at 13:29 Lactobacillus Rhamnosus (Culturelle) 1 cap BID PO Last administered on 19:45; Start 08/23/17 at 21:00 Methylprednisolone (Medrol) 8 mg BID PO Last administered on 08/24/17 19:47; Start 08/24/17 at 09:00; Stop 08/24/17 at 21:01 Methylprednisolone (Medrol) 4 mg TIDPC PO ; Start 08/25/17 at 08:30; Stop at 17:31 Methylprednisolone (Medrol) 8 mg QHS PO ; Start 08/25/17 at 21:00; Stop at 21:01 Methylprednisolone (Medrol) 4 mg QIDAFTMEAL PO ; Start 08/26/17 at 09:00; Stop 08/26/17 at 21:01 Methylprednisolone (Medrol) 4 mg TID PO ; Start 08/27/17 at 09:00; Stop at 21:01 Methylprednisolone (Medrol) 4 mg BID PO ; Start 08/28/17 at 09:00; Stop at 21:01 Methylprednisolone (Medrol) 4 mg DAILY PO ; Start 08/29/17 at 09:00; Stop at 09:01 Aripiprazole (Abilify) 2.5 mg DAILY PO Last administered on 08/24/17at 09:51; Start 08/24/17 at 09:00 Active Scripts Active Reported Maalox Advanced Tab Chew (Calcium Carbonate/Simethicone) 1 Each Tab.chew 2 Tab.chew PO Q2HR Nitrostat (Nitroglycerin) 0.4 Mg Tab.subl 0.4 Mg SL PRN Q5MIN PRN Buspirone Hcl 5 Mg Tablet 5 Mg PO BID92 Multi Tablet (Pnv No.122/Iron/Folic Acid) 1 Each Tablet 1 Each PO DAILYBFRLUN Mirtazapine 15 Mg Tablet 15 Mg PO HS Saline Nasal [place] (Sodium Chloride) 30 Ml [place] 2 Spr NS BID NITROGLYCERIN SubLingual (Nitroglycerin) 0.4 Mg Tab.subl 0.4 Mg SL PRN Q5MIN PRN Milk Of Magnesia (Magnesium Hydroxide) 2,400 Mg/10 Ml Oral.susp 30 Ml PO PRN DAILY PRN Levothyroxine Sodium 88 Mcg Tablet 88 Mcg PO DAILYAC Famotidine 20 Mg Tablet 20 Mg PO DAILY Bisacodyl 5 Mg Tablet.dr 5 Mg PO PRN DAILY PRN Depakote Er (Divalproex Sodium) 500 Mg Tab.er.24h 500 Mg PO BID Cymbalta (Duloxetine Hcl) 60 Mg Capsule.dr 60 Mg PO DAILY Cyanocobalamin Injection (Cyanocobalamin (Vitamin B-12)) 1,000 Mcg/1 Ml Vial 1, 000 Mcg IM QMONTH Coreg (Carvedilol) 3.125 Mg Tablet 3.125 Mg PO BIDWMEALS Atorvastatin Calcium 40 Mg Tablet 40 Mg PO QHS Aspirin 81 Mg Tab.chew 81 Mg PO DAILY Tylenol (Acetaminophen) 325 Mg Tablet 650 Mg PO PRN Q6HRS MDD 4000 I have reviewed the current psychotropics carefully including drug interactions. Risk benefit ratio favors no change other than as noted in my dictated progress note. Diagnosis: Problems: (1) Schizoaffective disorder, chronic condition with acute exacerbation (2) Anxiety disorder (3) Dementia in Alzheimer's disease with depression (4) Dementia in Alzheimer's disease with delusions (5) Dementia, vascular, with delusions (6) Dementia, vascular, with delirium (7) Impulse control disorder PATRICIA HUNT MD Aug 24, 2017 20:48
--- NOTE | 2017-08-24 23:14 | PN ---
DATE: 08/23/2017 This is a late entry 08/23/2016, covers elements not covered in my initial note 08/23/2017. SUBJECTIVE: Met with the patient in the evening of 08/23/2017. The patient's repeat chest x-ray is negative. Labs unremarkable. No temperature. She is on scheduled breathing treatments and started on doxycycline for 10 days and Medrol Dosepak along with Protonix. Speech has recommended nectar- thickened liquids. She has been somewhat withdrawn, making statements of wishing she were , but denies active suicidal ideation as I processed this with her at length in her room. She is making bizarre statements of ____ going to as well. Somewhat psychotic. REVIEW OF SYSTEMS: No CV, , pulmonary, eye system symptoms on review. Has some shortness of breath. MENTAL STATUS EXAM: Oriented to herself and situation. Speech coherent, abstraction fair, computation impaired, language function intact, attention span short. Mood and affect remain somewhat labile. LABORATORY DATA: Reviewed. IMPRESSION: Schizoaffective disorder, bipolar type, mixed with psychotic features. Rest unchanged. PLAN: Continue current psychotropics. Start Abilify 2.5 mg a day to augment Cymbalta and may gradually reduce the Seroquel to avoid duplication of atypical antipsychotics. MAN Kehinde HUNT MD DR: MARCOS/yusef JOB#: [id number] / [id number]
[2017-08-25] MEDS: IPRATRPIUM/ALBUTEROL 0.5/2.5MG 3 ML NEBU. NEB SCH ×4 (05:25→22:12)
[2017-08-25] MEDS: LEVOTHYROXINE 88 MCG TABLET PO SCH (05:48)
[2017-08-25] MEDS: ACETAMINOPHEN 325 MG TABLET PO PRN (05:48)
[2017-08-25 06:36] VITALS: BP 120/78
[2017-08-25] MEDS: ARIPiprazole 5 MG TABLET PO SCH (09:23)
[2017-08-25] MEDS: DOXYCYCLINE HYCLATE 100 MG TABLET PO SCH ×2 (09:23→19:27)
[2017-08-25] MEDS: buPROPion XL 150 MG TAB.ER.24H PO SCH (09:24)
[2017-08-25] MEDS: CETIRIZINE HCL 10 MG TABLET PO SCH (09:24)
[2017-08-25] MEDS: ASPIRIN 81 MG TAB.CHEW PO SCH (09:24)
[2017-08-25] MEDS: LACTOBACILLUS RHAMNOSUS GG 1 CAPSULE. PO SCH ×2 (09:24→19:25)
[2017-08-25] MEDS: DIVALPROEX ER 500 MG TAB.ER.24H PO SCH ×2 (09:24→19:27)
[2017-08-25] MEDS: busPIRone 5 MG TABLET. PO SCH ×4 (09:24→19:25)
[2017-08-25] MEDS: PANTOPRAZOLE 40 MG TABLET. PO SCH (09:24)
[2017-08-25] MEDS: DULoxetine HCL 60 MG CAPSULE.DR PO SCH (09:24)
[2017-08-25] MEDS: CARVEDILOL 3.125 MG TABLET PO SCH ×2 (09:24→18:17)
[2017-08-25] MEDS: methylPREDNISolone 4 MG TABLET. PO SCH ×3 (09:25→18:17)
[2017-08-25] MEDS: SODIUM CHLORIDE 0.65% NASAL SPRAY 45ML BOTTLE. NS SCH ×2 (09:26→19:29)
[2017-08-25] MEDS: FLUTICASONE 50MCG/NASAL SPRAY 16GM BOTTLE. NS SCH (09:26)
[2017-08-25] MEDS: PRENATAL MULTIVITAMIN TABLET. PO SCH (09:27)
[2017-08-25 15:48] VITALS: BP 158/90
[2017-08-25] MEDS ORDERED: BENZOCAINE/MENTHOL LOZNGE 18'S BOX. PO PRN (19:00)
[2017-08-25] MEDS: QUEtiapine 50 MG TABLET. PO SCH (19:26)
[2017-08-25] MEDS: ATORVASTATIN CALCIUM 20 MG TABLET PO SCH (19:27)
[2017-08-25] MEDS: MIRTAZAPINE 15 MG TABLET PO SCH (19:28)
[2017-08-25] MEDS: MELATONIN 3 MG TABLET PO SCH (19:28)
--- NOTE | 2017-08-25 20:26 | PDOC ---
Exam Note: Marco Note: Please also refer to the separate dictated note~for this date of service dictated separately.~Patient seen individually. Discussed the patient with Nursing staff reviewed the chart.~Reviewed interim history and current functioning. Reviewed vital signs,~Labs/ Radiology~and current medications noted below. Continue current treatment with the changes noted in the dictated addendum note Assessment: Vital Signs: Vital Signs Date Time Temp Pulse Resp B/P (MAP) Pulse Ox O2 Delivery O2 Flow Rate FiO2 08/25/17 18:17 82 158/90 08/25/17 16:36 97 Room Air 08/25/17 15:48 97.2 16 I&O Intake and Output 08/25/17 07:00 Intake Total 960 ml Balance 960 ml Intake Oral 960 ml Current Medications: Meds: Current Medications Acetaminophen (Tylenol) 650 mg PRN Q6HRS PRN PO PAIN / TEMP Last administered on 08/25/17at 05:48; Start 08/12/17 at 21:45 Multi-Ingredient Ointment (Analgesic [place]) 1 diana PRN QID PRN TP MUSCLE PAIN; Start 08/12/17 at 21:45 Al Hydroxide/Mg Hydroxide (Mylanta Plus Xs) 15 ml PRN AFTMEALHC PRN PO DYSPEPSIA; Start 08/12/17 at 21:45 Magnesium Hydroxide (Milk Of Magnesia) 2,400 mg PRN QHS PRN PO CONSTIPATION; Start 08/12/17 at 21:45 Buspirone HCl (Buspar) 5 mg BID92 PO Last administered on 08/22/17at 14:37; Start 08/13/17 at 09:00; Stop 08/22/17 at 16:06; Status DC Divalproex Sodium (Depakote Er) 500 mg BID PO Last administered on 08/25/17at 19 :27; Start 08/13/17 at 09:00 Duloxetine HCl (Cymbalta) 60 mg DAILY PO Last administered on 08/25/17at 09:24; Start 08/13/17 at 09:00 Mirtazapine (Remeron) 15 mg HS PO Last administered on 08/25/17at 19:28; Start 08/13/17 at 21:00 Acetaminophen (Tylenol) 650 mg PRN Q6HRS PRN PO MILD PAIN/TEMP; Start 08/12/17 at 23:30; Stop 08/12/17 at 23:37; Status DC Aspirin (Children'S Aspirin) 81 mg DAILY PO Last administered on 08/25/17at 09: 24; Start 08/13/17 at 09:00 Bisacodyl (Dulcolax Tab) 5 mg PRN DAILY PRN PO CONSTIPATION; Start 08/12/17 at 23:30 Carvedilol (Coreg) 3.125 mg BIDWMEALS PO Last administered on 08/25/17at 18:17; Start 08/13/17 at 08:00 Cyanocobalamin (Vitamin B-12) 1,000 mcg QMONTH IM ; Start 09/11/17 at 09:00 Famotidine (Pepcid) 20 mg DAILY PO Last administered on 08/23/17at 08:33; Start 08/13/17 at 09:00; Stop 08/23/17 at 13:04; Status DC Levothyroxine Sodium (Synthroid) 88 mcg DAILYAC PO Last administered on at 07:42; Start 08/13/17 at 07:30; Stop 08/13/17 at 08:03; Status DC Nitroglycerin (Nitrostat) 0.4 mg PRN Q5MIN PRN SL CHEST PAIN; Start 08/12/17 at 23:30 Nitroglycerin (Nitrostat) 0.4 mg PRN Q5MIN PRN SL CHEST PAIN; Start 08/12/17 at 23:30; Stop 08/12/17 at 23:38; Status DC Sodium Chloride (Saline Mist Nasal) 1 diana BID NS Last administered on at 19:29; Start 08/13/17 at 09:00 Atorvastatin Calcium (Lipitor) 40 mg QHS PO Last administered on 08/25/17at 19: 27; Start 08/13/17 at 21:00 Calcium Carbonate/ Glycine (Tums) 500 mg PRN Q2HR PRN PO INDIGESTION; Start 04/19 at 23:45 Non-Formulary Medication (Magnesium Hydroxide (Milk Of Magnesia)) 30 ml PRN DAILY PRN PO CONSTIPATION; Start 08/12/17 at 23:30; Stop 08/12/17 at 23:38; Status DC Prenat Multivit/ [place]/Iron/Folic Ac (Multivitamin ) 1 tab DAILYBFRLUN PO Last administered on 08/25/17 09:27; Start 08/13/17 at 11:30 Simethicone (Gas-X) 80 mg PRN Q2HR PRN PO GAS / BLOATING; Start 08/12/17 at 23: 45 Levothyroxine Sodium (Synthroid) 88 mcg DAILY06 PO Last administered on 05:48; Start 08/14/17 at 06:00 Vitamin D (Vitamin D3) 50,000 unit WEEKLY PO Last administered on 08/20/17 08: 41; Start 08/13/17 at 17:00 Bupropion HCl (Wellbutrin Xl) 150 mg DAILY PO Last administered on 08/25/17 09 :24; Start 08/14/17 at 09:00 Melatonin 3 mg QHS PO Last administered on 08/25/17 19:28; Start 08/13/17 at 21:00 Quetiapine Fumarate (SEROquel) 25 mg HS PO Last administered on 08/17/17 19:57 ; Start 08/16/17 at 21:00; Stop 08/18/17 at 19:36; Status DC Quetiapine Fumarate (SEROquel) 50 mg QHS PO Last administered on 08/19/17 21: 43; Start 08/18/17 at 21:00; Stop 08/20/17 at 18:15; Status DC Quetiapine Fumarate (SEROquel) 75 mg QHS PO Last administered on 08/25/17 19: 26; Start 08/20/17 at 21:00 Cetirizine HCl (ZyrTEC) 10 mg DAILY PO Last administered on 08/25/17 09:24; Start 08/22/17 at 09:00 Fluticasone Propionate (Flonase) 2 spray DAILY NS Last administered on 09:26; Start 08/22/17 at 09:00 Buspirone HCl (Buspar) 5 mg TID PO Last administered on 08/25/17 09:24; Start 08/22/17 at 21:00; Stop 08/25/17 at 11:42; Status DC Albuterol/ Ipratropium (Duoneb) 3 ml RTQID NEB Last administered on 08/25/17 16:38; Start 08/23/17 at 08:00 Pantoprazole Sodium (Protonix) 40 mg DAILYAC PO Last administered on 08/25/17 09:24; Start 08/24/17 at 07:30 Doxycycline Hyclate (Vibra-Tab) 100 mg BID PO Last administered on 08/25/17 19 :27; Start 08/23/17 at 13:30; Stop 09/02/17 at 13:29 Lactobacillus Rhamnosus (Culturelle) 1 cap BID PO Last administered on 19:25; Start 08/23/17 at 21:00 Methylprednisolone (Medrol) 8 mg BID PO Last administered on 08/24/17 19:47; Start 08/24/17 at 09:00; Stop 08/24/17 at 21:01; Status DC Methylprednisolone (Medrol) 4 mg TIDPC PO Last administered on 08/25/17 18:17 ; Start 08/25/17 at 08:30; Stop 08/25/17 at 17:31; Status DC Methylprednisolone (Medrol) 8 mg QHS PO Last administered on 08/25/17 19:27; Start 08/25/17 at 21:00; Stop 08/25/17 at 21:01 Methylprednisolone (Medrol) 4 mg QIDAFTMEAL PO ; Start 08/26/17 at 09:00; Stop 08/26/17 at 21:01 Methylprednisolone (Medrol) 4 mg TID PO ; Start 08/27/17 at 09:00; Stop at 21:01 Methylprednisolone (Medrol) 4 mg BID PO ; Start 08/28/17 at 09:00; Stop at 21:01 Methylprednisolone (Medrol) 4 mg DAILY PO ; Start 08/29/17 at 09:00; Stop at 09:01 Aripiprazole (Abilify) 2.5 mg DAILY PO Last administered on 08/25/17 09:23; Start 08/24/17 at 09:00 Buspirone HCl (Buspar) 5 mg TID@0900,1300,1700 PO Last administered on 19:25; Start 08/25/17 at 13:00 Throat Lozenges (Cepacol Sore Throat Lozenge) 1 libby PRN Q2HR PRN PO SORE THROAT ; Start 08/25/17 at 19:00 Active Scripts Active Reported Maalox Advanced Tab Chew (Calcium Carbonate/Simethicone) 1 Each Tab.chew 2 Tab.chew PO Q2HR Nitrostat (Nitroglycerin) 0.4 Mg Tab.subl 0.4 Mg SL PRN Q5MIN PRN Buspirone Hcl 5 Mg Tablet 5 Mg PO BID92 Multi Tablet (Pnv No.122/Iron/Folic Acid) 1 Each Tablet 1 Each PO DAILYBFRLUN Mirtazapine 15 Mg Tablet 15 Mg PO HS Saline Nasal [place] (Sodium Chloride) 30 Ml [place] 2 Spr NS BID NITROGLYCERIN SubLingual (Nitroglycerin) 0.4 Mg Tab.subl 0.4 Mg SL PRN Q5MIN PRN Milk Of Magnesia (Magnesium Hydroxide) 2,400 Mg/10 Ml Oral.susp 30 Ml PO PRN DAILY PRN Levothyroxine Sodium 88 Mcg Tablet 88 Mcg PO DAILYAC Famotidine 20 Mg Tablet 20 Mg PO DAILY Bisacodyl 5 Mg Tablet.dr 5 Mg PO PRN DAILY PRN Depakote Er (Divalproex Sodium) 500 Mg Tab.er.24h 500 Mg PO BID Cymbalta (Duloxetine Hcl) 60 Mg Capsule.dr 60 Mg PO DAILY Cyanocobalamin Injection (Cyanocobalamin (Vitamin B-12)) 1,000 Mcg/1 Ml Vial 1, 000 Mcg IM QMONTH Coreg (Carvedilol) 3.125 Mg Tablet 3.125 Mg PO BIDWMEALS Atorvastatin Calcium 40 Mg Tablet 40 Mg PO QHS Aspirin 81 Mg Tab.chew 81 Mg PO DAILY Tylenol (Acetaminophen) 325 Mg Tablet 650 Mg PO PRN Q6HRS MDD 4000 I have reviewed the current psychotropics carefully including drug interactions. Risk benefit ratio favors no change other than as noted in my dictated progress note. Diagnosis: Problems: (1) Schizoaffective disorder, chronic condition with acute exacerbation (2) Anxiety disorder (3) Dementia in Alzheimer's disease with depression (4) Dementia in Alzheimer's disease with delusions (5) Dementia, vascular, with delusions (6) Dementia, vascular, with delirium (7) Impulse control disorder PATRICIA HUNT MD Aug 25, 2017 20:26
[2017-08-25] MEDS ORDERED: methylPREDNISolone 4 MG TABLET. PO SCH (21:00)
--- NOTE | 2017-08-25 22:09 | PN ---
DATE: 08/24/2017 This is a late entry, 08/24/2017, covers the elements not covered in my initial note, 08/24/2017. SUBJECTIVE: I met with the patient in the evening, the patient slept 6-3/4 hours. She had a swallow study and has been approved for thin liquids, otherwise pleasant, complains of a sore throat, somewhat delusional, previous evening, confused, looking for grandmother. She has been extremely stressed because her son is on hospice care and reportedly, he is dying. She denies active suicidal ideation as I met with her the evening of 08/24/2017. REVIEW OF SYSTEMS: No CV, , pulmonary, eye system symptoms on review. MENTAL STATUS EXAM: Oriented to herself and situation. Speech is coherent, had some latency. Abstraction fair, computation impaired, language function intact. Mood and affect still somewhat withdrawn, depressed, paranoid, but less so than before. LABORATORY DATA: Reviewed. IMPRESSION: Schizoaffective disorder, bipolar type, mixed with psychotic features. PLAN: Continue psychotropics as mentioned in my initial note. MAN Kehinde HUNT MD DR: MARCOS/yusef JOB#: [id number] / [id number]
[2017-08-26] MEDS: IPRATRPIUM/ALBUTEROL 0.5/2.5MG 3 ML NEBU. NEB SCH ×3 (05:33→16:54)
[2017-08-26] MEDS: LEVOTHYROXINE 88 MCG TABLET PO SCH (05:57)
[2017-08-26 06:17] VITALS: BP 170/92
[2017-08-26] MEDS: ASPIRIN 81 MG TAB.CHEW PO SCH (08:35)
[2017-08-26] MEDS: DIVALPROEX ER 500 MG TAB.ER.24H PO SCH ×2 (08:35→19:36)
[2017-08-26] MEDS: LACTOBACILLUS RHAMNOSUS GG 1 CAPSULE. PO SCH ×2 (08:35→19:35)
[2017-08-26] MEDS: buPROPion XL 150 MG TAB.ER.24H PO SCH (08:35)
[2017-08-26] MEDS: PANTOPRAZOLE 40 MG TABLET. PO SCH (08:36)
[2017-08-26] MEDS: DULoxetine HCL 60 MG CAPSULE.DR PO SCH (08:36)
[2017-08-26] MEDS: busPIRone 5 MG TABLET. PO SCH ×2 (08:36→17:49)
[2017-08-26] MEDS: PRENATAL MULTIVITAMIN TABLET. PO SCH (08:36)
[2017-08-26] MEDS: CETIRIZINE HCL 10 MG TABLET PO SCH (08:36)
[2017-08-26] MEDS: CARVEDILOL 3.125 MG TABLET PO SCH ×2 (08:37→17:51)
[2017-08-26] MEDS: DOXYCYCLINE HYCLATE 100 MG TABLET PO SCH ×2 (08:38→19:36)
[2017-08-26] MEDS: ARIPiprazole 5 MG TABLET PO SCH (08:38)
[2017-08-26] MEDS: FLUTICASONE 50MCG/NASAL SPRAY 16GM BOTTLE. NS SCH (08:43)
[2017-08-26] MEDS: methylPREDNISolone 4 MG TABLET. PO SCH ×4 (08:43→19:35)
[2017-08-26] MEDS: SODIUM CHLORIDE 0.65% NASAL SPRAY 45ML BOTTLE. NS SCH ×2 (08:44→19:50)
[2017-08-26 16:22] VITALS: BP 125/92
[2017-08-26] MEDS: ATORVASTATIN CALCIUM 20 MG TABLET PO SCH (19:35)
[2017-08-26] MEDS: MIRTAZAPINE 15 MG TABLET PO SCH (19:36)
[2017-08-26] MEDS: QUEtiapine 50 MG TABLET. PO SCH (19:37)
[2017-08-26] MEDS: MELATONIN 3 MG TABLET PO SCH (19:37)
--- NOTE | 2017-08-26 21:11 | PDOC ---
Exam Note: Marco Note: Please also refer to the separate dictated note~for this date of service dictated separately.~Patient seen individually. Discussed the patient with Nursing staff reviewed the chart.~Reviewed interim history and current functioning. Reviewed vital signs,~Labs/ Radiology~and current medications noted below. Continue current treatment with the changes noted in the dictated addendum note Assessment: Vital Signs: Vital Signs Date Time Temp Pulse Resp B/P (MAP) Pulse Ox O2 Delivery O2 Flow Rate FiO2 08/26/17 17:51 87 125/92 08/26/17 16:55 97 Room Air 08/26/17 16:22 97.5 18 I&O Intake and Output 08/26/17 07:00 Intake Total 1320 ml Balance 1320 ml Intake Oral 1320 ml # Voids 1 Current Medications: Meds: Current Medications Acetaminophen (Tylenol) 650 mg PRN Q6HRS PRN PO PAIN / TEMP Last administered on 08/25/17at 05:48; Start 08/12/17 at 21:45 Multi-Ingredient Ointment (Analgesic [place]) 1 diana PRN QID PRN TP MUSCLE PAIN; Start 08/12/17 at 21:45 Al Hydroxide/Mg Hydroxide (Mylanta Plus Xs) 15 ml PRN AFTMEALHC PRN PO DYSPEPSIA; Start 08/12/17 at 21:45 Magnesium Hydroxide (Milk Of Magnesia) 2,400 mg PRN QHS PRN PO CONSTIPATION; Start 08/12/17 at 21:45 Buspirone HCl (Buspar) 5 mg BID92 PO Last administered on 08/22/17at 14:37; Start 08/13/17 at 09:00; Stop 08/22/17 at 16:06; Status DC Divalproex Sodium (Depakote Er) 500 mg BID PO Last administered on 08/26/17at 19 :36; Start 08/13/17 at 09:00 Duloxetine HCl (Cymbalta) 60 mg DAILY PO Last administered on 08/26/17at 08:36; Start 08/13/17 at 09:00 Mirtazapine (Remeron) 15 mg HS PO Last administered on 08/26/17at 19:36; Start 08/13/17 at 21:00 Acetaminophen (Tylenol) 650 mg PRN Q6HRS PRN PO MILD PAIN/TEMP; Start 08/12/17 at 23:30; Stop 08/12/17 at 23:37; Status DC Aspirin (Children'S Aspirin) 81 mg DAILY PO Last administered on 08/26/17at 08: 35; Start 08/13/17 at 09:00 Bisacodyl (Dulcolax Tab) 5 mg PRN DAILY PRN PO CONSTIPATION; Start 08/12/17 at 23:30 Carvedilol (Coreg) 3.125 mg BIDWMEALS PO Last administered on 08/26/17at 17:51; Start 08/13/17 at 08:00 Cyanocobalamin (Vitamin B-12) 1,000 mcg QMONTH IM ; Start 09/11/17 at 09:00 Famotidine (Pepcid) 20 mg DAILY PO Last administered on 08/23/17at 08:33; Start 08/13/17 at 09:00; Stop 08/23/17 at 13:04; Status DC Levothyroxine Sodium (Synthroid) 88 mcg DAILYAC PO Last administered on at 07:42; Start 08/13/17 at 07:30; Stop 08/13/17 at 08:03; Status DC Nitroglycerin (Nitrostat) 0.4 mg PRN Q5MIN PRN SL CHEST PAIN; Start 08/12/17 at 23:30 Nitroglycerin (Nitrostat) 0.4 mg PRN Q5MIN PRN SL CHEST PAIN; Start 08/12/17 at 23:30; Stop 08/12/17 at 23:38; Status DC Sodium Chloride (Saline Mist Nasal) 1 diana BID NS Last administered on at 19:50; Start 08/13/17 at 09:00 Atorvastatin Calcium (Lipitor) 40 mg QHS PO Last administered on 08/26/17at 19: 35; Start 08/13/17 at 21:00 Calcium Carbonate/ Glycine (Tums) 500 mg PRN Q2HR PRN PO INDIGESTION; Start 04/19 at 23:45 Non-Formulary Medication (Magnesium Hydroxide (Milk Of Magnesia)) 30 ml PRN DAILY PRN PO CONSTIPATION; Start 08/12/17 at 23:30; Stop 08/12/17 at 23:38; Status DC Prenat Multivit/ [place]/Iron/Folic Ac (Multivitamin ) 1 tab DAILYBFRLUN PO Last administered on 08/26/17 08:36; Start 08/13/17 at 11:30 Simethicone (Gas-X) 80 mg PRN Q2HR PRN PO GAS / BLOATING; Start 08/12/17 at 23: 45 Levothyroxine Sodium (Synthroid) 88 mcg DAILY06 PO Last administered on 05:57; Start 08/14/17 at 06:00 Vitamin D (Vitamin D3) 50,000 unit WEEKLY PO Last administered on 08/20/17 08: 41; Start 08/13/17 at 17:00 Bupropion HCl (Wellbutrin Xl) 150 mg DAILY PO Last administered on 08/26/17 08 :35; Start 08/14/17 at 09:00 Melatonin 3 mg QHS PO Last administered on 08/26/17 19:37; Start 08/13/17 at 21:00 Quetiapine Fumarate (SEROquel) 25 mg HS PO Last administered on 08/17/17 19:57 ; Start 08/16/17 at 21:00; Stop 08/18/17 at 19:36; Status DC Quetiapine Fumarate (SEROquel) 50 mg QHS PO Last administered on 08/19/17 21: 43; Start 08/18/17 at 21:00; Stop 08/20/17 at 18:15; Status DC Quetiapine Fumarate (SEROquel) 75 mg QHS PO Last administered on 08/26/17 19: 37; Start 08/20/17 at 21:00 Cetirizine HCl (ZyrTEC) 10 mg DAILY PO Last administered on 08/26/17 08:36; Start 08/22/17 at 09:00 Fluticasone Propionate (Flonase) 2 spray DAILY NS Last administered on 08:43; Start 08/22/17 at 09:00 Buspirone HCl (Buspar) 5 mg TID PO Last administered on 08/25/17 09:24; Start 08/22/17 at 21:00; Stop 08/25/17 at 11:42; Status DC Albuterol/ Ipratropium (Duoneb) 3 ml RTQID NEB Last administered on 4/26/18at 16:54; Start 08/23/17 at 08:00; Stop 08/26/17 at 19:04; Status DC Pantoprazole Sodium (Protonix) 40 mg DAILYAC PO Last administered on 08/26/17at 08:36; Start 08/24/17 at 07:30 Doxycycline Hyclate (Vibra-Tab) 100 mg BID PO Last administered on 08/26/17 19 :36; Start 08/23/17 at 13:30; Stop 09/02/17 at 13:29 Lactobacillus Rhamnosus (Culturelle) 1 cap BID PO Last administered on 19:35; Start 08/23/17 at 21:00 Methylprednisolone (Medrol) 8 mg BID PO Last administered on 08/24/17at 19:47; Start 08/24/17 at 09:00; Stop 08/24/17 at 21:01; Status DC Methylprednisolone (Medrol) 4 mg TIDPC PO Last administered on 08/25/17 18:17 ; Start 08/25/17 at 08:30; Stop 08/25/17 at 17:31; Status DC Methylprednisolone (Medrol) 8 mg QHS PO Last administered on 08/25/17at 19:27; Start 08/25/17 at 21:00; Stop 08/25/17 at 21:01; Status DC Methylprednisolone (Medrol) 4 mg QIDAFTMEAL PO Last administered on 08/26/17 19:35; Start 08/26/17 at 09:00; Stop 08/26/17 at 21:01; Status DC Methylprednisolone (Medrol) 4 mg TID PO ; Start 08/27/17 at 09:00; Stop at 21:01 Methylprednisolone (Medrol) 4 mg BID PO ; Start 08/28/17 at 09:00; Stop at 21:01 Methylprednisolone (Medrol) 4 mg DAILY PO ; Start 08/29/17 at 09:00; Stop at 09:01 Aripiprazole (Abilify) 2.5 mg DAILY PO Last administered on 08/26/17at 08:38; Start 08/24/17 at 09:00 Buspirone HCl (Buspar) 5 mg TID@0900,1300,1700 PO Last administered on at 17:49; Start 08/25/17 at 13:00 Throat Lozenges (Cepacol Sore Throat Lozenge) 1 libby PRN Q2HR PRN PO SORE THROAT ; Start 08/25/17 at 19:00 Albuterol/ Ipratropium (Duoneb) 3 ml PRN QID PRN NEB COUGH; Start 08/27/17 at 16:00 Active Scripts Active Reported Maalox Advanced Tab Chew (Calcium Carbonate/Simethicone) 1 Each Tab.chew 2 Tab.chew PO Q2HR Nitrostat (Nitroglycerin) 0.4 Mg Tab.subl 0.4 Mg SL PRN Q5MIN PRN Buspirone Hcl 5 Mg Tablet 5 Mg PO BID92 Multi Tablet (Pnv No.122/Iron/Folic Acid) 1 Each Tablet 1 Each PO DAILYBFRLUN Mirtazapine 15 Mg Tablet 15 Mg PO HS Saline Nasal [place] (Sodium Chloride) 30 Ml [place] 2 Spr NS BID NITROGLYCERIN SubLingual (Nitroglycerin) 0.4 Mg Tab.subl 0.4 Mg SL PRN Q5MIN PRN Milk Of Magnesia (Magnesium Hydroxide) 2,400 Mg/10 Ml Oral.susp 30 Ml PO PRN DAILY PRN Levothyroxine Sodium 88 Mcg Tablet 88 Mcg PO DAILYAC Famotidine 20 Mg Tablet 20 Mg PO DAILY Bisacodyl 5 Mg Tablet.dr 5 Mg PO PRN DAILY PRN Depakote Er (Divalproex Sodium) 500 Mg Tab.er.24h 500 Mg PO BID Cymbalta (Duloxetine Hcl) 60 Mg Capsule.dr 60 Mg PO DAILY Cyanocobalamin Injection (Cyanocobalamin (Vitamin B-12)) 1,000 Mcg/1 Ml Vial 1, 000 Mcg IM QMONTH Coreg (Carvedilol) 3.125 Mg Tablet 3.125 Mg PO BIDWMEALS Atorvastatin Calcium 40 Mg Tablet 40 Mg PO QHS Aspirin 81 Mg Tab.chew 81 Mg PO DAILY Tylenol (Acetaminophen) 325 Mg Tablet 650 Mg PO PRN Q6HRS MDD 4000 I have reviewed the current psychotropics carefully including drug interactions. Risk benefit ratio favors no change other than as noted in my dictated progress note. Diagnosis: Problems: (1) Schizoaffective disorder, chronic condition with acute exacerbation (2) Anxiety disorder (3) Dementia in Alzheimer's disease with depression (4) Dementia in Alzheimer's disease with delusions (5) Dementia, vascular, with delusions (6) Dementia, vascular, with delirium (7) Impulse control disorder PATRICIA HUNT MD Aug 26, 2017 21:11
[2017-08-27 05:56] VITALS: BP 159/83
[2017-08-27] MEDS: LEVOTHYROXINE 88 MCG TABLET PO SCH (06:07)
[2017-08-27] MEDS: CETIRIZINE HCL 10 MG TABLET PO SCH (07:41)
[2017-08-27] MEDS: DULoxetine HCL 60 MG CAPSULE.DR PO SCH (07:42)
[2017-08-27] MEDS: buPROPion XL 150 MG TAB.ER.24H PO SCH (07:42)
[2017-08-27] MEDS: ARIPiprazole 5 MG TABLET PO SCH (07:42)
[2017-08-27] MEDS: DOXYCYCLINE HYCLATE 100 MG TABLET PO SCH ×2 (07:42→20:09)
[2017-08-27] MEDS: PANTOPRAZOLE 40 MG TABLET. PO SCH (07:42)
[2017-08-27] MEDS: LACTOBACILLUS RHAMNOSUS GG 1 CAPSULE. PO SCH ×2 (07:42→20:08)
[2017-08-27] MEDS: DIVALPROEX ER 500 MG TAB.ER.24H PO SCH ×2 (07:42→20:08)
[2017-08-27] MEDS: ASPIRIN 81 MG TAB.CHEW PO SCH (07:42)
[2017-08-27] MEDS: CARVEDILOL 3.125 MG TABLET PO SCH ×2 (07:43→17:10)
[2017-08-27] MEDS: busPIRone 5 MG TABLET. PO SCH ×3 (07:44→17:10)
[2017-08-27] MEDS: SODIUM CHLORIDE 0.65% NASAL SPRAY 45ML BOTTLE. NS SCH ×2 (07:46→20:09)
[2017-08-27] MEDS: FLUTICASONE 50MCG/NASAL SPRAY 16GM BOTTLE. NS SCH (07:46)
[2017-08-27] MEDS: methylPREDNISolone 4 MG TABLET. PO SCH ×3 (07:46→20:09)
[2017-08-27] MEDS: CHOLECALCIFEROL (VITAMIN D3) 50,000 UNIT CAPSULE PO SCH (07:47)
[2017-08-27] MEDS: ACETAMINOPHEN 325 MG TABLET PO PRN (10:27)
[2017-08-27] MEDS: PRENATAL MULTIVITAMIN TABLET. PO SCH (11:42)
[2017-08-27] MEDS ORDERED: IPRATRPIUM/ALBUTEROL 0.5/2.5MG 3 ML NEBU. NEB PRN (16:00)
[2017-08-27 16:26] VITALS: BP 144/90
[2017-08-27] MEDS: MELATONIN 3 MG TABLET PO SCH (20:08)
[2017-08-27] MEDS: ATORVASTATIN CALCIUM 20 MG TABLET PO SCH (20:08)
[2017-08-27] MEDS: QUEtiapine 50 MG TABLET. PO SCH (20:09)
[2017-08-27] MEDS: MIRTAZAPINE 15 MG TABLET PO SCH (20:09)
--- NOTE | 2017-08-27 22:58 | PDOC ---
Exam Note: Marco Note: Please also refer to the separate dictated note~for this date of service dictated separately.~Patient seen individually. Discussed the patient with Nursing staff reviewed the chart.~Reviewed interim history and current functioning. Reviewed vital signs,~Labs/ Radiology~and current medications noted below. Continue current treatment with the changes noted in the dictated addendum note Assessment: Vital Signs: Vital Signs Date Time Temp Pulse Resp B/P (MAP) Pulse Ox O2 Delivery O2 Flow Rate FiO2 08/27/17 17:10 86 144/90 08/27/17 16:26 97.6 16 96 08/26/17 16:55 Room Air I&O Intake and Output 08/27/17 07:00 Intake Total 1140 ml Balance 1140 ml Intake Oral 1140 ml Current Medications: Meds: Current Medications Acetaminophen (Tylenol) 650 mg PRN Q6HRS PRN PO PAIN / TEMP Last administered on 08/27/17at 10:27; Start 08/12/17 at 21:45 Multi-Ingredient Ointment (Analgesic [place]) 1 diana PRN QID PRN TP MUSCLE PAIN; Start 08/12/17 at 21:45 Al Hydroxide/Mg Hydroxide (Mylanta Plus Xs) 15 ml PRN AFTMEALHC PRN PO DYSPEPSIA; Start 08/12/17 at 21:45 Magnesium Hydroxide (Milk Of Magnesia) 2,400 mg PRN QHS PRN PO CONSTIPATION; Start 08/12/17 at 21:45 Buspirone HCl (Buspar) 5 mg BID92 PO Last administered on 08/22/17at 14:37; Start 08/13/17 at 09:00; Stop 08/22/17 at 16:06; Status DC Divalproex Sodium (Depakote Er) 500 mg BID PO Last administered on 08/27/17at 20 :08; Start 08/13/17 at 09:00 Duloxetine HCl (Cymbalta) 60 mg DAILY PO Last administered on 08/27/17at 07:42; Start 08/13/17 at 09:00 Mirtazapine (Remeron) 15 mg HS PO Last administered on 08/27/17at 20:09; Start 08/13/17 at 21:00 Acetaminophen (Tylenol) 650 mg PRN Q6HRS PRN PO MILD PAIN/TEMP; Start 08/12/17 at 23:30; Stop 08/12/17 at 23:37; Status DC Aspirin (Children'S Aspirin) 81 mg DAILY PO Last administered on 08/27/17at 07: 42; Start 08/13/17 at 09:00 Bisacodyl (Dulcolax Tab) 5 mg PRN DAILY PRN PO CONSTIPATION; Start 08/12/17 at 23:30 Carvedilol (Coreg) 3.125 mg BIDWMEALS PO Last administered on 08/27/17at 17:10; Start 08/13/17 at 08:00 Cyanocobalamin (Vitamin B-12) 1,000 mcg QMONTH IM ; Start 09/11/17 at 09:00 Famotidine (Pepcid) 20 mg DAILY PO Last administered on 08/23/17at 08:33; Start 08/13/17 at 09:00; Stop 08/23/17 at 13:04; Status DC Levothyroxine Sodium (Synthroid) 88 mcg DAILYAC PO Last administered on at 07:42; Start 08/13/17 at 07:30; Stop 08/13/17 at 08:03; Status DC Nitroglycerin (Nitrostat) 0.4 mg PRN Q5MIN PRN SL CHEST PAIN; Start 08/12/17 at 23:30 Nitroglycerin (Nitrostat) 0.4 mg PRN Q5MIN PRN SL CHEST PAIN; Start 08/12/17 at 23:30; Stop 08/12/17 at 23:38; Status DC Sodium Chloride (Saline Mist Nasal) 1 diana BID NS Last administered on at 20:09; Start 08/13/17 at 09:00 Atorvastatin Calcium (Lipitor) 40 mg QHS PO Last administered on 08/27/17at 20: 08; Start 08/13/17 at 21:00 Calcium Carbonate/ Glycine (Tums) 500 mg PRN Q2HR PRN PO INDIGESTION; Start 04/19 at 23:45 Non-Formulary Medication (Magnesium Hydroxide (Milk Of Magnesia)) 30 ml PRN DAILY PRN PO CONSTIPATION; Start 08/12/17 at 23:30; Stop 08/12/17 at 23:38; Status DC Prenat Multivit/ [place]/Iron/Folic Ac (Multivitamin ) 1 tab DAILYBFRLUN PO Last administered on 08/27/17 11:42; Start 08/13/17 at 11:30 Simethicone (Gas-X) 80 mg PRN Q2HR PRN PO GAS / BLOATING; Start 08/12/17 at 23: 45 Levothyroxine Sodium (Synthroid) 88 mcg DAILY06 PO Last administered on 06:07; Start 08/14/17 at 06:00 Vitamin D (Vitamin D3) 50,000 unit WEEKLY PO Last administered on 08/27/17 07: 47; Start 08/13/17 at 17:00 Bupropion HCl (Wellbutrin Xl) 150 mg DAILY PO Last administered on 08/27/17 07 :42; Start 08/14/17 at 09:00 Melatonin 3 mg QHS PO Last administered on 08/27/17 20:08; Start 08/13/17 at 21:00 Quetiapine Fumarate (SEROquel) 25 mg HS PO Last administered on 08/17/17 19:57 ; Start 08/16/17 at 21:00; Stop 08/18/17 at 19:36; Status DC Quetiapine Fumarate (SEROquel) 50 mg QHS PO Last administered on 08/19/17 21: 43; Start 08/18/17 at 21:00; Stop 08/20/17 at 18:15; Status DC Quetiapine Fumarate (SEROquel) 75 mg QHS PO Last administered on 08/27/17 20: 09; Start 08/20/17 at 21:00 Cetirizine HCl (ZyrTEC) 10 mg DAILY PO Last administered on 08/27/17 07:41; Start 08/22/17 at 09:00 Fluticasone Propionate (Flonase) 2 spray DAILY NS Last administered on 07:46; Start 08/22/17 at 09:00 Buspirone HCl (Buspar) 5 mg TID PO Last administered on 08/25/17 09:24; Start 08/22/17 at 21:00; Stop 08/25/17 at 11:42; Status DC Albuterol/ Ipratropium (Duoneb) 3 ml RTQID NEB Last administered on 08/26/17 16:54; Start 08/23/17 at 08:00; Stop 08/26/17 at 19:04; Status DC Pantoprazole Sodium (Protonix) 40 mg DAILYAC PO Last administered on 08/27/17at 07:42; Start 08/24/17 at 07:30 Doxycycline Hyclate (Vibra-Tab) 100 mg BID PO Last administered on 08/27/17at 20 :09; Start 08/23/17 at 13:30; Stop 09/02/17 at 13:29 Lactobacillus Rhamnosus (Culturelle) 1 cap BID PO Last administered on at 20:08; Start 08/23/17 at 21:00 Methylprednisolone (Medrol) 8 mg BID PO Last administered on 08/24/17at 19:47; Start 08/24/17 at 09:00; Stop 08/24/17 at 21:01; Status DC Methylprednisolone (Medrol) 4 mg TIDPC PO Last administered on 08/25/17at 18:17 ; Start 08/25/17 at 08:30; Stop 08/25/17 at 17:31; Status DC Methylprednisolone (Medrol) 8 mg QHS PO Last administered on 08/25/17at 19:27; Start 08/25/17 at 21:00; Stop 08/25/17 at 21:01; Status DC Methylprednisolone (Medrol) 4 mg QIDAFTMEAL PO Last administered on 08/26/17at 19:35; Start 08/26/17 at 09:00; Stop 08/26/17 at 21:01; Status DC Methylprednisolone (Medrol) 4 mg TID PO Last administered on 08/27/17at 20:09; Start 08/27/17 at 09:00; Stop 08/27/17 at 21:01; Status DC Methylprednisolone (Medrol) 4 mg BID PO ; Start 08/28/17 at 09:00; Stop at 21:01 Methylprednisolone (Medrol) 4 mg DAILY PO ; Start 08/29/17 at 09:00; Stop at 09:01 Aripiprazole (Abilify) 2.5 mg DAILY PO Last administered on 08/27/17at 07:42; Start 08/24/17 at 09:00 Buspirone HCl (Buspar) 5 mg TID@0900,1300,1700 PO Last administered on at 17:10; Start 08/25/17 at 13:00 Throat Lozenges (Cepacol Sore Throat Lozenge) 1 libby PRN Q2HR PRN PO SORE THROAT ; Start 08/25/17 at 19:00 Albuterol/ Ipratropium (Duoneb) 3 ml PRN QID PRN NEB COUGH; Start 08/27/17 at 16:00 Active Scripts Active Reported Maalox Advanced Tab Chew (Calcium Carbonate/Simethicone) 1 Each Tab.chew 2 Tab.chew PO Q2HR Nitrostat (Nitroglycerin) 0.4 Mg Tab.subl 0.4 Mg SL PRN Q5MIN PRN Buspirone Hcl 5 Mg Tablet 5 Mg PO BID92 Multi Tablet (Pnv No.122/Iron/Folic Acid) 1 Each Tablet 1 Each PO DAILYBFRLUN Mirtazapine 15 Mg Tablet 15 Mg PO HS Saline Nasal [place] (Sodium Chloride) 30 Ml [place] 2 Spr NS BID NITROGLYCERIN SubLingual (Nitroglycerin) 0.4 Mg Tab.subl 0.4 Mg SL PRN Q5MIN PRN Milk Of Magnesia (Magnesium Hydroxide) 2,400 Mg/10 Ml Oral.susp 30 Ml PO PRN DAILY PRN Levothyroxine Sodium 88 Mcg Tablet 88 Mcg PO DAILYAC Famotidine 20 Mg Tablet 20 Mg PO DAILY Bisacodyl 5 Mg Tablet.dr 5 Mg PO PRN DAILY PRN Depakote Er (Divalproex Sodium) 500 Mg Tab.er.24h 500 Mg PO BID Cymbalta (Duloxetine Hcl) 60 Mg Capsule.dr 60 Mg PO DAILY Cyanocobalamin Injection (Cyanocobalamin (Vitamin B-12)) 1,000 Mcg/1 Ml Vial 1, 000 Mcg IM QMONTH Coreg (Carvedilol) 3.125 Mg Tablet 3.125 Mg PO BIDWMEALS Atorvastatin Calcium 40 Mg Tablet 40 Mg PO QHS Aspirin 81 Mg Tab.chew 81 Mg PO DAILY Tylenol (Acetaminophen) 325 Mg Tablet 650 Mg PO PRN Q6HRS MDD 4000 I have reviewed the current psychotropics carefully including drug interactions. Risk benefit ratio favors no change other than as noted in my dictated progress note. Diagnosis: Problems: (1) Schizoaffective disorder, chronic condition with acute exacerbation (2) Anxiety disorder (3) Dementia in Alzheimer's disease with depression (4) Dementia in Alzheimer's disease with delusions (5) Dementia, vascular, with delusions (6) Dementia, vascular, with delirium (7) Impulse control disorder PATRICIA HUNT MD Aug 27, 2017 22:58
[2017-08-28] MEDS: ACETAMINOPHEN 325 MG TABLET PO PRN (06:16)
[2017-08-28] MEDS: LEVOTHYROXINE 88 MCG TABLET PO SCH (06:16)
[2017-08-28 06:31] VITALS: BP 160/86
[2017-08-28] MEDS: ASPIRIN 81 MG TAB.CHEW PO SCH (07:46)
[2017-08-28] MEDS: methylPREDNISolone 4 MG TABLET. PO SCH ×2 (07:46→20:45)
[2017-08-28] MEDS: LACTOBACILLUS RHAMNOSUS GG 1 CAPSULE. PO SCH ×2 (07:46→20:37)
[2017-08-28] MEDS: CETIRIZINE HCL 10 MG TABLET PO SCH (07:46)
[2017-08-28] MEDS: busPIRone 5 MG TABLET. PO SCH ×3 (07:46→17:14)
[2017-08-28] MEDS: ARIPiprazole 5 MG TABLET PO SCH (07:46)
[2017-08-28] MEDS: buPROPion XL 150 MG TAB.ER.24H PO SCH (07:47)
[2017-08-28] MEDS: CARVEDILOL 3.125 MG TABLET PO SCH ×2 (07:47→17:15)
[2017-08-28] MEDS: DIVALPROEX ER 500 MG TAB.ER.24H PO SCH ×2 (07:47→20:36)
[2017-08-28] MEDS: PANTOPRAZOLE 40 MG TABLET. PO SCH (07:47)
[2017-08-28] MEDS: DULoxetine HCL 60 MG CAPSULE.DR PO SCH (07:47)
[2017-08-28] MEDS: DOXYCYCLINE HYCLATE 100 MG TABLET PO SCH ×2 (07:47→20:37)
[2017-08-28] MEDS: SODIUM CHLORIDE 0.65% NASAL SPRAY 45ML BOTTLE. NS SCH ×2 (07:48→20:46)
[2017-08-28] MEDS: FLUTICASONE 50MCG/NASAL SPRAY 16GM BOTTLE. NS SCH (07:48)
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
[2017-08-28] MEDS: PRENATAL MULTIVITAMIN TABLET. PO SCH (12:11)
[2017-08-28 17:28] VITALS: BP 144/64
[2017-08-28] MEDS: MELATONIN 3 MG TABLET PO SCH (20:37)
[2017-08-28] MEDS: ATORVASTATIN CALCIUM 20 MG TABLET PO SCH (20:37)
[2017-08-28] MEDS: MIRTAZAPINE 15 MG TABLET PO SCH (20:38)
[2017-08-28] MEDS: QUEtiapine 50 MG TABLET. PO SCH (20:38)
[2017-08-28] MEDS: LOSARTAN 25 MG TABLET. PO SCH (20:46)
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
--- NOTE | 2017-08-28 22:28 | PDOC ---
Exam Note: Marco Note: Please also refer to the separate dictated note~for this date of service dictated separately.~Patient seen individually. Discussed the patient with Nursing staff reviewed the chart.~Reviewed interim history and current functioning. Reviewed vital signs,~Labs/ Radiology~and current medications noted below. Continue current treatment with the changes noted in the dictated addendum note Assessment: Vital Signs: Vital Signs Date Time Temp Pulse Resp B/P (MAP) Pulse Ox O2 Delivery O2 Flow Rate FiO2 08/28/17 20:46 86 144/64 08/28/17 17:28 98.0 20 97 08/26/17 16:55 Room Air I&O Intake and Output 08/28/17 07:00 Intake Total 1080 ml Balance 1080 ml Intake Oral 1080 ml Current Medications: Meds: Current Medications Acetaminophen (Tylenol) 650 mg PRN Q6HRS PRN PO PAIN / TEMP Last administered on 08/28/17at 06:16; Start 08/12/17 at 21:45 Multi-Ingredient Ointment (Analgesic [place]) 1 diana PRN QID PRN TP MUSCLE PAIN; Start 08/12/17 at 21:45 Al Hydroxide/Mg Hydroxide (Mylanta Plus Xs) 15 ml PRN AFTMEALHC PRN PO DYSPEPSIA; Start 08/12/17 at 21:45 Magnesium Hydroxide (Milk Of Magnesia) 2,400 mg PRN QHS PRN PO CONSTIPATION; Start 08/12/17 at 21:45 Buspirone HCl (Buspar) 5 mg BID92 PO Last administered on 08/22/17at 14:37; Start 08/13/17 at 09:00; Stop 08/22/17 at 16:06; Status DC Divalproex Sodium (Depakote Er) 500 mg BID PO Last administered on 08/28/17at 20 :36; Start 08/13/17 at 09:00 Duloxetine HCl (Cymbalta) 60 mg DAILY PO Last administered on 08/28/17at 07:47; Start 08/13/17 at 09:00 Mirtazapine (Remeron) 15 mg HS PO Last administered on 08/28/17at 20:38; Start 08/13/17 at 21:00 Acetaminophen (Tylenol) 650 mg PRN Q6HRS PRN PO MILD PAIN/TEMP; Start 08/12/17 at 23:30; Stop 08/12/17 at 23:37; Status DC Aspirin (Children'S Aspirin) 81 mg DAILY PO Last administered on 08/28/17at 07: 46; Start 08/13/17 at 09:00 Bisacodyl (Dulcolax Tab) 5 mg PRN DAILY PRN PO CONSTIPATION; Start 08/12/17 at 23:30 Carvedilol (Coreg) 3.125 mg BIDWMEALS PO Last administered on 08/28/17at 17:15; Start 08/13/17 at 08:00 Cyanocobalamin (Vitamin B-12) 1,000 mcg QMONTH IM ; Start 09/11/17 at 09:00 Famotidine (Pepcid) 20 mg DAILY PO Last administered on 08/23/17at 08:33; Start 08/13/17 at 09:00; Stop 08/23/17 at 13:04; Status DC Levothyroxine Sodium (Synthroid) 88 mcg DAILYAC PO Last administered on at 07:42; Start 08/13/17 at 07:30; Stop 08/13/17 at 08:03; Status DC Nitroglycerin (Nitrostat) 0.4 mg PRN Q5MIN PRN SL CHEST PAIN; Start 08/12/17 at 23:30 Nitroglycerin (Nitrostat) 0.4 mg PRN Q5MIN PRN SL CHEST PAIN; Start 08/12/17 at 23:30; Stop 08/12/17 at 23:38; Status DC Sodium Chloride (Saline Mist Nasal) 1 diana BID NS Last administered on at 20:46; Start 08/13/17 at 09:00 Atorvastatin Calcium (Lipitor) 40 mg QHS PO Last administered on 08/28/17at 20: 37; Start 08/13/17 at 21:00 Calcium Carbonate/ Glycine (Tums) 500 mg PRN Q2HR PRN PO INDIGESTION; Start 04/19 at 23:45 Non-Formulary Medication (Magnesium Hydroxide (Milk Of Magnesia)) 30 ml PRN DAILY PRN PO CONSTIPATION; Start 08/12/17 at 23:30; Stop 08/12/17 at 23:38; Status DC Prenat Multivit/ [place]/Iron/Folic Ac (Multivitamin ) 1 tab DAILYBFRLUN PO Last administered on 08/28/17 12:11; Start 08/13/17 at 11:30 Simethicone (Gas-X) 80 mg PRN Q2HR PRN PO GAS / BLOATING; Start 08/12/17 at 23: 45 Levothyroxine Sodium (Synthroid) 88 mcg DAILY06 PO Last administered on 06:16; Start 08/14/17 at 06:00 Vitamin D (Vitamin D3) 50,000 unit WEEKLY PO Last administered on 08/27/17 07: 47; Start 08/13/17 at 17:00 Bupropion HCl (Wellbutrin Xl) 150 mg DAILY PO Last administered on 08/28/17 07 :47; Start 08/14/17 at 09:00 Melatonin 3 mg QHS PO Last administered on 08/28/17 20:37; Start 08/13/17 at 21:00 Quetiapine Fumarate (SEROquel) 25 mg HS PO Last administered on 08/17/17 19:57 ; Start 08/16/17 at 21:00; Stop 08/18/17 at 19:36; Status DC Quetiapine Fumarate (SEROquel) 50 mg QHS PO Last administered on 08/19/17 21: 43; Start 08/18/17 at 21:00; Stop 08/20/17 at 18:15; Status DC Quetiapine Fumarate (SEROquel) 75 mg QHS PO Last administered on 08/28/17 20: 38; Start 08/20/17 at 21:00 Cetirizine HCl (ZyrTEC) 10 mg DAILY PO Last administered on 08/28/17 07:46; Start 08/22/17 at 09:00 Fluticasone Propionate (Flonase) 2 spray DAILY NS Last administered on 07:48; Start 08/22/17 at 09:00 Buspirone HCl (Buspar) 5 mg TID PO Last administered on 08/25/17 09:24; Start 08/22/17 at 21:00; Stop 08/25/17 at 11:42; Status DC Albuterol/ Ipratropium (Duoneb) 3 ml RTQID NEB Last administered on 08/26/17at 16:54; Start 08/23/17 at 08:00; Stop 08/26/17 at 19:04; Status DC Pantoprazole Sodium (Protonix) 40 mg DAILYAC PO Last administered on 08/28/17at 07:47; Start 08/24/17 at 07:30 Doxycycline Hyclate (Vibra-Tab) 100 mg BID PO Last administered on 08/28/17at 20 :37; Start 08/23/17 at 13:30; Stop 09/02/17 at 13:29 Lactobacillus Rhamnosus (Culturelle) 1 cap BID PO Last administered on at 20:37; Start 08/23/17 at 21:00 Methylprednisolone (Medrol) 8 mg BID PO Last administered on 08/24/17at 19:47; Start 08/24/17 at 09:00; Stop 08/24/17 at 21:01; Status DC Methylprednisolone (Medrol) 4 mg TIDPC PO Last administered on 08/25/17at 18:17 ; Start 08/25/17 at 08:30; Stop 08/25/17 at 17:31; Status DC Methylprednisolone (Medrol) 8 mg QHS PO Last administered on 08/25/17at 19:27; Start 08/25/17 at 21:00; Stop 08/25/17 at 21:01; Status DC Methylprednisolone (Medrol) 4 mg QIDAFTMEAL PO Last administered on 08/26/17at 19:35; Start 08/26/17 at 09:00; Stop 08/26/17 at 21:01; Status DC Methylprednisolone (Medrol) 4 mg TID PO Last administered on 08/27/17at 20:09; Start 08/27/17 at 09:00; Stop 08/27/17 at 21:01; Status DC Methylprednisolone (Medrol) 4 mg BID PO Last administered on 08/28/17at 20:45; Start 08/28/17 at 09:00; Stop 08/28/17 at 21:01; Status DC Methylprednisolone (Medrol) 4 mg DAILY PO ; Start 08/29/17 at 09:00; Stop at 09:01 Aripiprazole (Abilify) 2.5 mg DAILY PO Last administered on 08/28/17at 07:46; Start 08/24/17 at 09:00 Buspirone HCl (Buspar) 5 mg TID@0900,1300,1700 PO Last administered on at 17:14; Start 08/25/17 at 13:00 Throat Lozenges (Cepacol Sore Throat Lozenge) 1 libby PRN Q2HR PRN PO SORE THROAT ; Start 08/25/17 at 19:00 Albuterol/ Ipratropium (Duoneb) 3 ml PRN QID PRN NEB COUGH; Start 08/27/17 at 16:00 Losartan Potassium (Cozaar) 25 mg QHS PO Last administered on 08/28/17at 20:46; Start 08/28/17 at 21:00 Active Scripts Active Reported Maalox Advanced Tab Chew (Calcium Carbonate/Simethicone) 1 Each Tab.chew 2 Tab.chew PO Q2HR Nitrostat (Nitroglycerin) 0.4 Mg Tab.subl 0.4 Mg SL PRN Q5MIN PRN Buspirone Hcl 5 Mg Tablet 5 Mg PO BID92 Multi Tablet (Pnv No.122/Iron/Folic Acid) 1 Each Tablet 1 Each PO DAILYBFRLUN Mirtazapine 15 Mg Tablet 15 Mg PO HS Saline Nasal [place] (Sodium Chloride) 30 Ml [place] 2 Spr NS BID NITROGLYCERIN SubLingual (Nitroglycerin) 0.4 Mg Tab.subl 0.4 Mg SL PRN Q5MIN PRN Milk Of Magnesia (Magnesium Hydroxide) 2,400 Mg/10 Ml Oral.susp 30 Ml PO PRN DAILY PRN Levothyroxine Sodium 88 Mcg Tablet 88 Mcg PO DAILYAC Famotidine 20 Mg Tablet 20 Mg PO DAILY Bisacodyl 5 Mg Tablet.dr 5 Mg PO PRN DAILY PRN Depakote Er (Divalproex Sodium) 500 Mg Tab.er.24h 500 Mg PO BID Cymbalta (Duloxetine Hcl) 60 Mg Capsule.dr 60 Mg PO DAILY Cyanocobalamin Injection (Cyanocobalamin (Vitamin B-12)) 1,000 Mcg/1 Ml Vial 1, 000 Mcg IM QMONTH Coreg (Carvedilol) 3.125 Mg Tablet 3.125 Mg PO BIDWMEALS Atorvastatin Calcium 40 Mg Tablet 40 Mg PO QHS Aspirin 81 Mg Tab.chew 81 Mg PO DAILY Tylenol (Acetaminophen) 325 Mg Tablet 650 Mg PO PRN Q6HRS MDD 4000 I have reviewed the current psychotropics carefully including drug interactions. Risk benefit ratio favors no change other than as noted in my dictated progress note. 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
[2017-08-29] MEDS: LEVOTHYROXINE 88 MCG TABLET PO SCH (06:12)
[2017-08-29 06:21] VITALS: BP 150/83
[2017-08-29] MEDS: busPIRone 5 MG TABLET. PO SCH ×3 (08:05→17:16)
[2017-08-29] MEDS: PANTOPRAZOLE 40 MG TABLET. PO SCH (08:05)
[2017-08-29] MEDS: buPROPion XL 150 MG TAB.ER.24H PO SCH (08:05)
[2017-08-29] MEDS: DOXYCYCLINE HYCLATE 100 MG TABLET PO SCH ×2 (08:06→19:56)
[2017-08-29] MEDS: ARIPiprazole 5 MG TABLET PO SCH (08:06)
[2017-08-29] MEDS: ASPIRIN 81 MG TAB.CHEW PO SCH (08:07)
[2017-08-29] MEDS: LACTOBACILLUS RHAMNOSUS GG 1 CAPSULE. PO SCH ×2 (08:07→19:56)
[2017-08-29] MEDS: DIVALPROEX ER 500 MG TAB.ER.24H PO SCH ×2 (08:07→19:56)
[2017-08-29] MEDS: DULoxetine HCL 60 MG CAPSULE.DR PO SCH (08:07)
[2017-08-29] MEDS: CETIRIZINE HCL 10 MG TABLET PO SCH (08:07)
[2017-08-29] MEDS: FLUTICASONE 50MCG/NASAL SPRAY 16GM BOTTLE. NS SCH (08:08)
[2017-08-29] MEDS: SODIUM CHLORIDE 0.65% NASAL SPRAY 45ML BOTTLE. NS SCH ×2 (08:08→19:57)
[2017-08-29] MEDS: CARVEDILOL 3.125 MG TABLET PO SCH ×2 (08:08→17:16)
[2017-08-29 08:24] LABS: BASO # 0.1 x10^3/uL (0.0-0.2); BASO % 1 % (0-3); EOS # 0.2 x10^3/uL (0.0-0.7); EOS % 2 % (0-3); HEMATOCRIT 46.3 % (36.0-47.0); HEMOGLOBIN 15.3 g/dL (12.0-15.5); LYMPH # 2.9 x10^3/uL (1.0-4.8); LYMPH % 29 % (24-48); MEAN CORPUSCULAR HEMOGLOBIN 28 pg (25-35); MEAN CORPUSCULAR HGB CONC 33 g/dL (31-37); MEAN CORPUSCULAR VOLUME 85 fL (79-100); MONO # 1.3 x10^3/uL (0.0-1.1); MONO % 14 % (0-9); NEUT # 5.3 x10^3uL (1.8-7.7); NEUT % 54 % (31-73); PLATELET COUNT 219 x10^3/uL (140-400); RED BLOOD COUNT 5.42 x10^6/uL (3.50-5.40); RED CELL DISTRIBUTION WIDTH 16.3 % (11.5-14.5); WHITE BLOOD COUNT 9.7 x10^3/uL (4.0-11.0)
[2017-08-29 08:47] LABS: ALBUMIN 3.2 g/dL (3.4-5.0); ALBUMIN/GLOBULIN RATIO 0.7 (1.0-1.7); CALCIUM 9.1 mg/dL (8.5-10.1); CREATININE 0.9 mg/dL (0.6-1.0); GFR 59.2; MAGNESIUM 2.1 mg/dL (1.8-2.4); POTASSIUM 4.6 mmol/L (3.5-5.1); TOTAL BILIRUBIN 0.7 mg/dL (0.2-1.0)
[2017-08-29] MEDS ORDERED: methylPREDNISolone 4 MG TABLET. PO SCH (09:00)
[2017-08-29 09:22] LABS: % BANDS 2 % (0-9); % EOS 3 % (0-5); % LYMPHS 30 % (24-48); % METAS 1 % (0-0); % MONOS 8 % (0-10); % SEGS 55 % (35-66)
[2017-08-29 09:23] LABS: PLT ESTIMATE ADEQUATE (ADEQUATE); POLYCHROMASIA SLIGHT
[2017-08-29 09:25] LABS: TOXIC GRANULATION SLIGHT
[2017-08-29 09:27] LABS: % ATYL 1 % (0-0)
[2017-08-29] MEDS: PRENATAL MULTIVITAMIN TABLET. PO SCH (11:33)
[2017-08-29] MEDS: ACETAMINOPHEN 325 MG TABLET PO PRN (15:51)
[2017-08-29 16:14] VITALS: BP 131/80
[2017-08-29] MEDS: QUEtiapine 50 MG TABLET. PO SCH (19:55)
[2017-08-29] MEDS: ATORVASTATIN CALCIUM 20 MG TABLET PO SCH (19:56)
[2017-08-29] MEDS: MELATONIN 3 MG TABLET PO SCH (19:56)
[2017-08-29] MEDS: LOSARTAN 25 MG TABLET. PO SCH (19:56)
[2017-08-29] MEDS: MIRTAZAPINE 15 MG TABLET PO SCH (19:56)
--- NOTE | 2017-08-29 20:44 | PDOC ---
Exam Note: Marco Note: Please also refer to the separate dictated note~for this date of service dictated separately.~Patient seen individually. Discussed the patient with Nursing staff reviewed the chart.~Reviewed interim history and current functioning. Reviewed vital signs,~Labs/ Radiology~and current medications noted below. Continue current treatment with the changes noted in the dictated addendum note Assessment: Vital Signs: Vital Signs Date Time Temp Pulse Resp B/P (MAP) Pulse Ox O2 Delivery O2 Flow Rate FiO2 08/29/17 19:56 92 131/80 08/29/17 16:14 96.8 20 96 08/26/17 16:55 Room Air I&O Intake and Output 08/29/17 07:00 Intake Total 700 ml Balance 700 ml Intake Oral 700 ml # Bowel Movements 2 Labs: Laboratory Tests Test 08/29/17 07:20 White Blood Count 9.7 x10^3/uL (4.0-11.0) Red Blood Count 5.42 x10^6/uL (3.50-5.40) H Hemoglobin 15.3 g/dL (12.0-15.5) Hematocrit 46.3 % (36.0-47.0) Mean Corpuscular Volume 85 fL (79-100) Mean Corpuscular Hemoglobin 28 pg (25-35) Mean Corpuscular Hemoglobin Concent 33 g/dL (31-37) Red Cell Distribution Width 16.3 % (11.5-14.5) H Platelet Count 219 x10^3/uL (140-400) # Neutrophils (%) (Auto) 54 % (31-73) Lymphocytes (%) (Auto) 29 % (24-48) Monocytes (%) (Auto) 14 % (0-9) H Eosinophils (%) (Auto) 2 % (0-3) Basophils (%) (Auto) 1 % (0-3) Neutrophils # (Auto) 5.3 x10^3uL (1.8-7.7) Lymphocytes # (Auto) 2.9 x10^3/uL (1.0-4.8) Monocytes # (Auto) 1.3 x10^3/uL (0.0-1.1) H Eosinophils # (Auto) 0.2 x10^3/uL (0.0-0.7) Basophils # (Auto) 0.1 x10^3/uL (0.0-0.2) Segmented Neutrophils % 55 % (35-66) Band Neutrophils % 2 % (0-9) Lymphocytes % 30 % (24-48) Atypical Lymphocytes % (Manual) 1 % (0-0) H Monocytes % 8 % (0-10) Eosinophils % 3 % (0-5) Metamyelocytes % 1 % (0-0) H Toxic Granulation Slight Platelet Estimate Adequate (ADEQUATE) Large Platelets Occ Polychromasia Slight Sodium Level 135 mmol/L (136-145) L Potassium Level 4.6 mmol/L (3.5-5.1) Chloride Level 98 mmol/L (98-107) Carbon Dioxide Level 29 mmol/L (21-32) Anion Gap 8 (6-14) Blood Urea Nitrogen 14 mg/dL (7-20) Creatinine 0.9 mg/dL (0.6-1.0) Estimated GFR (Cockcroft-Gault) 59.2 BUN/Creatinine Ratio 16 (6-20) Glucose Level 97 mg/dL (70-99) Calcium Level 9.1 mg/dL (8.5-10.1) Magnesium Level 2.1 mg/dL (1.8-2.4) Total Bilirubin 0.7 mg/dL (0.2-1.0) Aspartate Amino Transferase (AST) 38 U/L (15-37) H Alanine Aminotransferase (ALT) 41 U/L (14-59) Alkaline Phosphatase 86 U/L (46-116) Total Protein 8.0 g/dL (6.4-8.2) Albumin 3.2 g/dL (3.4-5.0) L Albumin/Globulin Ratio 0.7 (1.0-1.7) L Current Medications: Meds: Current Medications Acetaminophen (Tylenol) 650 mg PRN Q6HRS PRN PO PAIN / TEMP Last administered on 08/29/17at 15:51; Start 08/12/17 at 21:45 Multi-Ingredient Ointment (Analgesic [place]) 1 diana PRN QID PRN TP MUSCLE PAIN; Start 08/12/17 at 21:45 Al Hydroxide/Mg Hydroxide (Mylanta Plus Xs) 15 ml PRN AFTMEALHC PRN PO DYSPEPSIA; Start 08/12/17 at 21:45 Magnesium Hydroxide (Milk Of Magnesia) 2,400 mg PRN QHS PRN PO CONSTIPATION; Start 08/12/17 at 21:45 Buspirone HCl (Buspar) 5 mg BID92 PO Last administered on 08/22/17at 14:37; Start 08/13/17 at 09:00; Stop 08/22/17 at 16:06; Status DC Divalproex Sodium (Depakote Er) 500 mg BID PO Last administered on 08/29/17 19 :56; Start 08/13/17 at 09:00 Duloxetine HCl (Cymbalta) 60 mg DAILY PO Last administered on 08/29/17at 08:07; Start 08/13/17 at 09:00 Mirtazapine (Remeron) 15 mg HS PO Last administered on 08/29/17 19:56; Start 08/13/17 at 21:00 Acetaminophen (Tylenol) 650 mg PRN Q6HRS PRN PO MILD PAIN/TEMP; Start 08/12/17 at 23:30; Stop 08/12/17 at 23:37; Status DC Aspirin (Children'S Aspirin) 81 mg DAILY PO Last administered on 08/29/17at 08: 07; Start 08/13/17 at 09:00 Bisacodyl (Dulcolax Tab) 5 mg PRN DAILY PRN PO CONSTIPATION; Start 08/12/17 at 23:30 Carvedilol (Coreg) 3.125 mg BIDWMEALS PO Last administered on 08/29/17at 17:16; Start 08/13/17 at 08:00 Cyanocobalamin (Vitamin B-12) 1,000 mcg QMONTH IM ; Start 09/11/17 at 09:00 Famotidine (Pepcid) 20 mg DAILY PO Last administered on 08/23/17at 08:33; Start 08/13/17 at 09:00; Stop 08/23/17 at 13:04; Status DC Levothyroxine Sodium (Synthroid) 88 mcg DAILYAC PO Last administered on at 07:42; Start 08/13/17 at 07:30; Stop 08/13/17 at 08:03; Status DC Nitroglycerin (Nitrostat) 0.4 mg PRN Q5MIN PRN SL CHEST PAIN; Start 08/12/17 at 23:30 Nitroglycerin (Nitrostat) 0.4 mg PRN Q5MIN PRN SL CHEST PAIN; Start 08/12/17 at 23:30; Stop 08/12/17 at 23:38; Status DC Sodium Chloride (Saline Mist Nasal) 1 diana BID NS Last administered on 19:57; Start 08/13/17 at 09:00 Atorvastatin Calcium (Lipitor) 40 mg QHS PO Last administered on 08/29/17 19: 56; Start 08/13/17 at 21:00 Calcium Carbonate/ Glycine (Tums) 500 mg PRN Q2HR PRN PO INDIGESTION; Start 04/19 at 23:45 Non-Formulary Medication (Magnesium Hydroxide (Milk Of Magnesia)) 30 ml PRN DAILY PRN PO CONSTIPATION; Start 08/12/17 at 23:30; Stop 08/12/17 at 23:38; Status DC Prenat Multivit/ [place]/Iron/Folic Ac (Multivitamin ) 1 tab DAILYBFRLUN PO Last administered on 08/29/17at 11:33; Start 08/13/17 at 11:30 Simethicone (Gas-X) 80 mg PRN Q2HR PRN PO GAS / BLOATING; Start 08/12/17 at 23: 45 Levothyroxine Sodium (Synthroid) 88 mcg DAILY06 PO Last administered on at 06:12; Start 08/14/17 at 06:00 Vitamin D (Vitamin D3) 50,000 unit WEEKLY PO Last administered on 08/27/17at 07: 47; Start 08/13/17 at 17:00 Bupropion HCl (Wellbutrin Xl) 150 mg DAILY PO Last administered on 08/29/17at 08 :05; Start 08/14/17 at 09:00 Melatonin 3 mg QHS PO Last administered on 08/29/17 19:56; Start 08/13/17 at 21:00 Quetiapine Fumarate (SEROquel) 25 mg HS PO Last administered on 08/17/17 19:57 ; Start 08/16/17 at 21:00; Stop 08/18/17 at 19:36; Status DC Quetiapine Fumarate (SEROquel) 50 mg QHS PO Last administered on 08/19/17at 21: 43; Start 08/18/17 at 21:00; Stop 08/20/17 at 18:15; Status DC Quetiapine Fumarate (SEROquel) 75 mg QHS PO Last administered on 08/29/17 19: 55; Start 08/20/17 at 21:00 Cetirizine HCl (ZyrTEC) 10 mg DAILY PO Last administered on 08/29/17 08:07; Start 08/22/17 at 09:00 Fluticasone Propionate (Flonase) 2 spray DAILY NS Last administered on 08:08; Start 08/22/17 at 09:00 Buspirone HCl (Buspar) 5 mg TID PO Last administered on 08/25/17 09:24; Start 08/22/17 at 21:00; Stop 08/25/17 at 11:42; Status DC Albuterol/ Ipratropium (Duoneb) 3 ml RTQID NEB Last administered on 08/26/17 16:54; Start 08/23/17 at 08:00; Stop 08/26/17 at 19:04; Status DC Pantoprazole Sodium (Protonix) 40 mg DAILYAC PO Last administered on 08/29/17at 08:05; Start 08/24/17 at 07:30 Doxycycline Hyclate (Vibra-Tab) 100 mg BID PO Last administered on 08/29/17 19 :56; Start 08/23/17 at 13:30; Stop 09/02/17 at 13:29 Lactobacillus Rhamnosus (Culturelle) 1 cap BID PO Last administered on 19:56; Start 08/23/17 at 21:00 Methylprednisolone (Medrol) 8 mg BID PO Last administered on 08/24/17 19:47; Start 08/24/17 at 09:00; Stop 08/24/17 at 21:01; Status DC Methylprednisolone (Medrol) 4 mg TIDPC PO Last administered on 08/25/17 18:17 ; Start 08/25/17 at 08:30; Stop 08/25/17 at 17:31; Status DC Methylprednisolone (Medrol) 8 mg QHS PO Last administered on 08/25/17 19:27; Start 08/25/17 at 21:00; Stop 08/25/17 at 21:01; Status DC Methylprednisolone (Medrol) 4 mg QIDAFTMEAL PO Last administered on 08/26/17at 19:35; Start 08/26/17 at 09:00; Stop 08/26/17 at 21:01; Status DC Methylprednisolone (Medrol) 4 mg TID PO Last administered on 08/27/17at 20:09; Start 08/27/17 at 09:00; Stop 08/27/17 at 21:01; Status DC Methylprednisolone (Medrol) 4 mg BID PO Last administered on 08/28/17at 20:45; Start 08/28/17 at 09:00; Stop 08/28/17 at 21:01; Status DC Methylprednisolone (Medrol) 4 mg DAILY PO Last administered on 08/29/17at 08:10 ; Start 08/29/17 at 09:00; Stop 08/29/17 at 09:01; Status DC Aripiprazole (Abilify) 2.5 mg DAILY PO Last administered on 08/29/17 08:06; Start 08/24/17 at 09:00 Buspirone HCl (Buspar) 5 mg TID@0900,1300,1700 PO Last administered on at 17:16; Start 08/25/17 at 13:00 Throat Lozenges (Cepacol Sore Throat Lozenge) 1 libby PRN Q2HR PRN PO SORE THROAT ; Start 08/25/17 at 19:00 Albuterol/ Ipratropium (Duoneb) 3 ml PRN QID PRN NEB COUGH; Start 08/27/17 at 16:00 Losartan Potassium (Cozaar) 25 mg QHS PO Last administered on 08/29/17at 19:56; Start 08/28/17 at 21:00 Active Scripts Active Reported Maalox Advanced Tab Chew (Calcium Carbonate/Simethicone) 1 Each Tab.chew 2 Tab.chew PO Q2HR Nitrostat (Nitroglycerin) 0.4 Mg Tab.subl 0.4 Mg SL PRN Q5MIN PRN Buspirone Hcl 5 Mg Tablet 5 Mg PO BID92 Multi Tablet (Pnv No.122/Iron/Folic Acid) 1 Each Tablet 1 Each PO DAILYBFRLUN Mirtazapine 15 Mg Tablet 15 Mg PO HS Saline Nasal [place] (Sodium Chloride) 30 Ml [place] 2 Spr NS BID NITROGLYCERIN SubLingual (Nitroglycerin) 0.4 Mg Tab.subl 0.4 Mg SL PRN Q5MIN PRN Milk Of Magnesia (Magnesium Hydroxide) 2,400 Mg/10 Ml Oral.susp 30 Ml PO PRN DAILY PRN Levothyroxine Sodium 88 Mcg Tablet 88 Mcg PO DAILYAC Famotidine 20 Mg Tablet 20 Mg PO DAILY Bisacodyl 5 Mg Tablet.dr 5 Mg PO PRN DAILY PRN Depakote Er (Divalproex Sodium) 500 Mg Tab.er.24h 500 Mg PO BID Cymbalta (Duloxetine Hcl) 60 Mg Capsule.dr 60 Mg PO DAILY Cyanocobalamin Injection (Cyanocobalamin (Vitamin B-12)) 1,000 Mcg/1 Ml Vial 1, 000 Mcg IM QMONTH Coreg (Carvedilol) 3.125 Mg Tablet 3.125 Mg PO BIDWMEALS Atorvastatin Calcium 40 Mg Tablet 40 Mg PO QHS Aspirin 81 Mg Tab.chew 81 Mg PO DAILY Tylenol (Acetaminophen) 325 Mg Tablet 650 Mg PO PRN Q6HRS MDD 4000 I have reviewed the current psychotropics carefully including drug interactions. Risk benefit ratio favors no change other than as noted in my dictated progress note. Diagnosis: Problems: (1) Schizoaffective disorder, chronic condition with acute exacerbation (2) Anxiety disorder (3) Dementia in Alzheimer's disease with depression (4) Dementia in Alzheimer's disease with delusions (5) Dementia, vascular, with delusions (6) Dementia, vascular, with delirium (7) Impulse control disorder PATRICIA HUNT MD Aug 29, 2017 20:44
--- NOTE | 2017-08-29 23:33 | PN ---
DATE: 08/27/2017 This is a late entry, 08/27/2017, covers the elements not covered in my initial note, 08/27/2017. SUBJECTIVE: I met with the patient in the evening. Overall, the patient remains somewhat confused, anxious with some mood lability, complained of headaches earlier in the day, took Tylenol, disorganized, though she was aware of the place, not to the date, takes her meds in applesauce. REVIEW OF SYSTEMS: No CV, , pulmonary, eye system symptoms on review. MENTAL STATUS EXAM: Oriented to herself and situation. Speech has some latency, coherent. Abstraction fair, computation impaired, language function intact, attention span short. Mood and affect remained somewhat anxious, labile at times, but improved. LABORATORY DATA: Reviewed. IMPRESSION: Unchanged from initial note. PLAN: Continue psychotropics mentioned in my initial note. MAN Kehinde HUNT MD DR: MARCOS/yusef JOB#: [id number] / [id number]
[2017-08-30] MEDS: LEVOTHYROXINE 88 MCG TABLET PO SCH (05:37)
[2017-08-30 06:13] VITALS: BP 148/88
[2017-08-30] MEDS: LACTOBACILLUS RHAMNOSUS GG 1 CAPSULE. PO SCH ×2 (07:57→19:53)
[2017-08-30] MEDS: DULoxetine HCL 60 MG CAPSULE.DR PO SCH (07:57)
[2017-08-30] MEDS: ARIPiprazole 5 MG TABLET PO SCH (07:57)
[2017-08-30] MEDS: CETIRIZINE HCL 10 MG TABLET PO SCH (07:58)
[2017-08-30] MEDS: DOXYCYCLINE HYCLATE 100 MG TABLET PO SCH ×2 (07:58→19:53)
[2017-08-30] MEDS: ASPIRIN 81 MG TAB.CHEW PO SCH (07:58)
[2017-08-30] MEDS: PANTOPRAZOLE 40 MG TABLET. PO SCH (07:58)
[2017-08-30] MEDS: DIVALPROEX ER 500 MG TAB.ER.24H PO SCH ×2 (07:58→19:53)
[2017-08-30] MEDS: buPROPion XL 150 MG TAB.ER.24H PO SCH (07:58)
[2017-08-30] MEDS: busPIRone 5 MG TABLET. PO SCH ×3 (07:58→17:13)
[2017-08-30] MEDS: CARVEDILOL 3.125 MG TABLET PO SCH ×2 (07:58→17:00)
[2017-08-30] MEDS: FLUTICASONE 50MCG/NASAL SPRAY 16GM BOTTLE. NS SCH (08:00)
[2017-08-30] MEDS: SODIUM CHLORIDE 0.65% NASAL SPRAY 45ML BOTTLE. NS SCH ×2 (08:00→21:00)
[2017-08-30] MEDS: ACETAMINOPHEN 325 MG TABLET PO PRN (08:49)
[2017-08-30] MEDS: PRENATAL MULTIVITAMIN TABLET. PO SCH (12:15)
[2017-08-30 16:10] VITALS: BP 99/56
[2017-08-30] MEDS: MELATONIN 3 MG TABLET PO SCH (19:52)
[2017-08-30] MEDS: QUEtiapine 50 MG TABLET. PO SCH (19:52)
[2017-08-30] MEDS: ATORVASTATIN CALCIUM 20 MG TABLET PO SCH (19:52)
[2017-08-30] MEDS: MIRTAZAPINE 15 MG TABLET PO SCH (19:53)
[2017-08-30] MEDS: LOSARTAN 50 MG TABLET. PO SCH (19:59)
--- NOTE | 2017-08-30 21:31 | PDOC ---
Exam Note: Marco Note: Please also refer to the separate dictated note~for this date of service dictated separately.~Patient seen individually. Discussed the patient with Nursing staff reviewed the chart.~Reviewed interim history and current functioning. Reviewed vital signs,~Labs/ Radiology~and current medications noted below. Continue current treatment with the changes noted in the dictated addendum note Assessment: Vital Signs: Vital Signs Date Time Temp Pulse Resp B/P (MAP) Pulse Ox O2 Delivery O2 Flow Rate FiO2 08/30/17 19:59 90 128/84 08/30/17 16:10 97.2 16 100 08/26/17 16:55 Room Air I&O Intake and Output 08/30/17 07:00 Intake Total 1920 ml Balance 1920 ml Intake Oral 1920 ml # Voids 1 Current Medications: Meds: Current Medications Acetaminophen (Tylenol) 650 mg PRN Q6HRS PRN PO PAIN / TEMP Last administered on 08/30/17at 08:49; Start 08/12/17 at 21:45 Multi-Ingredient Ointment (Analgesic [place]) 1 diana PRN QID PRN TP MUSCLE PAIN; Start 08/12/17 at 21:45 Al Hydroxide/Mg Hydroxide (Mylanta Plus Xs) 15 ml PRN AFTMEALHC PRN PO DYSPEPSIA; Start 08/12/17 at 21:45 Magnesium Hydroxide (Milk Of Magnesia) 2,400 mg PRN QHS PRN PO CONSTIPATION; Start 08/12/17 at 21:45 Buspirone HCl (Buspar) 5 mg BID92 PO Last administered on 08/22/17at 14:37; Start 08/13/17 at 09:00; Stop 08/22/17 at 16:06; Status DC Divalproex Sodium (Depakote Er) 500 mg BID PO Last administered on 08/30/17at 19 :53; Start 08/13/17 at 09:00 Duloxetine HCl (Cymbalta) 60 mg DAILY PO Last administered on 08/30/17at 07:57; Start 08/13/17 at 09:00 Mirtazapine (Remeron) 15 mg HS PO Last administered on 08/30/17at 19:53; Start 08/13/17 at 21:00 Acetaminophen (Tylenol) 650 mg PRN Q6HRS PRN PO MILD PAIN/TEMP; Start 08/12/17 at 23:30; Stop 08/12/17 at 23:37; Status DC Aspirin (Children'S Aspirin) 81 mg DAILY PO Last administered on 08/30/17at 07: 58; Start 08/13/17 at 09:00 Bisacodyl (Dulcolax Tab) 5 mg PRN DAILY PRN PO CONSTIPATION; Start 08/12/17 at 23:30 Carvedilol (Coreg) 3.125 mg BIDWMEALS PO Last administered on 08/30/17at 07:58; Start 08/13/17 at 08:00 Cyanocobalamin (Vitamin B-12) 1,000 mcg QMONTH IM ; Start 09/11/17 at 09:00 Famotidine (Pepcid) 20 mg DAILY PO Last administered on 08/23/17at 08:33; Start 08/13/17 at 09:00; Stop 08/23/17 at 13:04; Status DC Levothyroxine Sodium (Synthroid) 88 mcg DAILYAC PO Last administered on at 07:42; Start 08/13/17 at 07:30; Stop 08/13/17 at 08:03; Status DC Nitroglycerin (Nitrostat) 0.4 mg PRN Q5MIN PRN SL CHEST PAIN; Start 08/12/17 at 23:30 Nitroglycerin (Nitrostat) 0.4 mg PRN Q5MIN PRN SL CHEST PAIN; Start 08/12/17 at 23:30; Stop 08/12/17 at 23:38; Status DC Sodium Chloride (Saline Mist Nasal) 1 diana BID NS Last administered on at 08:00; Start 08/13/17 at 09:00 Atorvastatin Calcium (Lipitor) 40 mg QHS PO Last administered on 08/30/17at 19: 52; Start 08/13/17 at 21:00 Calcium Carbonate/ Glycine (Tums) 500 mg PRN Q2HR PRN PO INDIGESTION; Start 04/19 at 23:45 Non-Formulary Medication (Magnesium Hydroxide (Milk Of Magnesia)) 30 ml PRN DAILY PRN PO CONSTIPATION; Start 08/12/17 at 23:30; Stop 08/12/17 at 23:38; Status DC Prenat Multivit/ Cardiac Cath Tech/Iron/Folic Ac (Multivitamin ) 1 tab DAILYBFRLUN PO Last administered on 08/30/17 12:15; Start 08/13/17 at 11:30 Simethicone (Gas-X) 80 mg PRN Q2HR PRN PO GAS / BLOATING; Start 08/12/17 at 23: 45 Levothyroxine Sodium (Synthroid) 88 mcg DAILY06 PO Last administered on 05:37; Start 08/14/17 at 06:00 Vitamin D (Vitamin D3) 50,000 unit WEEKLY PO Last administered on 08/27/17 07: 47; Start 08/13/17 at 17:00 Bupropion HCl (Wellbutrin Xl) 150 mg DAILY PO Last administered on 08/30/17 07 :58; Start 08/14/17 at 09:00 Melatonin 3 mg QHS PO Last administered on 08/30/17 19:52; Start 08/13/17 at 21:00 Quetiapine Fumarate (SEROquel) 25 mg HS PO Last administered on 08/17/17 19:57 ; Start 08/16/17 at 21:00; Stop 08/18/17 at 19:36; Status DC Quetiapine Fumarate (SEROquel) 50 mg QHS PO Last administered on 08/19/17 21: 43; Start 08/18/17 at 21:00; Stop 08/20/17 at 18:15; Status DC Quetiapine Fumarate (SEROquel) 75 mg QHS PO Last administered on 08/30/17 19: 52; Start 08/20/17 at 21:00 Cetirizine HCl (ZyrTEC) 10 mg DAILY PO Last administered on 08/30/17 07:58; Start 08/22/17 at 09:00 Fluticasone Propionate (Flonase) 2 spray DAILY NS Last administered on 08:00; Start 08/22/17 at 09:00 Buspirone HCl (Buspar) 5 mg TID PO Last administered on 08/25/17 09:24; Start 08/22/17 at 21:00; Stop 08/25/17 at 11:42; Status DC Albuterol/ Ipratropium (Duoneb) 3 ml RTQID NEB Last administered on 08/26/17 16:54; Start 08/23/17 at 08:00; Stop 08/26/17 at 19:04; Status DC Pantoprazole Sodium (Protonix) 40 mg DAILYAC PO Last administered on 08/30/17 07:58; Start 08/24/17 at 07:30 Doxycycline Hyclate (Vibra-Tab) 100 mg BID PO Last administered on 08/30/17 19 :53; Start 08/23/17 at 13:30; Stop 09/02/17 at 13:29 Lactobacillus Rhamnosus (Culturelle) 1 cap BID PO Last administered on 19:53; Start 08/23/17 at 21:00 Methylprednisolone (Medrol) 8 mg BID PO Last administered on 08/24/17 19:47; Start 08/24/17 at 09:00; Stop 08/24/17 at 21:01; Status DC Methylprednisolone (Medrol) 4 mg TIDPC PO Last administered on 08/25/17 18:17 ; Start 08/25/17 at 08:30; Stop 08/25/17 at 17:31; Status DC Methylprednisolone (Medrol) 8 mg QHS PO Last administered on 08/25/17 19:27; Start 08/25/17 at 21:00; Stop 08/25/17 at 21:01; Status DC Methylprednisolone (Medrol) 4 mg QIDAFTMEAL PO Last administered on 08/26/17 19:35; Start 08/26/17 at 09:00; Stop 08/26/17 at 21:01; Status DC Methylprednisolone (Medrol) 4 mg TID PO Last administered on 08/27/17 20:09; Start 08/27/17 at 09:00; Stop 08/27/17 at 21:01; Status DC Methylprednisolone (Medrol) 4 mg BID PO Last administered on 08/28/17 20:45; Start 08/28/17 at 09:00; Stop 08/28/17 at 21:01; Status DC Methylprednisolone (Medrol) 4 mg DAILY PO Last administered on 08/29/17at 08:10 ; Start 08/29/17 at 09:00; Stop 08/29/17 at 09:01; Status DC Aripiprazole (Abilify) 2.5 mg DAILY PO Last administered on 4/30/18at 07:57; Start 08/24/17 at 09:00 Buspirone HCl (Buspar) 5 mg TID@0900,1300,1700 PO Last administered on at 17:13; Start 08/25/17 at 13:00 Throat Lozenges (Cepacol Sore Throat Lozenge) 1 libby PRN Q2HR PRN PO SORE THROAT ; Start 08/25/17 at 19:00 Albuterol/ Ipratropium (Duoneb) 3 ml PRN QID PRN NEB COUGH; Start 08/27/17 at 16:00 Losartan Potassium (Cozaar) 25 mg QHS PO Last administered on 08/29/17at 19:56; Start 08/28/17 at 21:00; Stop 08/30/17 at 15:06; Status DC Losartan Potassium (Cozaar) 50 mg QHS PO Last administered on 08/30/17at 19:59; Start 08/30/17 at 21:00 Active Scripts Active Reported Maalox Advanced Tab Chew (Calcium Carbonate/Simethicone) 1 Each Tab.chew 2 Tab.chew PO Q2HR Nitrostat (Nitroglycerin) 0.4 Mg Tab.subl 0.4 Mg SL PRN Q5MIN PRN Buspirone Hcl 5 Mg Tablet 5 Mg PO BID92 Multi Tablet (Pnv No.122/Iron/Folic Acid) 1 Each Tablet 1 Each PO DAILYBFRLUN Mirtazapine 15 Mg Tablet 15 Mg PO HS Saline Nasal [place] (Sodium Chloride) 30 Ml [place] 2 Spr NS BID NITROGLYCERIN SubLingual (Nitroglycerin) 0.4 Mg Tab.subl 0.4 Mg SL PRN Q5MIN PRN Milk Of Magnesia (Magnesium Hydroxide) 2,400 Mg/10 Ml Oral.susp 30 Ml PO PRN DAILY PRN Levothyroxine Sodium 88 Mcg Tablet 88 Mcg PO DAILYAC Famotidine 20 Mg Tablet 20 Mg PO DAILY Bisacodyl 5 Mg Tablet.dr 5 Mg PO PRN DAILY PRN Depakote Er (Divalproex Sodium) 500 Mg Tab.er.24h 500 Mg PO BID Cymbalta (Duloxetine Hcl) 60 Mg Capsule.dr 60 Mg PO DAILY Cyanocobalamin Injection (Cyanocobalamin (Vitamin B-12)) 1,000 Mcg/1 Ml Vial 1, 000 Mcg IM QMONTH Coreg (Carvedilol) 3.125 Mg Tablet 3.125 Mg PO BIDWMEALS Atorvastatin Calcium 40 Mg Tablet 40 Mg PO QHS Aspirin 81 Mg Tab.chew 81 Mg PO DAILY Tylenol (Acetaminophen) 325 Mg Tablet 650 Mg PO PRN Q6HRS MDD 4000 I have reviewed the current psychotropics carefully including drug interactions. Risk benefit ratio favors no change other than as noted in my dictated progress note. Diagnosis: Problems: (1) Schizoaffective disorder, chronic condition with acute exacerbation (2) Anxiety disorder (3) Dementia in Alzheimer's disease with depression (4) Dementia in Alzheimer's disease with delusions (5) Dementia, vascular, with delusions (6) Dementia, vascular, with delirium (7) Impulse control disorder PATRICIA HUNT MD Aug 30, 2017 21:31
--- NOTE | 2017-08-30 23:49 | RAD ---
CT maxillofacial without contrast History: Headache and dementia Axial helical images of the face were obtained without contrast. Axial and coronal reconstruction was performed. The nasal septum is mildly deviated to the left. The ostiomeatal complexes are narrow but patent. The paranasal sinuses are clear. The visualized osseous structures appear intact. The orbits appear normal. There is moderate diffuse cerebral atrophy. Impression: No acute findings. PQRS Compliance Statement: One or more of the following individualized dose reduction techniques were utilized for this examination: 1. Automated exposure control 2. Adjustment of the mA and/or kV according to patient size 3. Use of iterative reconstruction technique Electronically signed by: Malik Cerda III, MD (08/30/2017 11:46 PM) [id number]
--- NOTE | 2017-08-31 02:54 | PN ---
DATE: 08/28/2017 This is a late entry for 08/28/2017 covers elements not covered in my initial note of 08/28/2017. SUBJECTIVE: I met with the patient in the evening. The patient slept 7-1/4 hours previous evening. Previous night, she was quite delusional, talking about smoke being in her room and that the fire alarm went off. Blood pressure is slightly elevated in the 160s. REVIEW OF SYSTEMS: No CV, , pulmonary, eye system symptoms on review. MENTAL STATUS EXAM: Oriented to herself and situation. Speech has some latency, coherent. Abstraction fair, computation impaired, language function intact, attention span short. Mood and affect, somewhat anxious, at times labile, but improved. LABORATORY DATA: Reviewed. IMPRESSION: Schizoaffective disorder, bipolar type. PLAN: Continue current psychotropics. Valproic acid level therapeutic at 65. MAN Kehinde HUNT MD DR: MARCOS/yusef JOB#: [id number] / [id number]
--- NOTE | 2017-08-31 04:04 | PN ---
DATE: 08/29/2017 PSYCHIATRIC PROGRESS NOTE This late entry 08/29/2017 covers elements not covered in my initial note of 08/29/2017. SUBJECTIVE: The patient slept 7 hours. She did well in the morning, compliant with medications, somewhat more disorganized in the evening. REVIEW OF SYSTEMS: No CV, , pulmonary, eye, ENT system symptoms on review. MENTAL STATUS EXAM: Oriented to herself and situation. Speech has some latency, coherent. Abstraction fair, computation impaired, language function intact. Mood and affect showing less lability. LABORATORIES: Reviewed. IMPRESSION: Schizoaffective disorder, bipolar type; anxiety disorder, unspecified; cognitive disorder, unspecified. PLAN: Continue psychotropics mentioned in my initial note. MAN Kehinde HUNT MD DR: MARCOS/yusef JOB#: [id number] / [id number]
[2017-08-31] MEDS: LEVOTHYROXINE 88 MCG TABLET PO SCH (06:04)
[2017-08-31 06:25] VITALS: BP 144/80
[2017-08-31] MEDS: CARVEDILOL 3.125 MG TABLET PO SCH ×2 (08:00→17:00)
[2017-08-31] MEDS: LACTOBACILLUS RHAMNOSUS GG 1 CAPSULE. PO SCH ×2 (08:00→20:08)
[2017-08-31] MEDS: ARIPiprazole 5 MG TABLET PO SCH (08:00)
[2017-08-31] MEDS: PANTOPRAZOLE 40 MG TABLET. PO SCH (08:00)
[2017-08-31] MEDS: CETIRIZINE HCL 10 MG TABLET PO SCH (08:01)
[2017-08-31] MEDS: busPIRone 5 MG TABLET. PO SCH ×3 (08:01→17:20)
[2017-08-31] MEDS: ASPIRIN 81 MG TAB.CHEW PO SCH (08:01)
[2017-08-31] MEDS: DIVALPROEX ER 500 MG TAB.ER.24H PO SCH ×2 (08:01→20:08)
[2017-08-31] MEDS: DOXYCYCLINE HYCLATE 100 MG TABLET PO SCH ×2 (08:01→20:08)
[2017-08-31] MEDS: buPROPion XL 150 MG TAB.ER.24H PO SCH (08:04)
[2017-08-31] MEDS: SODIUM CHLORIDE 0.65% NASAL SPRAY 45ML BOTTLE. NS SCH ×2 (08:05→20:09)
[2017-08-31] MEDS: FLUTICASONE 50MCG/NASAL SPRAY 16GM BOTTLE. NS SCH (08:05)
[2017-08-31] MEDS: DULoxetine HCL 60 MG CAPSULE.DR PO SCH (08:05)
[2017-08-31] MEDS: PRENATAL MULTIVITAMIN TABLET. PO SCH (12:04)
[2017-08-31 15:54] VITALS: BP 98/68
[2017-08-31 19:02] VITALS: BP 117/74
[2017-08-31 19:03] VITALS: BP 104/61
[2017-08-31 19:04] VITALS: BP 91/60
[2017-08-31] MEDS: LOSARTAN 50 MG TABLET. PO SCH (20:08)
[2017-08-31] MEDS: QUEtiapine 50 MG TABLET. PO SCH (20:08)
[2017-08-31] MEDS: MELATONIN 3 MG TABLET PO SCH (20:08)
[2017-08-31] MEDS: ATORVASTATIN CALCIUM 20 MG TABLET PO SCH (20:08)
[2017-08-31] MEDS: MIRTAZAPINE 15 MG TABLET PO SCH (20:09)
--- NOTE | 2017-08-31 21:33 | PDOC ---
Exam Note: Marco Note: Please also refer to the separate dictated note~for this date of service dictated separately.~Patient seen individually. Discussed the patient with Nursing staff reviewed the chart.~Reviewed interim history and current functioning. Reviewed vital signs,~Labs/ Radiology~and current medications noted below. Continue current treatment with the changes noted in the dictated addendum note Assessment: Vital Signs: Vital Signs Date Time Temp Pulse Resp B/P (MAP) Pulse Ox O2 Delivery O2 Flow Rate FiO2 08/31/17 20:08 103 91/60 08/31/17 19:04 20 96 Room Air 08/31/17 15:54 97.7 I&O Intake and Output 08/31/17 07:00 Intake Total 600 ml Balance 600 ml Intake Oral 600 ml # Voids 1 Labs: Laboratory Tests Test 08/31/17 07:09 Erythrocyte Sedimentation Rate 4 (0-25) C-Reactive Protein 2.6 mg/L (0-3.3) Current Medications: Meds: Current Medications Acetaminophen (Tylenol) 650 mg PRN Q6HRS PRN PO PAIN / TEMP Last administered on 08/30/17at 08:49; Start 08/12/17 at 21:45 Multi-Ingredient Ointment (Analgesic [place]) 1 diana PRN QID PRN TP MUSCLE PAIN; Start 08/12/17 at 21:45 Al Hydroxide/Mg Hydroxide (Mylanta Plus Xs) 15 ml PRN AFTMEALHC PRN PO DYSPEPSIA; Start 08/12/17 at 21:45 Magnesium Hydroxide (Milk Of Magnesia) 2,400 mg PRN QHS PRN PO CONSTIPATION; Start 08/12/17 at 21:45 Buspirone HCl (Buspar) 5 mg BID92 PO Last administered on 08/22/17at 14:37; Start 08/13/17 at 09:00; Stop 08/22/17 at 16:06; Status DC Divalproex Sodium (Depakote Er) 500 mg BID PO Last administered on 08/31/17at 20: 08; Start 08/13/17 at 09:00 Duloxetine HCl (Cymbalta) 60 mg DAILY PO Last administered on 08/31/17at 08:05; Start 08/13/17 at 09:00 Mirtazapine (Remeron) 15 mg HS PO Last administered on 08/31/17at 20:09; Start at 21:00 Acetaminophen (Tylenol) 650 mg PRN Q6HRS PRN PO MILD PAIN/TEMP; Start 08/12/17 at 23:30; Stop 08/12/17 at 23:37; Status DC Aspirin (Children'S Aspirin) 81 mg DAILY PO Last administered on 08/31/17at 08:01 ; Start 08/13/17 at 09:00 Bisacodyl (Dulcolax Tab) 5 mg PRN DAILY PRN PO CONSTIPATION; Start 08/12/17 at 23:30 Carvedilol (Coreg) 3.125 mg BIDWMEALS PO Last administered on 08/31/17at 08:00; Start 08/13/17 at 08:00 Cyanocobalamin (Vitamin B-12) 1,000 mcg QMONTH IM ; Start 09/11/17 at 09:00 Famotidine (Pepcid) 20 mg DAILY PO Last administered on 08/23/17at 08:33; Start 08/13/17 at 09:00; Stop 08/23/17 at 13:04; Status DC Levothyroxine Sodium (Synthroid) 88 mcg DAILYAC PO Last administered on at 07:42; Start 08/13/17 at 07:30; Stop 08/13/17 at 08:03; Status DC Nitroglycerin (Nitrostat) 0.4 mg PRN Q5MIN PRN SL CHEST PAIN; Start 08/12/17 at 23:30 Nitroglycerin (Nitrostat) 0.4 mg PRN Q5MIN PRN SL CHEST PAIN; Start 08/12/17 at 23:30; Stop 08/12/17 at 23:38; Status DC Sodium Chloride (Saline Mist Nasal) 1 diana BID NS Last administered on 08/31/17at 20:09; Start 08/13/17 at 09:00 Atorvastatin Calcium (Lipitor) 40 mg QHS PO Last administered on 08/31/17at 20:08 ; Start 08/13/17 at 21:00 Calcium Carbonate/ Glycine (Tums) 500 mg PRN Q2HR PRN PO INDIGESTION; Start 04/19 at 23:45 Non-Formulary Medication (Magnesium Hydroxide (Milk Of Magnesia)) 30 ml PRN DAILY PRN PO CONSTIPATION; Start 08/12/17 at 23:30; Stop 08/12/17 at 23:38; Status DC Prenat Multivit/ [place]/Iron/Folic Ac (Multivitamin ) 1 tab DAILYBFRLUN PO Last administered on 08/31/17 12:04; Start 08/13/17 at 11:30 Simethicone (Gas-X) 80 mg PRN Q2HR PRN PO GAS / BLOATING; Start 08/12/17 at 23: 45 Levothyroxine Sodium (Synthroid) 88 mcg DAILY06 PO Last administered on at 06:04; Start 08/14/17 at 06:00 Vitamin D (Vitamin D3) 50,000 unit WEEKLY PO Last administered on 08/27/17at 07: 47; Start 08/13/17 at 17:00 Bupropion HCl (Wellbutrin Xl) 150 mg DAILY PO Last administered on 08/31/17 08: 04; Start 08/14/17 at 09:00 Melatonin 3 mg QHS PO Last administered on 08/31/17at 20:08; Start 08/13/17 at 21 :00 Quetiapine Fumarate (SEROquel) 25 mg HS PO Last administered on 08/17/17at 19:57 ; Start 08/16/17 at 21:00; Stop 08/18/17 at 19:36; Status DC Quetiapine Fumarate (SEROquel) 50 mg QHS PO Last administered on 08/19/17at 21: 43; Start 08/18/17 at 21:00; Stop 08/20/17 at 18:15; Status DC Quetiapine Fumarate (SEROquel) 75 mg QHS PO Last administered on 08/31/17at 20:08 ; Start 08/20/17 at 21:00 Cetirizine HCl (ZyrTEC) 10 mg DAILY PO Last administered on 08/31/17 08:01; Start 08/22/17 at 09:00 Fluticasone Propionate (Flonase) 2 spray DAILY NS Last administered on at 08:05; Start 08/22/17 at 09:00 Buspirone HCl (Buspar) 5 mg TID PO Last administered on 08/25/17at 09:24; Start 08/22/17 at 21:00; Stop 08/25/17 at 11:42; Status DC Albuterol/ Ipratropium (Duoneb) 3 ml RTQID NEB Last administered on 08/26/17 16:54; Start 08/23/17 at 08:00; Stop 08/26/17 at 19:04; Status DC Pantoprazole Sodium (Protonix) 40 mg DAILYAC PO Last administered on 08/31/17 08:00; Start 08/24/17 at 07:30 Doxycycline Hyclate (Vibra-Tab) 100 mg BID PO Last administered on 08/31/17 20: 08; Start 08/23/17 at 13:30; Stop 09/02/17 at 13:29 Lactobacillus Rhamnosus (Culturelle) 1 cap BID PO Last administered on 20:08; Start 08/23/17 at 21:00 Methylprednisolone (Medrol) 8 mg BID PO Last administered on 08/24/17 19:47; Start 08/24/17 at 09:00; Stop 08/24/17 at 21:01; Status DC Methylprednisolone (Medrol) 4 mg TIDPC PO Last administered on 08/25/17 18:17 ; Start 08/25/17 at 08:30; Stop 08/25/17 at 17:31; Status DC Methylprednisolone (Medrol) 8 mg QHS PO Last administered on 08/25/17 19:27; Start 08/25/17 at 21:00; Stop 08/25/17 at 21:01; Status DC Methylprednisolone (Medrol) 4 mg QIDAFTMEAL PO Last administered on 08/26/17 19:35; Start 08/26/17 at 09:00; Stop 08/26/17 at 21:01; Status DC Methylprednisolone (Medrol) 4 mg TID PO Last administered on 08/27/17 20:09; Start 08/27/17 at 09:00; Stop 08/27/17 at 21:01; Status DC Methylprednisolone (Medrol) 4 mg BID PO Last administered on 08/28/17at 20:45; Start 08/28/17 at 09:00; Stop 08/28/17 at 21:01; Status DC Methylprednisolone (Medrol) 4 mg DAILY PO Last administered on 08/29/17at 08:10 ; Start 08/29/17 at 09:00; Stop 08/29/17 at 09:01; Status DC Aripiprazole (Abilify) 2.5 mg DAILY PO Last administered on 08/31/17at 08:00; Start 08/24/17 at 09:00 Buspirone HCl (Buspar) 5 mg TID@0900,1300,1700 PO Last administered on at 17:20; Start 08/25/17 at 13:00 Throat Lozenges (Cepacol Sore Throat Lozenge) 1 libby PRN Q2HR PRN PO SORE THROAT ; Start 08/25/17 at 19:00 Albuterol/ Ipratropium (Duoneb) 3 ml PRN QID PRN NEB COUGH; Start 08/27/17 at 16:00 Losartan Potassium (Cozaar) 25 mg QHS PO Last administered on 08/29/17at 19:56; Start 08/28/17 at 21:00; Stop 08/30/17 at 15:06; Status DC Losartan Potassium (Cozaar) 50 mg QHS PO Last administered on 08/30/17at 19:59; Start 08/30/17 at 21:00 Active Scripts Active Reported Maalox Advanced Tab Chew (Calcium Carbonate/Simethicone) 1 Each Tab.chew 2 Tab.chew PO Q2HR Nitrostat (Nitroglycerin) 0.4 Mg Tab.subl 0.4 Mg SL PRN Q5MIN PRN Buspirone Hcl 5 Mg Tablet 5 Mg PO BID92 Multi Tablet (Pnv No.122/Iron/Folic Acid) 1 Each Tablet 1 Each PO DAILYBFRLUN Mirtazapine 15 Mg Tablet 15 Mg PO HS Saline Nasal [place] (Sodium Chloride) 30 Ml [place] 2 Spr NS BID NITROGLYCERIN SubLingual (Nitroglycerin) 0.4 Mg Tab.subl 0.4 Mg SL PRN Q5MIN PRN Milk Of Magnesia (Magnesium Hydroxide) 2,400 Mg/10 Ml Oral.susp 30 Ml PO PRN DAILY PRN Levothyroxine Sodium 88 Mcg Tablet 88 Mcg PO DAILYAC Famotidine 20 Mg Tablet 20 Mg PO DAILY Bisacodyl 5 Mg Tablet. 5 Mg PO PRN DAILY PRN Depakote Er (Divalproex Sodium) 500 Mg Tab.er.24h 500 Mg PO BID Cymbalta (Duloxetine Hcl) 60 Mg Capsule.dr 60 Mg PO DAILY Cyanocobalamin Injection (Cyanocobalamin (Vitamin B-12)) 1,000 Mcg/1 Ml Vial 1, 000 Mcg IM QMONTH Coreg (Carvedilol) 3.125 Mg Tablet 3.125 Mg PO BIDWMEALS Atorvastatin Calcium 40 Mg Tablet 40 Mg PO QHS Aspirin 81 Mg Tab.chew 81 Mg PO DAILY Tylenol (Acetaminophen) 325 Mg Tablet 650 Mg PO PRN Q6HRS MDD 4000 I have reviewed the current psychotropics carefully including drug interactions. Risk benefit ratio favors no change other than as noted in my dictated progress note. Diagnosis: Problems: (1) Schizoaffective disorder, chronic condition with acute exacerbation (2) Anxiety disorder (3) Dementia in Alzheimer's disease with depression (4) Dementia in Alzheimer's disease with delusions (5) Dementia, vascular, with delusions (6) Dementia, vascular, with delirium (7) Impulse control disorder PATRICIA HUNT MD August 31, 2017 21:33
--- NOTE | 2017-09-01 02:56 | PN ---
DATE: 08/30/2017 PSYCHIATRIC PROGRESS NOTE This is a late entry for 08/30/2017, covers elements not covered in my initial note of 08/30/2017. SUBJECTIVE: I met with the patient in the evening. The patient slept 8-1/4 hours previous evening, did well the previous evening. Blood pressure in the morning was somewhat elevated, complained of headache, Norvasc initiated by Dr. Flanagan was increased, and we will check a CT of the sinuses to make sure there is nothing there to explain the headaches per Dr. Fitzpatrick. REVIEW OF SYSTEMS: Other than headaches, no CV, , pulmonary, eye system symptoms on review. MENTAL STATUS EXAM: Oriented to herself and situation. Speech is coherent, abstraction fair, computation impaired, language function intact. Attention span short. Seems less psychotic. LABORATORY DATA: Reviewed. IMPRESSION: Unchanged from initial note. PLAN: As noted above. Rest continue per initial note. MAN Kehinde HUNT MD DR: MARCOS/yusef JOB#: [id number] / [id number]
[2017-09-01] MEDS: LEVOTHYROXINE 88 MCG TABLET PO SCH (05:43)
[2017-09-01 06:34] VITALS: BP 107/64
[2017-09-01] MEDS: DULoxetine HCL 60 MG CAPSULE.DR PO SCH (07:48)
[2017-09-01] MEDS: DOXYCYCLINE HYCLATE 100 MG TABLET PO SCH ×2 (07:48→20:11)
[2017-09-01] MEDS: CETIRIZINE HCL 10 MG TABLET PO SCH (07:49)
[2017-09-01] MEDS: busPIRone 5 MG TABLET. PO SCH ×3 (07:49→17:45)
[2017-09-01] MEDS: LACTOBACILLUS RHAMNOSUS GG 1 CAPSULE. PO SCH ×2 (07:51→20:10)
[2017-09-01] MEDS: PANTOPRAZOLE 40 MG TABLET. PO SCH (07:52)
[2017-09-01] MEDS: ASPIRIN 81 MG TAB.CHEW PO SCH (07:52)
[2017-09-01] MEDS: buPROPion XL 150 MG TAB.ER.24H PO SCH (07:52)
[2017-09-01] MEDS: DIVALPROEX ER 500 MG TAB.ER.24H PO SCH ×2 (07:52→20:10)
[2017-09-01] MEDS: ARIPiprazole 5 MG TABLET PO SCH (07:52)
[2017-09-01] MEDS: SODIUM CHLORIDE 0.65% NASAL SPRAY 45ML BOTTLE. NS SCH ×2 (07:53→20:11)
[2017-09-01] MEDS: CARVEDILOL 3.125 MG TABLET PO SCH ×2 (07:53→17:45)
[2017-09-01] MEDS: FLUTICASONE 50MCG/NASAL SPRAY 16GM BOTTLE. NS SCH (07:54)
[2017-09-01] MEDS: ACETAMINOPHEN 325 MG TABLET PO PRN (09:15)
[2017-09-01] MEDS: PRENATAL MULTIVITAMIN TABLET. PO SCH (11:48)
[2017-09-01 16:48] VITALS: BP 109/80
[2017-09-01 18:24] VITALS: BP 126/64
[2017-09-01 18:26] VITALS: BP_SYST 111; BP_SYST 141; BP_DIAS 76; BP_DIAS 77
[2017-09-01] MEDS: ATORVASTATIN CALCIUM 20 MG TABLET PO SCH (20:09)
[2017-09-01] MEDS: LOSARTAN 50 MG TABLET. PO SCH (20:10)
[2017-09-01] MEDS: QUEtiapine 50 MG TABLET. PO SCH (20:10)
[2017-09-01] MEDS: MIRTAZAPINE 15 MG TABLET PO SCH (20:10)
[2017-09-01] MEDS: MELATONIN 3 MG TABLET PO SCH (20:11)
--- NOTE | 2017-09-01 20:54 | PDOC ---
Exam Note: Marco Note: Please also refer to the separate dictated note~for this date of service dictated separately.~Patient seen individually. Discussed the patient with Nursing staff reviewed the chart.~Reviewed interim history and current functioning. Reviewed vital signs,~Labs/ Radiology~and current medications noted below. Continue current treatment with the changes noted in the dictated addendum note Assessment: Vital Signs: Vital Signs Date Time Temp Pulse Resp B/P (MAP) Pulse Ox O2 Delivery O2 Flow Rate FiO2 09/01/17 20:10 89 111/77 09/01/17 16:48 97.0 17 93 08/31/17 19:04 Room Air I&O Intake and Output 09/01/17 07:00 Intake Total 720 ml Balance 720 ml Intake Oral 720 ml Current Medications: Meds: Current Medications Acetaminophen (Tylenol) 650 mg PRN Q6HRS PRN PO PAIN / TEMP Last administered on 09/01/17at 09:15; Start 08/12/17 at 21:45 Multi-Ingredient Ointment (Analgesic [place]) 1 diana PRN QID PRN TP MUSCLE PAIN; Start 08/12/17 at 21:45 Al Hydroxide/Mg Hydroxide (Mylanta Plus Xs) 15 ml PRN AFTMEALHC PRN PO DYSPEPSIA; Start 08/12/17 at 21:45 Magnesium Hydroxide (Milk Of Magnesia) 2,400 mg PRN QHS PRN PO CONSTIPATION; Start 08/12/17 at 21:45 Buspirone HCl (Buspar) 5 mg BID92 PO Last administered on 08/22/17at 14:37; Start 08/13/17 at 09:00; Stop 08/22/17 at 16:06; Status DC Divalproex Sodium (Depakote Er) 500 mg BID PO Last administered on 09/01/17at 20: 10; Start 08/13/17 at 09:00 Duloxetine HCl (Cymbalta) 60 mg DAILY PO Last administered on 09/01/17at 07:48; Start 08/13/17 at 09:00 Mirtazapine (Remeron) 15 mg HS PO Last administered on 09/01/17at 20:10; Start at 21:00 Acetaminophen (Tylenol) 650 mg PRN Q6HRS PRN PO MILD PAIN/TEMP; Start 08/12/17 at 23:30; Stop 08/12/17 at 23:37; Status DC Aspirin (Children'S Aspirin) 81 mg DAILY PO Last administered on 09/01/17at 07:52 ; Start 08/13/17 at 09:00 Bisacodyl (Dulcolax Tab) 5 mg PRN DAILY PRN PO CONSTIPATION; Start 08/12/17 at 23:30 Carvedilol (Coreg) 3.125 mg BIDWMEALS PO Last administered on 09/01/17at 17:45; Start 08/13/17 at 08:00 Cyanocobalamin (Vitamin B-12) 1,000 mcg QMONTH IM ; Start 09/11/17 at 09:00 Famotidine (Pepcid) 20 mg DAILY PO Last administered on 08/23/17at 08:33; Start 08/13/17 at 09:00; Stop 08/23/17 at 13:04; Status DC Levothyroxine Sodium (Synthroid) 88 mcg DAILYAC PO Last administered on at 07:42; Start 08/13/17 at 07:30; Stop 08/13/17 at 08:03; Status DC Nitroglycerin (Nitrostat) 0.4 mg PRN Q5MIN PRN SL CHEST PAIN; Start 08/12/17 at 23:30 Nitroglycerin (Nitrostat) 0.4 mg PRN Q5MIN PRN SL CHEST PAIN; Start 08/12/17 at 23:30; Stop 08/12/17 at 23:38; Status DC Sodium Chloride (Saline Mist Nasal) 1 diana BID NS Last administered on 09/01/17at 20:11; Start 08/13/17 at 09:00 Atorvastatin Calcium (Lipitor) 40 mg QHS PO Last administered on 09/01/17at 20:09 ; Start 08/13/17 at 21:00 Calcium Carbonate/ Glycine (Tums) 500 mg PRN Q2HR PRN PO INDIGESTION; Start 04/19 at 23:45 Non-Formulary Medication (Magnesium Hydroxide (Milk Of Magnesia)) 30 ml PRN DAILY PRN PO CONSTIPATION; Start 08/12/17 at 23:30; Stop 08/12/17 at 23:38; Status DC Prenat Multivit/ [place]/Iron/Folic Ac (Multivitamin ) 1 tab DAILYBFRLUN PO Last administered on 09/01/17 11:48; Start 08/13/17 at 11:30 Simethicone (Gas-X) 80 mg PRN Q2HR PRN PO GAS / BLOATING; Start 08/12/17 at 23: 45 Levothyroxine Sodium (Synthroid) 88 mcg DAILY06 PO Last administered on 05:43; Start 08/14/17 at 06:00 Vitamin D (Vitamin D3) 50,000 unit WEEKLY PO Last administered on 08/27/17 07: 47; Start 08/13/17 at 17:00 Bupropion HCl (Wellbutrin Xl) 150 mg DAILY PO Last administered on 09/01/17 07: 52; Start 08/14/17 at 09:00 Melatonin 3 mg QHS PO Last administered on 09/01/17 20:11; Start 08/13/17 at 21 :00 Quetiapine Fumarate (SEROquel) 25 mg HS PO Last administered on 08/17/17 19:57 ; Start 08/16/17 at 21:00; Stop 08/18/17 at 19:36; Status DC Quetiapine Fumarate (SEROquel) 50 mg QHS PO Last administered on 08/19/17 21: 43; Start 08/18/17 at 21:00; Stop 08/20/17 at 18:15; Status DC Quetiapine Fumarate (SEROquel) 75 mg QHS PO Last administered on 09/01/17 20:10 ; Start 08/20/17 at 21:00 Cetirizine HCl (ZyrTEC) 10 mg DAILY PO Last administered on 09/01/17 07:49; Start 08/22/17 at 09:00 Fluticasone Propionate (Flonase) 2 spray DAILY NS Last administered on 07:54; Start 08/22/17 at 09:00 Buspirone HCl (Buspar) 5 mg TID PO Last administered on 08/25/17 09:24; Start 08/22/17 at 21:00; Stop 08/25/17 at 11:42; Status DC Albuterol/ Ipratropium (Duoneb) 3 ml RTQID NEB Last administered on 08/26/17at 16:54; Start 08/23/17 at 08:00; Stop 08/26/17 at 19:04; Status DC Pantoprazole Sodium (Protonix) 40 mg DAILYAC PO Last administered on 09/01/17 07:52; Start 08/24/17 at 07:30 Doxycycline Hyclate (Vibra-Tab) 100 mg BID PO Last administered on 09/01/17 20: 11; Start 08/23/17 at 13:30; Stop 09/02/17 at 13:29 Lactobacillus Rhamnosus (Culturelle) 1 cap BID PO Last administered on 20:10; Start 08/23/17 at 21:00 Methylprednisolone (Medrol) 8 mg BID PO Last administered on 08/24/17 19:47; Start 08/24/17 at 09:00; Stop 08/24/17 at 21:01; Status DC Methylprednisolone (Medrol) 4 mg TIDPC PO Last administered on 08/25/17 18:17 ; Start 08/25/17 at 08:30; Stop 08/25/17 at 17:31; Status DC Methylprednisolone (Medrol) 8 mg QHS PO Last administered on 08/25/17 19:27; Start 08/25/17 at 21:00; Stop 08/25/17 at 21:01; Status DC Methylprednisolone (Medrol) 4 mg QIDAFTMEAL PO Last administered on 08/26/17at 19:35; Start 08/26/17 at 09:00; Stop 08/26/17 at 21:01; Status DC Methylprednisolone (Medrol) 4 mg TID PO Last administered on 08/27/17at 20:09; Start 08/27/17 at 09:00; Stop 08/27/17 at 21:01; Status DC Methylprednisolone (Medrol) 4 mg BID PO Last administered on 08/28/17at 20:45; Start 08/28/17 at 09:00; Stop 08/28/17 at 21:01; Status DC Methylprednisolone (Medrol) 4 mg DAILY PO Last administered on 08/29/17at 08:10 ; Start 08/29/17 at 09:00; Stop 08/29/17 at 09:01; Status DC Aripiprazole (Abilify) 2.5 mg DAILY PO Last administered on 09/01/17at 07:52; Start 08/24/17 at 09:00 Buspirone HCl (Buspar) 5 mg TID@0900,1300,1700 PO Last administered on at 17:45; Start 08/25/17 at 13:00 Throat Lozenges (Cepacol Sore Throat Lozenge) 1 libby PRN Q2HR PRN PO SORE THROAT ; Start 08/25/17 at 19:00 Albuterol/ Ipratropium (Duoneb) 3 ml PRN QID PRN NEB COUGH; Start 08/27/17 at 16:00 Losartan Potassium (Cozaar) 25 mg QHS PO Last administered on 08/29/17at 19:56; Start 08/28/17 at 21:00; Stop 08/30/17 at 15:06; Status DC Losartan Potassium (Cozaar) 50 mg QHS PO Last administered on 09/01/17at 20:10; Start 08/30/17 at 21:00 Active Scripts Active Reported Maalox Advanced Tab Chew (Calcium Carbonate/Simethicone) 1 Each Tab.chew 2 Tab.chew PO Q2HR Nitrostat (Nitroglycerin) 0.4 Mg Tab.subl 0.4 Mg SL PRN Q5MIN PRN Buspirone Hcl 5 Mg Tablet 5 Mg PO BID92 Multi Tablet (Pnv No.122/Iron/Folic Acid) 1 Each Tablet 1 Each PO DAILYBFRLUN Mirtazapine 15 Mg Tablet 15 Mg PO HS Saline Nasal [place] (Sodium Chloride) 30 Ml [place] 2 Spr NS BID NITROGLYCERIN SubLingual (Nitroglycerin) 0.4 Mg Tab.subl 0.4 Mg SL PRN Q5MIN PRN Milk Of Magnesia (Magnesium Hydroxide) 2,400 Mg/10 Ml Oral.susp 30 Ml PO PRN DAILY PRN Levothyroxine Sodium 88 Mcg Tablet 88 Mcg PO DAILYAC Famotidine 20 Mg Tablet 20 Mg PO DAILY Bisacodyl 5 Mg Tablet.dr 5 Mg PO PRN DAILY PRN Depakote Er (Divalproex Sodium) 500 Mg Tab.er.24h 500 Mg PO BID Cymbalta (Duloxetine Hcl) 60 Mg Capsule.dr 60 Mg PO DAILY Cyanocobalamin Injection (Cyanocobalamin (Vitamin B-12)) 1,000 Mcg/1 Ml Vial 1, 000 Mcg IM QMONTH Coreg (Carvedilol) 3.125 Mg Tablet 3.125 Mg PO BIDWMEALS Atorvastatin Calcium 40 Mg Tablet 40 Mg PO QHS Aspirin 81 Mg Tab.chew 81 Mg PO DAILY Tylenol (Acetaminophen) 325 Mg Tablet 650 Mg PO PRN Q6HRS MDD 4000 I have reviewed the current psychotropics carefully including drug interactions. Risk benefit ratio favors no change other than as noted in my dictated progress note. Diagnosis: Problems: (1) Schizoaffective disorder, chronic condition with acute exacerbation (2) Anxiety disorder (3) Dementia in Alzheimer's disease with depression (4) Dementia in Alzheimer's disease with delusions (5) Dementia, vascular, with delusions (6) Dementia, vascular, with delirium (7) Impulse control disorder PATRICIA HUNT MD September 01, 2017 20:54
--- NOTE | 2017-09-01 23:34 | PN ---
DATE: 08/31/2017 PSYCHIATRIC PROGRESS NOTE This is a late entry for 08/31/2017, covers elements not covered in my initial note of 08/31/2017. SUBJECTIVE: I met with the patient in the evening. The patient slept 6-1/2 hours. She has been little labile at times, clearing trays for breakfast, not inappropriate though and then trying to pass the trays to other patients at lunchtime, less delusional. She complains of some dizziness as I met with her. We will check her orthostatics twice a day for the next 3 days. At times, she seems confused, talking about wanting to hitch a ride to someplace, she is not sure where. REVIEW OF SYSTEMS: No CV, , pulmonary, eye system symptoms on review. MENTAL STATUS EXAM: Oriented to herself and situation. Speech coherent, has some latency. Abstraction fair, computation impaired, language function intact, attention span short. Mood and affect, somewhat anxious, at times labile. LABORATORY DATA: Reviewed. IMPRESSION: Unchanged from initial note. PLAN: Continue current psychotropics and changes as noted above. MAN Kehinde HUNT MD DR: MARCOS/yusef JOB#: [id number] / [id number]
[2017-09-02] MEDS ORDERED: CALC500T PO (01:54)
[2017-09-02] MEDS ORDERED: BENZ1LOZ48 PO (01:59)
[2017-09-02] MEDS ORDERED: ARIP5TAB13 PO (02:00)
[2017-09-02] MEDS ORDERED: CETI10TA16 PO (02:01)
[2017-09-02] MEDS ORDERED: CHOL500021 PO (02:02)
[2017-09-02] MEDS ORDERED: IPRA3AMP NEB (02:04)
[2017-09-02] MEDS ORDERED: FLUT9.9S NS (02:04)
[2017-09-02] MEDS ORDERED: LACT1CAP21 PO (02:05)
[2017-09-02] MEDS ORDERED: LOSA50TA6 PO (02:06)
[2017-09-02] MEDS ORDERED: MAG355OR17 PO (02:06)
[2017-09-02] MEDS ORDERED: METH29OI TP (02:07)
[2017-09-02] MEDS ORDERED: MELA3TAB2 PO (02:07)
[2017-09-02] MEDS ORDERED: QUET25TA5 PO (02:08)
[2017-09-02] MEDS ORDERED: PANT40TA5 PO (02:08)
[2017-09-02] MEDS ORDERED: SIME80TA14 PO (02:09)
[2017-09-02] MEDS ORDERED: BUPR-192 PO (02:09)
[2017-09-02] MEDS ORDERED: BUSP5TAB PO (02:10)
[2017-09-02 05:37] VITALS: BP 106/64
[2017-09-02] MEDS: LEVOTHYROXINE 88 MCG TABLET PO SCH (05:41)
[2017-09-02] MEDS: DULoxetine HCL 60 MG CAPSULE.DR PO SCH (08:00)
[2017-09-02 08:01] VITALS: BP 106/64
[2017-09-02] MEDS: ARIPiprazole 5 MG TABLET PO SCH (08:01)
[2017-09-02] MEDS: CARVEDILOL 3.125 MG TABLET PO SCH (08:01)
[2017-09-02] MEDS: CETIRIZINE HCL 10 MG TABLET PO SCH (08:01)
[2017-09-02] MEDS: PANTOPRAZOLE 40 MG TABLET. PO SCH (08:02)
[2017-09-02] MEDS: DOXYCYCLINE HYCLATE 100 MG TABLET PO SCH (08:02)
[2017-09-02] MEDS: LACTOBACILLUS RHAMNOSUS GG 1 CAPSULE. PO SCH (08:02)
[2017-09-02] MEDS: DIVALPROEX ER 500 MG TAB.ER.24H PO SCH (08:02)
[2017-09-02] MEDS: busPIRone 5 MG TABLET. PO SCH (08:02)
[2017-09-02] MEDS: ASPIRIN 81 MG TAB.CHEW PO SCH (08:03)
[2017-09-02] MEDS: buPROPion XL 150 MG TAB.ER.24H PO SCH (08:03)
[2017-09-02] MEDS: FLUTICASONE 50MCG/NASAL SPRAY 16GM BOTTLE. NS SCH (08:03)
[2017-09-02] MEDS: SODIUM CHLORIDE 0.65% NASAL SPRAY 45ML BOTTLE. NS SCH (08:04)
[2017-09-02] MEDS: PRENATAL MULTIVITAMIN TABLET. PO SCH (12:33)
--- NOTE | 2017-09-02 18:27 | PDOC ---
Exam Note: Marco Note: Please also refer to the separate dictated note~for this date of service dictated separately.~Patient seen individually. Discussed the patient with Nursing staff reviewed the chart.~Reviewed interim history and current functioning. Reviewed vital signs,~Labs/ Radiology~and current medications noted below. Continue current treatment with the changes noted in the dictated addendum note Assessment: Vital Signs: Vital Signs Date Time Temp Pulse Resp B/P (MAP) Pulse Ox O2 Delivery O2 Flow Rate FiO2 09/02/17 08:01 75 106/64 09/02/17 05:37 98.6 18 09/01/17 16:48 93 08/31/17 19:04 Room Air I&O Intake and Output 09/02/17 06:59 Intake Total 1380 ml Balance 1380 ml Intake Oral 1380 ml Current Medications: Meds: Current Medications Acetaminophen (Tylenol) 650 mg PRN Q6HRS PRN PO PAIN / TEMP Last administered on 09/01/17at 09:15; Start 08/12/17 at 21:45; Stop 09/02/17 at 13:42; Status DC Multi-Ingredient Ointment (Analgesic [place]) 1 tee PRN QID PRN TP MUSCLE PAIN; Start 08/12/17 at 21:45; Stop 09/02/17 at 13:42; Status DC Al Hydroxide/Mg Hydroxide (Mylanta Plus Xs) 15 ml PRN AFTMEALHC PRN PO DYSPEPSIA; Start 08/12/17 at 21:45; Stop 09/02/17 at 13:42; Status DC Magnesium Hydroxide (Milk Of Magnesia) 2,400 mg PRN QHS PRN PO CONSTIPATION; Start 08/12/17 at 21:45; Stop 09/02/17 at 13:42; Status DC Buspirone HCl (Buspar) 5 mg BID92 PO Last administered on 08/22/17at 14:37; Start 08/13/17 at 09:00; Stop 08/22/17 at 16:06; Status DC Divalproex Sodium (Depakote Er) 500 mg BID PO Last administered on 09/02/17at 08: 02; Start 08/13/17 at 09:00; Stop 09/02/17 at 13:42; Status DC Duloxetine HCl (Cymbalta) 60 mg DAILY PO Last administered on 09/02/17at 08:00; Start 08/13/17 at 09:00; Stop 09/02/17 at 13:42; Status DC Mirtazapine (Remeron) 15 mg HS PO Last administered on 09/01/17at 20:10; Start at 21:00; Stop 09/02/17 at 13:42; Status DC Acetaminophen (Tylenol) 650 mg PRN Q6HRS PRN PO MILD PAIN/TEMP; Start 08/12/17 at 23:30; Stop 08/12/17 at 23:37; Status DC Aspirin (Children'S Aspirin) 81 mg DAILY PO Last administered on 09/02/17at 08:03 ; Start 08/13/17 at 09:00; Stop 09/02/17 at 13:42; Status DC Bisacodyl (Dulcolax Tab) 5 mg PRN DAILY PRN PO CONSTIPATION; Start 08/12/17 at 23:30; Stop 09/02/17 at 13:42; Status DC Carvedilol (Coreg) 3.125 mg BIDWMEALS PO Last administered on 09/02/17at 08:01; Start 08/13/17 at 08:00; Stop 09/02/17 at 13:42; Status DC Cyanocobalamin (Vitamin B-12) 1,000 mcg QMONTH IM ; Start 09/11/17 at 09:00; Stop 09/11/17 at 09:00; Status DC Famotidine (Pepcid) 20 mg DAILY PO Last administered on 08/23/17at 08:33; Start 08/13/17 at 09:00; Stop 08/23/17 at 13:04; Status DC Levothyroxine Sodium (Synthroid) 88 mcg DAILYAC PO Last administered on at 07:42; Start 08/13/17 at 07:30; Stop 08/13/17 at 08:03; Status DC Nitroglycerin (Nitrostat) 0.4 mg PRN Q5MIN PRN SL CHEST PAIN; Start 08/12/17 at 23:30; Stop 09/02/17 at 13:42; Status DC Nitroglycerin (Nitrostat) 0.4 mg PRN Q5MIN PRN SL CHEST PAIN; Start 08/12/17 at 23:30; Stop 08/12/17 at 23:38; Status DC Sodium Chloride (Saline Mist Nasal) 1 tee BID NS Last administered on 09/02/17 08:04; Start 08/13/17 at 09:00; Stop 09/02/17 at 13:42; Status DC Atorvastatin Calcium (Lipitor) 40 mg QHS PO Last administered on 09/01/17at 20:09 ; Start 08/13/17 at 21:00; Stop 09/02/17 at 13:42; Status DC Calcium Carbonate/ Glycine (Tums) 500 mg PRN Q2HR PRN PO INDIGESTION; Start 04/19 at 23:45; Stop 09/02/17 at 13:42; Status DC Non-Formulary Medication (Magnesium Hydroxide (Milk Of Magnesia)) 30 ml PRN DAILY PRN PO CONSTIPATION; Start 08/12/17 at 23:30; Stop 08/12/17 at 23:38; Status DC Prenat Multivit/ [place]/Iron/Folic Ac (Multivitamin ) 1 tab DAILYBFRLUN PO Last administered on 09/02/17at 12:33; Start 08/13/17 at 11:30; Stop 09/02/17 at 13:42; Status DC Simethicone (Gas-X) 80 mg PRN Q2HR PRN PO GAS / BLOATING; Start 08/12/17 at 23: 45; Stop 09/02/17 at 13:42; Status DC Levothyroxine Sodium (Synthroid) 88 mcg DAILY06 PO Last administered on at 05:41; Start 08/14/17 at 06:00; Stop 09/02/17 at 13:42; Status DC Vitamin D (Vitamin D3) 50,000 unit WEEKLY PO Last administered on 08/27/17at 07: 47; Start 08/13/17 at 17:00; Stop 09/02/17 at 13:42; Status DC Bupropion HCl (Wellbutrin Xl) 150 mg DAILY PO Last administered on 09/02/17at 08: 03; Start 08/14/17 at 09:00; Stop 09/02/17 at 13:42; Status DC Melatonin 3 mg QHS PO Last administered on 09/01/17at 20:11; Start 08/13/17 at 21 :00; Stop 09/02/17 at 13:42; Status DC Quetiapine Fumarate (SEROquel) 25 mg HS PO Last administered on 08/17/17at 19:57 ; Start 08/16/17 at 21:00; Stop 08/18/17 at 19:36; Status DC Quetiapine Fumarate (SEROquel) 50 mg QHS PO Last administered on 08/19/17at 21: 43; Start 08/18/17 at 21:00; Stop 08/20/17 at 18:15; Status DC Quetiapine Fumarate (SEROquel) 75 mg QHS PO Last administered on 09/01/17at 20:10 ; Start 08/20/17 at 21:00; Stop 09/02/17 at 13:42; Status DC Cetirizine HCl (ZyrTEC) 10 mg DAILY PO Last administered on 09/02/17 08:01; Start 08/22/17 at 09:00; Stop 09/02/17 at 13:42; Status DC Fluticasone Propionate (Flonase) 2 spray DAILY NS Last administered on 08:03; Start 08/22/17 at 09:00; Stop 09/02/17 at 13:42; Status DC Buspirone HCl (Buspar) 5 mg TID PO Last administered on 08/25/17at 09:24; Start 08/22/17 at 21:00; Stop 08/25/17 at 11:42; Status DC Albuterol/ Ipratropium (Duoneb) 3 ml RTQID NEB Last administered on 08/26/17at 16:54; Start 08/23/17 at 08:00; Stop 08/26/17 at 19:04; Status DC Pantoprazole Sodium (Protonix) 40 mg DAILYAC PO Last administered on 09/02/17 08:02; Start 08/24/17 at 07:30; Stop 09/02/17 at 13:42; Status DC Doxycycline Hyclate (Vibra-Tab) 100 mg BID PO Last administered on 09/02/17 08: 02; Start 08/23/17 at 13:30; Stop 09/02/17 at 13:29; Status DC Lactobacillus Rhamnosus (Culturelle) 1 cap BID PO Last administered on 08:02; Start 08/23/17 at 21:00; Stop 09/02/17 at 13:42; Status DC Methylprednisolone (Medrol) 8 mg BID PO Last administered on 08/24/17at 19:47; Start 08/24/17 at 09:00; Stop 08/24/17 at 21:01; Status DC Methylprednisolone (Medrol) 4 mg TIDPC PO Last administered on 08/25/17 18:17 ; Start 08/25/17 at 08:30; Stop 08/25/17 at 17:31; Status DC Methylprednisolone (Medrol) 8 mg QHS PO Last administered on 08/25/17at 19:27; Start 08/25/17 at 21:00; Stop 08/25/17 at 21:01; Status DC Methylprednisolone (Medrol) 4 mg QIDAFTMEAL PO Last administered on 08/26/17at 19:35; Start 08/26/17 at 09:00; Stop 08/26/17 at 21:01; Status DC Methylprednisolone (Medrol) 4 mg TID PO Last administered on 08/27/17at 20:09; Start 08/27/17 at 09:00; Stop 08/27/17 at 21:01; Status DC Methylprednisolone (Medrol) 4 mg BID PO Last administered on 08/28/17at 20:45; Start 08/28/17 at 09:00; Stop 08/28/17 at 21:01; Status DC Methylprednisolone (Medrol) 4 mg DAILY PO Last administered on 08/29/17 08:10 ; Start 08/29/17 at 09:00; Stop 08/29/17 at 09:01; Status DC Aripiprazole (Abilify) 2.5 mg DAILY PO Last administered on 09/02/17at 08:01; Start 08/24/17 at 09:00; Stop 09/02/17 at 13:42; Status DC Buspirone HCl (Buspar) 5 mg TID@0900,1300,1700 PO Last administered on at 08:02; Start 08/25/17 at 13:00; Stop 09/02/17 at 13:42; Status DC Throat Lozenges (Cepacol Sore Throat Lozenge) 1 libby PRN Q2HR PRN PO SORE THROAT ; Start 08/25/17 at 19:00; Stop 09/02/17 at 13:42; Status DC Albuterol/ Ipratropium (Duoneb) 3 ml PRN QID PRN NEB COUGH Last administered on 09/02/17at 06:19; Start 08/27/17 at 16:00; Stop 09/02/17 at 13:42; Status DC Losartan Potassium (Cozaar) 25 mg QHS PO Last administered on 08/29/17at 19:56; Start 08/28/17 at 21:00; Stop 08/30/17 at 15:06; Status DC Losartan Potassium (Cozaar) 50 mg QHS PO Last administered on 09/01/17at 20:10; Start 08/30/17 at 21:00; Stop 09/02/17 at 13:42; Status DC Active Scripts Active Reported Buspirone Hcl 5 Mg Tablet 5 Mg PO TID AT 01/13/1700 Bupropion Xl (Bupropion Hcl) 150 Mg Tab.er.24h 150 Mg PO DAILY Simethicone 80 Mg Tab.chew 80 Mg PO PRN Q2HR PRN Seroquel (Quetiapine Fumarate) 25 Mg Tablet 75 Mg PO HS Pantoprazole Sodium 40 Mg Tablet.dr 40 Mg PO DAILYAC Analgesic [place] (Methyl Salicylate/Menthol) 28 Gm Oint...g. 1 Tee TP PRN QID PRN Melatonin 3 Mg Tablet 3 Mg PO HS Advanced Antacid Liquid (Mag Hydrox/Al Hydrox/Simeth) 355 Ml Oral.susp 15 Ml PO PRN AFTMEALHC PRN Losartan Potassium 50 Mg Tablet 50 Mg PO HS Culturelle (Lactobacillus Rhamnosus Gg) 1 Each Capsule 1 Cap PO BID Duoneb 0.5-3(2.5) Mg/3 Ml (Albuterol/Ipratropium) 3 Ml Ampul.neb 3 Ml NEB QID PRN Flonase Allergy Relief (Fluticasone Propionate) 9.9 Ml [place].susp 2 Sprays NS DAILY D3-50 (Cholecalciferol (Vitamin D3)) 50,000 Unit Capsule 50,000 Unit PO WEEKLY Cetirizine Hcl 10 Mg Tablet 10 Mg PO DAILY Abilify (Aripiprazole) 5 Mg Tablet 2.5 Mg PO DAILY Cepacol Sore Throat Lozenge (Benzocaine/Menthol) 1 Each Lozenge 1 Libby PO PRN Q2HR PRN Calcium Carbonate 500 Mg Tablet 500 Mg PO PRN Q2HR PRN Nitrostat (Nitroglycerin) 0.4 Mg Tab.subl 0.4 Mg SL PRN Q5MIN PRN Multi Tablet (Pnv No.122/Iron/Folic Acid) 1 Each Tablet 1 Each PO DAILYBFRLUN Mirtazapine 15 Mg Tablet 15 Mg PO HS Saline Nasal [place] (Sodium Chloride) 30 Ml [place] 1 Spr NS BID Milk Of Magnesia (Magnesium Hydroxide) 2,400 Mg/10 Ml Oral.susp 30 Ml PO PRN DAILY PRN Levothyroxine Sodium 88 Mcg Tablet 88 Mcg PO DAILYAC Bisacodyl 5 Mg Tablet.dr 5 Mg PO PRN DAILY PRN Depakote Er (Divalproex Sodium) 500 Mg Tab.er.24h 500 Mg PO BID Cymbalta (Duloxetine Hcl) 60 Mg Capsule.dr 60 Mg PO DAILY Cyanocobalamin Injection (Cyanocobalamin (Vitamin B-12)) 1,000 Mcg/1 Ml Vial 1, 000 Mcg IM QMONTH Coreg (Carvedilol) 3.125 Mg Tablet 3.125 Mg PO BIDWMEALS Atorvastatin Calcium 40 Mg Tablet 40 Mg PO QHS Aspirin 81 Mg Tab.chew 81 Mg PO DAILY Tylenol (Acetaminophen) 325 Mg Tablet 650 Mg PO PRN Q6HRS MDD 4000 I have reviewed the current psychotropics carefully including drug interactions. Risk benefit ratio favors no change other than as noted in my dictated progress note. Diagnosis: Problems: (1) Impulse control disorder (2) Dementia, vascular, with delirium (3) Dementia, vascular, with delusions (4) Dementia in Alzheimer's disease with delusions (5) Dementia in Alzheimer's disease with depression (6) Anxiety disorder (7) Schizoaffective disorder, chronic condition with acute exacerbation PATRICIA HUNT MD September 02, 2017 18:27
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
--- NOTE | 2017-09-04 04:23 | PN ---
DATE: 09/01/2017 PSYCHIATRIC PROGRESS NOTE This late entry 09/01/2017 covers elements not covered in my initial note 09/01/2017. SUBJECTIVE: I met with the patient in the evening. The patient slept 8-3/4 hours previous evening. She complains of some intermittent dizziness and orthostatics in the evening showed some orthostatic blood pressure dropped and fluids are being pushed. REVIEW OF SYSTEMS: No CV, , pulmonary, eye, ENT system symptoms on review. MENTAL STATUS EXAM: Oriented to herself and situation. Speech is coherent, has some latency. Abstraction fair, computation impaired, language function intact. Mood and affect showing improvement. LABORATORIES: Reviewed. IMPRESSION: Unchanged from initial note. PLAN: Continue psychotropics mentioned in my initial note. MAN Kehinde HUNT MD DR: MARCOS/yusef JOB#: [id number] / [id number]
[2017-09-11] MEDS ORDERED: CYANOCOBALAMIN (VITAMIN B-12) 1,000 MCG/ML VIAL IM SCH (09:00)
== END 2017-09-02 13:25 | DRG 885 ==
LOC: GEROPSY 21:00
PROVIDERS: ADMIT Psychiatry & Neurology Psychiatry; ATTEND Psychiatry & Neurology Psychiatry
DX: F25.0 Schizoaffective disorder, bipolar type (principal); I42.9 Cardiomyopathy, unspecified; D69.6 Thrombocytopenia, unspecified; G30.9 Alzheimer's disease, unspecified; F05 Delirium due to known physiological condition; I50.9 Heart failure, unspecified; I11.0 Hypertensive heart disease with heart failure; R45.851 Suicidal ideations; R13.10 Dysphagia, unspecified; F01.50 Vascular dementia, unspecified severity, without behavioral disturbance, psychotic disturbance, mood disturbance, and anxiety; F02.80 Dementia in other diseases classified elsewhere, unspecified severity, without behavioral disturbance, psychotic disturbance, mood disturbance, and anxiety; F63.9 Impulse disorder, unspecified; F41.9 Anxiety disorder, unspecified; E03.9 Hypothyroidism, unspecified; E78.5 Hyperlipidemia, unspecified; J44.9 Chronic obstructive pulmonary disease, unspecified; K21.9 Gastro-esophageal reflux disease without esophagitis; I34.0 Nonrheumatic mitral (valve) insufficiency; E55.9 Vitamin D deficiency, unspecified; I25.10 Atherosclerotic heart disease of native coronary artery without angina pectoris; Z66 Do not resuscitate; I69.992 Facial weakness following unspecified cerebrovascular disease; Z79.899 Other long term (current) drug therapy; Z86.711 Personal history of pulmonary embolism
CPT/HCPCS: 36415; 70486; 71045; 80053; 80061; 80164; 81001; 82306; 82553; 82607; 83036; 83540; 83550; 83735; 84436; 84439; 84443; 84480; 85007; 85025; 85651; 86140; 86593; 87086; 92526; 94640; J7509; J7620; 92610